=== PATIENT | male | born 1940 | race Caucasian/White ===

== ENCOUNTER → 2017-03-20 | Outpatient (CLI) | payer MEDICARE ==
--- NOTE | 2017-03-21 07:28 | XR ---
EXAMINATION TYPE: XR chest 2V DATE OF EXAM: 03/20/2017 COMPARISON: 08/28/2015 INDICATION: Cough TECHNIQUE: Frontal and lateral views of the chest are obtained. FINDINGS: The heart size is normal. The pulmonary vasculature is normal. The lungs are clear. Spondylosis within the scoliotic thoracic spine. IMPRESSION: 1. No acute pulmonary process.
== END | disposition home or self-care (01) ==
LOC: RADXRYALE 11:20
PROVIDERS: ATTEND Physician Assistant Medical
DX: R05 Cough (principal)
CPT/HCPCS: 71020

== ENCOUNTER → 2019-08-11 | Outpatient (CLI) | payer MEDICARE ==
--- NOTE | 2019-08-11 09:35 | CT ---
EXAMINATION TYPE: CT abdomen pelvis w con DATE OF EXAM: 08/11/2019 COMPARISON: None HISTORY: prostate CA CT DLP: 1099.5 mGycm CONTRAST: CT scan of the abdomen and pelvis is performed with Oral Contrast and with IV Contrast, patient injec raffy with 100 mL of Isovue 300. FINDINGS: LUNG BASES-: No visible nodule. No infiltrate. LIVER/GB: No calcified gallstones. Nodular hepatic contour may reflect underlying cirrhotic liver d isease. Correlate with hepatic function testing. No space occupying hepatic lesion. Biliary tree is o f normal caliber. PANCREAS: No inflammation. No distinct mass. SPLEEN: No splenic enlargement. No lesion seen. ADRENALS: No nodule. No thickening. KIDNEYS/BLADDER: No hydronephrosis. Small simple cyst lower pole right kidney. No nephrolithiasis. No distinct renal mass. Urinary bladder grossly unremarkable. BOWEL: Normal appendix. Normal bowel caliber. No inflammation. GENITAL ORGANS: Periprosthetic fat planes are well preserved. Seminal vesicles appear unremarkable. Central glandular calcification noted. LYMPH NODES: No greater than 1cm abdominal or pelvic lymph nodes are appreciated. AORTA: No significant abnormality. OSSEOUS STRUCTURES: Degenerative changes lumbar spine. No evidence for osseous lesion. OTHER: No significant additional abnormality is seen. IMPRESSION: 1. No evidence for metastatic disease. 2. Correlate for cirrhotic liver disease.
--- NOTE | 2019-08-11 12:17 | NM ---
EXAMINATION TYPE: NM bone scan whole body DATE OF EXAM: 08/11/2019 COMPARISON: CT abdomen pelvis of the same date HISTORY: Prostate cancer Delayed whole-body scanning was performed following the injection of 20.7 mCi Tc 99m MDP. Images acq uired 3 hours post injection. FINDINGS: Uptake in the right antecubital fossa is from injection. Uptake of the right wrist and left acromiocl avicular joint are typically degenerative. There is a mild scoliosis of the thoracolumbar spine givin g the appearance of asymmetric uptake of the thoracic left hemivertebrae and lumbar right hemivertebr ae. No suspicious uptake is seen. Symmetric sacroiliac and glenohumeral uptake is likely on a degener ative basis. Similar degenerative uptake of the knees and ankles. IMPRESSION: No findings to suspect osseous metastasis. Degenerative changes of the appendicular and a xial skeleton.
== END | disposition home or self-care (01) ==
LOC: RADCTMAIN 07:23
PROVIDERS: ATTEND Urology
DX: C61 Malignant neoplasm of prostate (principal); R93.7 Abnormal findings on diagnostic imaging of other parts of musculoskeletal system
CPT/HCPCS: 82565; 84520; 74177; 36415; 78306; A9503; Q9967 ×2

== ENCOUNTER → 2019-10-13 | Outpatient (CLI) | payer MEDICARE ==
[2019-10-13 11:25] LABS: Basophils # (A) 0.1 k/uL (0-0.2); Basophils % (A) 1 %; Eosinophils # (A) 0.1 k/uL (0-0.7); Eosinophils % (A) 1 %; HGB 15.2 gm/dL (13.0-17.5); Lymphocytes # (A) 1.6 k/uL (1.0-4.8); Lymphocytes % (A) 20 %; MCH 29.6 pg (25.0-35.0); MCHC 31.8 g/dL (31.0-37.0); MCV 93.2 fL (80.0-100.0); Mean Platelet Volume 7.5; Monocytes # (A) 0.5 k/uL (0-1.0); Monocytes % (A) 6 %; Neutrophils # (A) 5.5 k/uL (1.3-7.7); Neutrophils % (A) 70 %; Platelet Count 219 k/uL (150-450); RBC 5.15 m/uL (4.30-5.90); RDW 15.1 % (11.5-15.5); WBC 7.9 k/uL (3.8-10.6)
[2019-10-13 11:29] LABS: Albumin 4.3 g/dL (3.5-5.0); Calcium 9.9 mg/dL (8.4-10.2); Potassium 4.4 mmol/L (3.5-5.1); Total Bilirubin 0.9 mg/dL (0.2-1.3)
[2019-10-13 11:35] LABS: INR 1.3 (<1.2); Prothrombin Time 12.6 sec (9.0-12.0)
== END ==
LOC: LABPAT 10:37
PROVIDERS: ATTEND Urology
DX: Z01.812 Encounter for preprocedural laboratory examination (principal); C61 Malignant neoplasm of prostate
CPT/HCPCS: 36415; 80053; 85025; 85610

== ENCOUNTER → 2020-05-10 | Outpatient (CLI) | payer MEDICARE ==
[2020-05-10 11:04] LABS: Basophils # (A) 0.1 k/uL (0-0.2); Basophils % (A) 1 %; Eosinophils # (A) 0.1 k/uL (0-0.7); Eosinophils % (A) 2 %; HCT 44.2 % (39.0-53.0); HGB 14.1 gm/dL (13.0-17.5); Lymphocytes # (A) 2.7 k/uL (1.0-4.8); Lymphocytes % (A) 33 %; MCH 29.5 pg (25.0-35.0); MCHC 31.8 g/dL (31.0-37.0); MCV 92.7 fL (80.0-100.0); Mean Platelet Volume 7.4; Monocytes # (A) 0.5 k/uL (0-1.0); Monocytes % (A) 6 %; Neutrophils # (A) 4.4 k/uL (1.3-7.7); Neutrophils % (A) 55 %; Platelet Count 250 k/uL (150-450); RBC 4.77 m/uL (4.30-5.90); RDW 15.2 % (11.5-15.5)
[2020-05-10 11:25] LABS: Calcium 9.5 mg/dL (8.4-10.2); Potassium 4.3 mmol/L (3.5-5.1)
== END | disposition home or self-care (01) ==
LOC: LABPAT 09:51
PROVIDERS: ATTEND Urology
DX: Z01.818 Encounter for other preprocedural examination (principal); C61 Malignant neoplasm of prostate; N39.3 Stress incontinence (female) (male)
CPT/HCPCS: 36415; 80048; 85025

== ENCOUNTER 2020-05-17 07:04 | Day surgery (SDC) | payer MEDICARE ==
[2020-05-12 09:19] VITALS: BMI 32.9
--- NOTE | 2020-05-16 12:48 | P.GSHP ---
History of Present Illness H&P Date: 05/16/20 80 yo male with type 3 martha. Originally had a turp elsewhere and became incontinent I eventually saw the patient. He failed medication He had a gu sling that only partially worked He subsequently developed prostate cancer and underwent a ralp by Dr Gomez. His incontinence persists He now comes for a tandem gu sphincter The risks complications including infection, erosion failure pain among have been explained understood and accepted - Constitutional Constitutional: Denies chills, Denies fever - EENT Eyes: denies blurred vision, denies pain Ears, nose, mouth and throat: Denies headache, Denies sore throat - Cardiovascular Cardiovascular: Denies chest pain, Denies shortness of breath - Respiratory Respiratory: Denies cough, Denies 7 - Gastrointestinal Gastrointestinal: Denies abdominal pain, Denies diarrhea, Denies nausea, Denies vomiting - Genitourinary (Female) Genitourinary: Denies dysuria, Denies hematuria - Genitourinary (Male) Genitourinary: Denies dysuria, Denies hematuria - Musculoskeletal Musculoskeletal: Denies myalgias - Integumentary Integumentary: Denies pruritus, Denies rash - Neurological Neurological: Denies numbness, Denies weakness - Psychiatric Psychiatric: Denies anxiety, Denies depression - Endocrine Endocrine: Denies fatigue, Denies weight change Past Medical History Past Medical History: Atrial Fibrillation, Cancer, Heart Failure, COPD, Diabetes Mellitus, Hyperlipidemia, Prostate Disorder Additional Past Medical History / Comment(s): prostate cancer. UPPER [place] History of Any Multi-Drug Resistant Organisms: None Reported Past Surgical History: Bladder Surgery, Prostate Surgery Additional Past Surgical History / Comment(s): prostatectomy, bladder suspension, surgery for benign prostate, lt ear surgery Past Anesthesia/Blood Transfusion Reactions: No Reported Reaction Smoking Status: Never smoker - Past Family History Mother Family Medical History: Cancer Additional Family Medical History / Comment(s): ovarian cancer Sister(s) Family Medical History: Deep Vein Thrombosis (DVT) Medications and Allergies Home Medications Medication Instructions Recorded Confirmed Type Albuterol Nebulized [Ventolin 2.5 mg INHALATION TID 10/15/19 05/12/20 History Nebulized] Aspirin [Adult Low Dose Aspirin EC] 81 mg PO DAILY 10/15/19 05/12/20 History Cetirizine HCl [Zyrtec] 10 mg PO DAILY 10/15/19 05/12/20 History Citalopram Hydrobromide [CeleXA] 20 mg PO DAILY 10/15/19 05/12/20 History Losartan [Cozaar] 25 mg PO DAILY 10/15/19 05/12/20 History Montelukast Sodium [Singulair] 10 mg PO HS 10/15/19 05/12/20 History Pravastatin Sodium [Pravachol] 40 mg PO DAILY 10/15/19 05/12/20 History Rivaroxaban [Xarelto] 20 mg PO DAILY 10/15/19 05/12/20 History Triamterene-Hctz 37.5-25Mg 1 tab PO DAILY 10/15/19 05/12/20 History [Maxzide 37.5-25] glipiZIDE [Glucotrol] 10 mg PO AC-BRKFST 10/15/19 05/12/20 History Fluticasone/Umeclidin/Vilanter 1 inhalation INHALATION BID 05/12/20 05/12/20 History [Trelegy Ellipta 100-62.5-25] Allergies Allergy/AdvReac Type Severity Reaction Status Date / Time No Known Allergies Allergy Verified 05/12/20 09:05 Surgical - Exam - General well developed, well nourished, no distress - Eyes PERRL - ENT decreased hearing - Neck no masses, no bruits - Respiratory normal expansion, normal respiratory effort - Cardiovascular Rhythm: regular - Abdomen Abdomen: soft, non tender - Genitourinary normal penis with no external lesions, testicles present - Integumentary no rash, no growths - Neurologic normal coordination, normal sensation - Musculoskeletal normal gait, normal posture - Psychiatric oriented to time, oriented to person, oriented to place, speech is normal, memory intact Assessment and Plan Assessment: Impression: Type 3 matrha, prostate cancer medical comorbidities Plan: Tandem AMS gu sphincter.
[~2020-05-17 07:04] MED LIST: AMPICILLIN 1,000 MG in SODIUM CHLORIDE 0.9% 50 ML IVPB ONE; FAMOTIDINE 20 MG/2 ML VIAL IV PRN; GENTAMICIN 100 MG in SODIUM CHLORIDE 0.9% 100 ML IVPB ONE; HYDROmorphone 0.5 MG/0.5 ML SYRINGE IVP PRN; ONDANSETRON 4 MG/2 ML VIAL IVP PRN
[2020-05-17] MEDS: LACTATED RINGERS 1,000 ML IV SCH ×2 (08:00→16:07)
[2020-05-17 08:11] LABS: Glucose,Whole Blood 116 mg/dL (75-99)
[2020-05-17] MEDS ORDERED: ONDANSETRON 4 MG/2 ML VIAL ONE (08:11)
[2020-05-17] MEDS ORDERED: GLYCOPYRROLATE 0.2 MG/ML 2 ML VIAL ONE (08:30)
[2020-05-17] MEDS ORDERED: ePHEDrine SULFATE/0.9% NACL/PF 50 MG/5 ML SYRINGE IV ONE (08:30)
[2020-05-17] MEDS ORDERED: PROPOFOL 10 MG/ML 20 ML VIAL IV ONE (08:30)
[2020-05-17] MEDS ORDERED: LIDOCAINE 1% INJ 10MG/ML (20 ML MDV) ONE (08:30)
[2020-05-17] MEDS ORDERED: fentaNYL (PF) 50 MCG/ML 2 ML AMP ONE (08:30)
[2020-05-17] MEDS ORDERED: WATER FOR INJECTION, STERILE 10 ML VIAL IV ONE (08:30)
[2020-05-17] MEDS ORDERED: SUCCINYLCHOLINE CHLORIDE 100 MG/5 ML SYR IV ONE (08:30)
[2020-05-17] MEDS ORDERED: GENTAMICIN 80 MG in SODIUM CHLORIDE 0.9% 200 ML IRRIGATION ONE (09:00)
[2020-05-17] MEDS ORDERED: LACTATED RINGERS 1,000 ML IV ONE (10:05)
[2020-05-17] MEDS ORDERED: MORPHINE SULFATE 2 MG/ML SYRINGE IV PRN (10:17)
[2020-05-17] MEDS ORDERED: ONDANSETRON 4 MG/2 ML VIAL IVP PRN (10:19)
--- NOTE | 2020-05-17 10:30 | P.OP ---
Date of Procedure: 05/17/20 Preoperative Diagnosis: Type III stress urinary incontinence post radical prostatectomy and previous TURP, failed male sling Postoperative Diagnosis: Same Procedure(s) Performed: Insertion of [employer], AMS GI use sphincter series 700, tandem cuffs 4 cm Anesthesia: PRISCILLA Surgeon: Ramsey Gonzáles Estimated Blood Loss (ml): 25 Pathology: none sent Condition: stable Disposition: PACU Indications for Procedure: The patient is 80. Several years ago he had a TURP by another urologist. He unfortunately was incontinent postoperatively. He failed all conservative measures. I eventually saw the patient and placed a male sling. It control his leakage to a degree. This past year he was identified with prostate cancer. did a robotic-assisted prostatectomy. His incontinence did not improve. He comes for a tandem sphincter. His leakage is about 6 pads per day. This complications alternatives including infection bleeding pain erosion and failure have been outlined understood and accepted by the patient and his family. Description of Procedure: The patient is brought to the operating suite. He is given a successful general endotracheal anesthesia. He is prepped and draped sterilely. A 12-Kyr[place] coud-tip catheter is introduced in the bladder with clear urine return. A midline scrotal incision is made. Retraction secured with the ring retractor. The urethra is felt. I dissect down to the urethra. I tediously dissect around the urethra making sure not to injure the urethra. I do this as far proximal as possible. Once I'm completely around the urethra I created a space large enough to place a sphincter. I then introduced the sizer around the urethra. Tightly it measures 3.5 cm therefore I'll use a 4 cm sphincter cuff. I then moved distally leaving a small space so that there is no visible communication between the cuffs. I again dissect completely around the urethra. Once I created a space large enough to pass a second cuff I passed a sizer and again measured 3.5 cm tightly using therefore a 4 cm cuff. I then make a small suprapubic incision. I dissect down to the rectus fascia. It is open. Created and reservoir. I then tunnel a space into the right groin through the external ring. Pass this down into the scrotum. I then placed the balloon reservoir end of the prevesical space and fill a 26 mL of saline. I closed the rectus fascia over with 0 PDS. I then placed the pump in a separate compartment in the scrotum superficial and anterior to the right testicle. I then placed the cuffs which had been prepared around the urethra. I then connected the reservoir to the pump using a straight connect. I then connected the cuffs to the pump using a Y connector. I then cystoscoped the urethra with a flexible cystoscope and I can see the indentation of the sphincters and there is no evidence of injury to the urethra. I then depressed the pump twice out to refill. I then deactivate the sphincters and reactivated to make sure it works does. I then deactivate the sphincter using the button on the pump. The suprapubic incision was closed with 3-0 chromic and a 4-0 Monocryl. The scrotal incisions are closed with 3-0 chromic deep and superficially. I then closed the skin with 3-0 chromic. He Irrigation was antibiotic irrigation throughout the procedure. The blood loss is minimal. The patient is awakened and returned recovery room good condition. He will be observed in the hospital overnight. The sphincter remained is activated for 6 weeks.
[2020-05-17 11:12] LABS: Glucose,Whole Blood 152 mg/dL (75-99)
[2020-05-17] MEDS: SODIUM CHLORIDE 0.45% 1,000 ML IV SCH (14:44)
[2020-05-17] MEDS: ALBUTEROL NEBULIZED 2.5 MG/3 ML INHALATION SCH ×2 (15:26→19:43)
[2020-05-17] MEDS ORDERED: IPRATROPIUM-ALBUTEROL 3 ML NEB INHALATION SCH (16:00)
[2020-05-17] MEDS: CEPHALEXIN 500 MG CAP PO SCH ×2 (16:19→23:10)
[2020-05-17 17:00] LABS: Glucose,Whole Blood 242 mg/dL (75-99)
[2020-05-17] MEDS: IPRATROPIUM 0.5 MG/2.5 ML NEBU INHALATION SCH (19:43)
[2020-05-17] MEDS: SYMBICORT 80-4.5 MCG INHALER INHALATION SCH (19:43)
[2020-05-17] MEDS ORDERED: MONTELUKAST 10 MG TAB PO SCH (21:00)
[2020-05-17 21:34] LABS: Glucose,Whole Blood 297 mg/dL (75-99)
[2020-05-18] MEDS: SODIUM CHLORIDE 0.45% 1,000 ML IV SCH (05:36)
[2020-05-18 07:11] VITALS: RESP 16
[2020-05-18 07:12] LABS: Glucose,Whole Blood 174 mg/dL (75-99)
[2020-05-18] MEDS ORDERED: glipiZIDE 10 MG TAB PO SCH (07:30)
[2020-05-18] MEDS: ALBUTEROL NEBULIZED 2.5 MG/3 ML INHALATION SCH ×2 (08:25→08:43)
[2020-05-18] MEDS: IPRATROPIUM 0.5 MG/2.5 ML NEBU INHALATION SCH ×3 (08:25→11:17)
[2020-05-18] MEDS: SYMBICORT 80-4.5 MCG INHALER INHALATION SCH (08:25)
[2020-05-18] MEDS ORDERED: LORATADINE 10 MG TAB PO SCH (09:00)
[2020-05-18] MEDS ORDERED: LOSARTAN 25 MG TAB PO SCH (09:00)
[2020-05-18] MEDS ORDERED: PRAVASTATIN SODIUM 40 MG TAB PO SCH (09:00)
[2020-05-18] MEDS ORDERED: TRIAMTERENE-HCTZ 37.5-25MG 1 EACH TAB PO SCH (09:00)
[2020-05-18] MEDS ORDERED: CITALOPRAM HYDROBROMIDE 20 MG TAB PO SCH (09:00)
[2020-05-18] MEDS: CEPHALEXIN 500 MG CAP PO SCH (09:20)
[2020-05-18] MEDS: LACTATED RINGERS 1,000 ML IV SCH (11:01)
[2020-05-18 11:40] LABS: Glucose,Whole Blood 136 mg/dL (75-99)
--- NOTE | 2020-05-18 13:18 | P.DS ---
Providers Attending physician: Ramsey Gonzáles Primary care physician: [facility] Course: Mr Nathan is an 80 yo male that underwent AUS placement by Dr Gonzáles, no complication during the case. See op note dated 05/17 for surgery details. He had an uneventful post operative course. Catheter was removed on POD #1. He was discharged home on POD #1. at time of discharge he was tolerating a diet, ambulating and pain is controlled. He was discharged home with abx, he will f/u for post operative check with Dr Gonzáles in 1-2 weeks Plan - Discharge Summary Discharge Rx Participant: No New Discharge Prescriptions: New Tamsulosin [Flomax] 0.4 mg PO DAILY #90 cap HYDROcodone/APAP 5-325MG [Cyclone 5-325] 1 tab PO Q4HR PRN #10 tab PRN Reason: Pain Ibuprofen 600 mg PO Q8H PRN #30 tab PRN Reason: Pain Cephalexin [Keflex] 500 mg PO Q8HR #21 cap No Action Albuterol Nebulized [Ventolin Nebulized] 2.5 mg INHALATION TID glipiZIDE [Glucotrol] 10 mg PO AC-BRKFST Rivaroxaban [Xarelto] 20 mg PO DAILY Pravastatin Sodium [Pravachol] 40 mg PO DAILY Cetirizine HCl [Zyrtec] 10 mg PO DAILY Triamterene-Hctz 37.5-25Mg [Maxzide 37.5-25] 1 tab PO DAILY Montelukast Sodium [Singulair] 10 mg PO HS Losartan [Cozaar] 25 mg PO DAILY Citalopram Hydrobromide [CeleXA] 20 mg PO DAILY Aspirin [Adult Low Dose Aspirin EC] 81 mg PO DAILY Fluticasone/Umeclidin/Vilanter [Trelegy Ellipta 100-62.5-25] 1 inhalation INHALATION BID Discharge Medication List Albuterol Nebulized [Ventolin Nebulized] 2.5 mg INHALATION TID 10/15/19 [History] Aspirin [Adult Low Dose Aspirin EC] 81 mg PO DAILY 10/15/19 [History] Cetirizine HCl [Zyrtec] 10 mg PO DAILY 10/15/19 [History] Citalopram Hydrobromide [CeleXA] 20 mg PO DAILY 10/15/19 [History] Losartan [Cozaar] 25 mg PO DAILY 10/15/19 [History] Montelukast Sodium [Singulair] 10 mg PO HS 10/15/19 [History] Pravastatin Sodium [Pravachol] 40 mg PO DAILY 10/15/19 [History] Rivaroxaban [Xarelto] 20 mg PO DAILY 10/15/19 [History] Triamterene-Hctz 37.5-25Mg [Maxzide 37.5-25] 1 tab PO DAILY 10/15/19 [History] glipiZIDE [Glucotrol] 10 mg PO AC-BRKFST 10/15/19 [History] Fluticasone/Umeclidin/Vilanter [Trelegy Ellipta 100-62.5-25] 1 inhalation INHALATION BID 05/12/20 [History] HYDROcodone/APAP 5-325MG [Cyclone 5-325] 1 tab PO Q4HR PRN #10 tab 05/17/20 [Rx] Tamsulosin [Flomax] 0.4 mg PO DAILY #90 cap 05/17/20 [Rx] Cephalexin [Keflex] 500 mg PO Q8HR #21 cap 05/18/20 [Rx] Ibuprofen 600 mg PO Q8H PRN #30 tab 05/18/20 [Rx] Follow up Appointment(s)/Referral(s): Ramsey Gonzáles MD [STAFF PHYSICIAN] - 05/25/20 8:20 am
[2020-05-18 15:08] VITALS: BP 104/70; PULSE 56; TEMP 97.5
== END 2020-05-18 16:04 | disposition home or self-care (01) ==
LOC: OR 07:04 → 4SSUR 11:44 → OR 05-18 16:04
PROVIDERS: ATTEND Urology
DX: N39.3 Stress incontinence (female) (male) (principal); I11.0 Hypertensive heart disease with heart failure; I50.42 Chronic combined systolic (congestive) and diastolic (congestive) heart failure; I48.0 Paroxysmal atrial fibrillation; I25.5 Ischemic cardiomyopathy; E11.9 Type 2 diabetes mellitus without complications; E78.2 Mixed hyperlipidemia; J44.9 Chronic obstructive pulmonary disease, unspecified; M19.90 Unspecified osteoarthritis, unspecified site; Z85.46 Personal history of malignant neoplasm of prostate; Z79.51 Long term (current) use of inhaled steroids; Z79.84 Long term (current) use of oral hypoglycemic drugs; Z79.899 Other long term (current) drug therapy; Z79.82 Long term (current) use of aspirin; Z90.79 Acquired absence of other genital organ(s); Z79.01 Long term (current) use of anticoagulants
CPT/HCPCS: 94640 ×4; 53444; C1813; J1580 ×2; J2001; J3010; J0290; J0330; J2704

== ENCOUNTER 2020-07-15 11:16 | Inpatient (IN) | payer MEDICARE ==
[2020-07-15] MEDS ORDERED: SODIUM CHLORIDE 0.9% 500 ML 500 ML IV ONE (11:34)
--- NOTE | 2020-07-15 11:37 | ED ---
General Adult HPI - General Stated complaint: AMS Time Seen by Provider: 07/15/20 11:20 Source: patient, RN notes reviewed, old records reviewed - History of Present Illness Initial comments: This is a 80-year-old male who presents emergency Department with a past medical history significant for a artificial urethral sphincter 2 months ago. Patient just started using it last night and this morning he woke up he was alert and oriented 4 family states he all of a sudden became a little confusing is alert and oriented 2 only. Patient currently has no complaints but again he is only alert and oriented 2. Patient according to EMS did have a temperature in the ambulance. Patient denies any abdominal pain patient denies any nausea vomiting. Patient denies any diarrhea. Family is not yet here so I'm not able to get any further history. - Related Data Home Medications Medication Instructions Recorded Confirmed Albuterol Nebulized [Ventolin 2.5 mg INHALATION TID 10/15/19 05/12/20 Nebulized] Aspirin [Adult Low Dose Aspirin EC] 81 mg PO DAILY 10/15/19 05/12/20 Cetirizine HCl [Zyrtec] 10 mg PO DAILY 10/15/19 05/12/20 Citalopram Hydrobromide [CeleXA] 20 mg PO DAILY 10/15/19 05/12/20 Losartan [Cozaar] 25 mg PO DAILY 10/15/19 05/12/20 Montelukast Sodium [Singulair] 10 mg PO HS 10/15/19 05/12/20 Pravastatin Sodium [Pravachol] 40 mg PO DAILY 10/15/19 05/12/20 Rivaroxaban [Xarelto] 20 mg PO DAILY 10/15/19 05/12/20 Triamterene-Hctz 37.5-25Mg 1 tab PO DAILY 10/15/19 05/12/20 [Maxzide 37.5-25] glipiZIDE [Glucotrol] 10 mg PO AC-BRKFST 10/15/19 05/12/20 Fluticasone/Umeclidin/Vilanter 1 inhalation INHALATION BID 05/12/20 05/12/20 [Trelegy Ellipta 100-62.5-25] Previous Rx's Medication Instructions Recorded HYDROcodone/APAP 5-325MG [[place] 1 tab PO Q4HR PRN #10 tab 05/17/20 5-325] Tamsulosin [Flomax] 0.4 mg PO DAILY #90 cap 05/17/20 Cephalexin [Keflex] 500 mg PO Q8HR #21 cap 05/18/20 Ibuprofen 600 mg PO Q8H PRN #30 tab 05/18/20 Allergies Allergy/AdvReac Type Severity Reaction Status Date / Time No Known Allergies Allergy Verified 07/15/20 11:36 Review of Systems ROS Statement: Those systems with pertinent positive or pertinent negative responses have been documented in the HPI. ROS Other: All systems not noted in ROS Statement are negative. Past Medical History Additional Past Medical History / Comment(s): PROSTATE CANCER - ( NO CHEMO OR RADIATION), HARD OF HEARING Additional Past Surgical History / Comment(s): prostatectomy, bladder suspension, surgery for benign prostate, LEFT ear surgery Additional Past Alcohol Use History / Comment(s): CHEW TOBACCO General Exam - General Exam Comments Initial Comments: GENERAL: Patient is well-developed and well-nourished. Patient is nontoxic and well- hydrated and is in no acute distress. ENT: Neck is soft and supple. No significant lymphadenopathy is noted. Oropharynx is clear. Moist mucous membranes. Neck has full range of motion without eliciting any pain. EYES: The sclera were anicteric and conjunctiva were pink and moist. Extraocular movements were intact and pupils were equal round and reactive to light. Eyelids were unremarkable. PULMONARY: Unlabored respirations. Good breath sounds bilaterally. No audible rales rhonchi or wheezing was noted. CARDIOVASCULAR: Patient has no irregular heartbeat ABDOMEN: Soft and nontender with normal bowel sounds. SKIN: Skin is clear with no lesions or rashes and otherwise unremarkable. NEUROLOGIC: Patient is alert and oriented x3. Cranial nerves II through XII are grossly intact. Motor and sensory are also intact. Normal speech, volume and content. Symmetrical smile. MUSCULOSKELETAL: Normal extremities with adequate strength and full range of motion. LYMPHATICS: No significant lymphadenopathy is noted PSYCHIATRIC: Normal psychiatric evaluation. Course Vital Signs 07/15/20 07/15/20 11:34 13:32 Temperature 100.9 F H Pulse Rate 94 91 Respiratory 24 18 Rate Blood Pressure 99/73 103/66 O2 Sat by Pulse 93 L 98 Oximetry Medical Decision Making - Medical Decision Making EKG shows atrial fibrillation at 85 bpm QRS is 124 QT interval 384 QTC is 456. Patient has no ST segment however there is some T-wave inversions in inferior leads 3 and aVF Chest x-ray shows no acute abnormality. Because the patient's high white count in MENTAL status I started the patient antibiotics. I spoke with Dr. Zuniga will be coming in to place a Castro catheter into the patient. Patient's troponin was elevated so I will consult cardiology however I did not start the patient on heparin because he is already on Xarelto. - Lab Data Result diagrams: 07/15/20 11:39 07/15/20 11:39 Lab Results 07/15/20 07/15/20 07/15/20 Range/Units 11:39 11:39 11:39 WBC 19.4 H (3.8-10.6) k/uL RBC 4.69 (4.30-5.90) m/uL Hgb 14.0 (13.0-17.5) gm/dL Hct 42.3 (39.0-53.0) % MCV 90.1 (80.0-100.0) fL MCH 29.8 (25.0-35.0) pg MCHC 33.0 (31.0-37.0) g/dL RDW 15.6 H (11.5-15.5) % Plt Count 188 (150-450) k/uL MPV 8.0 Neutrophils % 93 % Lymphocytes % 4 % Monocytes % 1 % Eosinophils % 1 % Basophils % 1 % Neutrophils # 18.0 H (1.3-7.7) k/uL Lymphocytes # 0.7 L (1.0-4.8) k/uL Monocytes # 0.3 (0-1.0) k/uL Eosinophils # 0.2 (0-0.7) k/uL Basophils # 0.2 (0-0.2) k/uL Manual Slide Review Performed PT 14.3 H (9.0-12.0) sec INR 1.4 H (<1.2) APTT 27.9 (22.0-30.0) sec Sodium 132 L (137-145) mmol/L Potassium 3.8 (3.5-5.1) mmol/L Chloride 104 (98-107) mmol/L Carbon Dioxide 16 L (22-30) mmol/L Anion Gap 12 mmol/L BUN 38 H (9-20) mg/dL Creatinine 1.78 H (0.66-1.25) mg/dL Est GFR (CKD-EPI)AfAm 42 (>60 ml/min/1.73 sqM) Est GFR (CKD-EPI)NonAf 36 (>60 ml/min/1.73 sqM) Glucose 103 H (74-99) mg/dL Calcium 9.0 (8.4-10.2) mg/dL Total Bilirubin 1.3 (0.2-1.3) mg/dL AST 35 (17-59) U/L ALT 20 (4-49) U/L Alkaline Phosphatase 107 (38-126) U/L Troponin I (0.000-0.034) ng/mL Total Protein 6.2 L (6.3-8.2) g/dL Albumin 3.5 (3.5-5.0) g/dL 07/15/20 Range/Units 11:39 WBC (3.8-10.6) k/uL RBC (4.30-5.90) m/uL Hgb (13.0-17.5) gm/dL Hct (39.0-53.0) % MCV (80.0-100.0) fL MCH (25.0-35.0) pg MCHC (31.0-37.0) g/dL RDW (11.5-15.5) % Plt Count (150-450) k/uL MPV Neutrophils % % Lymphocytes % % Monocytes % % Eosinophils % % Basophils % % Neutrophils # (1.3-7.7) k/uL Lymphocytes # (1.0-4.8) k/uL Monocytes # (0-1.0) k/uL Eosinophils # (0-0.7) k/uL Basophils # (0-0.2) k/uL Manual Slide Review PT (9.0-12.0) sec INR (<1.2) APTT (22.0-30.0) sec Sodium (137-145) mmol/L Potassium (3.5-5.1) mmol/L Chloride (98-107) mmol/L Carbon Dioxide (22-30) mmol/L Anion Gap mmol/L BUN (9-20) mg/dL Creatinine (0.66-1.25) mg/dL Est GFR (CKD-EPI)AfAm (>60 ml/min/1.73 sqM) Est GFR (CKD-EPI)NonAf (>60 ml/min/1.73 sqM) Glucose (74-99) mg/dL Calcium (8.4-10.2) mg/dL Total Bilirubin (0.2-1.3) mg/dL AST (17-59) U/L ALT (4-49) U/L Alkaline Phosphatase (38-126) U/L Troponin I 0.512 H* (0.000-0.034) ng/mL Total Protein (6.3-8.2) g/dL Albumin (3.5-5.0) g/dL Critical Care Time Critical Care Time: Yes Total Critical Care Time: 35 Disposition Clinical Impression: Non-STEMI (non-ST elevated myocardial infarction), Febrile illness, acute, Altered mental status, Renal insufficiency Disposition: ADMITTED IP TO THIS HOSP Referrals: Jaspreet Skaggs MD [Primary Care Provider] - 1-2 days Time of Disposition: 14:22
[2020-07-15 11:59] LABS: Basophils # (A) 0.2 k/uL (0-0.2); Basophils % (A) 1 %; Eosinophils # (A) 0.2 k/uL (0-0.7); Eosinophils % (A) 1 %; HCT 42.3 % (39.0-53.0); Lymphocytes # (A) 0.7 k/uL (1.0-4.8); Lymphocytes % (A) 4 %; MCH 29.8 pg (25.0-35.0); MCV 90.1 fL (80.0-100.0); Monocytes # (A) 0.3 k/uL (0-1.0); Monocytes % (A) 1 %; Neutrophils % (A) 93 %; Platelet Count 188 k/uL (150-450); RBC 4.69 m/uL (4.30-5.90); RDW 15.6 % (11.5-15.5); WBC 19.4 k/uL (3.8-10.6)
[2020-07-15 12:02] LABS: Albumin 3.5 g/dL (3.5-5.0); Total Bilirubin 1.3 mg/dL (0.2-1.3); Total Protein 6.2 g/dL (6.3-8.2)
[2020-07-15 12:05] LABS: INR 1.4 (<1.2); Partial Thromboplastin Time 27.9 sec (22.0-30.0); Prothrombin Time 14.3 sec (9.0-12.0)
[2020-07-15 12:07] LABS: Potassium 3.8 mmol/L (3.5-5.1)
--- NOTE | 2020-07-15 13:30 | XR ---
EXAMINATION TYPE: XR chest 2V DATE OF EXAM: 07/15/2020 COMPARISON: Prior chest x-ray 03/20/2017 HISTORY: Altered mental status TECHNIQUE: Frontal and lateral views of the chest are obtained. FINDINGS: There is no focal air space opacity, pleural effusion, or pneumothorax seen. Central vascu larity is somewhat prominent, patient is rotated in technique is apical lordotic The cardiac silhouet te size is stable and enlarged. Prominent lung volumes may be indicative of underlying COPD. The osse ous structures are intact. IMPRESSION: No acute cardiopulmonary process. Stable cardiomegaly
[2020-07-15] MEDS ORDERED: HEPARIN SODIUM,PORCINE 5,000 UNIT/ML 1 ML VIAL IV ONE (14:08)
[2020-07-15] MEDS ORDERED: HEPARIN SOD,PORK IN 0.45% NACL 25,000 UNIT in 0.45% NACL 1 250ML.BAG IV SCH (14:15)
[2020-07-15] MEDS ORDERED: NITROGLYCERIN SL TABS 0.4 MG TAB SUBLINGUAL PRN (14:24)
[2020-07-15 14:34] LABS: Appearance,Urine Cloudy (Clear); Bacteria,Urine Many /hpf; Bilirubin,Urine Negative (Negative); Blood,Urine Large (Negative); Color,Urine Yellow; Glucose,Urine (UA) Negative (Negative); Ketones,Urine Negative (Negative); Leukocyte Esterase,Urine Large (Negative); Mucus,Urine Few /hpf; Nitrite,Urine Negative (Negative); Protein,Urine 1+ (Negative); RBC,Urine >182 /hpf (0-5); Specific Gravity,Urine 1.014 (1.001-1.035); Squamous Epithelial Cell,Urine <1 /hpf (0-4); Urobilinogen,Urine <2.0 mg/dL (<2.0); WBC,Urine 44 /hpf (0-5)
[2020-07-15 14:37] LABS: Amphetamine Screen,Urine Not Detected (NotDetected); Barbiturate Screen,Urine Not Detected (NotDetected); Benzodiazepines Screen,Urine Not Detected (NotDetected); Cocaine Screen,Urine Not Detected (NotDetected); Methadone Screen, Urine Not Detected (NotDetected); Opiate Screen,Urine Not Detected (NotDetected); Oxycodone Screen, Urine Not Detected (NotDetected); Phencyclidine Screen,Urine Not Detected (NotDetected); Tricyclic Antidepressant,Urine Not Detected (NotDetected); Urn Cannabinoid Scrn Not Detected (NotDetected)
--- NOTE | 2020-07-15 17:04 | P.HPIM ---
History of Present Illness H&P Date: 07/15/20 Patient is awake and oriented to himself only. He was unable to provide any medical history. He appeared very confused. Most of the history was obtained by chart review and nursing staff report. This is a 80-year-old male with past medical history noted below significant for recent artificial urethral sphincter who presented to the hospital with worsening confusion and altered mental status. Patient was evaluated in the ER and appeared to have evidence of sepsis secondary to underlying UTI. He saw him in the emergency room. He was awake and alert but appears confused and did not answer any of my questions appropriately. He was only oriented to himself. He denies any fevers or chills at this time. He'll be admitted to the hospital awaiting urology evaluation for Castro catheter insertion. Review of Systems Review of system: 14 points review of systems were obtained and were negative except to what were mentioned in the HPI. Past Medical History Additional Past Medical History / Comment(s): PROSTATE CANCER - ( NO CHEMO OR RADIATION), HARD OF HEARING Additional Past Surgical History / Comment(s): prostatectomy, bladder suspension, surgery for benign prostate, LEFT ear surgery Additional Past Alcohol Use History / Comment(s): CHEW TOBACCO Medications and Allergies Home Medications Medication Instructions Recorded Confirmed Type Citalopram Hydrobromide [CeleXA] 20 mg PO DAILY 10/15/19 07/15/20 History Losartan [Cozaar] 25 mg PO DAILY 10/15/19 07/15/20 History Montelukast Sodium [Singulair] 10 mg PO HS 10/15/19 07/15/20 History Pravastatin Sodium [Pravachol] 40 mg PO DAILY 10/15/19 07/15/20 History Rivaroxaban [Xarelto] 20 mg PO DAILY 10/15/19 07/15/20 History Triamterene-Hctz 37.5-25Mg 1 tab PO DAILY 10/15/19 07/15/20 History [Maxzide 37.5-25] glipiZIDE [Glucotrol] 10 mg PO AC-BRKFST 10/15/19 07/15/20 History Fluticasone/Umeclidin/Vilanter 1 puff INHALATION RT-BID 05/12/20 07/15/20 History [Trelegy Ellipta 100-62.5-25] Allergies Allergy/AdvReac Type Severity Reaction Status Date / Time No Known Allergies Allergy Verified 07/15/20 15:02 Physical Exam Vitals: Vital Signs Temp Pulse Resp BP Pulse Ox 07/15/20 16:48 98.1 F 80 24 103/51 97 07/15/20 15:46 87 22 126/66 97 07/15/20 13:32 91 18 103/66 98 07/15/20 11:34 100.9 F H 94 24 99/73 93 L Intake and Output 07/15/20 07/15/20 07/15/20 06:59 14:59 22:59 Output Total 342 Balance -342 Output: Post Void Residual 342 Other: Weight 90.718 kg General: The patient is awake and alert, in no distress Eye: there is normal conjunctiva bilaterally. Neck: The neck is supple, there is no JVD. Cardiovascular: Normal S1-S2, no S3-S4, no murmurs. Respiratory: Lungs clear to auscultation bilaterally Gastrointestinal: Abdomen is soft, nontender Musculoskeletal: There is no pedal edema. Neurological:. Speech is normal. Skin: Skin is warm and dry Results CBC & Chem 7: 07/15/20 11:39 07/15/20 11:39 Labs: Abnormal Lab Results - Last 24 Hours (Table) 07/15/20 07/15/20 07/15/20 Range/Units 11:39 11:39 11:39 WBC 19.4 H (3.8-10.6) k/uL RDW 15.6 H (11.5-15.5) % Neutrophils # 18.0 H (1.3-7.7) k/uL Lymphocytes # 0.7 L (1.0-4.8) k/uL PT 14.3 H (9.0-12.0) sec INR 1.4 H (<1.2) Sodium 132 L (137-145) mmol/L Carbon Dioxide 16 L (22-30) mmol/L BUN 38 H (9-20) mg/dL Creatinine 1.78 H (0.66-1.25) mg/dL Glucose 103 H (74-99) mg/dL Troponin I (0.000-0.034) ng/mL Total Protein 6.2 L (6.3-8.2) g/dL Urine Protein (Negative) Urine Blood (Negative) Ur Leukocyte Esterase (Negative) Urine RBC (0-5) /hpf Urine WBC (0-5) /hpf Urine WBC Clumps (None) /hpf Urine Bacteria (None) /hpf Urine Mucus (None) /hpf 07/15/20 07/15/20 07/15/20 Range/Units 11:39 14:21 14:49 WBC (3.8-10.6) k/uL RDW (11.5-15.5) % Neutrophils # (1.3-7.7) k/uL Lymphocytes # (1.0-4.8) k/uL PT (9.0-12.0) sec INR (<1.2) Sodium (137-145) mmol/L Carbon Dioxide (22-30) mmol/L BUN (9-20) mg/dL Creatinine (0.66-1.25) mg/dL Glucose (74-99) mg/dL Troponin I 0.512 H* 0.616 H* (0.000-0.034) ng/mL Total Protein (6.3-8.2) g/dL Urine Protein 1+ H (Negative) Urine Blood Large H (Negative) Ur Leukocyte Esterase Large H (Negative) Urine RBC >182 H (0-5) /hpf Urine WBC 44 H (0-5) /hpf Urine WBC Clumps Few H (None) /hpf Urine Bacteria Many H (None) /hpf Urine Mucus Few H (None) /hpf Assessment and Plan Assessment: 1. Complicated urinary tract infection with possible urinary retention secondary to nonfunctional artificial urethral sphincter, continue aggressive IV fluid hydration. Antibiotic with IV ceftriaxone awaiting urine culture. Awaiting urology evaluation for possible Castro catheter insertion. 2. Sepsis without septic shock 3. Non-ST elevation GA. Patient denies any chest pain. Twelve-lead EKG in the ER with no acute ischemic changes. Probably type II secondary to sepsis. Patient is on anticoagulation with Rivaroxaban. Continue full dose aspirin daily, Lipitor 80 mg at bedtime, and metoprolol 25 mg twice daily. Continue engine monitor. Cardiology consulted for further evaluation. Patient is chest pain-free. Would obtain echocardiogram. 4. Acute kidney injury, probably secondary to obstructive uropathy. Awaiting urology to insert Castro catheter. Continue IV fluid hydration with normal saline at 75 mL per hour. Repeat lab work in the morning. 5. History of prostate cancer status post prostatectomy with subsequent chronic urine incontinence status post artificial urethral sphincter? 6. Chronic atrial fibrillation on anticoagulation with Rivaroxaban. 7. Underlying cognitive impairment
[2020-07-15] MEDS: INSULIN ASPART (NovoLOG) 100 UNIT/ML VIAL SQ SCH ×2 (18:37→22:21)
[2020-07-15] MEDS ORDERED: RIVAROXABAN 20 MG TAB PO SCH (18:45)
[2020-07-15] MEDS: SODIUM CHLORIDE 0.9% 1,000 ML IV SCH (18:58)
--- NOTE | 2020-07-15 19:00 | P.GSCN ---
History of Present Illness Consult date: 07/15/20 Reason for Consult: UTI Requesting physician: Linda Daniels History of present illness: The patient is a 80-year-old white male who underwent a robotic-assisted laparoscopic prostatectomy in October 2019. He had previously undergone a TURP. On 05/17/2020 he underwent placement of an artificial urinary sphincter for incontinence. The sphincter was activated by Dr. Gonzáles this past week. He was admitted today with confusion. He was initially unable to void to provide a urine specimen. Bladder scan showed a bladder volume of just over 300 mL. He was subsequently able to void, and urinalysis was suggestive of infection. I am consulted to place a Castro catheter. Review of Systems ROS unobtainable: due to mental status Past Medical History Additional Past Medical History / Comment(s): PROSTATE CANCER - ( NO CHEMO OR RADIATION), HARD OF HEARING Additional Past Surgical History / Comment(s): prostatectomy, bladder suspension, surgery for benign prostate, LEFT ear surgery Additional Past Alcohol Use History / Comment(s): CHEW TOBACCO Medications and Allergies Home Medications Medication Instructions Recorded Confirmed Type Citalopram Hydrobromide [CeleXA] 20 mg PO DAILY 10/15/19 07/15/20 History Losartan [Cozaar] 25 mg PO DAILY 10/15/19 07/15/20 History Montelukast Sodium [Singulair] 10 mg PO HS 10/15/19 07/15/20 History Pravastatin Sodium [Pravachol] 40 mg PO DAILY 10/15/19 07/15/20 History Rivaroxaban [Xarelto] 20 mg PO DAILY 10/15/19 07/15/20 History Triamterene-Hctz 37.5-25Mg 1 tab PO DAILY 10/15/19 07/15/20 History [Maxzide 37.5-25] glipiZIDE [Glucotrol] 10 mg PO AC-BRKFST 10/15/19 07/15/20 History Fluticasone/Umeclidin/Vilanter 1 puff INHALATION RT-BID 05/12/20 07/15/20 Histo ry [Trelegy Ellipta 100-62.5-25] Allergies Allergy/AdvReac Type Severity Reaction Status Date / Time No Known Allergies Allergy Verified 07/15/20 15:02 Surgical - Exam Vital Signs Temp Pulse Resp BP Pulse Ox 100.9 F H 94 24 99/73 93 L 07/15/20 11:34 07/15/20 11:34 07/15/20 11:34 07/15/20 11:34 07/15/20 11:34 - General well developed, well nourished, no distress - Respiratory normal respiratory effort - Abdomen Abdomen: soft, non tender, no guarding, no rigid, no rebound - Genitourinary other (The penis is normal. The urethral meatus is normal. The scrotum and testes are normal. The artificial urinary sphincter is intact. There is no evidence of infection.) - Psychiatric oriented to time, oriented to person, oriented to place, speech is normal, memory intact Results - Labs 07/15/20 11:39 07/15/20 11:39 Abnormal Lab Results - Last 24 Hours (Table) 07/15/20 07/15/20 07/15/20 Range/Units 11:39 11:39 11:39 WBC 19.4 H (3.8-10.6) k/uL RDW 15.6 H (11.5-15.5) % Neutrophils # 18.0 H (1.3-7.7) k/uL Lymphocytes # 0.7 L (1.0-4.8) k/uL PT 14.3 H (9.0-12.0) sec INR 1.4 H (<1.2) Sodium 132 L (137-145) mmol/L Carbon Dioxide 16 L (22-30) mmol/L BUN 38 H (9-20) mg/dL Creatinine 1.78 H (0.66-1.25) mg/dL Glucose 103 H (74-99) mg/dL Troponin I (0.000-0.034) ng/mL Total Protein 6.2 L (6.3-8.2) g/dL Urine Protein (Negative) Urine Blood (Negative) Ur Leukocyte Esterase (Negative) Urine RBC (0-5) /hpf Urine WBC (0-5) /hpf Urine WBC Clumps (None) /hpf Urine Bacteria (None) /hpf Urine Mucus (None) /hpf 07/15/20 07/15/20 07/15/20 Range/Units 11:39 14:21 14:49 WBC (3.8-10.6) k/uL RDW (11.5-15.5) % Neutrophils # (1.3-7.7) k/uL Lymphocytes # (1.0-4.8) k/uL PT (9.0-12.0) sec INR (<1.2) Sodium (137-145) mmol/L Carbon Dioxide (22-30) mmol/L BUN (9-20) mg/dL Creatinine (0.66-1.25) mg/dL Glucose (74-99) mg/dL Troponin I 0.512 H* 0.616 H* (0.000-0.034) ng/mL Total Protein (6.3-8.2) g/dL Urine Protein 1+ H (Negative) Urine Blood Large H (Negative) Ur Leukocyte Esterase Large H (Negative) Urine RBC >182 H (0-5) /hpf Urine WBC 44 H (0-5) /hpf Urine WBC Clumps Few H (None) /hpf Urine Bacteria Many H (None) /hpf Urine Mucus Few H (None) /hpf Diabetes panel 07/15/20 Range/Units 11:39 Sodium 132 L (137-145) mmol/L Potassium 3.8 (3.5-5.1) mmol/L Chloride 104 (98-107) mmol/L Carbon Dioxide 16 L (22-30) mmol/L BUN 38 H (9-20) mg/dL Creatinine 1.78 H (0.66-1.25) mg/dL Glucose 103 H (74-99) mg/dL Calcium 9.0 (8.4-10.2) mg/dL AST 35 (17-59) U/L ALT 20 (4-49) U/L Alkaline Phosphatase 107 (38-126) U/L Total Protein 6.2 L (6.3-8.2) g/dL Albumin 3.5 (3.5-5.0) g/dL Calcium panel 07/15/20 Range/Units 11:39 Calcium 9.0 (8.4-10.2) mg/dL Albumin 3.5 (3.5-5.0) g/dL Pituitary panel 07/15/20 Range/Units 11:39 Sodium 132 L (137-145) mmol/L Potassium 3.8 (3.5-5.1) mmol/L Chloride 104 (98-107) mmol/L Carbon Dioxide 16 L (22-30) mmol/L BUN 38 H (9-20) mg/dL Creatinine 1.78 H (0.66-1.25) mg/dL Glucose 103 H (74-99) mg/dL Calcium 9.0 (8.4-10.2) mg/dL Adrenal panel 07/15/20 Range/Units 11:39 Sodium 132 L (137-145) mmol/L Potassium 3.8 (3.5-5.1) mmol/L Chloride 104 (98-107) mmol/L Carbon Dioxide 16 L (22-30) mmol/L BUN 38 H (9-20) mg/dL Creatinine 1.78 H (0.66-1.25) mg/dL Glucose 103 H (74-99) mg/dL Calcium 9.0 (8.4-10.2) mg/dL Total Bilirubin 1.3 (0.2-1.3) mg/dL AST 35 (17-59) U/L ALT 20 (4-49) U/L Alkaline Phosphatase 107 (38-126) U/L Total Protein 6.2 L (6.3-8.2) g/dL Albumin 3.5 (3.5-5.0) g/dL Assessment and Plan (1) Male stress incontinence Current Visit: No Status: Acute Code(s): N39.3 - STRESS INCONTINENCE (FEMALE) (MALE) SNOMED Code(s): 793489959 Plan: I deactivated the artificial urinary sphincter. Some incontinence was noted. Under sterile conditions, I then placed a 12-[place] Castro catheter. The return of urine was grossly clear. The catheter may be removed when no longer medically needed. We will subsequently reactivate the sphincter.
[2020-07-15] MEDS: NITROGLYCERIN OINT 1 INCH/GM PACKET TOPICAL SCH (19:02)
[2020-07-15] MEDS ORDERED: IPRATROPIUM 0.5 MG/2.5 ML NEBU INHALATION SCH (20:00)
[2020-07-15] MEDS ORDERED: MONTELUKAST 10 MG TAB PO SCH (21:00)
[2020-07-15] MEDS: SYMBICORT 80-4.5 MCG INHALER INHALATION SCH (22:11)
[2020-07-15] MEDS: ATORVASTATIN 80 MG TAB PO SCH (22:13)
[2020-07-15] MEDS: METOPROLOL TARTRATE 25 MG TAB PO SCH (22:13)
[2020-07-15 22:17] LABS: Glucose,Whole Blood 93 mg/dL (75-99)
[2020-07-16] MEDS: SYMBICORT 80-4.5 MCG INHALER INHALATION SCH ×2 (00:44→08:56)
[2020-07-16] MEDS: TIOTROPIUM 18 MCG/PUFF INHALER INHALATION SCH ×2 (00:44→08:56)
--- NOTE | 2020-07-16 01:25 | XR ---
EXAM: XR Chest, 1 View CLINICAL HISTORY: ITS.REASON XR Reason: increase oxygen requirement ? fluid overload TECHNIQUE: Frontal view of the chest. COMPARISON: CXR 07/15/20 FINDINGS: Lungs: No airspace consolidation. Pleural space: No pleural effusion or pneumothorax. Heart: Stable cardiomegaly. No significant pulmonary vascular congestion. Mediastinum: Unremarkable. Bones/joints: Unremarkable. IMPRESSION: Stable cardiomegaly. No radiographic evidence of fluid overload.
[2020-07-16] MEDS: NITROGLYCERIN OINT 1 INCH/GM PACKET TOPICAL SCH ×2 (01:28→08:23)
[2020-07-16 03:35] LABS: Glucose,Whole Blood 66 mg/dL (75-99)
[2020-07-16] MEDS ORDERED: HEPARIN SODIUM,PORCINE 5,000 UNIT/ML 1 ML VIAL IV PRN (03:46)
[2020-07-16] MEDS ORDERED: HEPARIN SODIUM,PORCINE 10,000 UNIT/ML 1 ML VIAL IV ONE (03:46)
--- NOTE | 2020-07-16 03:52 | P.EN ---
patient had a cardiopulmonary arrest. PEA , CPR done following ACLS protocol by the ER team. ROSC achieved. patient intubated. patient went into [facility] , received 100j shock successfully per RN , patient was becoming hypoxic and getting confused prior to the event CXR , showed no pulmonary edema , no pleural effusion , no infilterates, positive for cardiomegally plan check Mg, BMP check ABG start bicarb drip check CXR post intubation patient has NSTEMI, will discontinue xarelto and start heparin gtt, another possiblity is acute PE given the clear CXR with hypoxemia . can not do CTA due to obstructive uropathy earlier with DARCY to avoid worsening renal function check EKG post resuscitation ICU admission consult ICU follow up cardiology recommendation
[2020-07-16] MEDS ORDERED: MIDAZOLAM 1 MG/ML 5 ML VIAL IV STA ×3 (03:57→06:23)
[2020-07-16] MEDS ORDERED: HEPARIN SOD,PORK IN 0.45% NACL 25,000 UNIT in 0.45% NACL 1 250ML.BAG IV SCH (04:00)
[2020-07-16 05:14] LABS: Prothrombin Time 19.6 sec (9.0-12.0)
--- NOTE | 2020-07-16 05:14 | XR ---
EXAM: XR Chest, 1 View CLINICAL HISTORY: ITS.REASON XR Reason: ET tube position TECHNIQUE: Frontal view of the chest. COMPARISON: 07/16/2020 Impression: ET tube terminates 3.3 cm from the mariann. NG tube terminates at the GE junction. Advance 10 cm. Right central line terminates in the cavoatrial junction.
[2020-07-16 05:23] LABS: HCT 39.3 % (39.0-53.0); HGB 12.6 gm/dL (13.0-17.5); Hypochromasia Slight; MCH 30.6 pg (25.0-35.0); MCHC 32.1 g/dL (31.0-37.0); Mean Platelet Volume 8.9; Platelet Count 149 k/uL (150-450); RBC 4.13 m/uL (4.30-5.90); RDW 15.7 % (11.5-15.5)
[2020-07-16 05:34] LABS: MCV 95.1 fL (80.0-100.0)
[2020-07-16] MEDS: NOREPINEPHRINE 4 MG in SODIUM CHLORIDE 0.9% 250 ML IV SCH ×5 (05:40→20:00)
[2020-07-16 05:48] LABS: Calcium 7.7 mg/dL (8.4-10.2); Magnesium 1.9 mg/dL (1.6-2.3); Potassium 4.9 mmol/L (3.5-5.1)
[2020-07-16] MEDS: DEXTROSE 5% IN WATER 1,000 ML with SODIUM BICARB (1 MEQ/ML) 150 ML IV SCH ×2 (05:48→23:01)
[2020-07-16 06:51] LABS: Anisocytosis (M) Present; Band Neutrophils % 29 %; Lymphocytes # (M) 5.72 k/uL (1.0-4.8); Metamyelocytes # (M) 2.08 k/uL (0); Metamyelocytes % 4 %; Monocytes # (M) 1.56 k/uL (0-1.0); Myelocytes # (M) 0.52 k/uL (0); Myelocytes % 1 %; Neutrophils % (M) 54 %; Nucleated Red Blood Cells 0 /100 WBC (0-0); Polychromasia Present; Total Cells Counted 200
[2020-07-16 06:52] LABS: Toxic Vacuolation Present
[2020-07-16 06:55] LABS: Poikilocytosis (M) Present
[2020-07-16 07:30] LABS: Glucose,Whole Blood 103 mg/dL (75-99)
[2020-07-16 07:38] LABS: ABG Base Excess -15.1 mmol/L; ABG HCO3 11 mmol/L (21-25); ABG PCO2 24 mmHg (35-45); ABG PO2 304 mmHg (83-108); ABG TCO2 12 mmol/L (19-24); Allen Test Performed? Yes
[2020-07-16] MEDS ORDERED: MIDAZOLAM HCL 50 MG in SODIUM CHLORIDE 0.9% 40 ML IV SCH (08:15)
[2020-07-16 08:16] LABS: HCT 40.8 % (39.0-53.0); HGB 12.9 gm/dL (13.0-17.5); Hypochromasia Slight; MCH 30.1 pg (25.0-35.0); MCHC 31.7 g/dL (31.0-37.0); MCV 94.9 fL (80.0-100.0); Mean Platelet Volume 10.1; Platelet Count 138 k/uL (150-450); RDW 15.6 % (11.5-15.5)
[2020-07-16 08:22] LABS: WBC 53.8 k/uL (3.8-10.6)
[2020-07-16] MEDS: INSULIN ASPART (NovoLOG) 100 UNIT/ML VIAL SQ SCH ×4 (08:22→23:00)
[2020-07-16] MEDS: SODIUM CHLORIDE 0.9% 1,000 ML IV SCH ×2 (08:22→23:02)
[2020-07-16] MEDS ORDERED: fentaNYL (PF) 1,000 MCG in SODIUM CHLORIDE 0.9% 80 ML IV SCH (08:30)
[2020-07-16] MEDS ORDERED: PRAVASTATIN SODIUM 40 MG TAB PO SCH (09:00)
[2020-07-16] MEDS ORDERED: LOSARTAN 25 MG TAB PO SCH (09:00)
[2020-07-16] MEDS ORDERED: ASPIRIN 325 MG TAB PO SCH (09:00)
[2020-07-16] MEDS ORDERED: SODIUM CHLORIDE 0.9% 1,000 ML IV ONE (09:00)
[2020-07-16] MEDS ORDERED: SODIUM CHLORIDE 0.9% 500 ML 500 ML IV ONE (09:00)
[2020-07-16] MEDS: METOPROLOL TARTRATE 25 MG TAB PO SCH (09:18)
[2020-07-16 09:41] LABS: Band Neutrophils % 20 %; Lymphocytes # (M) 2.15 k/uL (1.0-4.8); Metamyelocytes # (M) 2.69 k/uL (0); Metamyelocytes % 5 %; Monocytes # (M) 0.54 k/uL (0-1.0); Myelocytes # (M) 0.54 k/uL (0); Myelocytes % 1 %; Neutrophils % (M) 71 %; Nucleated Red Blood Cells 0 /100 WBC (0-0); Total Cells Counted 200; Toxic Granulation Present; Toxic Vacuolation Present
[2020-07-16 09:42] LABS: Anisocytosis (M) Present; Poikilocytosis (M) Present
[2020-07-16] MEDS: CITALOPRAM HYDROBROMIDE 20 MG TAB PO SCH (10:23)
[2020-07-16] MEDS: PANTOPRAZOLE 40 MG/10 ML VIAL IVP SCH (10:24)
--- NOTE | 2020-07-16 11:41 | CONS ---
CONSULTATION PULMONARY/CRITICAL CARE CONSULTATION: DATE OF SERVICE: July 16, 2020. REASON FOR CONSULTATION: ICU management, respiratory failure. HISTORY OF PRESENT ILLNESS: This is a 80-year-old gentleman who apparently presented to the emergency department on July 15 at 11:16 am, initially with mental status changes. The patient apparently has an artificial urethral sphincter and apparently started using at night before admission. He apparently became very confused and disoriented. They are concerned about the possibility of a urinary tract infection/urosepsis. He was admitted to the hospital. He was brought in by EMS. He did have a temperature in the ambulance. He apparently denied any abdominal pain, nausea, vomiting or diarrhea. He also denied any respiratory issues apparently. He was found subsequent to that in the emergency room unresponsive. CPR was started. He developed ventricular tachycardia, and he was either defibrillated or cardioverted. The patient was then transferred over to the trauma 1 room. He was intubated about 330 in the morning according to the nurse. Currently, he is on the ventilator. Volume assist-control mode rate of 18, tidal volume 500, FiO2 100%, PEEP of 5. Gases that we note are 304 for PO2, 24 for pH, pCO2, and a pH 7.30. These gases are consistent with a metabolic acidosis. Currently, he is on Levophed at 18 mcg/minute, heparin drip, which we are going to discontinue because of coffee-ground coming from his NG tube, 3 amps of sodium bicarb and D5W at 75 mL an hour and saline at 75 mL an hour. The patient did get about a 500 mL fluid bolus in the emergency department. We are going to have the nurse stop the Versed pushes and the Versed drip as well as the fentanyl, start the patient on propofol, give him 1-1/2 L of saline, and hopefully get him transferred up to the ICU. He will need an art line and a central line. CURRENT HOME MEDICATIONS: Include albuterol and updrafts, aspirin, Zyrtec, Celexa, Cozaar, Singulair, Pravachol, Xarelto, Maxzide, Glycoside, Trelegy, [place] Flomax, Keflex, and Ibuprofen. ALLERGIES: Denied. MEDICAL HISTORY: Prostate cancer with previous prostatectomy, bladder suspension surgery, and left ear surgery. Other medical issues include hypertension, hyperlipidemia, atrial fibrillation, and COPD. SOCIAL HISTORY: Apparently positive for previous tobacco use. He does chew tobacco. Not much else is known about the social history and/or family history and/or occupational history. REVIEW OF SYSTEMS: Cannot be obtained. He initially came in for mental status changes. PHYSICAL EXAMINATION: VITAL SIGNS: Current vital signs are reviewed. Temperature 97.6, heart rate 60, respiratory rate 20, blood pressure is only 79/32 with a mean of 47 on 18 mics of Levophed. Saturations are 100%. GENERAL: Appears quite agitated and restless. We are going to start him on propofol for sedation. HEENT: Examination is grossly unremarkable. There is an orally placed endotracheal tube and NG tube. NECK: Supple. Full range of motion. CARDIOVASCULAR: Examination reveals regular rhythm and rate. The patient is in atrial fibrillation. S1, S2 normal. LUNGS: Reveal diffuse coarse rhonchi. ABDOMEN: Soft. No bowel sounds. EXTREMITIES are intact. No edema. SKIN: Without rash. NEUROLOGIC: Examination cannot be adequately assessed at this time. LABORATORY DATA: Reviewed. White count 53.8, hemoglobin 12.9, hematocrit 40.8, platelet count 138,000. PT 19.6, INR 2, PTT 38. Gases show pO2 of 304, pCO2 of 24, and pH is 7.3. Again, this is consistent with hyperoxia and metabolic acidosis. The acidosis is an anion gap acidosis. Sodium is 130, potassium 4.9, chloride 101, CO2 of 13. Anion gap is 16. BUN and creatinine were 53 and 2.94 compared to 38 and 1.78 yesterday. Troponin 0.741. Urine is showing 1+ protein, large amount of blood, leukocyte esterase is large positive, RBCs greater than 182. WBCs, 44. WBC clumps few, and many bacteria. Drug screen was all negative. Hu virus testing was negative. Current microbiology is pending. Chest x-ray shows endotracheal tube 3.3 cm above the mariann. No obvious infiltrates are noted. Current medications are reviewed. He is currently on aspirin, Lipitor, Symbicort, which will be discontinued, ceftriaxone, Celexa, IV heparin, which was discontinued, insulin, Levophed, Protonix, propofol, bicarbonate drip, and saline IV. ASSESSMENT: 1. Cardiopulmonary arrest, requiring intubation and mechanical ventilation, with ventricular tachycardia requiring cardioversion/defibrillation. 2. Profound hypotension, likely secondary to sepsis, likely from a urinary source. 3. History of chronic atrial fibrillation. 4. Rule out non ST-segment elevation myocardial infarction. 5. History of hypertension. 6. History of hyperlipidemia. 7. History of chronic obstructive pulmonary disease. 8. Diabetes mellitus. 9. Acute kidney injury. 10.Anion gap metabolic acidosis. 11.Probable upper gastrointestinal bleed. 12.History of prostate cancer, status post prostatectomy. 13.History of artificial urethral sphincter, with possible malfunction. PLAN: The patient will be transferred up to the ICU. He will need an art line. The patient will need a central line. We put him on propofol for sedation. We will repeat arterial blood gases. We will make sure that he is on updrafts with DuoNeb q.4 around the clock. Additional recommendations and suggestions are forthcoming. Prognosis is guarded. He is currently on Rocephin as an antibiotic. We will continue to follow. Covid testing was negative. MMODL / IJN: [id number] /
[2020-07-16] MEDS: IPRATROPIUM-ALBUTEROL 3 ML NEB INHALATION SCH ×3 (11:45→20:46)
--- NOTE | 2020-07-16 11:58 | P.CRDCN ---
History of Present Illness Consult date: 07/16/20 History of present illness: This is a very pleasant 80-year-old gentleman with permanent atrial fibrillation on oral anticoagulation with Xarelto as well as multiple comorbid conditions was brought by ambulance to the emergency department with a change in mental status as well as elevated temperature. Few days ago the patient underwent an artificial urethral sphincter procedure. He was in his usual state of health until yesterday when he woke up with a change in mental status and confusion. Also the family noticed that his temperature was elevated. Subsequently the patient was brought to the emergency department. In the ER and during his hospital stay in the emergency department he developed an episode of cardiopulmonary arrest was V. fib required CPR and shock. Subsequently the patient was brought back after he was intubated. He was hypotensive requiring norepinephrine. A Castro catheter was placed and revealed evidence of what it seems to be cloudy urine with possible blood in it. We consulted to see the patient because her troponin was checked and came in to be slightly abnormal. The EKG showed atrial fibrillation with diffuse nonspecific ST and T wave abnormalities but no clear-cut evidence of ischemia noted. Currently the patient is intubated and he is on mechanical ventilation. He is hemodynamically unstable and requiring norepinephrine. No indication that he is at home had any chest pain or chest discomfort. WBC is 15,000. The patient likely does have sepsis/septic shock. Pulmonary and critical care team is on the case at this point. He initially was started on heparin but subsequently the heparin was stopped because of bleeding from the NG tube. Past Medical History Additional Past Medical History / Comment(s): PROSTATE CANCER - ( NO CHEMO OR RADIATION), HARD OF HEARING Additional Past Surgical History / Comment(s): prostatectomy, bladder suspension, surgery for benign prostate, LEFT ear surgery Additional Past Alcohol Use History / Comment(s): CHEW TOBACCO Medications and Allergies Home Medications Medication Instructions Recorded Confirmed Type Citalopram Hydrobromide [CeleXA] 20 mg PO DAILY 10/15/19 07/15/20 History Losartan [Cozaar] 25 mg PO DAILY 10/15/19 07/15/20 History Montelukast Sodium [Singulair] 10 mg PO HS 10/15/19 07/15/20 History Pravastatin Sodium [Pravachol] 40 mg PO DAILY 10/15/19 07/15/20 History Rivaroxaban [Xarelto] 20 mg PO DAILY 10/15/19 07/15/20 History Triamterene-Hctz 37.5-25Mg 1 tab PO DAILY 10/15/19 07/15/20 History [Maxzide 37.5-25] glipiZIDE [Glucotrol] 10 mg PO AC-BRKFST 10/15/19 07/15/20 History Fluticasone/Umeclidin/Vilanter 1 puff INHALATION RT-BID 05/12/20 07/15/20 History [Trelegy Ellipta 100-62.5-25] Allergies Allergy/AdvReac Type Severity Reaction Status Date / Time No Known Allergies Allergy Verified 07/15/20 15:02 Physical Exam Vitals: Vital Signs Temp Pulse Resp BP Pulse Ox 07/16/20 11:46 73 18 136/64 98 07/16/20 11:37 73 18 112/66 98 07/16/20 11:20 73 18 132/37 98 07/16/20 11:10 73 18 119/46 98 07/16/20 11:00 73 18 111/56 97 07/16/20 10:50 73 18 105/52 98 07/16/20 10:40 73 18 104/57 98 07/16/20 10:30 71 18 123/57 98 07/16/20 10:20 68 18 114/42 97 07/16/20 10:18 73 18 99/57 98 07/16/20 10:00 71 19 91/27 98 07/16/20 09:40 68 19 92/21 98 07/16/20 09:30 68 19 90/56 98 07/16/20 09:26 71 20 83/63 97 07/16/20 09:19 65 20 92/60 07/16/20 09:10 62 19 83/57 98 07/16/20 09:00 67 21 90/69 98 07/16/20 08:55 65 19 90/69 98 07/16/20 08:45 68 19 94/59 98 07/16/20 08:30 64 19 81/59 97 07/16/20 08:15 70 19 96/58 100 07/16/20 08:00 64 21 95/67 98 07/16/20 07:50 68 20 90/66 98 07/16/20 07:40 62 20 87/58 98 07/16/20 07:30 60 20 79/32 100 07/16/20 07:10 60 18 82/41 98 07/16/20 07:00 59 L 18 76/56 99 07/16/20 06:50 58 L 18 88/51 98 07/16/20 06:35 97.6 F 56 L 18 83/58 60 L 07/16/20 06:20 59 L 18 85/54 98 07/16/20 06:10 58 L 18 71/50 98 07/16/20 06:02 59 L 18 78/57 97 07/16/20 05:50 58 L 18 76/58 99 07/16/20 05:30 58 L 18 67/48 98 07/16/20 05:15 62 18 67/42 98 07/16/20 05:00 60 18 69/43 98 07/16/20 04:45 64 18 72/41 99 07/16/20 04:34 59 L 18 70/40 97 07/16/20 04:27 68 18 70/38 97 07/16/20 04:20 61 18 70/42 97 07/16/20 03:55 67 18 78/45 97 07/16/20 03:45 77 18 102/63 97 07/16/20 03:00 62 20 07/16/20 02:00 64 20 07/16/20 01:40 60 20 97 07/16/20 01:09 61 20 105/54 99 07/15/20 22:21 70 18 93/51 99 07/15/20 19:02 79 18 108/81 96 07/15/20 16:48 98.1 F 80 24 103/51 97 07/15/20 15:46 87 22 126/66 97 07/15/20 13:32 91 18 103/66 98 Intake and Output 07/15/20 07/16/20 07/16/20 22:59 06:59 14:59 Intake Total 29.433 478.554 Balance 29.433 478.554 Intake: Intake, IV Titration 29.433 478.554 Amount Heparin Sod,Pork in 0.45% 21.772 NaCl 25,000 unit In 0.45 % NaCl 1 250ml.bag @ 18 UNITS/KG/HR 16.329 mls/hr IV .[id number] MYLES Rx#: [id number] Norepinephrine 4 mg In 7.661 445.080 Sodium Chloride 0.9% 250 ml @ 0.05 MCG/KG/MIN 17. 282 mls/hr IV .[id number] MYLES Rx#:[id number] propofoL 1,000 mg In 33.474 Empty Bag 1 bag @ 30 MCG/ KG/MIN 16.329 mls/hr IV . Q6H8M MYLES Rx#:[id number] - Constitutional General appearance: no acute distress - Respiratory Respiratory: bilateral: CTA - Cardiovascular Rhythm: irregularly irregular Heart sounds: normal: S1, S2 Results 07/16/20 06:55 07/16/20 04:30 Cardiac Enzymes 07/15/20 07/15/20 07/15/20 Range/Units 11:39 11:39 14:49 AST 35 (17-59) U/L Troponin I 0.512 H* 0.616 H* (0.000-0.034) ng/mL 07/15/20 Range/Units 17:45 AST (17-59) U/L Troponin I 0.741 H* (0.000-0.034) ng/mL Coagulation 07/15/20 07/16/20 Range/Units 11:39 04:30 PT 14.3 H 19.6 H (9.0-12.0) sec APTT 27.9 38.0 H (22.0-30.0) sec Lipids 07/16/20 Range/Units 04:30 Triglycerides 123 (<150) mg/dL Cholesterol 81 (<200) mg/dL HDL Cholesterol 45 (40-60) mg/dL CBC 07/15/20 07/16/20 07/16/20 Range/Units 11:39 04:30 06:55 WBC 19.4 H 52.0 H* 53.8 H* (3.8-10.6) k/uL RBC 4.69 4.13 L 4.30 (4.30-5.90) m/uL Hgb 14.0 12.6 L 12.9 L (13.0-17.5) gm/dL Hct 42.3 39.3 40.8 (39.0-53.0) % Plt Count 188 149 L 138 L (150-450) k/uL Comprehensive Metabolic Panel 07/15/20 07/16/20 Range/Units 11:39 04:30 Sodium 132 L 130 L (137-145) mmol/L Potassium 3.8 4.9 (3.5-5.1) mmol/L Chloride 104 101 (98-107) mmol/L Carbon Dioxide 16 L 13 L (22-30) mmol/L BUN 38 H 53 H (9-20) mg/dL Creatinine 1.78 H 2.94 H (0.66-1.25) mg/dL Glucose 103 H 63 L (74-99) mg/dL Calcium 9.0 7.7 L (8.4-10.2) mg/dL AST 35 (17-59) U/L ALT 20 (4-49) U/L Alkaline Phosphatase 107 (38-126) U/L Total Protein 6.2 L (6.3-8.2) g/dL Albumin 3.5 (3.5-5.0) g/dL Current Medications Generic Name Dose Route Start Last Admin Trade Name Freq PRN Reason Stop Dose Admin Albuterol/Ipratropium 3 ml 07/16/20 12:00 07/16/20 11:45 Ipratropium-Albuterol 3 Ml Neb INHALATION 3 ml RT-Q4H MYLES Administration Aspirin 325 mg 07/16/20 09:00 07/16/20 10:22 Aspirin 325 Mg Tab PO Not Given DAILY MYLES Atorvastatin Calcium 80 mg 07/15/20 21:00 07/15/20 22:13 Atorvastatin 80 Mg Tab PO 80 mg HS MYLES Administration Citalopram Hydrobromide 20 mg 07/16/20 09:00 07/16/20 10:23 Citalopram Hydrobromide 20 Mg Tab PO Not Given DAILY MYLES Ceftriaxone Sodium 2 gm/ 50 mls @ 100 mls/hr 07/16/20 09:00 07/16/20 10:31 Sodium Chloride IVPB 100 mls/hr Q24HR MYLES Administration Sodium Chloride 1,000 mls @ 75 mls/hr 07/15/20 17:00 07/16/20 08:22 Saline 0.9% IV Not Given .[id number] MYLES Sodium Bicarbonate 150 ml/ 1,150 mls @ 75 mls/hr 07/16/20 04:00 07/16/20 05:48 Dextrose/Water IV 75 mls/hr .[id number] MYLES Administration Norepinephrine Bitartrate 4 mg 254 mls @ 17.282 mls/hr 07/16/20 05:30 07/16/20 11:30 / Sodium Chloride IV 0.6 mcg/kg/min .[id number] MYLES 207.381 mls/hr Titration Protocol 0.05 MCG/KG/MIN Propofol 1,000 mg/ IV Solution 100 mls @ 16.329 mls/hr 07/16/20 09:00 07/16/20 11:30 IV 25 mcg/kg/min .Q6H8M MYLES 13.608 mls/hr Titration Protocol 30 MCG/KG/MIN Insulin Aspart 0 unit 07/15/20 17:30 07/16/20 08:22 Insulin Aspart (Novolog) 100 Unit/Ml Vial SQ Not Given ACHS MYLES Protocol Pantoprazole Sodium 40 mg 07/16/20 09:00 07/16/20 10:24 Pantoprazole 40 Mg/10 Ml Vial IVP 40 mg DAILY MYLES Administration Intake and Output 07/15/20 07/16/20 07/16/20 22:59 06:59 14:59 Intake Total 29.433 478.554 Balance 29.433 478.554 Intake: Intake, IV Titration 29.433 478.554 Amount Heparin Sod,Pork in 0.45% 21.772 NaCl 25,000 unit In 0.45 % NaCl 1 250ml.bag @ 18 UNITS/KG/HR 16.329 mls/hr IV .[id number] MYLES Rx#: [id number] Norepinephrine 4 mg In 7.661 445.080 Sodium Chloride 0.9% 250 ml @ 0.05 MCG/KG/MIN 17. 282 mls/hr IV .[id number] MYLES Rx#:[id number] propofoL 1,000 mg In 33.474 Empty Bag 1 bag @ 30 MCG/ KG/MIN 16.329 mls/hr IV . Q6H8M MYLES Rx#:[id number] 07/16/20 06:55 07/16/20 04:30 Assessment and Plan Assessment: Assessment #1 acute respiratory failure #2 cardiopulmonary arrest #3 septic shock #4 acute renal failure #5 mildly abnormal troponin #6 Paul elevation Plan #1 continue blood pressure support using norepinephrine #2 consider medical treatment for the abnormal troponin #3 hold any antiplatelet or anticoagulation at this point to rule out any intracranial bleeding #4 obtain an echocardiogram was Doppler #5 hold any beta sulaiman in view of the low blood pressure #6 follow up with the patient
--- NOTE | 2020-07-16 12:20 | P.PN ---
Subjective Progress Note Date: 07/16/20 Patient is sedated and intubated this morning. He had a cardiac arrest last night requiring CPR with successful return of spontaneous circulation. He is still hypotensive requiring vasopressors. Objective - Vital Signs Vital signs: Vital Signs Temp 97.6 F 07/16/20 06:35 Pulse 74 07/16/20 12:08 Resp 18 07/16/20 11:46 BP 136/64 07/16/20 11:46 Pulse Ox 98 07/16/20 11:46 Intake & Output 07/15/20 07/16/20 07/16/20 18:59 06:59 18:59 Intake Total 29.433 478.554 Output Total 342 Balance -342 29.433 478.554 Weight 90.718 kg Intake: Intake, IV Titration 29.433 478.554 Amount Heparin Sod,Pork in 0.45% 21.772 NaCl 25,000 unit In 0.45 % NaCl 1 250ml.bag @ 18 UNITS/KG/HR 16.329 mls/hr IV .[id number] MYLES Rx#: [id number] Norepinephrine 4 mg In 7.661 445.080 Sodium Chloride 0.9% 250 ml @ 0.05 MCG/KG/MIN 17. 282 mls/hr IV .[id number] MYLES Rx#:[id number] propofoL 1,000 mg In 33.474 Empty Bag 1 bag @ 30 MCG/ KG/MIN 16.329 mls/hr IV . Q6H8M MYLES Rx#:[id number] Output: Post Void Residual 342 - Exam General: The patient is sedated and intubated Eye: there is normal conjunctiva bilaterally. Neck: The neck is supple, there is no JVD. Cardiovascular: Normal S1-S2, no S3-S4, no murmurs. Respiratory: Lungs mechanical ventilator sounds Gastrointestinal: Abdomen is soft, nontender Musculoskeletal: There is no pedal edema. Skin: Skin is warm and dry - Labs CBC & Chem 7: 07/16/20 06:55 07/16/20 04:30 Labs: Abnormal Lab Results - Last 24 Hours (Table) 07/15/20 07/15/20 07/15/20 Range/Units 11:39 11:39 14:21 WBC (3.8-10.6) k/uL RBC (4.30-5.90) m/uL Hgb (13.0-17.5) gm/dL RDW (11.5-15.5) % Plt Count (150-450) k/uL Neutrophils # 18.0 H (1.3-7.7) k/uL Neutrophils # (Manual) (1.3-7.7) k/uL Lymphocytes # 0.7 L (1.0-4.8) k/uL Lymphocytes # (Manual) (1.0-4.8) k/uL Monocytes # (Manual) (0-1.0) k/uL Metamyelocytes # (Man) (0) k/uL Myelocytes # (Manual) (0) k/uL PT (9.0-12.0) sec INR (<1.2) APTT (22.0-30.0) sec ABG pH (7.35-7.45) ABG pCO2 (35-45) mmHg ABG pO2 (83-108) mmHg ABG HCO3 (21-25) mmol/L ABG Total CO2 (19-24) mmol/L ABG O2 Saturation (94-97) % Sodium (137-145) mmol/L Carbon Dioxide (22-30) mmol/L BUN (9-20) mg/dL Creatinine (0.66-1.25) mg/dL Glucose (74-99) mg/dL POC Glucose (mg/dL) (75-99) mg/dL Calcium (8.4-10.2) mg/dL Troponin I 0.512 H* (0.000-0.034) ng/mL Urine Protein 1+ H (Negative) Urine Blood Large H (Negative) Ur Leukocyte Esterase Large H (Negative) Urine RBC >182 H (0-5) /hpf Urine WBC 44 H (0-5) /hpf Urine WBC Clumps Few H (None) /hpf Urine Bacteria Many H (None) /hpf Urine Mucus Few H (None) /hpf 07/15/20 07/15/20 07/16/20 Range/Units 14:49 17:45 03:33 WBC (3.8-10.6) k/uL RBC (4.30-5.90) m/uL Hgb (13.0-17.5) gm/dL RDW (11.5-15.5) % Plt Count (150-450) k/uL Neutrophils # (1.3-7.7) k/uL Neutrophils # (Manual) (1.3-7.7) k/uL Lymphocytes # (1.0-4.8) k/uL Lymphocytes # (Manual) (1.0-4.8) k/uL Monocytes # (Manual) (0-1.0) k/uL Metamyelocytes # (Man) (0) k/uL Myelocytes # (Manual) (0) k/uL PT (9.0-12.0) sec INR (<1.2) APTT (22.0-30.0) sec ABG pH (7.35-7.45) ABG pCO2 (35-45) mmHg ABG pO2 (83-108) mmHg ABG HCO3 (21-25) mmol/L ABG Total CO2 (19-24) mmol/L ABG O2 Saturation (94-97) % Sodium (137-145) mmol/L Carbon Dioxide (22-30) mmol/L BUN (9-20) mg/dL Creatinine (0.66-1.25) mg/dL Glucose (74-99) mg/dL POC Glucose (mg/dL) 66 L (75-99) mg/dL Calcium (8.4-10.2) mg/dL Troponin I 0.616 H* 0.741 H* (0.000-0.034) ng/mL Urine Protein (Negative) Urine Blood (Negative) Ur Leukocyte Esterase (Negative) Urine RBC (0-5) /hpf Urine WBC (0-5) /hpf Urine WBC Clumps (None) /hpf Urine Bacteria (None) /hpf Urine Mucus (None) /hpf 07/16/20 07/16/20 07/16/20 Range/Units 04:30 04:30 04:30 WBC 52.0 H* (3.8-10.6) k/uL RBC 4.13 L (4.30-5.90) m/uL Hgb 12.6 L (13.0-17.5) gm/dL RDW 15.7 H (11.5-15.5) % Plt Count 149 L (150-450) k/uL Neutrophils # (1.3-7.7) k/uL Neutrophils # (Manual) 43.10 H (1.3-7.7) k/uL Lymphocytes # (1.0-4.8) k/uL Lymphocytes # (Manual) 5.72 H (1.0-4.8) k/uL Monocytes # (Manual) 1.56 H (0-1.0) k/uL Metamyelocytes # (Man) 2.08 H (0) k/uL Myelocytes # (Manual) 0.52 H (0) k/uL PT 19.6 H (9.0-12.0) sec INR 2.0 H (<1.2) APTT 38.0 H (22.0-30.0) sec ABG pH (7.35-7.45) ABG pCO2 (35-45) mmHg ABG pO2 (83-108) mmHg ABG HCO3 (21-25) mmol/L ABG Total CO2 (19-24) mmol/L ABG O2 Saturation (94-97) % Sodium 130 L (137-145) mmol/L Carbon Dioxide 13 L (22-30) mmol/L BUN 53 H (9-20) mg/dL Creatinine 2.94 H (0.66-1.25) mg/dL Glucose 63 L (74-99) mg/dL POC Glucose (mg/dL) (75-99) mg/dL Calcium 7.7 L (8.4-10.2) mg/dL Troponin I (0.000-0.034) ng/mL Urine Protein (Negative) Urine Blood (Negative) Ur Leukocyte Esterase (Negative) Urine RBC (0-5) /hpf Urine WBC (0-5) /hpf Urine WBC Clumps (None) /hpf Urine Bacteria (None) /hpf Urine Mucus (None) /hpf 07/16/20 07/16/20 07/16/20 Range/Units 06:55 07:29 07:33 WBC 53.8 H* (3.8-10.6) k/uL RBC (4.30-5.90) m/uL Hgb 12.9 L (13.0-17.5) gm/dL RDW 15.6 H (11.5-15.5) % Plt Count 138 L (150-450) k/uL Neutrophils # (1.3-7.7) k/uL Neutrophils # (Manual) 48.90 H (1.3-7.7) k/uL Lymphocytes # (1.0-4.8) k/uL Lymphocytes # (Manual) (1.0-4.8) k/uL Monocytes # (Manual) (0-1.0) k/uL Metamyelocytes # (Man) 2.69 H (0) k/uL Myelocytes # (Manual) 0.54 H (0) k/uL PT (9.0-12.0) sec INR (<1.2) APTT (22.0-30.0) sec ABG pH 7.30 L (7.35-7.45) ABG pCO2 24 L (35-45) mmHg ABG pO2 304 H (83-108) mmHg ABG HCO3 11 L (21-25) mmol/L ABG Total CO2 12 L (19-24) mmol/L ABG O2 Saturation 100.0 H (94-97) % Sodium (137-145) mmol/L Carbon Dioxide (22-30) mmol/L BUN (9-20) mg/dL Creatinine (0.66-1.25) mg/dL Glucose (74-99) mg/dL POC Glucose (mg/dL) 103 H (75-99) mg/dL Calcium (8.4-10.2) mg/dL Troponin I (0.000-0.034) ng/mL Urine Protein (Negative) Urine Blood (Negative) Ur Leukocyte Esterase (Negative) Urine RBC (0-5) /hpf Urine WBC (0-5) /hpf Urine WBC Clumps (None) /hpf Urine Bacteria (None) /hpf Urine Mucus (None) /hpf Microbiology - Last 24 Hours (Table) 07/15/20 13:32 Blood Culture Gram Stain - Preliminary Blood 07/15/20 13:32 Blood Culture - Final Blood 07/15/20 14:21 Urine Culture - Preliminary Urine,Voided Assessment and Plan Assessment: This is a 80-year-old male with complex past medical history noted below who presented to the emergency room with worsening confusion brought in by EMS. Patient was evaluated in the ER and was found to have evidence of sepsis secondary to underlying UTI with obstructive uropathy secondary to malfunctioning artificial urethral sphincter. Patient was started on IV fluids and antibiotic. On the first night of his admission patient went into PEA cardiac arrest requiring CPR with successful return of spontaneous rhythm but subsequently patient went into V. tach requiring shock. Patient was intubated and currently admitted to the hospital for further management of his medical problems noted below. 1. PEA arrest requiring CPR with successful return of spontaneous circulation. 2. Acute hypoxic respiratory failure secondary to cardiac arrest. Currently sedated and intubated. Sent management per ICU. 3. Severe sepsis with septic shock, versus aggressive IV fluid hydration. Requiring vasopressors. Managed by ICU team 4. Complicated urinary tract infection with possible urinary retention secondary to nonfunctional artificial urethral sphincter. Antibiotic with IV ceftriaxone awaiting urine culture. 5. Non-ST elevation ME. Patient denied any chest pain on presentation. Twelve-lead EKG in the ER with no acute ischemic changes. Probably type II secondary to sepsis. He was seen and evaluated by cardiology. Patient was started on IV heparin drip and aspirin that was subsequently discontinued secondary to possible upper GI bleed. Awaiting echocardiogram. 6. Acute kidney injury, probably secondary to obstructive uropathy. Continue IV fluid hydration with normal saline at 75 mL per hour. Repeat lab work in the morning. 6. History of prostate cancer status post prostatectomy with subsequent chronic urine incontinence status post artificial urethral sphincter. This was deactivated on presentation by urology. Castro catheter in place. May discontinue Castro catheter when medically appropriate. 7. Chronic atrial fibrillation on anticoagulation with Rivaroxaban. 8. Underlying cognitive impairment 9. GI prophylaxis with IV Protonix Today, I reviewed his medication list and lab work results. Bloody emesis return in MG suction is probably secondary to traumatic NG tube insertion. We will continue to monitor closely. IV heparin and aspirin discontinued at this time. Repeat CBC in the morning. I started the patient on sedation with IV Versed and IV fentanyl drip but his sedation was transitioned to IV propofol by ICU team. Consider avoiding IV propofol given hypotension. Awaiting ICU bed availability. Prognosis is guarded. Repeat lab work in the morning. No family members at bedside to be updated about his condition.
[2020-07-16 12:45] LABS: Glucose,Whole Blood 134 mg/dL (75-99)
[2020-07-16 16:54] LABS: HCT 39.7 % (39.0-53.0); HGB 13.2 gm/dL (13.0-17.5); MCH 30.7 pg (25.0-35.0); MCHC 33.2 g/dL (31.0-37.0); MCV 92.6 fL (80.0-100.0); Mean Platelet Volume 9.3; Platelet Count 113 k/uL (150-450); RBC 4.29 m/uL (4.30-5.90); RDW 15.8 % (11.5-15.5); WBC 46.2 k/uL (3.8-10.6)
[2020-07-16 18:29] LABS: Glucose,Whole Blood 182 mg/dL (75-99)
[2020-07-16] MEDS: CISATRACURIUM 2 MG/ML 5 ML VIAL IV ONE ×2 (18:38→18:40)
[2020-07-16] MEDS ORDERED: CISATRACURIUM 2 MG/ML 5 ML VIAL IV ONE (18:39)
[2020-07-16 19:15] LABS: ABG Base Excess -13.7 mmol/L; ABG HCO3 13 mmol/L (21-25); ABG Oxygen Saturation 98.3 % (94-97); ABG PCO2 30 mmHg (35-45); ABG PH 7.26 (7.35-7.45); ABG PO2 115 mmHg (83-108); ABG TCO2 14 mmol/L (19-24); Allen Test Performed? Yes
[2020-07-16] MEDS ORDERED: NOREPINEPHRIN 4 MG-0.9% NS PMX 4 MG/250 ML ML IV ONE (19:53)
[2020-07-16 20:06] LABS: Glucose,Whole Blood 155 mg/dL (75-99)
[2020-07-16 21:01] LABS: Glucose,Whole Blood 182 mg/dL (75-99)
[2020-07-16] MEDS: ATORVASTATIN 80 MG TAB PO SCH (21:02)
[2020-07-16 22:58] LABS: Glucose,Whole Blood 165 mg/dL (75-99)
[2020-07-16] MEDS: CHLORHEXIDINE GLUCONATE 15 ML CUP MUCOUS MEM SCH (23:00)
[2020-07-17 01:45] LABS: Glucose,Whole Blood 190 mg/dL (75-99)
[2020-07-17] MEDS: NOREPINEPHRINE 32 MG in SODIUM CHLORIDE 0.9% 218 ML IV SCH ×2 (01:56→16:39)
[2020-07-17] MEDS: INSULIN ASPART (NovoLOG) 100 UNIT/ML VIAL SQ SCH ×6 (01:57→20:58)
[2020-07-17] MEDS: IPRATROPIUM-ALBUTEROL 3 ML NEB INHALATION SCH ×6 (02:09→21:05)
[2020-07-17 04:39] LABS: Glucose,Whole Blood 236 mg/dL (75-99)
[2020-07-17 05:05] LABS: HCT 39.3 % (39.0-53.0); HGB 12.9 gm/dL (13.0-17.5); MCHC 32.7 g/dL (31.0-37.0); MCV 91.6 fL (80.0-100.0); Mean Platelet Volume 9.2; Platelet Count 111 k/uL (150-450); RBC 4.29 m/uL (4.30-5.90); RDW 15.7 % (11.5-15.5); WBC 35.7 k/uL (3.8-10.6)
--- NOTE | 2020-07-17 05:08 | XR ---
EXAM: XR Chest, 1 View CLINICAL HISTORY: ITS.REASON XR Reason: Re-intubation TECHNIQUE: Frontal view of the chest. COMPARISON: 07/16/2020 FINDINGS: Lungs: Subsegmental left basilar opacities and questionable subtle opacities in the right mid to lower lung zone appear more prominent from the previous exam. Pulmonary vasculature prominence remains. Pleural space: Unremarkable. No pneumothorax. No large pleural effusion. Heart: Stable cardiomegaly. Mediastinum: Stable. No tracheal deviation. Bones/joints: Unremarkable. Tubes, lines and devices: The endotracheal tube is identified with the tip approximately 3.7 cm from the mariann. A nasogastric tube has been advanced with the tip now located in the proximal body the stomach. A right internal jugular approach central venous catheter is stable in appearance with the tip in the superior vena cava near the cavoatrial junction. IMPRESSION: 1. The endotracheal tube is identified with the tip approximately 3.7 cm from the mariann. 2. Subsegmental left basilar opacities and questionable subtle opacities in the right mid to lower lung zone appear more prominent from the previous exam. Differential consideration includes subsegmental atelectasis or advancing pneumonia. Pulmonary vasculature prominence remains
[2020-07-17 05:32] LABS: Potassium 3.8 mmol/L (3.5-5.1)
[2020-07-17 05:47] LABS: Band Neutrophils % 27 %; Lymphocytes # (M) 2.14 k/uL (1.0-4.8); Metamyelocytes # (M) 1.43 k/uL (0); Metamyelocytes % 4 %; Monocytes # (M) 1.79 k/uL (0-1.0); Neutrophils % (M) 58 %; Nucleated Red Blood Cells 0 /100 WBC (0-0); Total Cells Counted 200
[2020-07-17 05:48] LABS: Anisocytosis (M) Present; Poikilocytosis (M) Present
[2020-07-17 05:49] LABS: Crenated RBC Present
[2020-07-17 05:52] LABS: ABG Base Excess -8.1 mmol/L; ABG HCO3 17 mmol/L (21-25); ABG PCO2 30 mmHg (35-45); ABG PH 7.37 (7.35-7.45); ABG PO2 286 mmHg (83-108); ABG TCO2 18 mmol/L (19-24); Allen Test Performed? Yes
[2020-07-17 06:02] LABS: Calcium 6.3 mg/dL (8.4-10.2)
[2020-07-17 06:21] LABS: Glucose,Whole Blood 110 mg/dL (75-99)
[2020-07-17 06:21] LABS: Glucose,Whole Blood 76 mg/dL (75-99)
--- NOTE | 2020-07-17 07:02 | PCN ---
PROCEDURE NOTE PULMONARY/CRITICAL CARE PROCEDURE NOTE: Right radial art line. PREOP DIAGNOSIS: Frequent blood draws. POSTOP DIAGNOSIS: Frequent blood draws. OPERATORS: Dr. Reyes and Dr. Pollock. There was informed consent and universal timeout. ARTERIAL LINE PLACEMENT: Indications: Hemodynamic monitoring. A time-out was completed verifying correct patient, procedure, site, positioning, and implant(s) or special equipment if applicable. Lee's test was performed to ensure adequate perfusion. The patient's right wrist was prepped and draped in sterile fashion. 1% Lidocaine was used to anesthetize the area. An 18G Arrow arterial line was introduced into the right radial artery. The catheter was threaded over the guide wire and the needle was removed with appropriate pulsatile blood return. Blood loss was minimal. The catheter was then sutured in place to the skin and a sterile dressing applied. Perfusion to the extremity distal to the point of catheter insertion was checked and found to be adequate. The patient tolerated the procedure well and there were no immediate complications. There was good blood return and waveform. The catheter was sutured in place. A sterile dressing was applied by the nurse. There was no immediate complication. MMODL / IJN: [id number] /
--- NOTE | 2020-07-17 09:32 | PN ---
PROGRESS NOTE Mr. Escobar is a 80-year-old male who presented with change in mental status. He has a history according to the record of paroxysmal atrial fibrillation, history of recent placement of fistula urethral sphincter who presented with febrile episode, change in mental status. In the emergency room, he had an episode of ventricular fibrillation, requiring CPR and cardioversion. He is intubated, sedated. He had a Castro catheter placed. He has been on norepinephrine and continues to be. There is no evidence of recurrent ventricular ectopic activity. He has a prior history of hypertension, hyperlipidemia, diabetes, and the atrial fibrillation. His medications at this time are Lipitor 80 mg daily, , norepinephrine. PHYSICAL EXAMINATION: Blood pressure running in the 100 to 140s with a heart rate in the 80s, intubated and sedated. LUNGS: Clear anteriorly. HEART: S1-S2 with systolic murmur at the base. No diastolic murmur, no rub. ABDOMEN: Soft, positive bowel sounds, no organomegaly. EXTREMITIES: No significant edema. LAB DATA: Revealed BUN and creatinine of 61 and 2.14, which is in the 80s. Creatinine is improved compared to yesterday. His urine output is good. His pH 7.37 with pCO2 of 86. His hemoglobin 12.9, white blood cell of 35.7. His chest x-ray shows left basilar opacity questioning atelectasis or pneumonia. IMPRESSION: 1. Cardiopulmonary arrest requiring ventilation. 2. Hypertension, probably urosepsis. 3. History of atrial fibrillation. 4. Elevation of troponin related to myocardial injury, not related to any ischemic event related to the sepsis. 5. History of hypertension. 6. Hyperlipidemia. 7. Diabetes mellitus. 8. Acute kidney injury. RECOMMENDATION: From the cardiac standpoint, will continue supportive care. The patient will undergo an echocardiogram with Doppler. Will review the results. His respiratory situation will be managed by the Pulmonary Service and depending on his progress, further recommendation will be made. Thank you for this consult. Will follow with you. MMODL / IJN: [id number] / MTDD
[2020-07-17] MEDS: PANTOPRAZOLE 40 MG/10 ML VIAL IVP SCH ×2 (10:20→10:30)
[2020-07-17] MEDS: CITALOPRAM HYDROBROMIDE 20 MG TAB PO SCH (10:30)
[2020-07-17] MEDS: DEXTROSE 5% IN WATER 1,000 ML with SODIUM BICARB (1 MEQ/ML) 150 ML IV SCH ×2 (10:31→23:00)
[2020-07-17 10:38] LABS: Glucose,Whole Blood 239 mg/dL (75-99)
--- NOTE | 2020-07-17 10:45 | ECHOF ---
Referral Reason:CArdiac arrest MEASUREMENTS -------- HEIGHT: 165.1 cm WEIGHT: 90.7 kg BP: 121/56 RVIDd: 3.8 cm (< 3.3) IVSd: 1.3 cm (0.6 - 1.1) LVIDd: 4.4 cm (3.9 - 5.3) LVPWd: 1.1 cm (0.6 - 1.1) IVSs: 1.6 cm LVIDs: 3.2 cm LVPWs: 1.6 cm Ao Diam: 3.0 cm (2.0 - 3.7) AV Cusp: 2.0 cm (1.5 - 2.6) LA Diam: 3.8 cm (2.7 - 3.8) MV EXCURSION: 25.683 mm (> 18.000) MV EF SLOPE: 156 mm/s (70 - 150) EPSS: 0.5 cm MV E Jamar: 1.07 m/s MV DecT: 168 ms MV A Jamar: 0.39 m/s MV E/A Ratio: 2.73 AV maxP.77 mmHg AV meanP.63 mmHg AR PHT: 314 ms RAP: 20.00 mmHg RVSP: 76.15 mmHg FINDINGS -------- This was a technically difficult study with suboptimal views. The left ventricular size is normal. There is mild concentric left ventricular hypertrophy. Overa ll left ventricular systolic function is mildly impaired with, an EF between 45 - 50 %. Basal infer oseptal LV wall motion is hypokinetic. Basal anteroseptal LV wall motion is hypokinetic. Mid an teroseptal LV wall motion is hypokinetic. Septal Hypokinesis The right ventricle is mild to moderately enlarged. The left atrial size is normal. RA appears enlarged. Lumason used Aortic valve is trileaflet and is mildly thickened. There is mild aortic regurgitation. The mitral valve leaflets are mildly thickened. Mild mitral regurgitation is present. There is mi ld mitral valve prolapse. The tricuspid valve appears structurally normal. Severe tricuspid regurgitation present. There is severe pulmonary hypertension. The right ventricular systolic pressure, as measured by Doppler, is 76.15mmHg. There is no pulmonic regurgitation present. The aortic root size is normal. The inferior vena cava is dilated with no significant inspiratory collapse which is consistent estima raffy right atrial pressure of >20 mmHg. There is a trivial pericardial effusion present. CONCLUSIONS -------- 1. The left ventricular size is normal. 2. There is mild concentric left ventricular hypertrophy. 3. Overall left ventricular systolic function is mildly impaired with, an EF between 45 - 50 %. 4. Basal inferoseptal LV wall motion is hypokinetic. 5. Basal anteroseptal LV wall motion is hypokinetic. 6. Mid anteroseptal LV wall motion is hypokinetic. 7. Septal Hypokinesis 8. The right ventricle is mild to moderately enlarged. 9. Aortic valve is trileaflet and is mildly thickened. 10. There is mild aortic regurgitation. 11. Mild mitral regurgitation is present. 12. There is mild mitral valve prolapse. 13. Severe tricuspid regurgitation present. 14. There is severe pulmonary hypertension. 15. The right ventricular systolic pressure, as measured by Doppler, is 76.15mmHg. 16. The inferior vena cava is dilated with no significant inspiratory collapse which is consistent es timated right atrial pressure of >20 mmHg. 17. There is a trivial pericardial effusion present. PEDIATRIC SPEECH LANGUAGE PATHOLOGIST: Ling Slaughter RDCS
[2020-07-17] MEDS: CHLORHEXIDINE GLUCONATE 15 ML CUP MUCOUS MEM SCH ×2 (10:51→20:58)
[2020-07-17] MEDS ORDERED: SODIUM CHLORIDE 0.9% 500 ML 500 ML IV ONE (11:36)
[2020-07-17 12:09] LABS: Glucose,Whole Blood 235 mg/dL (75-99)
--- NOTE | 2020-07-17 12:38 | P.PN ---
Subjective Progress Note Date: 07/17/20 Patient is sedated and intubated. He remained hypotensive requiring vasopressors with norepinephrine at 0.3 mcg/h. Minimal bloody output through the OG tube less than 50 mL. Currently on minimal vent settings. Making good urine output. Objective - Vital Signs Vital signs: Vital Signs Temp 99.5 F 07/17/20 00:00 Pulse 66 07/17/20 11:34 Resp 18 07/17/20 07:00 BP 118/43 07/16/20 19:00 Pulse Ox 94 L 07/17/20 07:00 Intake & Output 07/16/20 07/17/20 07/17/20 18:59 06:59 18:59 Intake Total 2602.369 9461.317 2169.049 Output Total 900 828 830 Balance 0927.337 7936.114 497.049 Weight 90.718 kg Intake: IV 1800 1250 Dextrose 5% in Water 1, 900 575 000 ml @ 125 mls/hr IV . Q9H12M MYLES with Sodium Bicarb (1 Meq/ml) 150 ml Rx#:[id number] Sodium Chloride 0.9% 1, 900 75 000 ml @ 75 mls/hr IV . [id number] [facility] Rx#:[id number] Sodium Chloride 0.9% 500 500 ml 500 ml @ 999 mls/hr IV .Q31M ONE Rx#:[id number] cefTRIAXone 2 gm In 100 Sodium Chloride 0.9% 50 ml @ 100 mls/hr IVPB Q24HR [facility] Rx#:[id number] Intake, IV Titration 2602.369 140.114 77.049 Amount Norepinephrine 4 mg In 1008.339 Sodium Chloride 0.9% 250 ml @ 0.05 MCG/KG/MIN 17. 282 mls/hr IV .[id number] [facility] Rx#:[id number] Sodium Chloride 0.9% 1, 1000 000 ml @ 999 mls/hr IV . Q1H1M ONE Rx#:[id number] Sodium Chloride 0.9% 500 500 ml 500 ml @ 999 mls/hr IV .Q31M ONE Rx#:[id number] propofoL 1,000 mg In 94.030 140.114 77.049 Empty Bag 1 bag @ 30 MCG/ KG/MIN 16.329 mls/hr IV . Q6H8M [facility] Rx#:[id number] Output: Gastric Drainage 500 100 Urine 400 728 830 Stool 0 Other: Voiding Method Indwelling Catheter Indwelling Catheter ABP, PAP, CO, CI - Last Documented Arterial Blood Pressure 121/56 - Exam General: The patient is sedated and intubated Eye: there is normal conjunctiva bilaterally. Neck: The neck is supple, there is no JVD. Cardiovascular: Normal S1-S2, no S3-S4, no murmurs. Respiratory: Lungs mechanical ventilator sounds Gastrointestinal: Abdomen is soft, nontender Musculoskeletal: There is no pedal edema. Skin: Skin is warm and dry - Labs CBC & Chem 7: 07/17/20 04:20 07/17/20 04:20 Labs: Abnormal Lab Results - Last 24 Hours (Table) 07/15/20 07/16/20 07/16/20 Range/Units 11:43 12:25 12:44 WBC (3.8-10.6) k/uL RBC (4.30-5.90) m/uL Hgb (13.0-17.5) gm/dL RDW (11.5-15.5) % Plt Count (150-450) k/uL Neutrophils # (Manual) (1.3-7.7) k/uL Monocytes # (Manual) (0-1.0) k/uL Metamyelocytes # (Man) (0) k/uL ABG pH (7.35-7.45) ABG pCO2 (35-45) mmHg ABG pO2 (83-108) mmHg ABG HCO3 (21-25) mmol/L ABG Total CO2 (19-24) mmol/L ABG O2 Saturation (94-97) % Sodium (137-145) mmol/L Carbon Dioxide (22-30) mmol/L BUN (9-20) mg/dL Creatinine (0.66-1.25) mg/dL Glucose (74-99) mg/dL POC Glucose (mg/dL) 110 H 134 H (75-99) mg/dL Plasma Lactic Acid Indra 3.4 H* (0.7-2.0) mmol/L Calcium (8.4-10.2) mg/dL Ionized Calcium Kaylee (4.5-5.3) mg/dL 07/16/20 07/16/20 07/16/20 Range/Units 15:00 18:06 18:27 WBC (3.8-10.6) k/uL RBC (4.30-5.90) m/uL Hgb (13.0-17.5) gm/dL RDW (11.5-15.5) % Plt Count (150-450) k/uL Neutrophils # (Manual) (1.3-7.7) k/uL Monocytes # (Manual) (0-1.0) k/uL Metamyelocytes # (Man) (0) k/uL ABG pH (7.35-7.45) ABG pCO2 (35-45) mmHg ABG pO2 (83-108) mmHg ABG HCO3 (21-25) mmol/L ABG Total CO2 (19-24) mmol/L ABG O2 Saturation (94-97) % Sodium (137-145) mmol/L Carbon Dioxide (22-30) mmol/L BUN (9-20) mg/dL Creatinine (0.66-1.25) mg/dL Glucose (74-99) mg/dL POC Glucose (mg/dL) 182 H (75-99) mg/dL Plasma Lactic Acid Indra 3.5 H* 3.4 H* (0.7-2.0) mmol/L Calcium (8.4-10.2) mg/dL Ionized Calcium Kaylee (4.5-5.3) mg/dL 07/16/20 07/16/20 07/16/20 Range/Units 19:10 20:05 20:59 WBC (3.8-10.6) k/uL RBC (4.30-5.90) m/uL Hgb (13.0-17.5) gm/dL RDW (11.5-15.5) % Plt Count (150-450) k/uL Neutrophils # (Manual) (1.3-7.7) k/uL Monocytes # (Manual) (0-1.0) k/uL Metamyelocytes # (Man) (0) k/uL ABG pH 7.26 L (7.35-7.45) ABG pCO2 30 L (35-45) mmHg ABG pO2 115 H (83-108) mmHg ABG HCO3 13 L (21-25) mmol/L ABG Total CO2 14 L (19-24) mmol/L ABG O2 Saturation 98.3 H (94-97) % Sodium (137-145) mmol/L Carbon Dioxide (22-30) mmol/L BUN (9-20) mg/dL Creatinine (0.66-1.25) mg/dL Glucose (74-99) mg/dL POC Glucose (mg/dL) 155 H 182 H (75-99) mg/dL Plasma Lactic Acid Indra (0.7-2.0) mmol/L Calcium (8.4-10.2) mg/dL Ionized Calcium Kaylee (4.5-5.3) mg/dL 07/16/20 07/16/20 07/16/20 Range/Units 21:13 22:57 Unknown WBC 46.2 H (3.8-10.6) k/uL RBC 4.29 L (4.30-5.90) m/uL Hgb (13.0-17.5) gm/dL RDW 15.8 H (11.5-15.5) % Plt Count 113 L (150-450) k/uL Neutrophils # (Manual) (1.3-7.7) k/uL Monocytes # (Manual) (0-1.0) k/uL Metamyelocytes # (Man) (0) k/uL ABG pH (7.35-7.45) ABG pCO2 (35-45) mmHg ABG pO2 (83-108) mmHg ABG HCO3 (21-25) mmol/L ABG Total CO2 (19-24) mmol/L ABG O2 Saturation (94-97) % Sodium (137-145) mmol/L Carbon Dioxide (22-30) mmol/L BUN (9-20) mg/dL Creatinine (0.66-1.25) mg/dL Glucose (74-99) mg/dL POC Glucose (mg/dL) 165 H (75-99) mg/dL Plasma Lactic Acid Indra 3.0 H* (0.7-2.0) mmol/L Calcium (8.4-10.2) mg/dL Ionized Calcium Kaylee (4.5-5.3) mg/dL 07/17/20 07/17/20 07/17/20 Range/Units 01:40 01:42 04:20 WBC 35.7 H (3.8-10.6) k/uL RBC 4.29 L (4.30-5.90) m/uL Hgb 12.9 L (13.0-17.5) gm/dL RDW 15.7 H (11.5-15.5) % Plt Count 111 L (150-450) k/uL Neutrophils # (Manual) 30.30 H (1.3-7.7) k/uL Monocytes # (Manual) 1.79 H (0-1.0) k/uL Metamyelocytes # (Man) 1.43 H (0) k/uL ABG pH (7.35-7.45) ABG pCO2 (35-45) mmHg ABG pO2 (83-108) mmHg ABG HCO3 (21-25) mmol/L ABG Total CO2 (19-24) mmol/L ABG O2 Saturation (94-97) % Sodium (137-145) mmol/L Carbon Dioxide (22-30) mmol/L BUN (9-20) mg/dL Creatinine (0.66-1.25) mg/dL Glucose (74-99) mg/dL POC Glucose (mg/dL) 190 H (75-99) mg/dL Plasma Lactic Acid Indra 3.0 H* (0.7-2.0) mmol/L Calcium (8.4-10.2) mg/dL Ionized Calcium Kaylee (4.5-5.3) mg/dL 07/17/20 07/17/20 07/17/20 Range/Units 04:20 04:37 05:47 WBC (3.8-10.6) k/uL RBC (4.30-5.90) m/uL Hgb (13.0-17.5) gm/dL RDW (11.5-15.5) % Plt Count (150-450) k/uL Neutrophils # (Manual) (1.3-7.7) k/uL Monocytes # (Manual) (0-1.0) k/uL Metamyelocytes # (Man) (0) k/uL ABG pH (7.35-7.45) ABG pCO2 30 L (35-45) mmHg ABG pO2 286 H (83-108) mmHg ABG HCO3 17 L (21-25) mmol/L ABG Total CO2 18 L (19-24) mmol/L ABG O2 Saturation 100.0 H (94-97) % Sodium 130 L (137-145) mmol/L Carbon Dioxide 16 L (22-30) mmol/L BUN 61 H (9-20) mg/dL Creatinine 2.14 H (0.66-1.25) mg/dL Glucose 212 H (74-99) mg/dL POC Glucose (mg/dL) 236 H (75-99) mg/dL Plasma Lactic Acid Indra (0.7-2.0) mmol/L Calcium 6.3 L* (8.4-10.2) mg/dL Ionized Calcium Kaylee (4.5-5.3) mg/dL 07/17/20 07/17/20 07/17/20 Range/Units 06:25 10:37 12:08 WBC (3.8-10.6) k/uL RBC (4.30-5.90) m/uL Hgb (13.0-17.5) gm/dL RDW (11.5-15.5) % Plt Count (150-450) k/uL Neutrophils # (Manual) (1.3-7.7) k/uL Monocytes # (Manual) (0-1.0) k/uL Metamyelocytes # (Man) (0) k/uL ABG pH (7.35-7.45) ABG pCO2 (35-45) mmHg ABG pO2 (83-108) mmHg ABG HCO3 (21-25) mmol/L ABG Total CO2 (19-24) mmol/L ABG O2 Saturation (94-97) % Sodium (137-145) mmol/L Carbon Dioxide (22-30) mmol/L BUN (9-20) mg/dL Creatinine (0.66-1.25) mg/dL Glucose (74-99) mg/dL POC Glucose (mg/dL) 239 H 235 H (75-99) mg/dL Plasma Lactic Acid Indra (0.7-2.0) mmol/L Calcium (8.4-10.2) mg/dL Ionized Calcium Kaylee 3.6 L (4.5-5.3) mg/dL Microbiology - Last 24 Hours (Table) 07/15/20 13:32 Blood Culture Gram Stain - Final Blood Blood Culture - Final Escherichia coli 07/16/20 09:44 Gram Stain - Preliminary Sputum Sputum Culture - Preliminary 07/15/20 14:21 Urine Culture - Preliminary Urine,Voided Gram Neg Bacilli Assessment and Plan Assessment: This is a 80-year-old male with complex past medical history noted below who presented to the emergency room with worsening confusion brought in by EMS. Patient was evaluated in the ER and was found to have evidence of sepsis secondary to underlying UTI with obstructive uropathy secondary to malfunctioning artificial urethral sphincter. Patient was started on IV fluids and antibiotic. On the first night of his admission patient went into PEA cardiac arrest requiring CPR with successful return of spontaneous rhythm but subsequently patient went into V. tach requiring shock. Patient was intubated and currently admitted to the hospital for further management of his medical problems noted below. 1. PEA arrest requiring CPR with successful return of spontaneous circulation. 2. Acute hypoxic respiratory failure secondary to cardiac arrest. Currently sedated and intubated. Sent management per ICU. 3. Severe sepsis with septic shock, status post aggressive IV fluid hydration. Requiring vasopressors. Managed by ICU team 4. Complicated urinary tract infection with possible urinary retention sec ondary to nonfunctional artificial urethral sphincter. Antibiotic with IV ceftriaxone 2 g daily awaiting urine culture. 5. Non-ST elevation ND. Patient denied any chest pain on presentation. Tw elve-lead EKG in the ER with no acute ischemic changes. Probably type II secondary to sepsis. He was seen and evaluated by cardiology. Patient was started on IV heparin drip and aspirin that was subsequently discontinued secondary to possible upper GI bleed. echocardiogram showed EF of 45-50%. There is left ventricular wall motion hypokinesia noted. Cardiology following closely. 6. Acute kidney injury, probably secondary to obstructive uropathy. Continue IV fluid hydration with normal saline at 75 mL per hour. Repeat lab work in the morning. 7. Gram-negative bacteremia secondary to urosepsis. Repeat blood culture pending 8. History of prostate cancer status post prostatectomy with subsequent chronic urine incontinence status post artificial urethral sphincter. This was deact ivated on presentation by urology. Castro catheter in place. May discontinue Castro catheter when medically appropriate. 9. Chronic atrial fibrillation on anticoagulation with Rivaroxaban. 10. Underlying cognitive impairment 11. GI prophylaxis with IV Protonix Today, I reviewed his medication list and lab work results. Wean off vasopressors as tolerated for mean arterial pressure around 65. No evidence of upper GI bleed any further. Start aspirin 81 mg daily. May consider resuming Rivaroxaban tomorrow if no evidence of GI bleed and hemoglobin is stable. Prognosis is guarded.
[2020-07-17] MEDS: ASPIRIN 81 MG PO SCH (14:24)
--- NOTE | 2020-07-17 15:41 | P.PN ---
Subjective Progress Note Date: 07/17/20 80-year-old gentleman admitted for altered mentation. The patient became confused and disoriented and he was diagnosed having a complicated UTI/urine checked infection with sepsis. The patient has had a previous artificial urethral sphincter insertion for incontinence. EMS brought the patient to the [facility]ital the patient was febrile. In the ED, the patient became more unresponsive and he went into cardiopulmonary arrest. The patient was found to be in ventricular fibrillation CPR was initiated and he was also defibrillated. He was brought back in terms of his hemodynamics and following that the patient was started on norepinephrine for blood pressure control and support. The patient during the process was intubated and placed on a mechanical ventilator. The patient got transferred to the ICU. EKG showed atrial fibrillation with diffuse nonspecific ST segment changes and T-wave abnormalities without clear- cut evidence of ischemia. The patient was given a Castro catheter. White cell count was 15. He was considered to be septic. He was started on broad-spectrum antibiotics. He was also started on IV heparin which was ultimately discontinued as the patient developed some bleeding from the NG tube. Noted the patient has history of prostate cancer and had undergone previous prostatectomy. Subsequent white cell count At 46 secondary underlying sepsis and the patient developed some thrombocytopenia. The patient also developed an acute kidney injury in the creatinine is up to 2.9 from a baseline of 1.78. Lactic acid peaked at 3.5 and dropped down to 3.4. The troponin peaked at 0.741. The urine analysis was abnormal consistent with underlying infection. Coronavirus testing was negative. At this point in time, the patient intubated on a mechanical ventilator. The p melania is currently on propofol running at 35 g per KG pigmented. The patient is on assist control mode of ventilation at the rate of 18 with a tidal volume of 500 and FiO2 of 40% with a PEEP of 5. Norepinephrine infusion is running at 0.35 mg per KG per minute. Currently the patient is off IV heparin because of GI bleed. The patient has a bicarb infusion running at 75 mL an hour of 150 meq of sodium bicarb and he has a NSS @75cc/hour. The urine cultures positive for gram-negative bacillus. The blood cultures positive for E. coli. The patient remains on IV Rocephin for now 1 g every 24 hours. Based on morning labs, the patient did drop in the white second down to 35.7 from yesterday. The platelet count is down to 111. The blood gases from this morning showed a pH of 7.37 with a pCO2 of 30 and pO2 of 286 and this was on FiO2 of 100% and FiO2 has been weaned down to 40% to maintain a saturation above 90%. The patient also showed some improvement in the renal function. Creatinine is down to 2.1 from yesterday and the patient also had a serum bicarb of 16 with an anion gap of 11. Sodium level is at 1:30. He is still on pressors. Objective - Vital Signs Vital signs: Vital Signs Temp 98.2 F 07/17/20 12:00 Pulse 65 07/17/20 15:26 Resp 19 07/17/20 13:00 BP 118/43 07/16/20 19:00 Pulse Ox 94 L 07/17/20 13:00 Intake & Output 07/16/20 07/17/20 07/17/20 18:59 06:59 18:59 Intake Total 2602.369 9614.288 7649.049 Output Total 900 828 960 Balance 5750.521 4036.114 617.049 Weight 90.718 kg Intake: IV 1800 1500 Dextrose 5% in Water 1, 900 825 000 ml @ 125 mls/hr IV . Q9H12M [facility] with Sodium Bicarb (1 Meq/ml) 150 ml Rx#:[id number] Sodium Chloride 0.9% 1, 900 75 000 ml @ 75 mls/hr IV . [id number] [facility] Rx#:[id number] Sodium Chloride 0.9% 500 500 ml 500 ml @ 999 mls/hr IV .Q31M ONE Rx#:[id number] cefTRIAXone 2 gm In 100 Sodium Chloride 0.9% 50 ml @ 100 mls/hr IVPB Q24HR [facility] Rx#:[id number] Intake, IV Titration 2602.369 140.114 77.049 Amount Norepinephrine 4 mg In 1008.339 Sodium Chloride 0.9% 250 ml @ 0.05 MCG/KG/MIN 17. 282 mls/hr IV .[id number] [facility] Rx#:[id number] Sodium Chloride 0.9% 1, 1000 000 ml @ 999 mls/hr IV . Q1H1M ONE Rx#:[id number] Sodium Chloride 0.9% 500 500 ml 500 ml @ 999 mls/hr IV .Q31M ONE Rx#:[id number] propofoL 1,000 mg In 94.030 140.114 77.049 Empty Bag 1 bag @ 30 MCG/ KG/MIN 16.329 mls/hr IV . Q6H8M [facility] Rx#:[id number] Output: Gastric Drainage 500 100 Urine 400 728 960 Stool 0 Other: Voiding Method Indwelling Catheter Indwelling Catheter ABP, PAP, CO, CI - Last Documented Arterial Blood Pressure 134/53 - Exam Gen. appearance the patient is currently intubated, comfortable likely distress. Orogastric and orotracheal tube are both in place. Head exam was generally normal. There was no scleral icterus or corneal arcus. Mucous membranes were moist. Neck was supple and without jugular venous distension, thyromegaly, or carotid bruits. Carotids were easily palpable bilaterally. There was no adenopathy. Lungs are diminished and the patient scattered rhonchi heard throughout the lung his bilaterally. Heart sounds are irregular consistent with atrial fibrillation. There is positive S1-S2. No significant murmurs appreciated. Abdominal exam revealed normal bowel sounds. The abdomen was soft, non-tender, and without masses, organomegaly, or appreciable enlargement of the abdominal aorta. Examination of the extremities revealed easily palpable radial, femoral and pedal pulses. There was no cyanosis, clubbing or edema. Examination of the skin revealed no evidence of significant rashes, suspicious appearing nevi or other concerning lesions. Neurologically the patient is sedated, comfortable and the patient is well sedated for now. - Labs CBC & Chem 7: 07/17/20 04:20 07/17/20 04:20 Labs: Abnormal Lab Results - Last 24 Hours (Table) 07/15/20 07/16/20 07/16/20 Range/Units 11:43 15:00 18:06 WBC (3.8-10.6) k/uL RBC (4.30-5.90) m/uL Hgb (13.0-17.5) gm/dL RDW (11.5-15.5) % Plt Count (150-450) k/uL Neutrophils # (Manual) (1.3-7.7) k/uL Monocytes # (Manual) (0-1.0) k/uL Metamyelocytes # (Man) (0) k/uL ABG pH (7.35-7.45) ABG pCO2 (35-45) mmHg ABG pO2 (83-108) mmHg ABG HCO3 (21-25) mmol/L ABG Total CO2 (19-24) mmol/L ABG O2 Saturation (94-97) % Sodium (137-145) mmol/L Carbon Dioxide (22-30) mmol/L BUN (9-20) mg/dL Creatinine (0.66-1.25) mg/dL Glucose (74-99) mg/dL POC Glucose (mg/dL) 110 H (75-99) mg/dL Plasma Lactic Acid Indra 3.5 H* 3.4 H* (0.7-2.0) mmol/L Calcium (8.4-10.2) mg/dL Ionized Calcium Kaylee (4.5-5.3) mg/dL 07/16/20 07/16/20 07/16/20 Range/Units 18:27 19:10 20:05 WBC (3.8-10.6) k/uL RBC (4.30-5.90) m/uL Hgb (13.0-17.5) gm/dL RDW (11.5-15.5) % Plt Count (150-450) k/uL Neutrophils # (Manual) (1.3-7.7) k/uL Monocytes # (Manual) (0-1.0) k/uL Metamyelocytes # (Man) (0) k/uL ABG pH 7.26 L (7.35-7.45) ABG pCO2 30 L (35-45) mmHg ABG pO2 115 H (83-108) mmHg ABG HCO3 13 L (21-25) mmol/L ABG Total CO2 14 L (19-24) mmol/L ABG O2 Saturation 98.3 H (94-97) % Sodium (137-145) mmol/L Carbon Dioxide (22-30) mmol/L BUN (9-20) mg/dL Creatinine (0.66-1.25) mg/dL Glucose (74-99) mg/dL POC Glucose (mg/dL) 182 H 155 H (75-99) mg/dL Plasma Lactic Acid Indra (0.7-2.0) mmol/L Calcium (8.4-10.2) mg/dL Ionized Calcium Kaylee (4.5-5.3) mg/dL 07/16/20 07/16/20 07/16/20 Range/Units 20:59 21:13 22:57 WBC (3.8-10.6) k/uL RBC (4.30-5.90) m/uL Hgb (13.0-17.5) gm/dL RDW (11.5-15.5) % Plt Count (150-450) k/uL Neutrophils # (Manual) (1.3-7.7) k/uL Monocytes # (Manual) (0-1.0) k/uL Metamyelocytes # (Man) (0) k/uL ABG pH (7.35-7.45) ABG pCO2 (35-45) mmHg ABG pO2 (83-108) mmHg ABG HCO3 (21-25) mmol/L ABG Total CO2 (19-24) mmol/L ABG O2 Saturation (94-97) % Sodium (137-145) mmol/L Carbon Dioxide (22-30) mmol/L BUN (9-20) mg/dL Creatinine (0.66-1.25) mg/dL Glucose (74-99) mg/dL POC Glucose (mg/dL) 182 H 165 H (75-99) mg/dL Plasma Lactic Acid Indra 3.0 H* (0.7-2.0) mmol/L Calcium (8.4-10.2) mg/dL Ionized Calcium Kaylee (4.5-5.3) mg/dL 07/16/20 07/17/20 07/17/20 Range/Units Unknown 01:40 01:42 WBC 46.2 H (3.8-10.6) k/uL RBC 4.29 L (4.30-5.90) m/uL Hgb (13.0-17.5) gm/dL RDW 15.8 H (11.5-15.5) % Plt Count 113 L (150-450) k/uL Neutrophils # (Manual) (1.3-7.7) k/uL Monocytes # (Manual) (0-1.0) k/uL Metamyelocytes # (Man) (0) k/uL ABG pH (7.35-7.45) ABG pCO2 (35-45) mmHg ABG pO2 (83-108) mmHg ABG HCO3 (21-25) mmol/L ABG Total CO2 (19-24) mmol/L ABG O2 Saturation (94-97) % Sodium (137-145) mmol/L Carbon Dioxide (22-30) mmol/L BUN (9-20) mg/dL Creatinine (0.66-1.25) mg/dL Glucose (74-99) mg/dL POC Glucose (mg/dL) 190 H (75-99) mg/dL Plasma Lactic Acid Indra 3.0 H* (0.7-2.0) mmol/L Calcium (8.4-10.2) mg/dL Ionized Calcium Kaylee (4.5-5.3) mg/dL 07/17/20 07/17/20 07/17/20 Range/Units 04:20 04:20 04:37 WBC 35.7 H (3.8-10.6) k/uL RBC 4.29 L (4.30-5.90) m/uL Hgb 12.9 L (13.0-17.5) gm/dL RDW 15.7 H (11.5-15.5) % Plt Count 111 L (150-450) k/uL Neutrophils # (Manual) 30.30 H (1.3-7.7) k/uL Monocytes # (Manual) 1.79 H (0-1.0) k/uL Metamyelocytes # (Man) 1.43 H (0) k/uL ABG pH (7.35-7.45) ABG pCO2 (35-45) mmHg ABG pO2 (83-108) mmHg ABG HCO3 (21-25) mmol/L ABG Total CO2 (19-24) mmol/L ABG O2 Saturation (94-97) % Sodium 130 L (137-145) mmol/L Carbon Dioxide 16 L (22-30) mmol/L BUN 61 H (9-20) mg/dL Creatinine 2.14 H (0.66-1.25) mg/dL Glucose 212 H (74-99) mg/dL POC Glucose (mg/dL) 236 H (75-99) mg/dL Plasma Lactic Acid Indra (0.7-2.0) mmol/L Calcium 6.3 L* (8.4-10.2) mg/dL Ionized Calcium Kaylee (4.5-5.3) mg/dL 07/17/20 07/17/20 07/17/20 Range/Units 05:47 06:25 10:37 WBC (3.8-10.6) k/uL RBC (4.30-5.90) m/uL Hgb (13.0-17.5) gm/dL RDW (11.5-15.5) % Plt Count (150-450) k/uL Neutrophils # (Manual) (1.3-7.7) k/uL Monocytes # (Manual) (0-1.0) k/uL Metamyelocytes # (Man) (0) k/uL ABG pH (7.35-7.45) ABG pCO2 30 L (35-45) mmHg ABG pO2 286 H (83-108) mmHg ABG HCO3 17 L (21-25) mmol/L ABG Total CO2 18 L (19-24) mmol/L ABG O2 Saturation 100.0 H (94-97) % Sodium (137-145) mmol/L Carbon Dioxide (22-30) mmol/L BUN (9-20) mg/dL Creatinine (0.66-1.25) mg/dL Glucose (74-99) mg/dL POC Glucose (mg/dL) 239 H (75-99) mg/dL Plasma Lactic Acid Indra (0.7-2.0) mmol/L Calcium (8.4-10.2) mg/dL Ionized Calcium Kaylee 3.6 L (4.5-5.3) mg/dL 07/17/20 07/17/20 Range/Units 12:08 12:08 WBC (3.8-10.6) k/uL RBC (4.30-5.90) m/uL Hgb (13.0-17.5) gm/dL RDW (11.5-15.5) % Plt Count (150-450) k/uL Neutrophils # (Manual) (1.3-7.7) k/uL Monocytes # (Manual) (0-1.0) k/uL Metamyelocytes # (Man) (0) k/uL ABG pH (7.35-7.45) ABG pCO2 (35-45) mmHg ABG pO2 (83-108) mmHg ABG HCO3 (21-25) mmol/L ABG Total CO2 (19-24) mmol/L ABG O2 Saturation (94-97) % Sodium (137-145) mmol/L Carbon Dioxide (22-30) mmol/L BUN (9-20) mg/dL Creatinine (0.66-1.25) mg/dL Glucose (74-99) mg/dL POC Glucose (mg/dL) 235 H (75-99) mg/dL Plasma Lactic Acid Indra 2.9 H* (0.7-2.0) mmol/L Calcium (8.4-10.2) mg/dL Ionized Calcium Kaylee (4.5-5.3) mg/dL Microbiology - Last 24 Hours (Table) 07/15/20 13:32 Blood Culture Gram Stain - Final Blood Blood Culture - Final Escherichia coli 07/16/20 09:44 Gram Stain - Preliminary Sputum Sputum Culture - Preliminary 07/15/20 14:21 Urine Culture - Preliminary Urine,Voided Gram Neg Bacilli Assessment and Plan Plan: 1 acute cardiac arrest/V. fib arrest requiring defibrillation/CPR and patient subsequently regained spontaneous circulation. During the process, the patient was intubated and placed on mechanical ventilator, the patient had a downtime of 4 minutes. 2 septic shock secondary to underlying UTI, and the patient has E. coli in the blood and gram-negative bacillus and this seems to be a gram-negative or E. coli septicemia. 3 hypotensive secondary to above. This is probably related to a combination of septic shock and cardiogenic shock, and the patient is still on IV fluids and the patient is still requiring pressors for hemodynamic support. 4 acute non-STEMI 5 chronic atrial fibrillation, currently in a sinus rhythm, no anticoagulants for now 6 acute leukocytosis secondary to sepsis, improving 7 lactic acidosis, down to 3.0 8 thrombocytopenia, consumptive, and the platelet counts are still low 9 non-anion gap metabolic acidosis, on bicarb infusion 10 acute kidney injury secondary to above, improving and the creatinine is down to 2.14 11 history of hypertension 12 history of hyperlipidemia 15 history of COPD 14 diabetes mellitus type 2 15 upper GI bleed induced by stress and IV heparin and currently the patient is off anticoagulants 16 prostate cancer with a previous prostatectomy 17 history of urethral sphincter insertion. Plan Continue ventilator support for today. The FiO2 has been weaned down to 40%. The rest of the ventilator setting will be kept unchanged. Discontinue the normal saline and put the patient on bicarb infusion today to 125 mL an hour Obtain echocardiogram Continued IV Rocephin Wean off pressors to maintain a blood pressure above 65 Keep the patient sedated with propofol Follow make further evaluation and based on his progress. This is a critically care evaluation that was done and more than 30 minutes. Time with Patient: Greater than 30
[2020-07-17 16:34] LABS: Glucose,Whole Blood 229 mg/dL (75-99)
[2020-07-17 20:35] LABS: Glucose,Whole Blood 216 mg/dL (75-99)
[2020-07-17] MEDS: ATORVASTATIN 80 MG TAB PO SCH (20:58)
[2020-07-18 00:07] LABS: Glucose,Whole Blood 180 mg/dL (75-99)
[2020-07-18] MEDS: INSULIN ASPART (NovoLOG) 100 UNIT/ML VIAL SQ SCH ×6 (00:28→20:23)
[2020-07-18] MEDS: IPRATROPIUM-ALBUTEROL 3 ML NEB INHALATION SCH ×6 (00:34→20:56)
[2020-07-18 05:01] LABS: Glucose,Whole Blood 160 mg/dL (75-99)
[2020-07-18 05:10] LABS: ABG Base Excess 2.4 mmol/L; ABG HCO3 26 mmol/L (21-25); ABG Oxygen Saturation 94.6 % (94-97); ABG PCO2 33 mmHg (35-45); ABG PO2 71 mmHg (83-108); ABG TCO2 27 mmol/L (19-24)
[2020-07-18 05:48] LABS: Basophils # (A) 0.1 k/uL (0-0.2); Basophils % (A) 0 %; Calcium 6.7 mg/dL (8.4-10.2); Eosinophils % (A) 0 %; HGB 12.7 gm/dL (13.0-17.5); Lymphocytes # (A) 4.2 k/uL (1.0-4.8); Lymphocytes % (A) 17 %; MCH 29.7 pg (25.0-35.0); MCHC 33.4 g/dL (31.0-37.0); MCV 88.9 fL (80.0-100.0); Mean Platelet Volume 9.2; Monocytes % (A) 4 %; Neutrophils # (A) 18.5 k/uL (1.3-7.7); Neutrophils % (A) 76 %; Potassium 2.9 mmol/L (3.5-5.1); RBC 4.27 m/uL (4.30-5.90); RDW 15.7 % (11.5-15.5); WBC 24.4 k/uL (3.8-10.6)
[2020-07-18 07:12] LABS: Anisocytosis (M) Present; Platelet Count 92 k/uL (150-450); Polychromasia Present
[2020-07-18] MEDS: ASPIRIN 81 MG PO SCH (08:27)
[2020-07-18] MEDS: PANTOPRAZOLE 40 MG/10 ML VIAL IVP SCH (08:27)
[2020-07-18] MEDS: CITALOPRAM HYDROBROMIDE 20 MG TAB PO SCH (08:27)
[2020-07-18] MEDS: POTASSIUM CHLORIDE 20 MEQ in WATER FOR INJECTION 1 100ML.BAG IVPB SCH ×4 (08:27→18:02)
[2020-07-18] MEDS ORDERED: FUROSEMIDE 10 MG/ML 4 ML VIAL IV STA (08:32)
[2020-07-18 08:44] LABS: Glucose,Whole Blood 166 mg/dL (75-99)
[2020-07-18] MEDS: CHLORHEXIDINE GLUCONATE 15 ML CUP MUCOUS MEM SCH ×2 (08:45→20:24)
[2020-07-18] MEDS: SODIUM CHLORIDE 0.9% 1,000 ML IV SCH (08:47)
--- NOTE | 2020-07-18 09:28 | PN ---
PROGRESS NOTE Mr. Escobar is a 80-year-old male who presented with change in mental status. He has a history of paroxysmal atrial fibrillation. He had evidence of urosepsis with UTI. He had recent artificial urethral sphincter inserted. He has been on pressors. He remains intubated and sedated. He continues to be at this time on atorvastatin, aspirin, ceftriaxone, norepinephrine. PHYSICAL EXAMINATION: Blood pressure 114/50 with a heart rate in the 60s. LUNGS: Clear. HEART S1, S2. No S3 with systolic murmur, no diastolic murmur, no rub. ABDOMEN: Soft, obese, nontender. EXTREMITIES: No significant edema. LAB DATA: Revealed BUN creatinine 48 and 1.33, which is improved compared to yesterday. His pH 7.5, PO2 of 71, hemoglobin of 12.7, white blood cell 24.4. IMPRESSION: 1. Mal-ewhn-ldk sepsis with recent artificial urethral sphincter insertion. 2. Episode of cardiac arrest. 3. Respiratory failure. 4. Atrial fibrillation. 5. Acute renal injury, improving. 6. Hypertension. 7. Hyperlipidemia. RECOMMENDATION: Anticoagulation is on hold because of his anemia that he is stabilizing and if he is stable, then I will recommend to re-initiate that. Otherwise, continuous his medical regimen, follow his blood pressure and depending on his progress, further recommendation will be made. MMODL / IJN: [id number] /
--- NOTE | 2020-07-18 10:35 | XR ---
EXAMINATION TYPE: XR chest 1V portable DATE OF EXAM: 07/18/2020 COMPARISON: 07/17/2020 INDICATION: Tube placement TECHNIQUE: Single frontal view of the chest is obtained. FINDINGS: The heart size is prominent. The pulmonary vasculature is normal. There is an infiltrate at the right base. Small bilateral pleural effusions are present. Mild left lo wer lobe infiltrate has developed. Right central venous catheter is present with the tip in the distal superior vena cava region. The en dotracheal tube tip is above the mariann. Nasogastric tube tip is in the left upper quadrant of the ab domen. IMPRESSION: 1. Developing bibasilar infiltrates and small pleural effusions. 2. Lines and catheters discussed above.
[2020-07-18 11:54] LABS: Glucose,Whole Blood 115 mg/dL (75-99)
--- NOTE | 2020-07-18 12:23 | P.PN ---
Subjective Progress Note Date: 07/18/20 Patient is sedated and intubated. Currently on minimal vent settings. Making good urine output. Sedation was turned off approximately an hour ago but patient is minimally responsive Currently on low dose vasopressors. He was off of pressors overnight for few hours. Objective - Vital Signs Vital signs: Vital Signs Temp 97.8 F 07/18/20 12:00 Pulse 85 07/18/20 12:00 Resp 20 07/18/20 12:00 BP 118/43 07/18/20 01:00 Pulse Ox 96 07/18/20 12:00 Intake & Output 07/17/20 07/18/20 07/18/20 18:59 06:59 18:59 Intake Total 2500.916 1475.318 856.020 Output Total 1550 810 925 Balance 950.916 665.318 -68.980 Weight 92.9 kg Intake: IV 2125 1375 125 Dextrose 5% in Water 1, 1450 1375 125 000 ml @ 125 mls/hr IV . Q9H12M [facility] with Sodium Bicarb (1 Meq/ml) 150 ml Rx#:[id number] Sodium Chloride 0.9% 1, 75 000 ml @ 75 mls/hr IV . [id number] [facility] Rx#:[id number] Sodium Chloride 0.9% 500 500 ml 500 ml @ 999 mls/hr IV .Q31M ONE Rx#:[id number] cefTRIAXone 2 gm In 100 Sodium Chloride 0.9% 50 ml @ 100 mls/hr IVPB Q24HR [facility] Rx#:[id number] Intake, IV Titration 375.916 100.318 731.020 Amount Norepinephrine 32 mg In 198.867 167.549 Sodium Chloride 0.9% 218 ml @ 0.05 MCG/KG/MIN 2. 126 mls/hr IV .Q24H [facility] Rx#:[id number] Potassium Chloride 20 meq 200 In Water For Injection 1 100ml.bag @ 50 mls/hr IVPB Q2H [facility] Rx#: [id number] Sodium Chloride 0.9% 1, 250 000 ml @ 50 mls/hr IV . Q20H [facility] Rx#:[id number] propofoL 1,000 mg In 177.049 100.318 113.471 Empty Bag 1 bag @ 30 MCG/ KG/MIN 16.329 mls/hr IV . Q6H8M [facility] Rx#:[id number] Output: Urine 1550 810 925 Other: Voiding Method Indwelling Catheter Indwelling Catheter Indwelling Catheter ABP, PAP, CO, CI - Last Documented Arterial Blood Pressure 145/59 - Exam General: The patient is sedated and intubated Eye: there is normal conjunctiva bilaterally. Neck: The neck is supple, there is no JVD. Cardiovascular: Normal S1-S2, no S3-S4, no murmurs. Respiratory: Lungs mechanical ventilator sounds Gastrointestinal: Abdomen is soft, nontender Musculoskeletal: There is no pedal edema. Skin: Skin is warm and dry - Labs CBC & Chem 7: 07/18/20 05:00 07/18/20 05:00 Labs: Abnormal Lab Results - Last 24 Hours (Table) 07/17/20 07/17/20 07/17/20 Range/Units 12:08 15:40 16:33 WBC (3.8-10.6) k/uL RBC (4.30-5.90) m/uL Hgb (13.0-17.5) gm/dL Hct (39.0-53.0) % RDW (11.5-15.5) % Plt Count (150-450) k/uL Neutrophils # (1.3-7.7) k/uL ABG pH (7.35-7.45) ABG pCO2 (35-45) mmHg ABG pO2 (83-108) mmHg ABG HCO3 (21-25) mmol/L ABG Total CO2 (19-24) mmol/L Sodium (137-145) mmol/L Potassium (3.5-5.1) mmol/L BUN (9-20) mg/dL Creatinine (0.66-1.25) mg/dL Glucose (74-99) mg/dL POC Glucose (mg/dL) 229 H (75-99) mg/dL Plasma Lactic Acid Indra 2.9 H* 3.0 H* (0.7-2.0) mmol/L Calcium (8.4-10.2) mg/dL 07/17/20 07/17/20 07/18/20 Range/Units 19:50 20:33 00:06 WBC (3.8-10.6) k/uL RBC (4.30-5.90) m/uL Hgb (13.0-17.5) gm/dL Hct (39.0-53.0) % RDW (11.5-15.5) % Plt Count (150-450) k/uL Neutrophils # (1.3-7.7) k/uL ABG pH (7.35-7.45) ABG pCO2 (35-45) mmHg ABG pO2 (83-108) mmHg ABG HCO3 (21-25) mmol/L ABG Total CO2 (19-24) mmol/L Sodium (137-145) mmol/L Potassium (3.5-5.1) mmol/L BUN (9-20) mg/dL Creatinine (0.66-1.25) mg/dL Glucose (74-99) mg/dL POC Glucose (mg/dL) 216 H 180 H (75-99) mg/dL Plasma Lactic Acid Indra 3.4 H* (0.7-2.0) mmol/L Calcium (8.4-10.2) mg/dL 07/18/20 07/18/20 07/18/20 Range/Units 04:59 05:00 05:00 WBC 24.4 H (3.8-10.6) k/uL RBC 4.27 L (4.30-5.90) m/uL Hgb 12.7 L (13.0-17.5) gm/dL Hct 38.0 L (39.0-53.0) % RDW 15.7 H (11.5-15.5) % Plt Count 92 L (150-450) k/uL Neutrophils # 18.5 H (1.3-7.7) k/uL ABG pH (7.35-7.45) ABG pCO2 (35-45) mmHg ABG pO2 (83-108) mmHg ABG HCO3 (21-25) mmol/L ABG Total CO2 (19-24) mmol/L Sodium 133 L (137-145) mmol/L Potassium 2.9 L (3.5-5.1) mmol/L BUN 48 H (9-20) mg/dL Creatinine 1.33 H (0.66-1.25) mg/dL Glucose 165 H (74-99) mg/dL POC Glucose (mg/dL) 160 H (75-99) mg/dL Plasma Lactic Acid Indra (0.7-2.0) mmol/L Calcium 6.7 L (8.4-10.2) mg/dL 07/18/20 07/18/20 07/18/20 Range/Units 05:00 05:03 08:42 WBC (3.8-10.6) k/uL RBC (4.30-5.90) m/uL Hgb (13.0-17.5) gm/dL Hct (39.0-53.0) % RDW (11.5-15.5) % Plt Count (150-450) k/uL Neutrophils # (1.3-7.7) k/uL ABG pH 7.50 H (7.35-7.45) ABG pCO2 33 L (35-45) mmHg ABG pO2 71 L (83-108) mmHg ABG HCO3 26 H (21-25) mmol/L ABG Total CO2 27 H (19-24) mmol/L Sodium (137-145) mmol/L Potassium (3.5-5.1) mmol/L BUN (9-20) mg/dL Creatinine (0.66-1.25) mg/dL Glucose (74-99) mg/dL POC Glucose (mg/dL) 166 H (75-99) mg/dL Plasma Lactic Acid Indra 3.0 H* (0.7-2.0) mmol/L Calcium (8.4-10.2) mg/dL 07/18/20 07/18/20 Range/Units 09:47 11:54 WBC (3.8-10.6) k/uL RBC (4.30-5.90) m/uL Hgb (13.0-17.5) gm/dL Hct (39.0-53.0) % RDW (11.5-15.5) % Plt Count (150-450) k/uL Neutrophils # (1.3-7.7) k/uL ABG pH (7.35-7.45) ABG pCO2 (35-45) mmHg ABG pO2 (83-108) mmHg ABG HCO3 (21-25) mmol/L ABG Total CO2 (19-24) mmol/L Sodium (137-145) mmol/L Potassium (3.5-5.1) mmol/L BUN (9-20) mg/dL Creatinine (0.66-1.25) mg/dL Glucose (74-99) mg/dL POC Glucose (mg/dL) 115 H (75-99) mg/dL Plasma Lactic Acid Indra 3.0 H* (0.7-2.0) mmol/L Calcium (8.4-10.2) mg/dL Microbiology - Last 24 Hours (Table) 07/16/20 09:44 Gram Stain - Final Sputum Sputum Culture - Final 07/15/20 14:21 Urine Culture - Final Urine,Voided Escherichia coli 07/15/20 13:32 Blood Culture Gram Stain - Final Blood Blood Culture - Final Escherichia coli Assessment and Plan Assessment: This is a 80-year-old male with complex past medical history noted below who presented to the emergency room with worsening confusion brought in by EMS. Patient was evaluated in the ER and was found to have evidence of sepsis seconda ry to underlying UTI with obstructive uropathy secondary to malfunctioning artificial urethral sphincter. Patient was started on IV fluids and antibiotic. On the first night of his admission patient went into PEA cardiac arrest requiring CPR with successful return of spontaneous rhythm but subsequently patient went into V. tach requiring shock. Patient was intubated and currently admitted to the hospital for further management of his medical problems noted below. 1. PEA arrest requiring CPR with successful return of spontaneous circulation. 2. Acute hypoxic respiratory failure secondary to cardiac arrest. Currently sedated and intubated. Sent management per ICU. 3. Severe sepsis with septic shock, status post aggressive IV fluid hydration. Requiring vasopressors. Managed by ICU team 4. Complicated urinary tract infection with possible urinary retention secondary to nonfunctional artificial urethral sphincter. Antibiotic with IV ceftriaxone 2 g daily awaiting urine culture. 5. Non-ST elevation CT. Patient denied any chest pain on presentation. Twelve-lead EKG in the ER with no acute ischemic changes. Probably type II secondary to sepsis. He was seen and evaluated by cardiology. Patient was started on IV heparin drip and aspirin that was subsequently discontinued secondary upper GI bleed. echocardiogram showed EF of 45-50%. There is left ventricular wall motion hypokinesia noted. Cardiology following closely. 6. Acute kidney injury, kidney function improved significantly. probably secondary to obstructive uropathy. Continue IV fluid hydration with normal saline at 75 mL per hour. Repeat lab work in the morning. 7. Gram-negative bacteremia secondary to urosepsis. Repeat blood culture pending 8. History of prostate cancer status post prostatectomy with subsequent chronic urine incontinence status post artificial urethral sphincter. This was deactivated on presentation by urology. Castro catheter in place. May discontinue Castro catheter when medically appropriate. 9. Chronic atrial fibrillation on anticoagulation with Rivaroxaban. 10. Underlying cognitive impairment 11. GI prophylaxis with IV Protonix Today, I reviewed his medication list and lab work results. Wean off vasopressors as tolerated for mean arterial pressure around 65. No evidence of upper GI bleed any further. May consider resuming Rivaroxaban tomorrow if no evidence of GI bleed and hemoglobin is stable. I did artificial tears 4 times a day. Tobramycin ointment to both eyes 2 times a day. Prognosis is guarded.
[2020-07-18 13:21] LABS: ABG Base Excess 5.3 mmol/L; ABG HCO3 29 mmol/L (21-25); ABG Oxygen Saturation 96.2 % (94-97); ABG PCO2 36 mmHg (35-45); ABG PO2 82 mmHg (83-108); ABG TCO2 30 mmol/L (19-24); Allen Test Performed? Yes
--- NOTE | 2020-07-18 15:07 | P.PN ---
Subjective Progress Note Date: 07/18/20 80-year-old gentleman admitted for altered mentation. The patient became confused and disoriented and he was diagnosed having a complicated UTI/urine checked infection with sepsis. The patient has had a previous artificial urethral sphincter insertion for incontinence. EMS brought the patient to the [facility]ital the patient was febrile. In the ED, the patient became more unresponsive and he went into cardiopulmonary arrest. The patient was found to be in ventricular fibrillation CPR was initiated and he was also defibrillated. He was brought back in terms of his hemodynamics and following that the patient was started on norepinephrine for blood pressure control and support. The patient during the process was intubated and placed on a mechanical ventilator. The patient got transferred to the ICU. EKG showed atrial fibrillation with diffuse nonspecific ST segment changes and T-wave abnormalities without clear- cut evidence of ischemia. The patient was given a Castro catheter. White cell count was 15. He was considered to be septic. He was started on broad-spectrum antibiotics. He was also started on IV heparin which was ultimately discontinued as the patient developed some bleeding from the NG tube. Noted the patient has history of prostate cancer and had undergone previous prostatectomy. Subsequent white cell count At 46 secondary underlying sepsis and the patient developed some thrombocytopenia. The patient also developed an acute kidney injury in the creatinine is up to 2.9 from a baseline of 1.78. Lactic acid peaked at 3.5 and dropped down to 3.4. The troponin peaked at 0.741. The urine analysis was abnormal consistent with underlying infection. Coronavirus testing was negative. At this point in time, the patient intubated on a mechanical ventilator. The p melania is currently on propofol running at 35 g per KG pigmented. The patient is on assist control mode of ventilation at the rate of 18 with a tidal volume of 500 and FiO2 of 40% with a PEEP of 5. Norepinephrine infusion is running at 0.35 mg per KG per minute. Currently the patient is off IV heparin because of GI bleed. The patient has a bicarb infusion running at 75 mL an hour of 150 meq of sodium bicarb and he has a NSS @75cc/hour. The urine cultures positive for gram-negative bacillus. The blood cultures positive for E. coli. The patient remains on IV Rocephin for now 1 g every 24 hours. Based on morning labs, the patient did drop in the white second down to 35.7 from yesterday. The platelet count is down to 111. The blood gases from this morning showed a pH of 7.37 with a pCO2 of 30 and pO2 of 286 and this was on FiO2 of 100% and FiO2 has been weaned down to 40% to maintain a saturation above 90%. The patient also showed some improvement in the renal function. Creatinine is down to 2.1 from yesterday and the patient also had a serum bicarb of 16 with an anion gap of 11. Sodium level is at 1:30. He is still on pressors. \ On 07/18/2020, the patient is being seen for a follow-up. The patient remains intubated on a mechanical ventilator as the patient is being treated for septic shock secondary to E. coli UTI. E. coli was cultured in the blood and in the ur ine. The patient is currently on IV Rocephin. For now, the patient is sedated with propofol and the patient will be given a sedation holiday. Propofol is running at 40 mg per KG per minute. The patient is an assist-control mode of ventilation at the rate of 12 with a tidal volume of 500 and FiO2 of 40% with a PEEP of 5.. Blood gases from today showed a pH of 7.5 with a pCO2 of 33 and pO2 of 71. The patient had a follow-up chest x-ray that showed bibasilar infiltrates and small effusions which was not present on yesterday's evaluation. ET tube is in a good location for now. Meanwhile, the patient is still on pressors. Note that the norepinephrine is gradually being weaned off and the patient is currently on 0.15 mg/kg per minute. The patient atrial fibrillation with a controlled rate. The patient is a positive fluid balance of 1.6 L over the past 24 hours. The patient remains on IV heparin. Echocardiogram showed an ejection fraction of 45-50%. The patient is also on bicarb infusion and the serum bicarb level is normalized. Objective - Vital Signs Vital signs: Vital Signs Temp 97.9 F 07/17/20 16:00 Pulse 64 07/18/20 08:18 Resp 16 07/18/20 07:00 BP 118/43 07/18/20 01:00 Pulse Ox 93 L 07/18/20 07:00 Intake & Output 11/16/20 11/17/20 11/17/20 18:59 06:59 18:59 Intake Total 2500.916 1475.318 224.682 Output Total 1550 810 75 Balance 950.916 665.318 149.682 Weight 92.9 kg Intake: IV 2125 1375 125 Dextrose 5% in Water 1, 1450 1375 125 000 ml @ 125 mls/hr IV . Q9H12M MYLES with Sodium Bicarb (1 Meq/ml) 150 ml Rx#:[id number] Sodium Chloride 0.9% 1, 75 000 ml @ 75 mls/hr IV . Q39Q34A MYLES Rx#:[id number] Sodium Chloride 0.9% 500 500 ml 500 ml @ 999 mls/hr IV .Q31M ONE Rx#:[id number] cefTRIAXone 2 gm In 100 Sodium Chloride 0.9% 50 ml @ 100 mls/hr IVPB Q24HR MYLES Rx#:[id number] Intake, IV Titration 375.916 100.318 99.682 Amount Norepinephrine 32 mg In 198.867 Sodium Chloride 0.9% 218 ml @ 0.05 MCG/KG/MIN 2. 126 mls/hr IV .Q24H MYLES Rx#:[id number] propofoL 1,000 mg In 177.049 100.318 99.682 Empty Bag 1 bag @ 30 MCG/ KG/MIN 16.329 mls/hr IV . Q6H8M MYLES Rx#:[id number] Output: Urine 1550 810 75 Other: Voiding Method Indwelling Catheter Indwelling Catheter ABP, PAP, CO, CI - Last Documented Arterial Blood Pressure 114/49 - Exam Gen. appearance the patient is currently intubated, comfortable likely distress. Orogastric and orotracheal tube are both in place. Head exam was generally normal. There was no scleral icterus or corneal arcus. Mucous membranes were moist. Neck was supple and without jugular venous distension, thyromegaly, or carotid bruits. Carotids were easily palpable bilaterally. There was no adenopathy. Lungs are diminished and the patient scattered rhonchi heard throughout the lung his bilaterally. Heart sounds are irregular consistent with atrial fibrillation. There is positive S1-S2. No significant murmurs appreciated. Abdominal exam revealed normal bowel sounds. The abdomen was soft, non-tender, and without masses, organomegaly, or appreciable enlargement of the abdominal aorta. Examination of the extremities revealed easily palpable radial, femoral and pedal pulses. There was no cyanosis, clubbing or edema. Examination of the skin revealed no evidence of significant rashes, suspicious appearing nevi or other concerning lesions. Neurologically the patient is sedated, comfortable and the patient is well sedated for now. - Labs CBC & Chem 7: 07/18/20 05:00 07/18/20 14:36 Labs: Abnormal Lab Results - Last 24 Hours (Table) 07/17/20 07/17/20 07/17/20 Range/Units 10:37 12:08 12:08 WBC (3.8-10.6) k/uL RBC (4.30-5.90) m/uL Hgb (13.0-17.5) gm/dL Hct (39.0-53.0) % RDW (11.5-15.5) % Plt Count (150-450) k/uL Neutrophils # (1.3-7.7) k/uL ABG pH (7.35-7.45) ABG pCO2 (35-45) mmHg ABG pO2 (83-108) mmHg ABG HCO3 (21-25) mmol/L ABG Total CO2 (19-24) mmol/L Sodium (137-145) mmol/L Potassium (3.5-5.1) mmol/L BUN (9-20) mg/dL Creatinine (0.66-1.25) mg/dL Glucose (74-99) mg/dL POC Glucose (mg/dL) 239 H 235 H (75-99) mg/dL Plasma Lactic Acid Indra 2.9 H* (0.7-2.0) mmol/L Calcium (8.4-10.2) mg/dL 07/17/20 07/17/20 07/17/20 Range/Units 15:40 16:33 19:50 WBC (3.8-10.6) k/uL RBC (4.30-5.90) m/uL Hgb (13.0-17.5) gm/dL Hct (39.0-53.0) % RDW (11.5-15.5) % Plt Count (150-450) k/uL Neutrophils # (1.3-7.7) k/uL ABG pH (7.35-7.45) ABG pCO2 (35-45) mmHg ABG pO2 (83-108) mmHg ABG HCO3 (21-25) mmol/L ABG Total CO2 (19-24) mmol/L Sodium (137-145) mmol/L Potassium (3.5-5.1) mmol/L BUN (9-20) mg/dL Creatinine (0.66-1.25) mg/dL Glucose (74-99) mg/dL POC Glucose (mg/dL) 229 H (75-99) mg/dL Plasma Lactic Acid Indra 3.0 H* 3.4 H* (0.7-2.0) mmol/L Calcium (8.4-10.2) mg/dL 07/17/20 07/18/20 07/18/20 Range/Units 20:33 00:06 04:59 WBC (3.8-10.6) k/uL RBC (4.30-5.90) m/uL Hgb (13.0-17.5) gm/dL Hct (39.0-53.0) % RDW (11.5-15.5) % Plt Count (150-450) k/uL Neutrophils # (1.3-7.7) k/uL ABG pH (7.35-7.45) ABG pCO2 (35-45) mmHg ABG pO2 (83-108) mmHg ABG HCO3 (21-25) mmol/L ABG Total CO2 (19-24) mmol/L Sodium (137-145) mmol/L Potassium (3.5-5.1) mmol/L BUN (9-20) mg/dL Creatinine (0.66-1.25) mg/dL Glucose (74-99) mg/dL POC Glucose (mg/dL) 216 H 180 H 160 H (75-99) mg/dL Plasma Lactic Acid Indra (0.7-2.0) mmol/L Calcium (8.4-10.2) mg/dL 07/18/20 07/18/20 07/18/20 Range/Units 05:00 05:00 05:00 WBC 24.4 H (3.8-10.6) k/uL RBC 4.27 L (4.30-5.90) m/uL Hgb 12.7 L (13.0-17.5) gm/dL Hct 38.0 L (39.0-53.0) % RDW 15.7 H (11.5-15.5) % Plt Count 92 L (150-450) k/uL Neutrophils # 18.5 H (1.3-7.7) k/uL ABG pH (7.35-7.45) ABG pCO2 (35-45) mmHg ABG pO2 (83-108) mmHg ABG HCO3 (21-25) mmol/L ABG Total CO2 (19-24) mmol/L Sodium 133 L (137-145) mmol/L Potassium 2.9 L (3.5-5.1) mmol/L BUN 48 H (9-20) mg/dL Creatinine 1.33 H (0.66-1.25) mg/dL Glucose 165 H (74-99) mg/dL POC Glucose (mg/dL) (75-99) mg/dL Plasma Lactic Acid Indra 3.0 H* (0.7-2.0) mmol/L Calcium 6.7 L (8.4-10.2) mg/dL 07/18/20 Range/Units 05:03 WBC (3.8-10.6) k/uL RBC (4.30-5.90) m/uL Hgb (13.0-17.5) gm/dL Hct (39.0-53.0) % RDW (11.5-15.5) % Plt Count (150-450) k/uL Neutrophils # (1.3-7.7) k/uL ABG pH 7.50 H (7.35-7.45) ABG pCO2 33 L (35-45) mmHg ABG pO2 71 L (83-108) mmHg ABG HCO3 26 H (21-25) mmol/L ABG Total CO2 27 H (19-24) mmol/L Sodium (137-145) mmol/L Potassium (3.5-5.1) mmol/L BUN (9-20) mg/dL Creatinine (0.66-1.25) mg/dL Glucose (74-99) mg/dL POC Glucose (mg/dL) (75-99) mg/dL Plasma Lactic Acid Indra (0.7-2.0) mmol/L Calcium (8.4-10.2) mg/dL Microbiology - Last 24 Hours (Table) 07/15/20 14:21 Urine Culture - Final Urine,Voided Escherichia coli 07/15/20 13:32 Blood Culture Gram Stain - Final Blood Blood Culture - Final Escherichia coli Assessment and Plan Plan: 1 acute cardiac arrest/V. fib arrest requiring defibrillation/CPR and patient subsequently regained spontaneous circulation. During the process, the patient was intubated and placed on mechanical ventilator, the patient had a downtime of 4 minutes. The patient remains sedated as the patient is being treated for septic shock and acute respiratory failure. 2 septic shock secondary to underlying UTI, and the patient has E. coli in the blood and gram-negative bacillus and this seems to be a gram-negative or E. coli septicemia. The patient remains on IV Rocephin 3 hypotensive secondary to above. This is probably related to a combination of septic shock and cardiogenic shock, and the patient is still on IV fluids and the patient is still requiring pressors for hemodynamic support. Overall hemodynamics is improving and the patient is a positive fluid balance. The patient is also on a lower dose of norepinephrine infusion which is being gradually weaned off. 4 acute non-STEMI 5 chronic atrial fibrillation, currently in a sinus rhythm, no anticoagulants for now, and this was taken off because of GI bleed 6 acute leukocytosis secondary to sepsis, improving, and the white cell count is down to 24 7 lactic acidosis, down to 3.0 8 thrombocytopenia, consumptive, and the platelet counts are still low 9 non-anion gap metabolic acidosis, on bicarb infusion, recovered 10 acute kidney injury secondary to above, improving and the creatinine is down to 1.33 11 history of hypertension 12 history of hyperlipidemia 15 history of COPD 14 diabetes mellitus type 2 15 upper GI bleed induced by stress and IV heparin and currently the patient is off anticoagulants 16 prostate cancer with a previous prostatectomy 17 history of urethral sphincter insertion. 18 CHF with an ejection fraction of 45% Plan Continue ventilator support for today. Sedation holiday Check weaning parameters Discontinue the bicarb drip and put the patient on normal state rate of 20 mL an hour Give dose of Lasix 40 mg IV push Echocardiogram was noted and the patient is an ejection fraction of 45% Continue IV Rocephin Wean off norepinephrine We'll consider a spelled his breathing trial this patient demonstrates adequate mentation adequate weaning parameters. Follow make further evaluation and based on his progress. This is a critically care evaluation that was done and more than 30 minutes. Time with Patient: Greater than 30
--- NOTE | 2020-07-18 15:19 | CDI ---
Documentation Clarification Form Date: 07/18/2020 03:06:17 PM From: Frannie Mcintyre RN, CCDS Admit Date: 07/15/2020 02:30:00 PM Patient Name: Dami Escobar Visit Number: [id number] ATTENTION: The Clinical Documentation Specialists (CDI) and [facility] Coding Staff appreciate your assistance in clarifying documentation. Please respond to the clarification below the line at the bottom and electronically sign. The CDI & [facility] Coding staff will review the response and follow-up if needed. Please note: Queries are made part of the Legal Health Record. If you have any questions, please contact the author of this message via ITS. Dr. Linda Daniels Altered Mental Status was documented in the ED note and H&P and requires further specificity. History/Risk Factors: chronic atrial fib, cognitive impairment, DARCY, NSTEMI, artificial urethral sphincter implant recently Clinical Indicators: 07/15 ED Note: "Non-STEMI (non-ST elevated myocardial infarction), Febrile illness, acute, Altered mental status, Renal insufficiency ." 07/15 H&P: "This is a 80-year-old male with past medical history noted below significant for recent artificial urethral sphincter who presented to the hospital with worsening confusion and altered mental status." 07/16 Cardiology Consult: "He was in his usual state of health until yesterday when he woke up with a change in mental status and confusion" Infectious Process: UTI with E.coli, Sepsis w septic shock 07/15-07/18 Labs: WBC 19.4/46.2/35.7/24.4, Neutrophils 18/48.9/30.3/15.5, BUN 38/53/61/48, Creatinine 1.78/2.94/2.14/1.33, Lactic Acid 3/3.4/2.2, Troponin .512/.616/.741, U/A+ with Cx + for E. coli, Blood Cx + E. coli CXR:"Developing bibasilar infiltrates and small pleural effusions." Treatment: Ceftriaxone 2 gm IVPB Q 24 hrs 07/16-07/17 D5W/3 amps HCO3 gtt @ 125 cc/hr 07/15 0.9% NS 1 L IVF bolus 11/15 0.9% NS 1.5 L IVF bolus 07/17 0.9% NS 500cc IVF bolus In your professional opinion, please clarify the etiology of the Altered Mental Status, if known. Metabolic Encephalopathy (specify Underlying Medical Illness) Septic Encephalopathy (specify Underlying Medical Illness) Other condition (please specify) Unable to determine (Last Revision: November 2017) Metabolic encephalopathy secondary to underlying UTI MTDD
[2020-07-18] MEDS: ARTIFICIAL TEARS-HYPROMELLOSE DROPS 15 ML BTL BOTH EYES SCH ×3 (15:53→21:58)
[2020-07-18 15:57] LABS: Glucose,Whole Blood 122 mg/dL (75-99)
[2020-07-18] MEDS: TOBRAMYCIN 0.3% OPHTH OINT 3.5 GM TUBE BOTH EYES SCH ×2 (15:58→21:58)
[2020-07-18 20:08] LABS: Glucose,Whole Blood 141 mg/dL (75-99)
[2020-07-18] MEDS: ATORVASTATIN 80 MG TAB PO SCH (20:24)
[2020-07-18] MEDS ORDERED: Potassium Replacement Protocol 1 EACH MISC MISCELLANE PRN (22:32)
[2020-07-18] MEDS ORDERED: POTASSIUM BICARBONATE/CIT AC 20 MEQ TABLET.EFF NG-TUBE SCH (23:00)
[2020-07-19 00:07] LABS: Glucose,Whole Blood 124 mg/dL (75-99)
[2020-07-19] MEDS: IPRATROPIUM-ALBUTEROL 3 ML NEB INHALATION SCH ×7 (00:43→23:41)
[2020-07-19] MEDS: NOREPINEPHRINE 32 MG in SODIUM CHLORIDE 0.9% 218 ML IV SCH (01:01)
[2020-07-19] MEDS: INSULIN ASPART (NovoLOG) 100 UNIT/ML VIAL SQ SCH ×6 (01:01→20:31)
[2020-07-19 03:53] LABS: Glucose,Whole Blood 139 mg/dL (75-99)
[2020-07-19 04:39] LABS: Basophils % (A) 0 %; Eosinophils # (A) 0.1 k/uL (0-0.7); Eosinophils % (A) 1 %; HGB 12.2 gm/dL (13.0-17.5); Lymphocytes # (A) 3.6 k/uL (1.0-4.8); Lymphocytes % (A) 22 %; MCH 29.3 pg (25.0-35.0); MCHC 32.8 g/dL (31.0-37.0); MCV 89.2 fL (80.0-100.0); Mean Platelet Volume 9.6; Monocytes # (A) 1.1 k/uL (0-1.0); Monocytes % (A) 7 %; Neutrophils # (A) 10.8 k/uL (1.3-7.7); Neutrophils % (A) 67 %; RBC 4.15 m/uL (4.30-5.90); RDW 15.7 % (11.5-15.5); WBC 16.1 k/uL (3.8-10.6)
[2020-07-19 04:42] LABS: Albumin 2.1 g/dL (3.5-5.0); Magnesium 1.9 mg/dL (1.6-2.3); Potassium 3.7 mmol/L (3.5-5.1); Total Protein 4.3 g/dL (6.3-8.2)
[2020-07-19 04:45] LABS: Platelet Count 84 k/uL (150-450)
[2020-07-19] MEDS ORDERED: Magnesium Replacement Protocol 1 EACH MISC MISCELLANE PRN (04:54)
[2020-07-19] MEDS ORDERED: POTASSIUM BICARBONATE/CIT AC 20 MEQ TABLET.EFF NG-TUBE SCH (05:00)
[2020-07-19 05:15] LABS: ABG PCO2 34 mmHg (35-45); ABG PH 7.52 (7.35-7.45); ABG PO2 101 mmHg (83-108)
[2020-07-19 05:16] LABS: ABG Base Excess 4.9 mmol/L; ABG HCO3 28 mmol/L (21-25); ABG TCO2 29 mmol/L (19-24)
[2020-07-19] MEDS: MAGNESIUM SULFATE-D5W PMX 1 GM in DEXTROSE/WATER 1 100ML.BAG IVPB SCH ×2 (05:45→07:26)
[2020-07-19] MEDS: SODIUM CHLORIDE 0.9% 1,000 ML IV SCH ×2 (05:46→09:35)
--- NOTE | 2020-07-19 07:13 | XR ---
EXAMINATION TYPE: XR chest 1V portable DATE OF EXAM: 07/19/2020 COMPARISON: 07/18/2020 HISTORY: SOB, Follow Up FINDINGS: Indwelling tubes and catheters are unchanged. No change in perihilar and basilar infiltrates. Stable appearance of the cardio-mediastinal structures at this time. Pleural effusion unchanged. IMPRESSION: 1. Stable portable chest. Clinical correlation and follow up until resolution is recommended.
[2020-07-19 08:51] LABS: Glucose,Whole Blood 170 mg/dL (75-99)
[2020-07-19] MEDS ORDERED: APIXABAN 5 MG TAB PO SCH (09:00)
[2020-07-19] MEDS: CITALOPRAM HYDROBROMIDE 20 MG TAB PO SCH (09:02)
[2020-07-19] MEDS: ARTIFICIAL TEARS-HYPROMELLOSE DROPS 15 ML BTL BOTH EYES SCH ×2 (09:02→12:59)
[2020-07-19] MEDS: TOBRAMYCIN 0.3% OPHTH OINT 3.5 GM TUBE BOTH EYES SCH (09:02)
[2020-07-19] MEDS: CHLORHEXIDINE GLUCONATE 15 ML CUP MUCOUS MEM SCH (09:02)
[2020-07-19] MEDS: ASPIRIN 81 MG PO SCH (09:02)
[2020-07-19] MEDS: PANTOPRAZOLE 40 MG/10 ML VIAL IVP SCH (09:10)
--- NOTE | 2020-07-19 09:28 | PN ---
PROGRESS NOTE Mr. Escobar is a 80-year-old male who presented with change in mental status. He has paroxysmal atrial fibrillation, had urosepsis, UTI. He recently underwent officially rectal sphincter insertion. He remains intubated but off sedation. He is following commands. He is on the low dose of norepinephrine. He had no episode of ventricular fibrillation. He continues to be in atrial fibrillation. He continues to be at this time on aspirin once a day, Lipitor 80 mg daily. PHYSICAL EXAMINATION: Blood pressure 110/50 with a heart rate in the 70s. LUNGS: Clear, anteriorly. HEART: Irregular, regular, S1, S2. No S3 with a systolic murmur heard at the base, no diastolic murmur, no rub. ABDOMEN: Soft, nontender, positive bowel sounds, no organomegaly. EXTREMITIES: No edema. LAB DATA: His chest x-ray shows no acute changes. His pH 7.52, PO2 of 101, hemoglobin is 12.2, BUN and creatinine 49 and 1.25, hemoglobin of 12.2. IMPRESSION: 1. Urinary tract infection with sepsis, improving. 2. Cardiac arrest with no further ventricular arrhythmia. 3. Chronic persistent atrial fibrillation. 4. Acute renal injury, resolved. 5. Hypertension. 6. History of hyperlipidemia. RECOMMENDATION: I will expect the patient to be able wean and extubated today. His hemoglobin has been stable without any further episode of bleeding. I would recommend to initiate anticoagulation. Will continue on the rest of his medical regimen and depending on his progress, further recommendation will be made. MMODL / IJN: [id number] / MTDD
[2020-07-19] MEDS ORDERED: FUROSEMIDE 10 MG/ML 4 ML VIAL IV STA ×2 (09:29→19:02)
--- NOTE | 2020-07-19 10:21 | P.PN ---
Subjective Progress Note Date: 07/19/20 The patient is in the hospital with urinary tract infection with sepsis and a cardiac arrest respiratory failure. He is responding appropriately. He was extubated just this morning. He is growing E. coli both in urine and blood. He is on culture specific antibiotics. His urinary sphincter was deactivated by and he has an indwelling catheter. There is some scrotal swelling as expected. I recommend leaving the catheter and deactivation of the sphincter for now. The patient has been instructed several times in use of his sphincter for his incontinence but I question whether he has been doing it adequately. The fact that he came in in urine retention supports this. We will continue to follow the patient. Objective - Vital Signs Vital signs: Vital Signs Temp 98.8 F 07/19/20 04:00 Pulse 75 07/19/20 07:00 Resp 13 07/19/20 07:00 BP 108/55 07/18/20 21:15 Pulse Ox 96 07/19/20 07:00 Intake & Output 07/18/20 07/19/20 07/19/20 18:59 06:59 18:59 Intake Total 1356.020 811.079 50 Output Total 1475 790 50 Balance -118.980 21.079 0 Weight 92 kg Intake: IV 125 550 50 Dextrose 5% in Water 1, 125 000 ml @ 125 mls/hr IV . Q9H12M MYLES with Sodium Bicarb (1 Meq/ml) 150 ml Rx#:[id number] Sodium Chloride 0.9% 1, 550 50 000 ml @ 50 mls/hr IV . Q20H MYLES Rx#:[id number] Intake, IV Titration 1231.020 96.079 Amount Norepinephrine 32 mg In 167.549 46.079 Sodium Chloride 0.9% 218 ml @ 0.05 MCG/KG/MIN 2. 126 mls/hr IV .Q24H MYLES Rx#:[id number] Potassium Chloride 20 meq 300 In Water For Injection 1 100ml.bag @ 50 mls/hr IVPB Q2H MYLES Rx#: [id number] Potassium Chloride 20 meq 100 In Water For Injection 1 100ml.bag @ 50 mls/hr IVPB Q2H MYLES Rx#: [id number] Sodium Chloride 0.9% 1, 550 50 000 ml @ 50 mls/hr IV . Q20H MYLES Rx#:[id number] propofoL 1,000 mg In 113.471 Empty Bag 1 bag @ 30 MCG/ KG/MIN 16.329 mls/hr IV . Q6H8M MYLES Rx#:[id number] Other 165 Output: Urine 1475 790 50 Other: Voiding Method Indwelling Catheter Indwelling Catheter # Bowel Movements 0 ABP, PAP, CO, CI - Last Documented Arterial Blood Pressure 110/47 - Labs CBC & Chem 7: 07/19/20 04:19 07/19/20 08:50 Labs: Abnormal Lab Results - Last 24 Hours (Table) 07/18/20 07/18/20 07/18/20 Range/Units 09:47 11:54 13:08 WBC (3.8-10.6) k/uL RBC (4.30-5.90) m/uL Hgb (13.0-17.5) gm/dL Hct (39.0-53.0) % RDW (11.5-15.5) % Plt Count (150-450) k/uL Neutrophils # (1.3-7.7) k/uL Monocytes # (0-1.0) k/uL ABG pH (7.35-7.45) ABG pCO2 (35-45) mmHg ABG pO2 (83-108) mmHg ABG HCO3 (21-25) mmol/L ABG Total CO2 (19-24) mmol/L ABG O2 Saturation (94-97) % Sodium (137-145) mmol/L Potassium (3.5-5.1) mmol/L BUN (9-20) mg/dL Glucose (74-99) mg/dL POC Glucose (mg/dL) 115 H (75-99) mg/dL Plasma Lactic Acid Indra 3.0 H* 2.2 H* (0.7-2.0) mmol/L Calcium (8.4-10.2) mg/dL Total Bilirubin (0.2-1.3) mg/dL AST (17-59) U/L ALT (4-49) U/L Alkaline Phosphatase (38-126) U/L Total Protein (6.3-8.2) g/dL Albumin (3.5-5.0) g/dL 07/18/20 07/18/20 07/18/20 Range/Units 13:20 14:36 15:55 WBC (3.8-10.6) k/uL RBC (4.30-5.90) m/uL Hgb (13.0-17.5) gm/dL Hct (39.0-53.0) % RDW (11.5-15.5) % Plt Count (150-450) k/uL Neutrophils # (1.3-7.7) k/uL Monocytes # (0-1.0) k/uL ABG pH 7.50 H (7.35-7.45) ABG pCO2 (35-45) mmHg ABG pO2 82 L (83-108) mmHg ABG HCO3 29 H (21-25) mmol/L ABG Total CO2 30 H (19-24) mmol/L ABG O2 Saturation (94-97) % Sodium (137-145) mmol/L Potassium 3.2 L (3.5-5.1) mmol/L BUN (9-20) mg/dL Glucose (74-99) mg/dL POC Glucose (mg/dL) 122 H (75-99) mg/dL Plasma Lactic Acid Indra (0.7-2.0) mmol/L Calcium (8.4-10.2) mg/dL Total Bilirubin (0.2-1.3) mg/dL AST (17-59) U/L ALT (4-49) U/L Alkaline Phosphatase (38-126) U/L Total Protein (6.3-8.2) g/dL Albumin (3.5-5.0) g/dL 07/18/20 07/19/20 07/19/20 Range/Units 20:07 00:05 03:51 WBC (3.8-10.6) k/uL RBC (4.30-5.90) m/uL Hgb (13.0-17.5) gm/dL Hct (39.0-53.0) % RDW (11.5-15.5) % Plt Count (150-450) k/uL Neutrophils # (1.3-7.7) k/uL Monocytes # (0-1.0) k/uL ABG pH (7.35-7.45) ABG pCO2 (35-45) mmHg ABG pO2 (83-108) mmHg ABG HCO3 (21-25) mmol/L ABG Total CO2 (19-24) mmol/L ABG O2 Saturation (94-97) % Sodium (137-145) mmol/L Potassium (3.5-5.1) mmol/L BUN (9-20) mg/dL Glucose (74-99) mg/dL POC Glucose (mg/dL) 141 H 124 H 139 H (75-99) mg/dL Plasma Lactic Acid Indra (0.7-2.0) mmol/L Calcium (8.4-10.2) mg/dL Total Bilirubin (0.2-1.3) mg/dL AST (17-59) U/L ALT (4-49) U/L Alkaline Phosphatase (38-126) U/L Total Protein (6.3-8.2) g/dL Albumin (3.5-5.0) g/dL 07/19/20 07/19/20 07/19/20 Range/Units 04:19 04:19 05:09 WBC 16.1 H (3.8-10.6) k/uL RBC 4.15 L (4.30-5.90) m/uL Hgb 12.2 L (13.0-17.5) gm/dL Hct 37.0 L (39.0-53.0) % RDW 15.7 H (11.5-15.5) % Plt Count 84 L (150-450) k/uL Neutrophils # 10.8 H (1.3-7.7) k/uL Monocytes # 1.1 H (0-1.0) k/uL ABG pH 7.52 H (7.35-7.45) ABG pCO2 34 L (35-45) mmHg ABG pO2 (83-108) mmHg ABG HCO3 28 H (21-25) mmol/L ABG Total CO2 29 H (19-24) mmol/L ABG O2 Saturation 98.0 H (94-97) % Sodium 135 L (137-145) mmol/L Potassium (3.5-5.1) mmol/L BUN 49 H (9-20) mg/dL Glucose 154 H (74-99) mg/dL POC Glucose (mg/dL) (75-99) mg/dL Plasma Lactic Acid Indra (0.7-2.0) mmol/L Calcium 7.0 L (8.4-10.2) mg/dL Total Bilirubin 2.0 H (0.2-1.3) mg/dL AST 98 H (17-59) U/L ALT 93 H (4-49) U/L Alkaline Phosphatase 358 H (38-126) U/L Total Protein 4.3 L (6.3-8.2) g/dL Albumin 2.1 L (3.5-5.0) g/dL 07/19/20 Range/Units 08:48 WBC (3.8-10.6) k/uL RBC (4.30-5.90) m/uL Hgb (13.0-17.5) gm/dL Hct (39.0-53.0) % RDW (11.5-15.5) % Plt Count (150-450) k/uL Neutrophils # (1.3-7.7) k/uL Monocytes # (0-1.0) k/uL ABG pH (7.35-7.45) ABG pCO2 (35-45) mmHg ABG pO2 (83-108) mmHg ABG HCO3 (21-25) mmol/L ABG Total CO2 (19-24) mmol/L ABG O2 Saturation (94-97) % Sodium (137-145) mmol/L Potassium (3.5-5.1) mmol/L BUN (9-20) mg/dL Glucose (74-99) mg/dL POC Glucose (mg/dL) 170 H (75-99) mg/dL Plasma Lactic Acid Indra (0.7-2.0) mmol/L Calcium (8.4-10.2) mg/dL Total Bilirubin (0.2-1.3) mg/dL AST (17-59) U/L ALT (4-49) U/L Alkaline Phosphatase (38-126) U/L Total Protein (6.3-8.2) g/dL Albumin (3.5-5.0) g/dL Microbiology - Last 24 Hours (Table) 07/17/20 12:45 Blood Culture - Preliminary Blood No Growth after 24 hours 07/16/20 09:44 Gram Stain - Final Sputum Sputum Culture - Final
[2020-07-19] MEDS ORDERED: Potassium Replacement Protocol 1 EACH MISC MISCELLANE PRN ×2 (13:03→18:32)
[2020-07-19 13:10] LABS: Glucose,Whole Blood 130 mg/dL (75-99)
[2020-07-19] MEDS: POTASSIUM CHLORIDE 10 MEQ in WATER FOR INJECTION 1 100ML.BAG IVPB SCH ×4 (13:30→20:32)
--- NOTE | 2020-07-19 15:05 | P.PN ---
Subjective Progress Note Date: 07/19/20 Patient was still intubated when I saw her. Sedation was off. He was awake and following commands. No acute events reported to me by nursing staff overnight. Objective - Vital Signs Vital signs: Vital Signs Temp 98.8 F 07/19/20 08:00 Pulse 78 07/19/20 12:02 Resp 25 H 07/19/20 11:00 BP 108/55 07/18/20 21:15 Pulse Ox 94 L 07/19/20 11:00 Intake & Output 07/18/20 07/19/20 07/19/20 18:59 06:59 18:59 Intake Total 1356.020 811.079 292.916 Output Total 1475 790 540 Balance -118.980 21.079 -247.084 Weight 92 kg Intake: IV 125 550 180 Dextrose 5% in Water 1, 125 000 ml @ 125 mls/hr IV . Q9H12M [facility] with Sodium Bicarb (1 Meq/ml) 150 ml Rx#:[id number] Sodium Chloride 0.9% 1, 30 000 ml @ 10 mls/hr IV . Q24H [facility] Rx#:[id number] Sodium Chloride 0.9% 1, 550 100 000 ml @ 50 mls/hr IV . Q20H [facility] Rx#:[id number] cefTRIAXone 2 gm In 50 Sodium Chloride 0.9% 50 ml @ 100 mls/hr IVPB Q24HR [facility] Rx#:[id number] Intake, IV Titration 1231.020 96.079 22.916 Amount Norepinephrine 32 mg In 167.549 46.079 22.916 Sodium Chloride 0.9% 218 ml @ 0.05 MCG/KG/MIN 2. 126 mls/hr IV .Q24H [facility] Rx#:[id number] Potassium Chloride 20 meq 300 In Water For Injection 1 100ml.bag @ 50 mls/hr IVPB Q2H [facility] Rx#: [id number] Potassium Chloride 20 meq 100 In Water For Injection 1 100ml.bag @ 50 mls/hr IVPB Q2H [facility] Rx#: [id number] Sodium Chloride 0.9% 1, 550 50 000 ml @ 50 mls/hr IV . Q20H [facility] Rx#:[id number] propofoL 1,000 mg In 113.471 Empty Bag 1 bag @ 30 MCG/ KG/MIN 16.329 mls/hr IV . Q6H8M [facility] Rx#:[id number] Oral 90 Other 165 Output: Urine 1475 790 540 Other: Voiding Method Indwelling Catheter Indwelling Catheter Indwelling Catheter # Bowel Movements 0 ABP, PAP, CO, CI - Last Documented Arterial Blood Pressure 125/57 - Exam General: The patient is intubated Eye: there is normal conjunctiva bilaterally. Neck: The neck is supple, there is no JVD. Cardiovascular: Normal S1-S2, no S3-S4, no murmurs. Respiratory: Lungs mechanical ventilator sounds Gastrointestinal: Abdomen is soft, nontender Musculoskeletal: There is no pedal edema. Skin: Skin is warm and dry - Labs CBC & Chem 7: 07/19/20 04:19 07/19/20 08:50 Labs: Abnormal Lab Results - Last 24 Hours (Table) 07/18/20 07/18/20 07/19/20 Range/Units 15:55 20:07 00:05 WBC (3.8-10.6) k/uL RBC (4.30-5.90) m/uL Hgb (13.0-17.5) gm/dL Hct (39.0-53.0) % RDW (11.5-15.5) % Plt Count (150-450) k/uL Neutrophils # (1.3-7.7) k/uL Monocytes # (0-1.0) k/uL ABG pH (7.35-7.45) ABG pCO2 (35-45) mmHg ABG HCO3 (21-25) mmol/L ABG Total CO2 (19-24) mmol/L ABG O2 Saturation (94-97) % Sodium (137-145) mmol/L BUN (9-20) mg/dL Glucose (74-99) mg/dL POC Glucose (mg/dL) 122 H 141 H 124 H (75-99) mg/dL Calcium (8.4-10.2) mg/dL Total Bilirubin (0.2-1.3) mg/dL AST (17-59) U/L ALT (4-49) U/L Alkaline Phosphatase (38-126) U/L Total Protein (6.3-8.2) g/dL Albumin (3.5-5.0) g/dL 07/19/20 07/19/20 07/19/20 Range/Units 03:51 04:19 04:19 WBC 16.1 H (3.8-10.6) k/uL RBC 4.15 L (4.30-5.90) m/uL Hgb 12.2 L (13.0-17.5) gm/dL Hct 37.0 L (39.0-53.0) % RDW 15.7 H (11.5-15.5) % Plt Count 84 L (150-450) k/uL Neutrophils # 10.8 H (1.3-7.7) k/uL Monocytes # 1.1 H (0-1.0) k/uL ABG pH (7.35-7.45) ABG pCO2 (35-45) mmHg ABG HCO3 (21-25) mmol/L ABG Total CO2 (19-24) mmol/L ABG O2 Saturation (94-97) % Sodium 135 L (137-145) mmol/L BUN 49 H (9-20) mg/dL Glucose 154 H (74-99) mg/dL POC Glucose (mg/dL) 139 H (75-99) mg/dL Calcium 7.0 L (8.4-10.2) mg/dL Total Bilirubin 2.0 H (0.2-1.3) mg/dL AST 98 H (17-59) U/L ALT 93 H (4-49) U/L Alkaline Phosphatase 358 H (38-126) U/L Total Protein 4.3 L (6.3-8.2) g/dL Albumin 2.1 L (3.5-5.0) g/dL 07/19/20 07/19/20 07/19/20 Range/Units 05:09 08:48 13:09 WBC (3.8-10.6) k/uL RBC (4.30-5.90) m/uL Hgb (13.0-17.5) gm/dL Hct (39.0-53.0) % RDW (11.5-15.5) % Plt Count (150-450) k/uL Neutrophils # (1.3-7.7) k/uL Monocytes # (0-1.0) k/uL ABG pH 7.52 H (7.35-7.45) ABG pCO2 34 L (35-45) mmHg ABG HCO3 28 H (21-25) mmol/L ABG Total CO2 29 H (19-24) mmol/L ABG O2 Saturation 98.0 H (94-97) % Sodium (137-145) mmol/L BUN (9-20) mg/dL Glucose (74-99) mg/dL POC Glucose (mg/dL) 170 H 130 H (75-99) mg/dL Calcium (8.4-10.2) mg/dL Total Bilirubin (0.2-1.3) mg/dL AST (17-59) U/L ALT (4-49) U/L Alkaline Phosphatase (38-126) U/L Total Protein (6.3-8.2) g/dL Albumin (3.5-5.0) g/dL Microbiology - Last 24 Hours (Table) 07/17/20 12:45 Blood Culture - Preliminary Blood No Growth after 48 hours Assessment and Plan Assessment: This is a 80-year-old male with complex past medical history noted below who presented to the emergency room with worsening confusion brought in by EMS. Patient was evaluated in the ER and was found to have evidence of sepsis secondary to underlying UTI with obstructive uropathy secondary to malfunctioning artificial urethral sphincter. Patient was started on IV fluids and antibiotic. On the first night of his admission patient went into PEA cardiac arrest requiring CPR with successful return of spontaneous rhythm but subsequently patient went into V. tach requiring shock. Patient was intubated and currently admitted to the hospital for further management of his medical problems noted below. 1. PEA arrest requiring CPR with successful return of spontaneous circulation. 2. Acute hypoxic respiratory failure secondary to cardiac arrest. Requiring sedation and intubation. Successfully extubated on 07/19. 3. Severe sepsis with septic shock, status post aggressive IV fluid hydration. Vasopressors discontinued 07/19 4. Complicated urinary tract infection with possible urinary retention secondary to nonfunctional artificial urethral sphincter. Antibiotic with IV ceftriaxone 2 g daily. Urine culture grew E. coli 5. Non-ST elevation NH. Patient denied any chest pain on presentation. Twelve-lead EKG in the ER with no acute ischemic changes. Probably type II secondary to sepsis. He was seen and evaluated by cardiology. Echocardiogram showed EF of 45-50%. There is left ventricular wall motion hypokinesia noted. Cardiology following closely. 6. Acute kidney injury, kidney function improved significantly. probably secondary to obstructive uropathy. 7. Gram-negative bacteremia secondary to urosepsis. Repeat blood culture pending 8. History of prostate cancer status post prostatectomy with subsequent chronic urine incontinence status post artificial urethral sphincter. This was deactivated on presentation by urology. Castro catheter in place. May discontinue Castro catheter when medically appropriate. 9. Chronic atrial fibrillation on anticoagulation with Rivaroxaban. 10. Underlying cognitive impairment 11. GI prophylaxis with IV Protonix Today, I reviewed his medication list and lab work results. Wean off vasopressors as tolerated for mean arterial pressure around 65. No evidence of upper GI bleed any further. May consider resuming Rivaroxaban tomorrow if no evidence of GI bleed and hemoglobin is stable. Resume home dose of Rivaroxaban as hemoglobin is stable and no evidence of GI bleed Discontinue IV fluid Bedside swallow study
--- NOTE | 2020-07-19 15:27 | P.PN ---
Subjective Progress Note Date: 07/19/20 80-year-old gentleman admitted for altered mentation. The patient became confused and disoriented and he was diagnosed having a complicated UTI/urine checked infection with sepsis. The patient has had a previous artificial urethral sphincter insertion for incontinence. EMS brought the patient to the [facility]spital the patient was febrile. In the ED, the patient became more unresponsive and he went into cardiopulmonary arrest. The patient was found to be in ventricular fibrillation CPR was initiated and he was also defibrillated. He was brought back in terms of his hemodynamics and following that the patient was started on norepinephrine for blood pressure control and support. The patient during the process was intubated and placed on a mechanical ventilator. The patient got transferred to the ICU. EKG showed atrial fibrillation with diffuse nonspecific ST segment changes and T-wave abnormalities without clear- cut evidence of ischemia. The patient was given a Castro catheter. White cell count was 15. He was considered to be septic. He was started on broad-spectrum antibiotics. He was also started on IV heparin which was ultimately discontinued as the patient developed some bleeding from the NG tube. Noted the patient has history of prostate cancer and had undergone previous prostatectomy. Subsequent white cell count At 46 secondary underlying sepsis and the patient developed some thrombocytopenia. The patient also developed an acute kidney injury in the creatinine is up to 2.9 from a baseline of 1.78. Lactic acid peaked at 3.5 and dropped down to 3.4. The troponin peaked at 0.741. The urine analysis was abnormal consistent with underlying infection. Coronavirus testing was negative. At this point in time, the patient intubated on a mechanical ventilator. The p melania is currently on propofol running at 35 g per KG pigmented. The patient is on assist control mode of ventilation at the rate of 18 with a tidal volume of 500 and FiO2 of 40% with a PEEP of 5. Norepinephrine infusion is running at 0.35 mg per KG per minute. Currently the patient is off IV heparin because of GI bleed. The patient has a bicarb infusion running at 75 mL an hour of 150 meq of sodium bicarb and he has a NSS @75cc/hour. The urine cultures positive for gram-negative bacillus. The blood cultures positive for E. coli. The patient remains on IV Rocephin for now 1 g every 24 hours. Based on morning labs, the patient did drop in the white second down to 35.7 from yesterday. The platelet count is down to 111. The blood gases from this morning showed a pH of 7.37 with a pCO2 of 30 and pO2 of 286 and this was on FiO2 of 100% and FiO2 has been weaned down to 40% to maintain a saturation above 90%. The patient also showed some improvement in the renal function. Creatinine is down to 2.1 from yesterday and the patient also had a serum bicarb of 16 with an anion gap of 11. Sodium level is at 1:30. He is still on pressors. \ On 07/18/2020, the patient is being seen for a follow-up. The patient remains intubated on a mechanical ventilator as the patient is being treated for septic shock secondary to E. coli UTI. E. coli was cultured in the blood and in the ur ine. The patient is currently on IV Rocephin. For now, the patient is sedated with propofol and the patient will be given a sedation holiday. Propofol is running at 40 mg per KG per minute. The patient is an assist-control mode of ventilation at the rate of 12 with a tidal volume of 500 and FiO2 of 40% with a PEEP of 5.. Blood gases from today showed a pH of 7.5 with a pCO2 of 33 and pO2 of 71. The patient had a follow-up chest x-ray that showed bibasilar infiltrates and small effusions which was not present on yesterday's evaluation. ET tube is in a good location for now. Meanwhile, the patient is still on pressors. Note that the norepinephrine is gradually being weaned off and the patient is currently on 0.15 mg/kg per minute. The patient atrial fibrillation with a controlled rate. The patient is a positive fluid balance of 1.6 L over the past 24 hours. The patient remains on IV heparin. Echocardiogram showed an ejection fraction of 45-50%. The patient is also on bicarb infusion and the serum bicarb level is normalized. On 07/19/2020, the patient remains intubated on a mechanical ventilator. On today's evaluation, the patient was taken off the sedation and he was arousable. The patient remains on a mechanical ventilator on assist control mode at the rate of 12 and a tidal volume of 500 and FiO2 of 40% with a PEEP of 5. The patient's blood gas showed a pH of 7.52 with a pCO2 of 34 and pO2 11. Chest x- ray still showing some mild pulmonary vascular congestion and small bilateral pleural effusions. IV fluids has been cut down to 30 mL an hour and the patient is on a low-dose norepinephrine infusion at 0.05 mcg/kg per minute. The patient's cardiac rhythm is atrial fibrillation with a controlled rate. The patient is on IV Rocephin regarding E. coli septicemia. The plan for now is to check weaning parameters and give the patient is point is breathing trial. I anticipate extubated this patient today. The patient is a negative fluid balance. The patient was given additional dose of Lasix today. The white cell count is down to 16 and the patient's creatinine is also improving is down to 1.25. Objective - Vital Signs Vital signs: Vital Signs Temp 98.8 F 07/19/20 04:00 Pulse 75 07/19/20 07:00 Resp 13 07/19/20 07:00 BP 108/55 07/18/20 21:15 Pulse Ox 96 07/19/20 07:00 Intake & Output 07/18/20 07/19/20 07/19/20 18:59 06:59 18:59 Intake Total 1356.020 811.079 50 Output Total 1475 790 50 Balance -118.980 21.079 0 Weight 92 kg Intake: IV 125 550 50 Dextrose 5% in Water 1, 125 000 ml @ 125 mls/hr IV . Q9H12M [facility] with Sodium Bicarb (1 Meq/ml) 150 ml Rx#:[id number] Sodium Chloride 0.9% 1, 550 50 000 ml @ 50 mls/hr IV . Q20H [facility] Rx#:[id number] Intake, IV Titration 1231.020 96.079 Amount Norepinephrine 32 mg In 167.549 46.079 Sodium Chloride 0.9% 218 ml @ 0.05 MCG/KG/MIN 2. 126 mls/hr IV .Q24H [facility] Rx#:[id number] Potassium Chloride 20 meq 300 In Water For Injection 1 100ml.bag @ 50 mls/hr IVPB Q2H [facility] Rx#: [id number] Potassium Chloride 20 meq 100 In Water For Injection 1 100ml.bag @ 50 mls/hr IVPB Q2H [facility] Rx#: [id number] Sodium Chloride 0.9% 1, 550 50 000 ml @ 50 mls/hr IV . Q20H [facility] Rx#:[id number] propofoL 1,000 mg In 113.471 Empty Bag 1 bag @ 30 MCG/ KG/MIN 16.329 mls/hr IV . Q6H8M [facility] Rx#:[id number] Other 165 Output: Urine 1475 790 50 Other: Voiding Method Indwelling Catheter Indwelling Catheter # Bowel Movements 0 ABP, PAP, CO, CI - Last Documented Arterial Blood Pressure 110/47 - Exam Gen. appearance the patient is currently intubated, comfortable likely distress. Orogastric and orotracheal tube are both in place. Head exam was generally normal. There was no scleral icterus or corneal arcus. Mucous membranes were moist. Neck was supple and without jugular venous distension, thyromegaly, or carotid bruits. Carotids were easily palpable bilaterally. There was no adenopathy. Lungs are diminished and the patient scattered rhonchi heard throughout the lung his bilaterally. Heart sounds are irregular consistent with atrial fibrillation. There is positive S1-S2. No significant murmurs appreciated. Abdominal exam revealed normal bowel sounds. The abdomen was soft, non-tender, and without masses, organomegaly, or appreciable enlargement of the abdominal aorta. Examination of the extremities revealed easily palpable radial, femoral and pedal pulses. There was no cyanosis, clubbing or edema. Examination of the skin revealed no evidence of significant rashes, suspicious appearing nevi or other concerning lesions. Neurologically the patient is sedated, comfortable and the patient is well sedated for now. - Labs CBC & Chem 7: 07/19/20 04:19 07/19/20 08:50 Labs: Abnormal Lab Results - Last 24 Hours (Table) 07/18/20 07/18/20 07/18/20 Range/Units 09:47 11:54 13:08 WBC (3.8-10.6) k/uL RBC (4.30-5.90) m/uL Hgb (13.0-17.5) gm/dL Hct (39.0-53.0) % RDW (11.5-15.5) % Plt Count (150-450) k/uL Neutrophils # (1.3-7.7) k/uL Monocytes # (0-1.0) k/uL ABG pH (7.35-7.45) ABG pCO2 (35-45) mmHg ABG pO2 (83-108) mmHg ABG HCO3 (21-25) mmol/L ABG Total CO2 (19-24) mmol/L ABG O2 Saturation (94-97) % Sodium (137-145) mmol/L Potassium (3.5-5.1) mmol/L BUN (9-20) mg/dL Glucose (74-99) mg/dL POC Glucose (mg/dL) 115 H (75-99) mg/dL Plasma Lactic Acid Indra 3.0 H* 2.2 H* (0.7-2.0) mmol/L Calcium (8.4-10.2) mg/dL Total Bilirubin (0.2-1.3) mg/dL AST (17-59) U/L ALT (4-49) U/L Alkaline Phosphatase (38-126) U/L Total Protein (6.3-8.2) g/dL Albumin (3.5-5.0) g/dL 07/18/20 07/18/20 07/18/20 Range/Units 13:20 14:36 15:55 WBC (3.8-10.6) k/uL RBC (4.30-5.90) m/uL Hgb (13.0-17.5) gm/dL Hct (39.0-53.0) % RDW (11.5-15.5) % Plt Count (150-450) k/uL Neutrophils # (1.3-7.7) k/uL Monocytes # (0-1.0) k/uL ABG pH 7.50 H (7.35-7.45) ABG pCO2 (35-45) mmHg ABG pO2 82 L (83-108) mmHg ABG HCO3 29 H (21-25) mmol/L ABG Total CO2 30 H (19-24) mmol/L ABG O2 Saturation (94-97) % Sodium (137-145) mmol/L Potassium 3.2 L (3.5-5.1) mmol/L BUN (9-20) mg/dL Glucose (74-99) mg/dL POC Glucose (mg/dL) 122 H (75-99) mg/dL Plasma Lactic Acid Indra (0.7-2.0) mmol/L Calcium (8.4-10.2) mg/dL Total Bilirubin (0.2-1.3) mg/dL AST (17-59) U/L ALT (4-49) U/L Alkaline Phosphatase (38-126) U/L Total Protein (6.3-8.2) g/dL Albumin (3.5-5.0) g/dL 07/18/20 07/19/20 07/19/20 Range/Units 20:07 00:05 03:51 WBC (3.8-10.6) k/uL RBC (4.30-5.90) m/uL Hgb (13.0-17.5) gm/dL Hct (39.0-53.0) % RDW (11.5-15.5) % Plt Count (150-450) k/uL Neutrophils # (1.3-7.7) k/uL Monocytes # (0-1.0) k/uL ABG pH (7.35-7.45) ABG pCO2 (35-45) mmHg ABG pO2 (83-108) mmHg ABG HCO3 (21-25) mmol/L ABG Total CO2 (19-24) mmol/L ABG O2 Saturation (94-97) % Sodium (137-145) mmol/L Potassium (3.5-5.1) mmol/L BUN (9-20) mg/dL Glucose (74-99) mg/dL POC Glucose (mg/dL) 141 H 124 H 139 H (75-99) mg/dL Plasma Lactic Acid Indra (0.7-2.0) mmol/L Calcium (8.4-10.2) mg/dL Total Bilirubin (0.2-1.3) mg/dL AST (17-59) U/L ALT (4-49) U/L Alkaline Phosphatase (38-126) U/L Total Protein (6.3-8.2) g/dL Albumin (3.5-5.0) g/dL 07/19/20 07/19/20 07/19/20 Range/Units 04:19 04:19 05:09 WBC 16.1 H (3.8-10.6) k/uL RBC 4.15 L (4.30-5.90) m/uL Hgb 12.2 L (13.0-17.5) gm/dL Hct 37.0 L (39.0-53.0) % RDW 15.7 H (11.5-15.5) % Plt Count 84 L (150-450) k/uL Neutrophils # 10.8 H (1.3-7.7) k/uL Monocytes # 1.1 H (0-1.0) k/uL ABG pH 7.52 H (7.35-7.45) ABG pCO2 34 L (35-45) mmHg ABG pO2 (83-108) mmHg ABG HCO3 28 H (21-25) mmol/L ABG Total CO2 29 H (19-24) mmol/L ABG O2 Saturation 98.0 H (94-97) % Sodium 135 L (137-145) mmol/L Potassium (3.5-5.1) mmol/L BUN 49 H (9-20) mg/dL Glucose 154 H (74-99) mg/dL POC Glucose (mg/dL) (75-99) mg/dL Plasma Lactic Acid Indra (0.7-2.0) mmol/L Calcium 7.0 L (8.4-10.2) mg/dL Total Bilirubin 2.0 H (0.2-1.3) mg/dL AST 98 H (17-59) U/L ALT 93 H (4-49) U/L Alkaline Phosphatase 358 H (38-126) U/L Total Protein 4.3 L (6.3-8.2) g/dL Albumin 2.1 L (3.5-5.0) g/dL 07/19/20 Range/Units 08:48 WBC (3.8-10.6) k/uL RBC (4.30-5.90) m/uL Hgb (13.0-17.5) gm/dL Hct (39.0-53.0) % RDW (11.5-15.5) % Plt Count (150-450) k/uL Neutrophils # (1.3-7.7) k/uL Monocytes # (0-1.0) k/uL ABG pH (7.35-7.45) ABG pCO2 (35-45) mmHg ABG pO2 (83-108) mmHg ABG HCO3 (21-25) mmol/L ABG Total CO2 (19-24) mmol/L ABG O2 Saturation (94-97) % Sodium (137-145) mmol/L Potassium (3.5-5.1) mmol/L BUN (9-20) mg/dL Glucose (74-99) mg/dL POC Glucose (mg/dL) 170 H (75-99) mg/dL Plasma Lactic Acid Indra (0.7-2.0) mmol/L Calcium (8.4-10.2) mg/dL Total Bilirubin (0.2-1.3) mg/dL AST (17-59) U/L ALT (4-49) U/L Alkaline Phosphatase (38-126) U/L Total Protein (6.3-8.2) g/dL Albumin (3.5-5.0) g/dL Microbiology - Last 24 Hours (Table) 07/17/20 12:45 Blood Culture - Preliminary Blood No Growth after 24 hours 07/16/20 09:44 Gram Stain - Final Sputum Sputum Culture - Final Assessment and Plan Plan: 1 acute cardiac arrest/V. fib arrest requiring defibrillation/CPR and patient subsequently regained spontaneous circulation. During the process, the patient was intubated and placed on mechanical ventilator, the patient had a downtime of 4 minutes. The patient remains sedated and the patient will be given a sedation holiday.. No signs of any anoxic encephalopathy at this point in time. 2 septic shock secondary to underlying UTI, and the patient has E. coli in the blood and gram-negative bacillus and this seems to be a gram-negative or E. coli septicemia. The patient remains on IV Rocephin 3 hypotensive secondary to above. The hypotension is recovered and the patient remains on a low dose of norepinephrine infusion for blood pressure control. 4 acute non-STEMI 5 chronic atrial fibrillation, currently in a sinus rhythm, no anticoagulants for now, and this was taken off because of GI bleed, and cardiology is contemplated to start the patient back on Xarelto 6 acute leukocytosis secondary to sepsis, improving 7 lactic acidosis, down to 3.0 8 thrombocytopenia, consumptive, and the platelet counts are still low 9 non-anion gap metabolic acidosis, on bicarb infusion, recovered 10 acute kidney injury secondary to above, improving and the creatinine is down to 1.25 11 history of hypertension 12 history of hyperlipidemia 15 history of COPD 14 diabetes mellitus type 2 15 upper GI bleed induced by stress and IV heparin and currently the patient is off anticoagulants 16 prostate cancer with a previous prostatectomy 17 history of urethral sphincter insertion. 18 CHF with an ejection fraction of 45% Plan Continue ventilator support for today. Sedation holiday / Check weaning parameters and put the patient is on today's breathing trial with a pressure support of 5 and a PEEP of 5 with possible exhibition today. Give dose of Lasix 40 mg IV push Echocardiogram was noted and the patient is an ejection fraction of 45% Continue IV Rocephin Wean off norepinephrine Monitor the platelet count Follow make further evaluation and based on his progress. This is a critically care evaluation that was done and more than 30 minutes. Time with Patient: Greater than 30
[2020-07-19 16:58] LABS: Glucose,Whole Blood 125 mg/dL (75-99)
[2020-07-19] MEDS: ATORVASTATIN 80 MG TAB PO SCH (20:07)
[2020-07-19 20:18] LABS: Glucose,Whole Blood 135 mg/dL (75-99)
[2020-07-19] MEDS ORDERED: RIVAROXABAN 20 MG TAB PO SCH (21:00)
[2020-07-19 23:57] LABS: Glucose,Whole Blood 117 mg/dL (75-99)
[2020-07-20] MEDS: INSULIN ASPART (NovoLOG) 100 UNIT/ML VIAL SQ SCH ×5 (01:22→21:24)
[2020-07-20] MEDS: NOREPINEPHRINE 32 MG in SODIUM CHLORIDE 0.9% 218 ML IV SCH (01:22)
[2020-07-20 03:56] LABS: Glucose,Whole Blood 149 mg/dL (75-99)
[2020-07-20] MEDS: IPRATROPIUM-ALBUTEROL 3 ML NEB INHALATION SCH ×5 (05:00→21:19)
[2020-07-20 05:15] LABS: HCT 35.6 % (39.0-53.0); HGB 11.9 gm/dL (13.0-17.5); MCH 30.3 pg (25.0-35.0); MCHC 33.3 g/dL (31.0-37.0); MCV 91.2 fL (80.0-100.0); Mean Platelet Volume 8.7; RBC 3.91 m/uL (4.30-5.90); RDW 15.4 % (11.5-15.5)
[2020-07-20 05:18] LABS: Platelet Count 87 k/uL (150-450)
[2020-07-20 05:24] LABS: Albumin 2.2 g/dL (3.5-5.0); Calcium 7.4 mg/dL (8.4-10.2); Magnesium 2.2 mg/dL (1.6-2.3); Potassium 3.4 mmol/L (3.5-5.1); Total Bilirubin 1.6 mg/dL (0.2-1.3); Total Protein 4.5 g/dL (6.3-8.2)
[2020-07-20] MEDS: POTASSIUM CHLORIDE 20 MEQ in WATER FOR INJECTION 1 100ML.BAG IVPB SCH ×3 (05:54→08:57)
--- NOTE | 2020-07-20 07:22 | XR ---
EXAMINATION TYPE: XR chest 1V portable DATE OF EXAM: 07/20/2020 COMPARISON: Prior chest x-ray 07/19/2020 HISTORY: Extubated, abnormal chest x-ray TECHNIQUE: Single frontal view of the chest is obtained. FINDINGS: Endotracheal tube and NG tube have been removed, right jugular central venous catheter rem ains in place. No evident pneumothorax. Patchy bilateral increased density again seen within the lung s. Heart is likely stable, patient is rotated. IMPRESSION: Interval extubation. Improving aeration within the lungs.
[2020-07-20] MEDS: SODIUM CHLORIDE 0.9% 1,000 ML IV SCH (08:56)
[2020-07-20] MEDS: PANTOPRAZOLE 40 MG/10 ML VIAL IVP SCH (08:56)
--- NOTE | 2020-07-20 09:29 | PN ---
PROGRESS NOTE Mr. Escobar is a 80-year-old male who presented with sepsis. He had the respiratory failure requiring mechanical ventilation. He has atrial fibrillation. He has an artificial urethral sphincter placed. He was extubated yesterday. He continues to be in atrial fibrillation. He is awake, alert. Hemodynamically, he is stable. He continues to be at this time on Xarelto 20 mg daily, aspirin 81 mg daily, Lipitor 80 mg daily. PHYSICAL EXAMINATION: Blood pressure 120/50 with a heart rate in the 50s to 70s. LUNGS: No wheezes. HEART: Irregular, regular, S1, S2. No S3 with a systolic murmur, no diastolic murmur. ABDOMEN: Soft, nontender. EXTREMITIES: No edema. IMPRESSION: 1. Cardiopulmonary arrest with an episode of ventricular tachycardia initially. 2. Septic shock with E coli gram-negative bacilli in the blood. 3. Atrial fibrillation. 4. Elevation of troponin, most likely representing a type 2 event related to his sepsis. RECOMMENDATION: From the cardiac standpoint, I will continue anticoagulation. Heart rate is controlled. We will hold on beta sulaiman at this time. His echocardiogram revealed ejection fraction 45% to 50%. He has severe pulmonary hypertension of unknown duration. Will continue to increase his level of activity gradually and depending on his progress, further recommendation will be made. MMODL / IJN: [id number] /
[2020-07-20] MEDS ORDERED: HEPARIN SODIUM,PORCINE 5,000 UNIT/ML 1 ML VIAL IV PRN ×2 (09:39→09:53)
--- NOTE | 2020-07-20 09:43 | P.PN ---
Subjective Progress Note Date: 07/20/20 Patient is awake and alert. His having a weak cough and unable to say any words. He appears to have a lot of vocal cord edema secondary to ET tube Objective - Vital Signs Vital signs: Vital Signs Temp 98.7 F 07/20/20 04:00 Pulse 71 07/20/20 07:22 Resp 18 07/20/20 07:00 BP 108/55 07/18/20 21:15 Pulse Ox 96 07/20/20 07:00 Intake & Output 07/19/20 07/20/20 07/20/20 18:59 06:59 18:59 Intake Total 582.916 420 10 Output Total 1090 1755 60 Balance -507.084 -1335 -50 Weight 89.2 kg Intake: IV 440 420 10 Potassium Chloride 10 meq 200 200 In Water For Injection 1 100ml.bag @ 100 mls/hr IVPB Q1H [facility] Rx#: [id number] Potassium Chloride 20 meq 100 In Water For Injection 1 100ml.bag @ 50 mls/hr IVPB Q2H [facility] Rx#: [id number] Sodium Chloride 0.9% 1, 90 120 10 000 ml @ 10 mls/hr IV . Q24H [facility] Rx#:[id number] Sodium Chloride 0.9% 1, 100 000 ml @ 50 mls/hr IV . Q20H [facility] Rx#:[id number] cefTRIAXone 2 gm In 50 Sodium Chloride 0.9% 50 ml @ 100 mls/hr IVPB Q24HR [facility] Rx#:[id number] Intake, IV Titration 22.916 Amount Norepinephrine 32 mg In 22.916 Sodium Chloride 0.9% 218 ml @ 0.05 MCG/KG/MIN 2. 126 mls/hr IV .Q24H [facility] Rx#:[id number] Oral 120 Output: Urine 1090 1755 60 Other: Voiding Method Indwelling Catheter Indwelling Catheter # Bowel Movements 0 ABP, PAP, CO, CI - Last Documented Arterial Blood Pressure 120/50 - Exam General: The patient is awake and alert, in no distress Eye: there is normal conjunctiva bilaterally. Neck: The neck is supple, there is no JVD. Cardiovascular: Normal S1-S2, no S3-S4, no murmurs. Respiratory: Lungs with diffuse rhonchi to anterior chest auscultation Gastrointestinal: Abdomen is soft, nontender Musculoskeletal: There is no pedal edema. Skin: Skin is warm and dry - Labs CBC & Chem 7: 07/20/20 04:53 07/20/20 04:53 Labs: Abnormal Lab Results - Last 24 Hours (Table) 07/19/20 07/19/20 07/19/20 Range/Units 13:09 16:55 20:17 WBC (3.8-10.6) k/uL RBC (4.30-5.90) m/uL Hgb (13.0-17.5) gm/dL Hct (39.0-53.0) % Plt Count (150-450) k/uL Potassium (3.5-5.1) mmol/L Carbon Dioxide (22-30) mmol/L BUN (9-20) mg/dL Creatinine (0.66-1.25) mg/dL Glucose (74-99) mg/dL POC Glucose (mg/dL) 130 H 125 H 135 H (75-99) mg/dL Calcium (8.4-10.2) mg/dL Total Bilirubin (0.2-1.3) mg/dL AST (17-59) U/L ALT (4-49) U/L Alkaline Phosphatase (38-126) U/L Total Protein (6.3-8.2) g/dL Albumin (3.5-5.0) g/dL 07/19/20 07/20/20 07/20/20 Range/Units 23:56 03:54 04:53 WBC (3.8-10.6) k/uL RBC (4.30-5.90) m/uL Hgb (13.0-17.5) gm/dL Hct (39.0-53.0) % Plt Count (150-450) k/uL Potassium 3.4 L (3.5-5.1) mmol/L Carbon Dioxide 31 H (22-30) mmol/L BUN 51 H (9-20) mg/dL Creatinine 1.29 H (0.66-1.25) mg/dL Glucose 132 H (74-99) mg/dL POC Glucose (mg/dL) 117 H 149 H (75-99) mg/dL Calcium 7.4 L (8.4-10.2) mg/dL Total Bilirubin 1.6 H (0.2-1.3) mg/dL AST 100 H (17-59) U/L ALT 86 H (4-49) U/L Alkaline Phosphatase 496 H (38-126) U/L Total Protein 4.5 L (6.3-8.2) g/dL Albumin 2.2 L (3.5-5.0) g/dL 07/20/20 Range/Units 04:53 WBC 11.0 H (3.8-10.6) k/uL RBC 3.91 L (4.30-5.90) m/uL Hgb 11.9 L (13.0-17.5) gm/dL Hct 35.6 L (39.0-53.0) % Plt Count 87 L (150-450) k/uL Potassium (3.5-5.1) mmol/L Carbon Dioxide (22-30) mmol/L BUN (9-20) mg/dL Creatinine (0.66-1.25) mg/dL Glucose (74-99) mg/dL POC Glucose (mg/dL) (75-99) mg/dL Calcium (8.4-10.2) mg/dL Total Bilirubin (0.2-1.3) mg/dL AST (17-59) U/L ALT (4-49) U/L Alkaline Phosphatase (38-126) U/L Total Protein (6.3-8.2) g/dL Albumin (3.5-5.0) g/dL Microbiology - Last 24 Hours (Table) 07/17/20 12:45 Blood Culture - Preliminary Blood No Growth after 48 hours Assessment and Plan Assessment: This is a 80-year-old male with complex past medical history noted below who presented to the emergency room with worsening confusion brought in by EMS. Patient was evaluated in the ER and was found to have evidence of sepsis secondary to underlying UTI with obstructive uropathy secondary to malfunctioning artificial urethral sphincter. Patient was started on IV fluids and antibiotic. On the first night of his admission patient went into PEA cardiac arrest requiring CPR with successful return of spontaneous rhythm but subsequently patient went into V. tach requiring shock. Patient was intubated and currently admitted to the hospital for further management of his medical problems noted below. 1. PEA arrest requiring CPR with successful return of spontaneous circulation. 2. Acute hypoxic respiratory failure secondary to cardiac arrest. Requiring sedation and intubation. Successfully extubated on 07/19. 3. Severe sepsis with septic shock, status post aggressive IV fluid hydration. Vasopressors discontinued 07/19 4. Complicated urinary tract infection with possible urinary retention secondary to nonfunctional artificial urethral sphincter. Castro catheter placed by urology. Antibiotic with IV ceftriaxone 2 g day #6. Urine culture grew E. coli 5. Non-ST elevation MN. Patient denied any chest pain on presentation. Twelve-lead EKG in the ER with no acute ischemic changes. Probably type II secondary to sepsis. He was seen and evaluated by cardiology. Echocardiogram showed EF of 45-50%. There is left ventricular wall motion hypokinesia noted. Cardiology following closely. 6. Acute kidney injury, kidney function improved significantly. probably secondary to obstructive uropathy. 7. Gram-negative bacteremia secondary to urosepsis. Repeat blood culture negative to date 8. History of prostate cancer status post prostatectomy with subsequent chronic urine incontinence status post artificial urethral sphincter. This was deactivated on presentation by urology. Castro catheter in place. May discontinue Castro catheter when medically appropriate. 9. Chronic atrial fibrillation on anticoagulation with Rivaroxaban. 10. Underlying cognitive impairment 11. GI prophylaxis with IV Protonix Today, I reviewed his medication list and lab work results. Switch anticoagulation back to IV heparin secondary to patient being unable to swallow at this time. Continue to monitor clinical status. Gentle IV fluid hydration. Speech pathology consult.
[2020-07-20] MEDS ORDERED: HEPARIN SOD,PORK IN 0.45% NACL 25,000 UNIT in 0.45% NACL 1 250ML.BAG IV SCH (09:45)
[2020-07-20] MEDS: HEPARIN SOD,PORK IN 0.45% NACL 25,000 UNIT in 0.45% NACL 1 250ML.BAG IV SCH (11:17)
[2020-07-20 11:55] LABS: Glucose,Whole Blood 126 mg/dL (75-99)
--- NOTE | 2020-07-20 14:56 | P.PN ---
Subjective Progress Note Date: 07/20/20 80-year-old gentleman admitted for altered mentation. The patient became confused and disoriented and he was diagnosed having a complicated UTI/urine checked infection with sepsis. The patient has had a previous artificial urethral sphincter insertion for incontinence. EMS brought the patient to the [facility] the patient was febrile. In the ED, the patient became more unresponsive and he went into cardiopulmonary arrest. The patient was found to be in ventricular fibrillation CPR was initiated and he was also defibrillated. He was brought back in terms of his hemodynamics and following that the patient was started on norepinephrine for blood pressure control and support. The patient during the process was intubated and placed on a mechanical ventilator. The patient got transferred to the ICU. EKG showed atrial fibrillation with diffuse nonspecific ST segment changes and T-wave abnormalities without clear- cut evidence of ischemia. The patient was given a Castro catheter. White cell count was 15. He was considered to be septic. He was started on broad-spectrum antibiotics. He was also started on IV heparin which was ultimately discontinued as the patient developed some bleeding from the NG tube. Noted the patient has history of prostate cancer and had undergone previous prostatectomy. Subsequent white cell count At 46 secondary underlying sepsis and the patient developed some thrombocytopenia. The patient also developed an acute kidney injury in the creatinine is up to 2.9 from a baseline of 1.78. Lactic acid peaked at 3.5 and dropped down to 3.4. The troponin peaked at 0.741. The urine analysis was abnormal consistent with underlying infection. Coronavirus testing was negative. At this point in time, the patient intubated on a mechanical ventilator. The p melania is currently on propofol running at 35 g per KG pigmented. The patient is on assist control mode of ventilation at the rate of 18 with a tidal volume of 500 and FiO2 of 40% with a PEEP of 5. Norepinephrine infusion is running at 0.35 mg per KG per minute. Currently the patient is off IV heparin because of GI bleed. The patient has a bicarb infusion running at 75 mL an hour of 150 meq of sodium bicarb and he has a NSS @75cc/hour. The urine cultures positive for gram-negative bacillus. The blood cultures positive for E. coli. The patient remains on IV Rocephin for now 1 g every 24 hours. Based on morning labs, the patient did drop in the white second down to 35.7 from yesterday. The platelet count is down to 111. The blood gases from this morning showed a pH of 7.37 with a pCO2 of 30 and pO2 of 286 and this was on FiO2 of 100% and FiO2 has been weaned down to 40% to maintain a saturation above 90%. The patient also showed some improvement in the renal function. Creatinine is down to 2.1 from yesterday and the patient also had a serum bicarb of 16 with an anion gap of 11. Sodium level is at 1:30. He is still on pressors. \ On 07/18/2020, the patient is being seen for a follow-up. The patient remains intubated on a mechanical ventilator as the patient is being treated for septic shock secondary to E. coli UTI. E. coli was cultured in the blood and in the ur ine. The patient is currently on IV Rocephin. For now, the patient is sedated with propofol and the patient will be given a sedation holiday. Propofol is running at 40 mg per KG per minute. The patient is an assist-control mode of ventilation at the rate of 12 with a tidal volume of 500 and FiO2 of 40% with a PEEP of 5.. Blood gases from today showed a pH of 7.5 with a pCO2 of 33 and pO2 of 71. The patient had a follow-up chest x-ray that showed bibasilar infiltrates and small effusions which was not present on yesterday's evaluation. ET tube is in a good location for now. Meanwhile, the patient is still on pressors. Note that the norepinephrine is gradually being weaned off and the patient is currently on 0.15 mg/kg per minute. The patient atrial fibrillation with a controlled rate. The patient is a positive fluid balance of 1.6 L over the past 24 hours. The patient remains on IV heparin. Echocardiogram showed an ejection fraction of 45-50%. The patient is also on bicarb infusion and the serum bicarb level is normalized. On 07/19/2020, the patient remains intubated on a mechanical ventilator. On today's evaluation, the patient was taken off the sedation and he was arousable. The patient remains on a mechanical ventilator on assist control mode at the rate of 12 and a tidal volume of 500 and FiO2 of 40% with a PEEP of 5. The patient's blood gas showed a pH of 7.52 with a pCO2 of 34 and pO2 11. Chest x- ray still showing some mild pulmonary vascular congestion and small bilateral pleural effusions. IV fluids has been cut down to 30 mL an hour and the patient is on a low-dose norepinephrine infusion at 0.05 mcg/kg per minute. The patient's cardiac rhythm is atrial fibrillation with a controlled rate. The patient is on IV Rocephin regarding E. coli septicemia. The plan for now is to check weaning parameters and give the patient is point is breathing trial. I anticipate extubated this patient today. The patient is a negative fluid balance. The patient was given additional dose of Lasix today. The white cell count is down to 16 and the patient's creatinine is also improving is down to 1.25. On 07/20/2020, the patient is still extubated. The patient was extubated yesterday and the patient is currently on 2 L of oxygen by nasal cannula. He is profoundly weak. His ability to cough and speak is quite limited and the patient has been having difficulties with swallowing. I think this is related to overall and generalized weakness secondary to sepsis. The patient has failed swallow evaluation. He remains nothing by mouth. I'm considering a Dobbhoff catheter for enteral feeding and nutritional support. Meanwhile, the patient remains in atrial fibrillation. Heart rate is controlled in the mid 70s. His cough is weak. His voice is muffled. He cannot swallow. Based on that, increase his IV fluids again to 75 mL an hour. He remains on IV Rocephin. He is still being treated for E. coli septicemia. The renal function is stable. The patient is currently on no pressors. No fever. No chills. He is awake and is able to follow commands. Objective - Vital Signs Vital signs: Vital Signs Temp 98.7 F 07/20/20 04:00 Pulse 75 07/20/20 12:00 Resp 14 07/20/20 12:00 BP 108/55 07/18/20 21:15 Pulse Ox 97 07/20/20 12:00 Intake & Output 07/19/20 07/20/20 07/20/20 18:59 06:59 18:59 Intake Total 582.916 420 10 Output Total 1090 1755 320 Balance -507.084 -1335 -310 Weight 89.2 kg 89.2 kg Intake: IV 440 420 10 Potassium Chloride 10 meq 200 200 In Water For Injection 1 100ml.bag @ 100 mls/hr IVPB Q1H [facility] Rx#: [id number] Potassium Chloride 20 meq 100 In Water For Injection 1 100ml.bag @ 50 mls/hr IVPB Q2H [facility] Rx#: [id number] Sodium Chloride 0.9% 1, 100 000 ml @ 50 mls/hr IV . Q20H [facility] Rx#:[id number] Sodium Chloride 0.9% 1, 90 120 10 000 ml @ 75 mls/hr IV . [id number] [facility] Rx#:[id number] cefTRIAXone 2 gm In 50 Sodium Chloride 0.9% 50 ml @ 100 mls/hr IVPB Q24HR [facility] Rx#:[id number] Intake, IV Titration 22.916 Amount Norepinephrine 32 mg In 22.916 Sodium Chloride 0.9% 218 ml @ 0.05 MCG/KG/MIN 2. 126 mls/hr IV .Q24H [facility] Rx#:[id number] Oral 120 Output: Urine 1090 1755 320 Other: Voiding Method Indwelling Catheter Indwelling Catheter Indwelling Catheter # Bowel Movements 0 ABP, PAP, CO, CI - Last Documented Arterial Blood Pressure 150/60 - Exam Gen. appearance the patient is extubated to 2 L of oxygen by nasal cannula Head exam was generally normal. There was no scleral icterus or corneal arcus. Mucous membranes were moist. Neck was supple and without jugular venous distension, thyromegaly, or carotid bruits. Carotids were easily palpable bilaterally. There was no adenopathy. Lungs are diminished and the patient scattered rhonchi heard throughout the lung his bilaterally. Heart sounds are irregular consistent with atrial fibrillation. There is pos itive S1-S2. No significant murmurs appreciated. Abdominal exam revealed normal bowel sounds. The abdomen was soft, non-tender, and without masses, organomegaly, or appreciable enlargement of the abdominal aorta. Examination of the extremities revealed easily palpable radial, femoral and pedal pulses. There was no cyanosis, clubbing or edema. Examination of the skin revealed no evidence of significant rashes, suspicious appearing nevi or other concerning lesions. Neurologically the patient is awake yet profoundly weak and somewhat lethargic on today's evaluation. There is global weakness in all 4 extremities. He has a weak cough. He has a weak voice and difficulties in swallowing - Labs CBC & Chem 7: 07/20/20 04:53 07/20/20 04:53 Labs: Abnormal Lab Results - Last 24 Hours (Table) 07/19/20 07/19/20 07/19/20 Range/Units 16:55 20:17 23:56 WBC (3.8-10.6) k/uL RBC (4.30-5.90) m/uL Hgb (13.0-17.5) gm/dL Hct (39.0-53.0) % Plt Count (150-450) k/uL Potassium (3.5-5.1) mmol/L Carbon Dioxide (22-30) mmol/L BUN (9-20) mg/dL Creatinine (0.66-1.25) mg/dL Glucose (74-99) mg/dL POC Glucose (mg/dL) 125 H 135 H 117 H (75-99) mg/dL Calcium (8.4-10.2) mg/dL Total Bilirubin (0.2-1.3) mg/dL AST (17-59) U/L ALT (4-49) U/L Alkaline Phosphatase (38-126) U/L Total Protein (6.3-8.2) g/dL Albumin (3.5-5.0) g/dL 07/20/20 07/20/20 07/20/20 Range/Units 03:54 04:53 04:53 WBC 11.0 H (3.8-10.6) k/uL RBC 3.91 L (4.30-5.90) m/uL Hgb 11.9 L (13.0-17.5) gm/dL Hct 35.6 L (39.0-53.0) % Plt Count 87 L (150-450) k/uL Potassium 3.4 L (3.5-5.1) mmol/L Carbon Dioxide 31 H (22-30) mmol/L BUN 51 H (9-20) mg/dL Creatinine 1.29 H (0.66-1.25) mg/dL Glucose 132 H (74-99) mg/dL POC Glucose (mg/dL) 149 H (75-99) mg/dL Calcium 7.4 L (8.4-10.2) mg/dL Total Bilirubin 1.6 H (0.2-1.3) mg/dL AST 100 H (17-59) U/L ALT 86 H (4-49) U/L Alkaline Phosphatase 496 H (38-126) U/L Total Protein 4.5 L (6.3-8.2) g/dL Albumin 2.2 L (3.5-5.0) g/dL 07/20/20 Range/Units 11:54 WBC (3.8-10.6) k/uL RBC (4.30-5.90) m/uL Hgb (13.0-17.5) gm/dL Hct (39.0-53.0) % Plt Count (150-450) k/uL Potassium (3.5-5.1) mmol/L Carbon Dioxide (22-30) mmol/L BUN (9-20) mg/dL Creatinine (0.66-1.25) mg/dL Glucose (74-99) mg/dL POC Glucose (mg/dL) 126 H (75-99) mg/dL Calcium (8.4-10.2) mg/dL Total Bilirubin (0.2-1.3) mg/dL AST (17-59) U/L ALT (4-49) U/L Alkaline Phosphatase (38-126) U/L Total Protein (6.3-8.2) g/dL Albumin (3.5-5.0) g/dL Microbiology - Last 24 Hours (Table) 07/17/20 12:45 Blood Culture - Preliminary Blood No Growth after 48 hours Assessment and Plan Plan: 1 acute cardiac arrest/V. fib arrest requiring defibrillation/CPR and patient subsequently regained spontaneous circulation. During the process, the patient was intubated and placed on mechanical ventilator, the patient had a downtime of 4 minutes. The patient remains sedated and the patient will be given a sedation holiday.. No signs of any anoxic encephalopathy at this point in time. Nevertheless, the patient is extubated and the patient is profoundly weak and has global weakness in all 4 extremities along with a weak voice, cough and poor swallow. 2 septic shock secondary to underlying UTI, and the patient has E. coli in the blood and gram-negative bacillus and this seems to be a gram-negative or E. coli septicemia. The patient remains on IV Rocephin 3 hypotensive secondary to above, recovered currently off pressors 4 acute non-STEMI 5 chronic atrial fibrillation, currently in a sinus rhythm, no anticoagulants for now, and this was taken off because of GI bleed, and cardiology is contemplated to start the patient back on Xarelto 6 acute leukocytosis secondary to sepsis, improving, and the white cell count is down to 11 7 lactic acidosis, down to 3.0 8 thrombocytopenia, consumptive, and the platelet counts are still low 9 non-anion gap metabolic acidosis, on bicarb infusion, recovered 10 acute kidney injury secondary to above, improving and the creatinine is down to 1.29 11 history of hypertension 12 history of hyperlipidemia 15 history of COPD 14 diabetes mellitus type 2 15 upper GI bleed induced by stress and IV heparin and currently the patient is off anticoagulants 16 prostate cancer with a previous prostatectomy 17 history of urethral sphincter insertion. 18 CHF with an ejection fraction of 45% Plan Keep the patient oxygen at 2 L per minute nasal cannula No need for further diuretics and the patient will be given IV fluids at 75 mL an hour as the patient is currently nothing by mouth due to poor swallow Echocardiogram was noted and the patient is an ejection fraction of 45% Continue IV Rocephin White cell count is improved Monitor the platelet count Keep nothing by mouth and consider the possibility of a Dobbhoff catheter insertion for enteral feeding and nutritional support Follow make further evaluation and based on his progress. This is a critically care evaluation that was done and more than 30 minutes. Time with Patient: Greater than 30
[2020-07-20] MEDS: ASPIRIN 81 MG PO SCH (17:52)
[2020-07-20] MEDS: CITALOPRAM HYDROBROMIDE 20 MG TAB PO SCH (17:53)
[2020-07-20 17:58] LABS: Glucose,Whole Blood 121 mg/dL (75-99)
--- NOTE | 2020-07-20 18:19 | XR ---
EXAMINATION TYPE: XR chest 1V portable DATE OF EXAM: 07/20/2020 COMPARISON: 07/20/2020 HISTORY: Check tube placement TECHNIQUE: FINDINGS: Heart is enlarged. There is mild pulmonary congestion. There is slight blunting left costop hrenic angle. There is minimal interstitial infiltrates at the lung bases. There is nasogastric tube with the tip probably in the distal stomach. There is right jugular cathete r with tip in the superior vena cava. There are chest leads. IMPRESSION: There is evidence for some mild heart failure improved compared to exam this morning. Mil d basilar pulmonary infiltrates at the same or slightly improved. NG tube is in the stomach.
[2020-07-20] MEDS: ATORVASTATIN 80 MG TAB PO SCH (20:51)
[2020-07-20 21:01] LABS: Glucose,Whole Blood 130 mg/dL (75-99)
[2020-07-21] MEDS: IPRATROPIUM-ALBUTEROL 3 ML NEB INHALATION SCH ×6 (00:22→20:02)
[2020-07-21 01:05] LABS: Glucose,Whole Blood 148 mg/dL (75-99)
[2020-07-21] MEDS: NOREPINEPHRINE 32 MG in SODIUM CHLORIDE 0.9% 218 ML IV SCH (02:10)
[2020-07-21 04:43] LABS: Basophils # (A) 0.1 k/uL (0-0.2); Basophils % (A) 1 %; Eosinophils # (A) 0.2 k/uL (0-0.7); Eosinophils % (A) 2 %; Lymphocytes # (A) 2.3 k/uL (1.0-4.8); Lymphocytes % (A) 19 %; MCH 30.6 pg (25.0-35.0); MCHC 33.3 g/dL (31.0-37.0); MCV 91.8 fL (80.0-100.0); Mean Platelet Volume 9.1; Monocytes % (A) 8 %; Neutrophils # (A) 8.1 k/uL (1.3-7.7); Neutrophils % (A) 67 %; Platelet Count 116 k/uL (150-450); RBC 3.92 m/uL (4.30-5.90); RDW 15.4 % (11.5-15.5); WBC 12.1 k/uL (3.8-10.6)
[2020-07-21 06:06] LABS: Albumin 2.2 g/dL (3.5-5.0); Calcium 8.2 mg/dL (8.4-10.2); Magnesium 2.2 mg/dL (1.6-2.3); Total Bilirubin 1.5 mg/dL (0.2-1.3); Total Protein 4.6 g/dL (6.3-8.2)
[2020-07-21 06:12] LABS: Potassium 4.2 mmol/L (3.5-5.1)
[2020-07-21 07:15] LABS: Glucose,Whole Blood 142 mg/dL (75-99)
[2020-07-21] MEDS: INSULIN ASPART (NovoLOG) 100 UNIT/ML VIAL SQ SCH ×3 (07:19→18:27)
--- NOTE | 2020-07-21 07:44 | XR ---
EXAMINATION TYPE: XR chest 1V portable DATE OF EXAM: 07/21/2020 COMPARISON: 07/20/2020 INDICATION: Tube placement TECHNIQUE: Single frontal view of the chest is obtained. FINDINGS: The heart size is mildly prominent. The pulmonary vasculature is normal. Mild infiltrates at the right lung base. There is a left lower lobe infiltrate. This is stable. Right central venous catheter is present. Appears to be a nasogastric tube present IMPRESSION: 1. Bibasilar infiltrates, stable. 2. Lines and catheters discussed above.
[2020-07-21] MEDS ORDERED: RX INFO: IV CONTRAST WAS GIVEN 1 EACH MISC MISCELLANE PRN (09:14)
--- NOTE | 2020-07-21 09:25 | PN ---
PROGRESS NOTE Mr. Escobar is a 80-year-old male who presented with sepsis. He had respiratory failure requiring mechanical ventilation as well as atrial fibrillation. He had an artificial sphincter placed prior to admission with infection. He is extubated, continues to be in atrial fibrillation, rate is controlled, but he is able to swallow and that is why he was switched to intravenous heparin instead of the oral anticoagulation. He has a feeding tube. Hemodynamically, he is stable otherwise. He is weak. He is having difficulty swallowing. He is answering questions yet his voice is quite weak. He continues to be at this time on the IV heparin, aspirin, Lipitor 80 mg daily. PHYSICAL EXAMINATION: Blood pressure running in the 140s with a heart rate in the 70s. LUNGS: With decreased air exchange but no wheezes or rales. HEART: Irregular, regular, S1, S2. No S3. No rub appreciated. ABDOMEN: Soft, nontender, positive bowel sounds. EXTREMITIES: No edema. Chest x-ray, no infiltrate with mild signs of failure. LAB DATA: Revealed BUN and creatinine 51 and 1.08, potassium 4.2, hemoglobin of 12. IMPRESSION: 1. Respiratory failure, improved. Patient is extubated. 2. Septic shock related to UTI. 3. Atrial fibrillation, patient is on IV heparin. His oral anticoagulation is on hold because of the inability to swallow. 4. Acute renal injury, improved. 5. Prior history of hypertension. 6. History of hyperlipidemia. 7. Troponin elevation representing a type 2 event secondary to the sepsis. No evidence of acute ischemic syndrome. RECOMMENDATION: From the cardiac standpoint, will continue present therapy. Will await the further evaluation of his following to be able to reinitiate treatment with oral anticoagulation. MMODL / IJN: [id number] /
[2020-07-21 09:54] LABS: Glucose,Whole Blood 179 mg/dL (75-99)
[2020-07-21] MEDS ORDERED: DEXAMETHASONE SOD PHOSPHATE 10 MG/ML 1 ML VIAL IV STA (10:20)
[2020-07-21] MEDS: PANTOPRAZOLE 40 MG/10 ML VIAL IVP SCH (10:50)
[2020-07-21] MEDS: HEPARIN SOD,PORK IN 0.45% NACL 25,000 UNIT in 0.45% NACL 1 250ML.BAG IV SCH (10:50)
[2020-07-21] MEDS: ASPIRIN 81 MG PO SCH (10:50)
[2020-07-21] MEDS: CITALOPRAM HYDROBROMIDE 20 MG TAB PO SCH (10:56)
[2020-07-21] MEDS: SODIUM CHLORIDE 0.9% 1,000 ML IV SCH (10:57)
--- NOTE | 2020-07-21 10:57 | P.PN ---
Subjective Progress Note Date: 07/21/20 Patient is awake and alert today. He is still having significant vocal cord swelling and is unable to speak or swallow. He was started on tube feeding yesterday. He is answering yes when I asked him if he is feeling well. He denies any shortness of breath. He is having significant discharge from his right eye and appears to have photophobia when I turned the light on. Bilateral conjunctivae injection worse on the right. Objective - Vital Signs Vital signs: Vital Signs Temp 98.7 F 07/21/20 04:00 Pulse 76 07/21/20 08:14 Resp 16 07/21/20 07:00 BP 108/55 07/20/20 18:00 Pulse Ox 96 07/21/20 07:00 Intake & Output 07/20/20 07/21/20 07/21/20 18:59 06:59 18:59 Intake Total 410 1019.333 85 Output Total 1120 655 40 Balance -710 364.333 45 Weight 89.2 kg Intake: IV 410 775 75 Sodium Chloride 0.9% 1, 410 775 75 000 ml @ 75 mls/hr IV . [id number] [facility] Rx#:[id number] Intake, IV Titration 84.333 Amount Heparin Sod,Pork in 0.45% 84.333 NaCl 25,000 unit In 0.45 % NaCl 1 250ml.bag @ 11. 211 UNITS/KG/HR 10 mls/hr IV .Q24H [facility]LES Rx#: [id number] Tube Feeding 100 10 Other 60 Output: Urine 1120 655 40 Stool 0 Other: Voiding Method Indwelling Catheter Indwelling Catheter ABP, PAP, CO, CI - Last Documented Arterial Blood Pressure 150/53 - Exam General: The patient is awake and alert, in no distress Eye: As noted above Neck: The neck is supple, there is no JVD. Cardiovascular: Normal S1-S2, no S3-S4, no murmurs. Respiratory: Lungs with scattered rhonchi to anterior chest auscultation Gastrointestinal: Abdomen is soft, nontender Musculoskeletal: There is no pedal edema. Skin: Skin is warm and dry - Labs CBC & Chem 7: 07/21/20 04:27 07/21/20 04:27 Labs: Abnormal Lab Results - Last 24 Hours (Table) 07/20/20 07/20/20 07/20/20 Range/Units 11:54 17:57 18:00 WBC (3.8-10.6) k/uL RBC (4.30-5.90) m/uL Hgb (13.0-17.5) gm/dL Hct (39.0-53.0) % Plt Count (150-450) k/uL Neutrophils # (1.3-7.7) k/uL APTT 50.9 H (22.0-30.0) sec Chloride (98-107) mmol/L BUN (9-20) mg/dL Glucose (74-99) mg/dL POC Glucose (mg/dL) 126 H 121 H (75-99) mg/dL Calcium (8.4-10.2) mg/dL Total Bilirubin (0.2-1.3) mg/dL AST (17-59) U/L ALT (4-49) U/L Alkaline Phosphatase (38-126) U/L Total Protein (6.3-8.2) g/dL Albumin (3.5-5.0) g/dL 07/20/20 07/21/20 07/21/20 Range/Units 20:59 01:03 04:27 WBC (3.8-10.6) k/uL RBC (4.30-5.90) m/uL Hgb (13.0-17.5) gm/dL Hct (39.0-53.0) % Plt Count (150-450) k/uL Neutrophils # (1.3-7.7) k/uL APTT (22.0-30.0) sec Chloride 110 H (98-107) mmol/L BUN 51 H (9-20) mg/dL Glucose 165 H (74-99) mg/dL POC Glucose (mg/dL) 130 H 148 H (75-99) mg/dL Calcium 8.2 L (8.4-10.2) mg/dL Total Bilirubin 1.5 H (0.2-1.3) mg/dL AST 102 H (17-59) U/L ALT 74 H (4-49) U/L Alkaline Phosphatase 619 H (38-126) U/L Total Protein 4.6 L (6.3-8.2) g/dL Albumin 2.2 L (3.5-5.0) g/dL 07/21/20 07/21/20 07/21/20 Range/Units 04:27 07:14 09:53 WBC 12.1 H (3.8-10.6) k/uL RBC 3.92 L (4.30-5.90) m/uL Hgb 12.0 L (13.0-17.5) gm/dL Hct 36.0 L (39.0-53.0) % Plt Count 116 L (150-450) k/uL Neutrophils # 8.1 H (1.3-7.7) k/uL APTT (22.0-30.0) sec Chloride (98-107) mmol/L BUN (9-20) mg/dL Glucose (74-99) mg/dL POC Glucose (mg/dL) 142 H 179 H (75-99) mg/dL Calcium (8.4-10.2) mg/dL Total Bilirubin (0.2-1.3) mg/dL AST (17-59) U/L ALT (4-49) U/L Alkaline Phosphatase (38-126) U/L Total Protein (6.3-8.2) g/dL Albumin (3.5-5.0) g/dL 07/21/20 Range/Units 09:58 WBC (3.8-10.6) k/uL RBC (4.30-5.90) m/uL Hgb (13.0-17.5) gm/dL Hct (39.0-53.0) % Plt Count (150-450) k/uL Neutrophils # (1.3-7.7) k/uL APTT 57.6 H (22.0-30.0) sec Chloride (98-107) mmol/L BUN (9-20) mg/dL Glucose (74-99) mg/dL POC Glucose (mg/dL) (75-99) mg/dL Calcium (8.4-10.2) mg/dL Total Bilirubin (0.2-1.3) mg/dL AST (17-59) U/L ALT (4-49) U/L Alkaline Phosphatase (38-126) U/L Total Protein (6.3-8.2) g/dL Albumin (3.5-5.0) g/dL Microbiology - Last 24 Hours (Table) 07/17/20 12:45 Blood Culture - Preliminary Blood No Growth after 72 hours Assessment and Plan Assessment: This is a 80-year-old male with complex past medical history noted below who presented to the emergency room with worsening confusion brought in by EMS. Patient was evaluated in the ER and was found to have evidence of sepsis secondary to underlying UTI with obstructive uropathy secondary to malfunctioning artificial urethral sphincter. Patient was started on IV fluids and antibiotic. On the first night of his admission patient went into PEA ca rdiac arrest requiring CPR with successful return of spontaneous rhythm but subsequently patient went into V. tach requiring shock. Patient was intubated and currently admitted to the hospital for further management of his medical problems noted below. 1. PEA arrest requiring CPR with successful return of spontaneous circulation. 2. Acute hypoxic respiratory failure secondary to cardiac arrest. Requiring sedation and intubation. Successfully extubated on 07/19. 3. Severe sepsis with septic shock, status post aggressive IV fluid hydration. Vasopressors discontinued 07/19 4. Complicated urinary tract infection with possible urinary retention secondary to nonfunctional artificial urethral sphincter. Castro catheter placed by urology. Antibiotic with IV ceftriaxone 2 g day #7. Urine culture grew E. coli 5. E. coli bacteremia secondary to urosepsis. Repeat blood culture negative to date. We will finish 10 days of IV antibiotic 6. Acute kidney injury, kidney function improved significantly. probably secondary to obstructive uropathy. 7. Non-ST elevation [place]. Patient denied any chest pain on presentation. Twelve-lead EKG in the ER with no acute ischemic changes. Probably type II secondary to sepsis. He was seen and evaluated by cardiology. Echocardiogram showed EF of 45-50%. There is left ventricular wall motion hypokinesia noted. Cardiology following closely. 8. History of prostate cancer status post prostatectomy with subsequent chronic urine incontinence status post artificial urethral sphincter. This was deactivated on presentation by urology. Castro catheter in place. May discontinue Castro catheter when medically appropriate. 9. Chronic atrial fibrillation on anticoagulation with Rivaroxaban. 10. Underlying cognitive impairment 11. GI prophylaxis with IV Protonix Today, I reviewed his medication list and lab work results. Continue to monitor clinical status. Gentle IV fluid hydration. Speech pathology consult. Continue tube feeding as recommended by clinical dietitian Artificial tears 4 times a day and tobramycin ointment 3 times a day One-time dose IV Decadron 10 mg to improve upper airway/vocal cord swelling secondary to ET tube placement
--- NOTE | 2020-07-21 12:18 | CT ---
EXAMINATION TYPE: CT brain wo con DATE OF EXAM: 07/21/2020 COMPARISON: None HISTORY: Garbled speech. CT DLP: 1129.[address] of the brain was performed. The ventricles, basal cisterns and sulci overlying the cerebral convexities demonstrate mild enlargem ent. There is no evidence for intracranial hemorrhage or sulcal effacement. There is decreased attenuation about the periventricular white matter and deep white matter of both c erebral hemispheres, compatible with chronic small vessel ischemia. Differential diagnosis does inclu de demyelination. No mass effects are seen.No midline shift. Osseous calvarium is intact. Moderate maxillary sinus If symptoms persist consider MRI. IMPRESSION: 1. Age related atrophic and chronic small vessel ischemic change without acute intracranial process s een at this time.
[2020-07-21] MEDS: TOBRAMYCIN 0.3% OPHTH OINT 3.5 GM TUBE BOTH EYES SCH ×3 (13:18→21:52)
[2020-07-21] MEDS: ARTIFICIAL TEARS-HYPROMELLOSE DROPS 15 ML BTL BOTH EYES SCH ×3 (13:18→21:51)
[2020-07-21 13:21] LABS: Glucose,Whole Blood 164 mg/dL (75-99)
--- NOTE | 2020-07-21 14:40 | P.PN ---
Subjective Progress Note Date: 07/21/20 80-year-old gentleman admitted for altered mentation. The patient became confused and disoriented and he was diagnosed having a complicated UTI/urine checked infection with sepsis. The patient has had a previous artificial urethral sphincter insertion for incontinence. EMS brought the patient to the ospital the patient was febrile. In the ED, the patient became more unresponsive and he went into cardiopulmonary arrest. The patient was found to be in ventricular fibrillation CPR was initiated and he was also defibrillated. He was brought back in terms of his hemodynamics and following that the patient was started on norepinephrine for blood pressure control and support. The patient during the process was intubated and placed on a mechanical ventilator. The patient got transferred to the ICU. EKG showed atrial fibrillation with diffuse nonspecific ST segment changes and T-wave abnormalities without clear- cut evidence of ischemia. The patient was given a Castro catheter. White cell count was 15. He was considered to be septic. He was started on broad-spectrum antibiotics. He was also started on IV heparin which was ultimately discontinued as the patient developed some bleeding from the NG tube. Noted the patient has history of prostate cancer and had undergone previous prostatectomy. Subsequent white cell count At 46 secondary underlying sepsis and the patient developed some thrombocytopenia. The patient also developed an acute kidney injury in the creatinine is up to 2.9 from a baseline of 1.78. Lactic acid peaked at 3.5 and dropped down to 3.4. The troponin peaked at 0.741. The urine analysis was abnormal consistent with underlying infection. Coronavirus testing was negative. At this point in time, the patient intubated on a mechanical ventilator. The p melania is currently on propofol running at 35 g per KG pigmented. The patient is on assist control mode of ventilation at the rate of 18 with a tidal volume of 500 and FiO2 of 40% with a PEEP of 5. Norepinephrine infusion is running at 0.35 mg per KG per minute. Currently the patient is off IV heparin because of GI bleed. The patient has a bicarb infusion running at 75 mL an hour of 150 meq of sodium bicarb and he has a NSS @75cc/hour. The urine cultures positive for gram-negative bacillus. The blood cultures positive for E. coli. The patient remains on IV Rocephin for now 1 g every 24 hours. Based on morning labs, the patient did drop in the white second down to 35.7 from yesterday. The platelet count is down to 111. The blood gases from this morning showed a pH of 7.37 with a pCO2 of 30 and pO2 of 286 and this was on FiO2 of 100% and FiO2 has been weaned down to 40% to maintain a saturation above 90%. The patient also showed some improvement in the renal function. Creatinine is down to 2.1 from yesterday and the patient also had a serum bicarb of 16 with an anion gap of 11. Sodium level is at 1:30. He is still on pressors. \ On 07/18/2020, the patient is being seen for a follow-up. The patient remains intubated on a mechanical ventilator as the patient is being treated for septic shock secondary to E. coli UTI. E. coli was cultured in the blood and in the ur ine. The patient is currently on IV Rocephin. For now, the patient is sedated with propofol and the patient will be given a sedation holiday. Propofol is running at 40 mg per KG per minute. The patient is an assist-control mode of ventilation at the rate of 12 with a tidal volume of 500 and FiO2 of 40% with a PEEP of 5.. Blood gases from today showed a pH of 7.5 with a pCO2 of 33 and pO2 of 71. The patient had a follow-up chest x-ray that showed bibasilar infiltrates and small effusions which was not present on yesterday's evaluation. ET tube is in a good location for now. Meanwhile, the patient is still on pressors. Note that the norepinephrine is gradually being weaned off and the patient is currently on 0.15 mg/kg per minute. The patient atrial fibrillation with a controlled rate. The patient is a positive fluid balance of 1.6 L over the past 24 hours. The patient remains on IV heparin. Echocardiogram showed an ejection fraction of 45-50%. The patient is also on bicarb infusion and the serum bicarb level is normalized. On 07/19/2020, the patient remains intubated on a mechanical ventilator. On today's evaluation, the patient was taken off the sedation and he was arousable. The patient remains on a mechanical ventilator on assist control mode at the rate of 12 and a tidal volume of 500 and FiO2 of 40% with a PEEP of 5. The patient's blood gas showed a pH of 7.52 with a pCO2 of 34 and pO2 11. Chest x- ray still showing some mild pulmonary vascular congestion and small bilateral pleural effusions. IV fluids has been cut down to 30 mL an hour and the patient is on a low-dose norepinephrine infusion at 0.05 mcg/kg per minute. The patient's cardiac rhythm is atrial fibrillation with a controlled rate. The patient is on IV Rocephin regarding E. coli septicemia. The plan for now is to check weaning parameters and give the patient is point is breathing trial. I anticipate extubated this patient today. The patient is a negative fluid balance. The patient was given additional dose of Lasix today. The white cell count is down to 16 and the patient's creatinine is also improving is down to 1.25. On 07/20/2020, the patient is still extubated. The patient was extubated yesterday and the patient is currently on 2 L of oxygen by nasal cannula. He is profoundly weak. His ability to cough and speak is quite limited and the patient has been having difficulties with swallowing. I think this is related to overall and generalized weakness secondary to sepsis. The patient has failed swallow evaluation. He remains nothing by mouth. I'm considering a Dobbhoff catheter for enteral feeding and nutritional support. Meanwhile, the patient remains in atrial fibrillation. Heart rate is controlled in the mid 70s. His cough is weak. His voice is muffled. He cannot swallow. Based on that, increase his IV fluids again to 75 mL an hour. He remains on IV Rocephin. He is still being treated for E. coli septicemia. The renal function is stable. The patient is currently on no pressors. No fever. No chills. He is awake and is able to follow commands. On 07/21/2020, the patient is being seen for a follow-up. As mentioned earlier, the patient was extubated and this is second day post extubation. Clinically remains quite weak and debilitated. He is laying most of the time in bed and he is now doing all of efforts. He is communicating and is following simple commands and answering questions. He seems to be appropriate. Nevertheless, he is quite debilitated and weak and not ready for any oral intake. Based on that, Dobbhoff catheter was inserted yesterday for enteral feeding instructions support and the patient was started on tube feeds with TwoCal at the rate of 20 mL an hour. On today's evaluation, the patient continues to profoundly weak and she will not be able to swallow and for that reason a swallow evaluation was not done. Physical therapy was consulted. He remains on maintenance fluids IV at [facility]. He is making good urine output. He is a negative fluid balance. He remains on IV heparin. He is on 2 L of oxygen by nasal cannula with pulse is 96%. White cell count continues to improve. The platelet counts is also improving. The platelet count is on the rise. The creatinine is at 1.08 which is improved compared to yesterday. In terms of liver function tests, there is still elevated and abnormal with an AST of 102, ALT of 74, alkaline phosphatase of 6.9. The bilirubin is at 1.5. Objective - Vital Signs Vital signs: Vital Signs Temp 98.0 F 07/21/20 12:00 Pulse 66 07/21/20 13:00 Resp 31 H 07/21/20 13:00 BP 129/75 07/21/20 12:00 Pulse Ox 96 07/21/20 13:00 Intake & Output 07/20/20 07/21/20 07/21/20 18:59 06:59 18:59 Intake Total 410 1019.333 700.167 Output Total 1120 655 75 Balance -710 364.333 625.167 Weight 89.2 kg 89.4 kg Intake: IV 410 775 115 Sodium Chloride 0.9% 1, 410 775 115 000 ml @ 75 mls/hr IV . [id number] [facility] Rx#:[id number] Intake, IV Titration 84.333 251.167 Amount Heparin Sod,Pork in 0.45% 84.333 151.167 NaCl 25,000 unit In 0.45 % NaCl 1 250ml.bag @ 11. 211 UNITS/KG/HR 10 mls/hr IV .Q24H [facility] Rx#: [id number] 2 gm In 100 Sodium Chloride 0.9% 50 ml @ 100 mls/hr IVPB Q24HR [facility] Rx#:[id number] Tube Feeding 100 334 Other 60 Output: Urine 1120 655 75 Stool 0 Other: Voiding Method Indwelling Catheter Indwelling Catheter # Bowel Movements 1 ABP, PAP, CO, CI - Last Documented Arterial Blood Pressure 155/57 - Exam Gen. appearance the patient is extubated to 2 L of oxygen by nasal cannula. The patient is still extubated at 2 L per minute nasal cannula. Mucous membranes are dry. Some dry ulceration of the lower lip. Head exam was generally normal. There was no scleral icterus or corneal arcus. Mucous membranes were moist. Neck was supple and without jugular venous distension, thyromegaly, or carotid bruits. Carotids were easily palpable bilaterally. There was no adenopathy. Lungs are diminished and the patient scattered rhonchi heard throughout the lung his bilaterally. Heart sounds are irregular consistent with atrial fibrillation. There is positive S1-S2. No significant murmurs appreciated. Abdominal exam revealed normal bowel sounds. The abdomen was soft, non-tender, and without masses, organomegaly, or appreciable enlargement of the abdominal aorta. Examination of the extremities revealed easily palpable radial, femoral and pedal pulses. There was no cyanosis, clubbing or edema. Examination of the skin revealed no evidence of significant rashes, suspicious appearing nevi or other concerning lesions. Neurologically the patient is awake yet profoundly weak and somewhat lethargic on today's evaluation. There is global weakness in all 4 extremities. He has a weak cough. He has a weak voice and difficulties in swallowing - Labs CBC & Chem 7: 07/21/20 04:27 07/21/20 04:27 Labs: Abnormal Lab Results - Last 24 Hours (Table) 07/20/20 07/20/20 07/20/20 Range/Units 17:57 18:00 20:59 WBC (3.8-10.6) k/uL RBC (4.30-5.90) m/uL Hgb (13.0-17.5) gm/dL Hct (39.0-53.0) % Plt Count (150-450) k/uL Neutrophils # (1.3-7.7) k/uL APTT 50.9 H (22.0-30.0) sec Chloride (98-107) mmol/L BUN (9-20) mg/dL Glucose (74-99) mg/dL POC Glucose (mg/dL) 121 H 130 H (75-99) mg/dL Calcium (8.4-10.2) mg/dL Total Bilirubin (0.2-1.3) mg/dL AST (17-59) U/L ALT (4-49) U/L Alkaline Phosphatase (38-126) U/L Total Protein (6.3-8.2) g/dL Albumin (3.5-5.0) g/dL 07/21/20 07/21/20 07/21/20 Range/Units 01:03 04:27 04:27 WBC 12.1 H (3.8-10.6) k/uL RBC 3.92 L (4.30-5.90) m/uL Hgb 12.0 L (13.0-17.5) gm/dL Hct 36.0 L (39.0-53.0) % Plt Count 116 L (150-450) k/uL Neutrophils # 8.1 H (1.3-7.7) k/uL APTT (22.0-30.0) sec Chloride 110 H (98-107) mmol/L BUN 51 H (9-20) mg/dL Glucose 165 H (74-99) mg/dL POC Glucose (mg/dL) 148 H (75-99) mg/dL Calcium 8.2 L (8.4-10.2) mg/dL Total Bilirubin 1.5 H (0.2-1.3) mg/dL AST 102 H (17-59) U/L ALT 74 H (4-49) U/L Alkaline Phosphatase 619 H (38-126) U/L Total Protein 4.6 L (6.3-8.2) g/dL Albumin 2.2 L (3.5-5.0) g/dL 07/21/20 07/21/20 07/21/20 Range/Units 07:14 09:53 09:58 WBC (3.8-10.6) k/uL RBC (4.30-5.90) m/uL Hgb (13.0-17.5) gm/dL Hct (39.0-53.0) % Plt Count (150-450) k/uL Neutrophils # (1.3-7.7) k/uL APTT 57.6 H (22.0-30.0) sec Chloride (98-107) mmol/L BUN (9-20) mg/dL Glucose (74-99) mg/dL POC Glucose (mg/dL) 142 H 179 H (75-99) mg/dL Calcium (8.4-10.2) mg/dL Total Bilirubin (0.2-1.3) mg/dL AST (17-59) U/L ALT (4-49) U/L Alkaline Phosphatase (38-126) U/L Total Protein (6.3-8.2) g/dL Albumin (3.5-5.0) g/dL 07/21/20 Range/Units 13:19 WBC (3.8-10.6) k/uL RBC (4.30-5.90) m/uL Hgb (13.0-17.5) gm/dL Hct (39.0-53.0) % Plt Count (150-450) k/uL Neutrophils # (1.3-7.7) k/uL APTT (22.0-30.0) sec Chloride (98-107) mmol/L BUN (9-20) mg/dL Glucose (74-99) mg/dL POC Glucose (mg/dL) 164 H (75-99) mg/dL Calcium (8.4-10.2) mg/dL Total Bilirubin (0.2-1.3) mg/dL AST (17-59) U/L ALT (4-49) U/L Alkaline Phosphatase (38-126) U/L Total Protein (6.3-8.2) g/dL Albumin (3.5-5.0) g/dL Microbiology - Last 24 Hours (Table) 07/17/20 12:45 Blood Culture - Preliminary Blood No Growth after 72 hours Assessment and Plan Plan: 1 acute cardiac arrest/V. fib arrest requiring defibrillation/CPR and patient subsequently regained spontaneous circulation. During the process, the patient was intubated and placed on mechanical ventilator, the patient had a downtime of 4 minutes. The patient remains sedated and the patient will be given a sedation holiday.. No signs of any anoxic encephalopathy at this point in time. Nevertheless, the patient is extubated and the patient is profoundly weak and has global weakness in all 4 extremities along with a weak voice, cough and poor swallow. This may be a manifestation of either sepsis or post cardiac arrest and the patient continues to have global weakness without any much improvement over the past 24 hours. 2 septic shock secondary to underlying UTI, and the patient has E. coli in the blood and gram-negative bacillus and this seems to be a gram-negative or E. coli septicemia. The patient remains on IV Rocephin 2 g every 24 hours 3 hypotensive secondary sepsis, recovered 4 acute non-STEMI 5 chronic atrial fibrillation, currently in a sinus rhythm, the patient is currently on IV heparin 6 acute leukocytosis secondary to sepsis, improving, 7 lactic acidosis, down to 3.0 8 thrombocytopenia, consumptive, and the platelet counts are still low, but improving 9 non-anion gap metabolic acidosis, on bicarb infusion, recovered 10 acute kidney injury secondary to above, improving and the creatinine is down to 1.08 11 history of hypertension 12 history of hyperlipidemia 15 history of COPD 14 diabetes mellitus type 2 15 upper GI bleed induced by stress and IV heparin and currently the patient is off anticoagulants 16 prostate cancer with a previous prostatectomy 17 history of urethral sphincter insertion. 18 CHF with an ejection fraction of 45% 19 profound weakness with difficulty in swallowing and the patient has a Dobbhoff catheter with enteral feeding for nutritional support. Plan Keep the patient oxygen at 2 L per minute nasal cannula Aggressive physical therapy Initiate an advanced tube feeds Continue IV Rocephin, 2 g every 24 hours White cell count is improved Monitor the platelet count, improving Keep nothing by mouth and consider the possibility of a Dobbhoff catheter insertion for enteral feeding and nutritional support Consider another swallow evaluation tomorrow Follow make further evaluation and based on his progress.
[2020-07-21 18:10] LABS: Glucose,Whole Blood 184 mg/dL (75-99)
[2020-07-21] MEDS: ATORVASTATIN 80 MG TAB PO SCH ×2 (21:51→23:08)
[2020-07-21 23:18] LABS: Glucose,Whole Blood 210 mg/dL (75-99)
[2020-07-22] MEDS: INSULIN ASPART (NovoLOG) 100 UNIT/ML VIAL SQ SCH ×5 (00:14→23:59)
[2020-07-22] MEDS: IPRATROPIUM-ALBUTEROL 3 ML NEB INHALATION SCH ×5 (01:40→19:32)
[2020-07-22] MEDS ORDERED: IPRATROPIUM-ALBUTEROL 3 ML NEB INHALATION PRN (01:49)
[2020-07-22 04:13] LABS: Basophils # (A) 0.2 k/uL (0-0.2); Basophils % (A) 1 %; Eosinophils % (A) 0 %; HCT 37.7 % (39.0-53.0); HGB 12.3 gm/dL (13.0-17.5); Lymphocytes # (A) 1.3 k/uL (1.0-4.8); Lymphocytes % (A) 12 %; MCH 29.9 pg (25.0-35.0); MCHC 32.7 g/dL (31.0-37.0); MCV 91.5 fL (80.0-100.0); Mean Platelet Volume 8.8; Monocytes # (A) 0.5 k/uL (0-1.0); Monocytes % (A) 4 %; Neutrophils # (A) 9.1 k/uL (1.3-7.7); Neutrophils % (A) 80 %; Platelet Count 169 k/uL (150-450); RBC 4.12 m/uL (4.30-5.90); RDW 15.4 % (11.5-15.5); WBC 11.3 k/uL (3.8-10.6)
[2020-07-22 05:24] LABS: Glucose,Whole Blood 172 mg/dL (75-99)
[2020-07-22 05:35] LABS: Calcium 9.1 mg/dL (8.4-10.2); Potassium 4.2 mmol/L (3.5-5.1)
--- NOTE | 2020-07-22 07:40 | XR ---
EXAMINATION TYPE: XR chest 1V portable DATE OF EXAM: 07/22/2020 HISTORY: Shortness of breath. COMPARISON: None. TECHNIQUE: Single view of the chest is submitted. FINDINGS: Demonstrated are scattered senescent parenchymal change. Right IJ central venous line remains in place. NG tube has been removed. Persistent basilar infiltrat es with slight improvement suggested. The heart is stable. Hilar and mediastinal structures are within normal limits. Degenerative changes are seen of the dorsal spine. IMPRESSION: 1. Right IJ central venous line remains in place. NG tube has been removed. Persistent basilar infil trates with slight improvement suggested.
[2020-07-22] MEDS: ASPIRIN 81 MG PO SCH (08:07)
[2020-07-22] MEDS: CITALOPRAM HYDROBROMIDE 20 MG TAB PO SCH (08:07)
[2020-07-22] MEDS: PANTOPRAZOLE 40 MG/10 ML VIAL IVP SCH (08:08)
[2020-07-22] MEDS: TOBRAMYCIN 0.3% OPHTH OINT 3.5 GM TUBE BOTH EYES SCH ×2 (08:10→21:23)
[2020-07-22] MEDS: ARTIFICIAL TEARS-HYPROMELLOSE DROPS 15 ML BTL BOTH EYES SCH (08:10)
[2020-07-22] MEDS: SODIUM CHLORIDE 0.9% 1,000 ML IV SCH (08:12)
--- NOTE | 2020-07-22 09:58 | CDI ---
Documentation Clarification Form Date: 07/22/2020 09:41:38 AM From: Frannie Mcintyre RN, CCDS Admit Date: 07/15/2020 02:30:00 PM Patient Name: Dami Escobar Visit Number: [id number] ATTENTION: The Clinical Documentation Specialists (CDI) and [facility] Coding Staff appreciate your assistance in clarifying documentation. Please respond to the clarification below the line at the bottom and electronically sign. The CDI & [facility] Coding staff will review the response and follow-up if needed. Please note: Queries are made part of the Legal Health Record. If you have any questions, please contact the author of this message via ITS. 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 History/Risk Factors: HTN, HLD, Atrial Fib, COPD, DM, DARCY, GIB, Cardiopulmonary Arrest, Sepsis with septic shock Clinical Indicators: 07/22 0800 VS/Pulse OX: Temp 97.7, HR 79, RR 24, B/P 150/81, Spo2 97% 2L NC BNP: not done 07/17 Echocardiogram Results: EF 45-50%, Basal inferoseptal LV wall motion is hypokinetic. Basal anteroseptal LV wall motion is hypokinetic. Mid anteroseptal LV wall motion is hypokinetic. Septal Hypokinesis The right ventricle is mild to moderately enlarged. severe pulmonary hypertension 07/22 Chest X Ray:"Right IJ central venous line remains in place. NG tube has been removed. Persistent basilar infiltrates with slight improvement suggested." Treatment: 07/18 Lasix 40 mg IVP OT 07/19 :Lasix 40 mg IVP OT x 2 doses 12 hrs apart Cozaar and Lopressor Held since admission In your professional opinion, can you please clarify the acuity and type of CHF if known? Systolic Heart Failure: Acute Chronic Acute on Chronic Diastolic Heart Failure: Acute Chronic Acute on Chronic Systolic & Diastolic Heart Failure: Acute Chronic Acute on Chronic Heart Failure Unable to Determine Other, please specify (Last Revision: November 2017) Systolic & Diastolic Heart Failure: Acute Chronic Acute on Chronic Heart Failure MTDD
[2020-07-22] MEDS: HEPARIN SOD,PORK IN 0.45% NACL 25,000 UNIT in 0.45% NACL 1 250ML.BAG IV SCH (10:11)
[2020-07-22] MEDS: DEXTROSE 5%-0.45% NACL 1,000 ML IV SCH (10:12)
[2020-07-22] MEDS ORDERED: ARTIFICIAL TEARS-HYPROMELLOSE DROPS 15 ML BTL BOTH EYES PRN (11:37)
--- NOTE | 2020-07-22 11:37 | P.PN ---
Subjective Progress Note Date: 07/22/20 Patient is awake and alert. He pulled his Dobbhoff tube last night. He is getting a little bit stronger today compared to yesterday. Objective - Vital Signs Vital signs: Vital Signs Temp 97.7 F 07/22/20 08:00 Pulse 70 07/22/20 11:00 Resp 20 07/22/20 11:00 BP 162/103 07/22/20 11:00 Pulse Ox 96 07/22/20 11:00 Intake & Output 07/21/20 07/22/20 07/22/20 18:59 06:59 18:59 Intake Total 902.167 327 275.5 Output Total 324 840 115 Balance 578.167 -513 160.5 Weight 89.4 kg 86.6 kg Intake: IV 257 192 42 Sodium Chloride 0.9% 1, 185 120 30 000 ml @ 75 mls/hr IV . [id number] MYLES Rx#:[id number] pressure bags 72 72 12 Intake, IV Titration 251.167 233.5 Amount Heparin Sod,Pork in 0.45% 151.167 233.5 NaCl 25,000 unit In 0.45 % NaCl 1 250ml.bag @ 11. 211 UNITS/KG/HR 10 mls/hr IV .Q24H MYLES Rx#: [id number] cefTRIAXone 2 gm In 100 Sodium Chloride 0.9% 50 ml @ 100 mls/hr IVPB Q24HR MYLES Rx#:[id number] Tube Feeding 394 105 Other 30 Output: Urine 324 840 115 Other: Voiding Method Indwelling Catheter Indwelling Catheter Indwelling Catheter # Bowel Movements 1 ABP, PAP, CO, CI - Last Documented Arterial Blood Pressure 169/65 - Exam General: The patient is awake and alert, in no distress Eye: As noted above Neck: The neck is supple, there is no JVD. Cardiovascular: Normal S1-S2, no S3-S4, no murmurs. Respiratory: Lungs with scattered rhonchi to anterior chest auscultation Gastrointestinal: Abdomen is soft, nontender Musculoskeletal: There is no pedal edema. Skin: Skin is warm and dry - Labs CBC & Chem 7: 07/22/20 04:00 07/22/20 04:00 Labs: Abnormal Lab Results - Last 24 Hours (Table) 11/20/20 11/20/20 11/20/20 Range/Units 13:19 18:08 23:17 WBC (3.8-10.6) k/uL RBC (4.30-5.90) m/uL Hgb (13.0-17.5) gm/dL Hct (39.0-53.0) % Neutrophils # (1.3-7.7) k/uL APTT (22.0-30.0) sec Sodium (137-145) mmol/L Chloride (98-107) mmol/L BUN (9-20) mg/dL Glucose (74-99) mg/dL POC Glucose (mg/dL) 164 H 184 H 210 H (75-99) mg/dL 07/22/20 07/22/20 07/22/20 Range/Units 04:00 04:00 04:00 WBC 11.3 H (3.8-10.6) k/uL RBC 4.12 L (4.30-5.90) m/uL Hgb 12.3 L (13.0-17.5) gm/dL Hct 37.7 L (39.0-53.0) % Neutrophils # 9.1 H (1.3-7.7) k/uL APTT 53.3 H (22.0-30.0) sec Sodium 146 H (137-145) mmol/L Chloride 112 H (98-107) mmol/L BUN 49 H (9-20) mg/dL Glucose 203 H (74-99) mg/dL POC Glucose (mg/dL) (75-99) mg/dL 07/22/20 Range/Units 05:22 WBC (3.8-10.6) k/uL RBC (4.30-5.90) m/uL Hgb (13.0-17.5) gm/dL Hct (39.0-53.0) % Neutrophils # (1.3-7.7) k/uL APTT (22.0-30.0) sec Sodium (137-145) mmol/L Chloride (98-107) mmol/L BUN (9-20) mg/dL Glucose (74-99) mg/dL POC Glucose (mg/dL) 172 H (75-99) mg/dL Microbiology - Last 24 Hours (Table) 07/17/20 12:45 Blood Culture - Preliminary Blood No Growth after 96 hours Assessment and Plan Assessment: This is a 80-year-old male with complex past medical history noted below who presented to the emergency room with worsening confusion brought in by EMS. Patient was evaluated in the ER and was found to have evidence of sepsis secondary to underlying UTI with obstructive uropathy secondary to malfunctioning artificial urethral sphincter. Patient was started on IV fluids and antibiotic. On the first night of his admission patient went into PEA cardiac arrest requiring CPR with successful return of spontaneous rhythm but subsequently patient went into V. tach requiring shock. Patient was intubated and currently admitted to the hospital for further management of his medical problems noted below. 1. PEA arrest requiring CPR with successful return of spontaneous circulation. 2. Acute hypoxic respiratory failure secondary to cardiac arrest. Requiring sedation and intubation. Successfully extubated on 07/19. 3. Severe sepsis with septic shock, status post aggressive IV fluid hydration. Vasopressors discontinued 07/19 4. Complicated urinary tract infection with possible urinary retention secondary to nonfunctional artificial urethral sphincter. Castro catheter placed by urology. Antibiotic with IV ceftriaxone 2 g day #8. Urine culture grew E. coli 5. E. coli bacteremia secondary to urosepsis. Repeat blood culture negative to date. We will finish 10 days of IV antibiotic 6. Acute kidney injury, kidney function improved significantly. probably secondary to obstructive uropathy. 7. Non-ST elevation DE. Patient denied any chest pain on presentation. Twelve-lead EKG in the ER with no acute ischemic changes. Probably type II seco ndary to sepsis. He was seen and evaluated by cardiology. Echocardiogram showed EF of 45-50%. There is left ventricular wall motion hypokinesia noted. Cardiology following closely. 8. History of prostate cancer status post prostatectomy with subsequent chronic urine incontinence status post artificial urethral sphincter. This was deactivated on presentation by urology. Castro catheter in place. May discontinue Castro catheter when medically appropriate. 9. Chronic atrial fibrillation on anticoagulation with Rivaroxaban. 10. Underlying cognitive impairment 11. GI prophylaxis with IV Protonix Today, I reviewed his medication list and lab work results. Continue to monitor clinical status. Gentle IV fluid hydration. Speech pathology consult. Patient pulled out his Dobbhoff to Artificial tears 4 times a day as needed and tobramycin ointment 3 times a day #2
[2020-07-22 12:05] LABS: Glucose,Whole Blood 187 mg/dL (75-99)
[2020-07-22] MEDS: DEXTROSE 5% IN WATER 1,000 ML with SODIUM BICARB (1 MEQ/ML) 150 ML IV SCH (13:31)
--- NOTE | 2020-07-22 13:34 | PN ---
PROGRESS NOTE This is a 80-year-old gentleman admitted to the hospital with urinary tract infection and sepsis related to it. While he was here on a mechanical ventilator. He went into atrial fibrillation. He has since then been extubated. He still remains in atrial fib. Rate is controlled. He is resting comfortably at the time of my evaluation, has no chest pain or shortness of breath. He is hemodynamically stable. He is still on intravenous heparin which I believe can be switched to an oral anticoagulant. He also has a borderline troponin elevation which I do not believe represents any primary myocardial injury. His vital signs are stable. There is no JVD. S1-S2 heard normally. Lungs reveal bilateral improved air entry. Abdomen is soft, nontender. Lower extremities reveal diminished pulses. Heart exam reveals an irregularity of rhythm and there is a short systolic murmur audible. Echo revealed ejection fraction in the 45% to 50% range with some wall motion abnormalities. However, there is no evidence to suggest any acute myocardial injury. I would continue current medications and avoid any rate-lowering agents. We can switch him to oral anticoagulation. He was on Xarelto before. MMODL / IJN: [id number] /
--- NOTE | 2020-07-22 15:45 | P.PN ---
Subjective Progress Note Date: 07/22/20 80-year-old gentleman admitted for altered mentation. The patient became confused and disoriented and he was diagnosed having a complicated UTI/urine checked infection with sepsis. The patient has had a previous artificial urethral sphincter insertion for incontinence. EMS brought the patient to the [facility] the patient was febrile. In the ED, the patient became more unresponsive and he went into cardiopulmonary arrest. The patient was found to be in ventricular fibrillation CPR was initiated and he was also defibrillated. He was brought back in terms of his hemodynamics and following that the patient was started on norepinephrine for blood pressure control and support. The patient during the process was intubated and placed on a mechanical ventilator. The patient got transferred to the ICU. EKG showed atrial fibrillation with diffuse nonspecific ST segment changes and T-wave abnormalities without clear- cut evidence of ischemia. The patient was given a Castro catheter. White cell count was 15. He was considered to be septic. He was started on broad-spectrum antibiotics. He was also started on IV heparin which was ultimately discontinued as the patient developed some bleeding from the NG tube. Noted the patient has history of prostate cancer and had undergone previous prostatectomy. Subsequent white cell count At 46 secondary underlying sepsis and the patient developed some thrombocytopenia. The patient also developed an acute kidney injury in the creatinine is up to 2.9 from a baseline of 1.78. Lactic acid peaked at 3.5 and dropped down to 3.4. The troponin peaked at 0.741. The urine analysis was abnormal consistent with underlying infection. Coronavirus testing was negative. At this point in time, the patient intubated on a mechanical ventilator. The p melania is currently on propofol running at 35 g per KG pigmented. The patient is on assist control mode of ventilation at the rate of 18 with a tidal volume of 500 and FiO2 of 40% with a PEEP of 5. Norepinephrine infusion is running at 0.35 mg per KG per minute. Currently the patient is off IV heparin because of GI bleed. The patient has a bicarb infusion running at 75 mL an hour of 150 meq of sodium bicarb and he has a NSS @75cc/hour. The urine cultures positive for gram-negative bacillus. The blood cultures positive for E. coli. The patient remains on IV Rocephin for now 1 g every 24 hours. Based on morning labs, the patient did drop in the white second down to 35.7 from yesterday. The platelet count is down to 111. The blood gases from this morning showed a pH of 7.37 with a pCO2 of 30 and pO2 of 286 and this was on FiO2 of 100% and FiO2 has been weaned down to 40% to maintain a saturation above 90%. The patient also showed some improvement in the renal function. Creatinine is down to 2.1 from yesterday and the patient also had a serum bicarb of 16 with an anion gap of 11. Sodium level is at 1:30. He is still on pressors. \ On 07/18/2020, the patient is being seen for a follow-up. The patient remains intubated on a mechanical ventilator as the patient is being treated for septic shock secondary to E. coli UTI. E. coli was cultured in the blood and in the ur ine. The patient is currently on IV Rocephin. For now, the patient is sedated with propofol and the patient will be given a sedation holiday. Propofol is running at 40 mg per KG per minute. The patient is an assist-control mode of ventilation at the rate of 12 with a tidal volume of 500 and FiO2 of 40% with a PEEP of 5.. Blood gases from today showed a pH of 7.5 with a pCO2 of 33 and pO2 of 71. The patient had a follow-up chest x-ray that showed bibasilar infiltrates and small effusions which was not present on yesterday's evaluation. ET tube is in a good location for now. Meanwhile, the patient is still on pressors. Note that the norepinephrine is gradually being weaned off and the patient is currently on 0.15 mg/kg per minute. The patient atrial fibrillation with a controlled rate. The patient is a positive fluid balance of 1.6 L over the past 24 hours. The patient remains on IV heparin. Echocardiogram showed an ejection fraction of 45-50%. The patient is also on bicarb infusion and the serum bicarb level is normalized. On 07/19/2020, the patient remains intubated on a mechanical ventilator. On today's evaluation, the patient was taken off the sedation and he was arousable. The patient remains on a mechanical ventilator on assist control mode at the rate of 12 and a tidal volume of 500 and FiO2 of 40% with a PEEP of 5. The patient's blood gas showed a pH of 7.52 with a pCO2 of 34 and pO2 11. Chest x- ray still showing some mild pulmonary vascular congestion and small bilateral pleural effusions. IV fluids has been cut down to 30 mL an hour and the patient is on a low-dose norepinephrine infusion at 0.05 mcg/kg per minute. The patient's cardiac rhythm is atrial fibrillation with a controlled rate. The patient is on IV Rocephin regarding E. coli septicemia. The plan for now is to check weaning parameters and give the patient is point is breathing trial. I anticipate extubated this patient today. The patient is a negative fluid balance. The patient was given additional dose of Lasix today. The white cell count is down to 16 and the patient's creatinine is also improving is down to 1.25. On 07/20/2020, the patient is still extubated. The patient was extubated yesterday and the patient is currently on 2 L of oxygen by nasal cannula. He is profoundly weak. His ability to cough and speak is quite limited and the patient has been having difficulties with swallowing. I think this is related to overall and generalized weakness secondary to sepsis. The patient has failed swallow evaluation. He remains nothing by mouth. I'm considering a Dobbhoff catheter for enteral feeding and nutritional support. Meanwhile, the patient remains in atrial fibrillation. Heart rate is controlled in the mid 70s. His cough is weak. His voice is muffled. He cannot swallow. Based on that, increase his IV fluids again to 75 mL an hour. He remains on IV Rocephin. He is still being treated for E. coli septicemia. The renal function is stable. The patient is currently on no pressors. No fever. No chills. He is awake and is able to follow commands. On 07/21/2020, the patient is being seen for a follow-up. As mentioned earlier, the patient was extubated and this is second day post extubation. Clinically remains quite weak and debilitated. He is laying most of the time in bed and he is now doing all of efforts. He is communicating and is following simple commands and answering questions. He seems to be appropriate. Nevertheless, he is quite debilitated and weak and not ready for any oral intake. Based on that, Dobbhoff catheter was inserted yesterday for enteral feeding instructions support and the patient was started on tube feeds with TwoCal at the rate of 20 mL an hour. On today's evaluation, the patient continues to profoundly weak and she will not be able to swallow and for that reason a swallow evaluation was not done. Physical therapy was consulted. He remains on maintenance fluids IV at [facility]. He is making good urine output. He is a negative fluid balance. He remains on IV heparin. He is on 2 L of oxygen by nasal cannula with pulse is 96%. White cell count continues to improve. The platelet counts is also improving. The platelet count is on the rise. The creatinine is at 1.08 which is improved compared to yesterday. In terms of liver function tests, there is still elevated and abnormal with an AST of 102, ALT of 74, alkaline phosphatase of 6.9. The bilirubin is at 1.5. 07/21/2020, the patient remains extubated. he is awake and following commands and answer questions appropriately. He remains weak. he will have another swallow evaluation. There was a Dobbhoff catheter was inserted for enteral feeding and nutritional support and the patient ended up pulling out the tube h imself. The patient is currently afebrile. He is on 2 L of oxygen by nasal cannula. He remains on IV Rocephin. He is producing good amount of urine output. His white cell count is 11.3 with hemoglobin of 12.3. The sodium level is at 146 and the patient has a BUN of 49 with a creatinine of 1.06 and his renal function is improved and normalized. His sodium level is higher than the patient may benefit from some IV fluid maintenance. He does have some increased edema in the upper and lower extremities bilaterally. He is on IV Rocephin 2 g every 24 hours. He remains on IV heparin. Later on during the day patient developed some bloody mucoid stool and for that reason IV heparin was disc ontinued. His cardiac rhythm is atrial fibrillation with a controlled rate. He'll be moved up to a recliner on today's evaluation possibly moved up to a medical surgical floor with telemetry if his condition remains stable. Objective - Vital Signs Vital signs: Vital Signs Temp 98.0 F 07/22/20 12:00 Pulse 64 07/22/20 15:00 Resp 20 07/22/20 15:00 BP 137/60 07/22/20 15:00 Pulse Ox 94 L 07/22/20 14:00 Intake & Output 07/21/20 07/22/20 07/22/20 18:59 06:59 18:59 Intake Total 902.167 327 551.833 Output Total 324 840 345 Balance 578.167 -513 206.833 Weight 89.4 kg 86.6 kg Intake: IV 257 192 304 Dextrose 5%-0.45% NaCl 1, 250 000 ml @ 50 mls/hr IV . Q20H [facility] Rx#:[id number] Sodium Chloride 0.9% 1, 185 120 30 000 ml @ 75 mls/hr IV . [id number] [facility] Rx#:[id number] pressure bags 72 72 24 Intake, IV Titration 251.167 247.833 Amount Heparin Sod,Pork in 0.45% 151.167 247.833 NaCl 25,000 unit In 0.45 % NaCl 1 250ml.bag @ 11. 211 UNITS/KG/HR 10 mls/hr IV .Q24H [facility] Rx#: [id number] cefTRIAXone 2 gm In 100 Sodium Chloride 0.9% 50 ml @ 100 mls/hr IVPB Q24HR [facility] Rx#:[id number] Tube Feeding 394 105 Other 30 Output: Urine 324 840 345 Other: Voiding Method Indwelling Catheter Indwelling Catheter Indwelling Catheter # Bowel Movements 1 ABP, PAP, CO, CI - Last Documented Arterial Blood Pressure 169/65 - Exam Gen. appearance the patient is extubated to 2 L of oxygen by nasal cannula. The patient is still extubated at 2 L per minute nasal cannula. He does have some ulceration of his lower lip. No oropharyngeal candidiasis. Some dry ulceration of the lower lip. Head exam was generally normal. There was no scleral icterus or corneal arcus. Mucous membranes were moist. Neck was supple and without jugular venous distension, thyromegaly, or carotid bruits. Carotids were easily palpable bilaterally. There was no adenopathy. Lungs are diminished and the patient scattered rhonchi heard throughout the lung his bilaterally. He continues to have a congested cough unable to become much of sputum Heart sounds are irregular consistent with atrial fibrillation. There is positive S1-S2. No significant murmurs appreciated. Abdominal exam revealed normal bowel sounds. The abdomen was soft, non-tender, and without masses, organomegaly, or appreciable enlargement of the abdominal aorta. Examination of the extremities revealed easily palpable radial, femoral and pedal pulses. There was no cyanosis, clubbing or edema. Examination of the skin revealed no evidence of significant rashes, suspicious appearing nevi or other concerning lesions. Neurologically the patient is awake yet profoundly weak and somewhat lethargic on today's evaluation. There is global weakness in all 4 extremities. He has a weak cough. He has a weak voice and difficulties in swallowing - Labs CBC & Chem 7: 07/22/20 04:00 07/22/20 04:00 Labs: Abnormal Lab Results - Last 24 Hours (Table) 07/21/20 07/21/20 07/22/20 Range/Units 18:08 23:17 04:00 WBC 11.3 H (3.8-10.6) k/uL RBC 4.12 L (4.30-5.90) m/uL Hgb 12.3 L (13.0-17.5) gm/dL Hct 37.7 L (39.0-53.0) % Neutrophils # 9.1 H (1.3-7.7) k/uL APTT (22.0-30.0) sec Sodium (137-145) mmol/L Chloride (98-107) mmol/L BUN (9-20) mg/dL Glucose (74-99) mg/dL POC Glucose (mg/dL) 184 H 210 H (75-99) mg/dL 07/22/20 07/22/20 07/22/20 Range/Units 04:00 04:00 05:22 WBC (3.8-10.6) k/uL RBC (4.30-5.90) m/uL Hgb (13.0-17.5) gm/dL Hct (39.0-53.0) % Neutrophils # (1.3-7.7) k/uL APTT 53.3 H (22.0-30.0) sec Sodium 146 H (137-145) mmol/L Chloride 112 H (98-107) mmol/L BUN 49 H (9-20) mg/dL Glucose 203 H (74-99) mg/dL POC Glucose (mg/dL) 172 H (75-99) mg/dL 07/22/20 Range/Units 12:04 WBC (3.8-10.6) k/uL RBC (4.30-5.90) m/uL Hgb (13.0-17.5) gm/dL Hct (39.0-53.0) % Neutrophils # (1.3-7.7) k/uL APTT (22.0-30.0) sec Sodium (137-145) mmol/L Chloride (98-107) mmol/L BUN (9-20) mg/dL Glucose (74-99) mg/dL POC Glucose (mg/dL) 187 H (75-99) mg/dL Microbiology - Last 24 Hours (Table) 07/17/20 12:45 Blood Culture - Preliminary Blood No Growth after 120 hours Assessment and Plan Plan: 1 acute cardiac arrest/V. fib arrest requiring defibrillation/CPR and patient subsequently regained spontaneous circulation. During the process, the patient was intubated and placed on mechanical ventilator, the patient had a downtime of 4 minutes. The patient remains sedated and the patient will be given a sedation holiday.. No signs of any anoxic encephalopathy at this point in time. Nevertheless, the patient is extubated and the patient is profoundly weak and has global weakness in all 4 extremities along with a weak voice, cough and poor swallow. This may be a manifestation of either sepsis or post cardiac arrest and the patient continues to have global weakness and on today's evaluation he seems to be a bit more interactive and stronger compared to yesterday. He pulled up his Doppler of catheter and a repeat swallow evaluation is worthwhile to consider in this patient. 2 septic shock secondary to underlying UTI, and the patient has E. coli in the blood and gram-negative bacillus and this seems to be a gram-negative or E. coli septicemia. The patient remains on IV Rocephin 2 g every 24 hours 3 hypotensive secondary sepsis, recovered, hemodynamically stable 4 acute non-STEMI 5 chronic atrial fibrillation, currently in a sinus rhythm, the patient is currently on IV heparin and IV heparin will be discontinued as the patient developed some mucoid bloody stool. 6 acute leukocytosis secondary to sepsis, improving, 7 lactic acidosis, down to 3.0 8 thrombocytopenia, consumptive, and the platelet counts are still low, but improving 9 non-anion gap metabolic acidosis, on bicarb infusion, recovered 10 acute kidney injury secondary to above, improving and the creatinine is down and normalized 11 history of hypertension 12 history of hyperlipidemia 15 history of COPD 14 diabetes mellitus type 2 15 upper GI bleed induced by stress and IV heparin and currently the patient is off anticoagulants 16 prostate cancer with a previous prostatectomy 17 history of urethral sphincter insertion. 18 CHF with an ejection fraction of 45% 19 profound weakness with difficulty in swallowing and the patient has a Dobbhoff catheter with enteral feeding for nutritional support. Plan Keep the patient oxygen at 2 L per minute nasal cannula Aggressive physical therapy Do another swallow evaluation Continue IV Rocephin, 2 g every 24 hours White cell count is improved Monitor the platelet count, improving I'm going to ask the patient to sit up on a chair or recliner on today's evaluation. The patient will have IV heparin discontinue the monitored early signs of GI bleeding Follow make further evaluation and based on his progress. It is possible the patient may leave the ICU today to a medical floor.
[2020-07-22 17:04] LABS: Glucose,Whole Blood 206 mg/dL (75-99)
[2020-07-22] MEDS: ATORVASTATIN 80 MG TAB PO SCH (19:12)
[2020-07-22 23:54] LABS: Glucose,Whole Blood 197 mg/dL (75-99)
[2020-07-23 06:20] LABS: Glucose,Whole Blood 157 mg/dL (75-99)
[2020-07-23] MEDS: DEXTROSE 5%-0.45% NACL 1,000 ML IV SCH ×2 (06:24→17:32)
[2020-07-23] MEDS: INSULIN ASPART (NovoLOG) 100 UNIT/ML VIAL SQ SCH ×3 (06:25→17:32)
[2020-07-23 06:37] LABS: Basophils # (A) 0.1 k/uL (0-0.2); Basophils % (A) 0 %; Eosinophils % (A) 0 %; HCT 37.3 % (39.0-53.0); HGB 11.9 gm/dL (13.0-17.5); Hypochromasia Slight; Lymphocytes # (A) 2.1 k/uL (1.0-4.8); Lymphocytes % (A) 16 %; MCH 29.7 pg (25.0-35.0); MCHC 31.8 g/dL (31.0-37.0); MCV 93.5 fL (80.0-100.0); Mean Platelet Volume 8.1; Monocytes # (A) 0.8 k/uL (0-1.0); Monocytes % (A) 6 %; Neutrophils % (A) 76 %; Platelet Count 270 k/uL (150-450); RBC 3.99 m/uL (4.30-5.90); RDW 15.5 % (11.5-15.5); WBC 13.2 k/uL (3.8-10.6)
[2020-07-23 07:41] LABS: Glucose,Whole Blood 170 mg/dL (75-99)
[2020-07-23] MEDS: ASPIRIN 81 MG PO SCH (09:03)
[2020-07-23] MEDS: CITALOPRAM HYDROBROMIDE 20 MG TAB PO SCH (09:03)
[2020-07-23] MEDS: PANTOPRAZOLE 40 MG/10 ML VIAL IVP SCH (09:08)
[2020-07-23] MEDS: TOBRAMYCIN 0.3% OPHTH OINT 3.5 GM TUBE BOTH EYES SCH (09:08)
[2020-07-23] MEDS: HEPARIN SOD,PORK IN 0.45% NACL 25,000 UNIT in 0.45% NACL 1 250ML.BAG IV SCH (09:09)
[2020-07-23] MEDS: IPRATROPIUM-ALBUTEROL 3 ML NEB INHALATION SCH ×4 (09:22→20:04)
[2020-07-23 10:00] LABS: African American GFR (CKD) 74.1 (60.0-200.0); Anion Gap 6.8 mmol/L (4.00-12.00); BUN/Creat Ratio 43.64 Ratio (12.00-20.00); Calcium 9.4 mg/dL (8.7-10.3); Carbon Dioxide 28.2 mmol/L (21.6-31.8); Potassium 4.2 mmol/L (3.5-5.5)
--- NOTE | 2020-07-23 11:13 | CONS ---
CONSULTATION DATE OF SERVICE: 07/23/2020 REASON FOR CONSULTATION: Rectal bleeding. HISTORY OF PRESENT ILLNESS: The patient is a 80-year-old pleasant white male who was admitted to the hospital 6 days ago with altered mental status and apparently while in the emergency room he had cardiac arrest and VFib. Subsequently was resuscitated and defibrillated and intubated, transferred to the intensive care unit. He was extubated 2 days ago and was transferred to the floor yesterday. As soon as he arrived to the floor yesterday afternoon, he had one episode of maroon-colored stools. The patient has been on heparin on and off since admission to the hospital and heparin has been on hold. Since then there are no further episodes of bleeding. The patient is an extremely poor historian. As per the nursing staff, through the night, there were no bowel movements noted and no bleeding identified. The patient however denies any abdominal pain. He reports no nausea, vomiting. He apparently had a Dobbhoff tube in place for feeding which he accidently pulled out yesterday and currently is awaiting swallow evaluation by Speech, which is scheduled for tomorrow. The patient denies any prior history of peptic ulcer disease or recent NSAID use. The IV heparin currently is on hold. PAST MEDICAL HISTORY: Significant for prostate cancer, for which he underwent surgery, left ear surgery, hypertension, hyperlipidemia, atrial fibrillation, coronary artery disease with recent acute NE. MEDICATIONS: Medications at home aspirin, albuterol, Zyrtec, Celexa, Cozaar, Singulair, Pravachol, Xarelto, Glucotrol, Maxzide, Trileptal, fluticasone. ALLERGIES: None. PAST SURGICAL HISTORY: Prostatectomy, bladder suspension, left ear surgery. SOCIAL HISTORY: Unremarkable. FAMILY HISTORY: Could not be obtained. REVIEW OF SYSTEMS: CARDIOPULMONARY: Denies any chest pain or shortness of breath. : Denies any symptoms. NEUROLOGY: Slightly sluggish ENT: Vision unremarkable. CONSTITUTIONAL: No recent weight loss. No fever, chills, night sweats. HEMATOLOGY: Unremarkable. PSYCHIATRIC: Unremarkable CONSTITUTIONAL: Extremely weak, unable to walk since being hospitalized. PHYSICAL EXAMINATION: VITAL SIGNS: Blood pressure is 167/92, pulse is 70, temperature 97.5. HEENT: Examination unremarkable. Conjunctivae are pink. Sclerae anicteric. Oral cavity no lesions. NECK: No JVD or lymph node enlargement. CHEST: Clear to auscultation. HEART: Regular rate and rhythm. ABDOMEN: Soft, bowel sounds are positive. It was nontender, nondistended. EXTREMITIES: No pedal edema. NEURO: He is alert. Had a small bruise on the lip noted. Generalized weakness. LABS: Labs from yesterday showed hemoglobin 12.3 and today it is 11.9, WBC 13.2, platelets normal. Two days ago, T-bilirubin 1.5, AST 102, ALT 74, and alkaline phosphatase 619. IMPRESSION: 1. Acute lower gastrointestinal bleed. The patient had one episode of maroon-colored stool yesterday of moderate amount, but there was no significant drop in hemoglobin. IV heparin was on hold since yesterday afternoon and there are no further episodes of bleeding. The patient cannot recall if he had any endoscopies done in the past. 2. History of atrial fibrillation on IV heparin, currently on hold. 3. Acute respiratory failure following a cardiac arrest, status post intubation. He was in ICU for 5 days and was extubated 2 days ago, currently doing well. 4. Acute kidney injury. 5. Recent acute myocardial infarction. Cardiology following the patient closely. 6. Sepsis secondary to urinary tract infection. On broad-spectrum antibiotics. RECOMMENDATIONS: 1. Continue to hold IV heparin. 2. Diet as tolerated. 3. Monitor CBC on a daily basis. 4. No plans for any endoscopy intervention at the present time, given the overall medical condition. 5. Continue broad-spectrum antibiotics. 6. Will follow with you closely. Thank you for this consultation. MMODL / IJN: [id number] /
[2020-07-23 11:40] LABS: Glucose,Whole Blood 176 mg/dL (75-99)
[2020-07-23] MEDS: carvediloL 6.25 MG TAB PO SCH ×2 (12:04→12:17)
[2020-07-23] MEDS ORDERED: FUROSEMIDE 10 MG/ML 4 ML VIAL IV STA (12:08)
[2020-07-23] MEDS: carvediloL 3.125 MG TAB PO SCH ×2 (12:35→17:31)
[2020-07-23] MEDS: LOSARTAN 50 MG TAB PO SCH (12:35)
--- NOTE | 2020-07-23 13:54 | P.PN ---
Subjective Progress Note Date: 07/23/20 Principal diagnosis: UTI/Sepsis/Respiratory Failure/Chronic Atrial fibrillation. PROGRESS NOTE 07/23/2020 80-year-old gentleman with a long complicated course originally admitted to hospital with artificial urethral insertion procedure/sepsis/UTI and respiratory failure. Patient also has history of prostate cancer diagnosed October 2019. Patient has been transferred from ICU to general medical floor the continues with telemetry. Patient has been extubated. Patient seen lying in bed this a.m. in no acute distress but remains very confused. Patient has generalized edema. Pt continues chronic, controlled atrial fibrillation, heart rate 70. Patient is hypertensive, most recent blood pressure 167/92. Heart rate 70. Patient 97% on 2 L of O2. Patient currently getting breathing treatment and bilateral lung amor have coarse rhonchi. Pt has productive cough. No current anticoagulation due to bleeding. Most recent EF shows mildly decreased ejection fraction at 45- 50%, with global hypokinesia and severe pulmonary hypertension. Home medications have not been restarted. PHYSICAL EXAMINATION: HEENT: Head is atraumatic, normocephalic. Pupils are equal, round. Sclerae anicteric. Conjunctivae are clear. Mucous membranes of the mouth are moist. Neck is supple. There is no jugular venous distention. No carotid bruit is heard. No thyromegaly. LUNGS: Bilateral corse rhonchi. No chest wall tenderness is noted on palpation or with deep breathing. HEART: Controlled rate and irregular rhythm. II/ systolic murmurs. No rubs or gallops. S1 and S2 heard. ABDOMEN: Abdominal exam revealed normal bowel sounds. The abdomen was soft, non- tender, and without masses, organomegaly, or appreciable enlargement of the abdominal aorta. Generalized edema. EXTREMITIES: Examination of the extremities revealed easily palpable radial, femoral and pedal pulses. There was no cyanosis, clubbing. Generalized edema. No calf tenderness noted. VASCULAR: Radial and dorsalis pedis pulses palpated, no evidence of clubbing. NEUROLOGIC: Patient is awake, confused and oriented x1. There were no obvious focal neurologic abnormalities. FINAL IMPRESSION: 1. UTI/sepsis. 2. acute on chronic systolic heart failurem, generalized edema. 3. severe pulmonary hypertension 4. respiratory failure 5. chronic atrial fibrillation, controlled rate 6. Malnourished, generalized edema PLAN: No aticoagulation due to bleeding. Start IV Lasix 40 mg once. PRN KCL replacement already ordered. Start oral Lasix 40 mg daily tomorrow. Restart home hypertension medications and Singulair. Decrease Coreg 3.125 twice daily. Monitor intake, output and Daily weights. Advise high-protein and low sodium diet. Objective - Vital Signs Vital signs: Vital Signs Temp 97.5 F L 07/23/20 07:00 Pulse 72 07/23/20 12:50 Resp 18 07/23/20 07:00 BP 167/92 07/23/20 07:00 Pulse Ox 97 07/23/20 07:00 Intake & Output 07/22/20 07/23/20 07/23/20 18:59 06:59 18:59 Intake Total 551.833 Output Total 345 700 33 Balance 206.833 -700 -33 Weight 93 kg Intake: IV 304 Dextrose 5%-0.45% NaCl 1, 250 000 ml @ 50 mls/hr IV . Q20H [facility] Rx#:[id number] Sodium Chloride 0.9% 1, 30 000 ml @ 75 mls/hr IV . [id number] [facility] Rx#:[id number] pressure bags 24 Intake, IV Titration 247.833 Amount Heparin Sod,Pork in 0.45% 247.833 NaCl 25,000 unit In 0.45 % NaCl 1 250ml.bag @ 11. 211 UNITS/KG/HR 10 mls/hr IV .Q24H MYLES Rx#: [id number] Output: Urine 345 700 Post Void Residual 33 Other: Voiding Method Indwelling Catheter Indwelling Catheter Indwelling Catheter ABP, PAP, CO, CI - Last Documented Arterial Blood Pressure 169/65 - Labs CBC & Chem 7: 07/23/20 06:08 07/23/20 06:08 Labs: Abnormal Lab Results - Last 24 Hours (Table) 07/22/20 07/22/20 07/23/20 Range/Units 17:02 23:53 06:08 WBC 13.2 H (3.8-10.6) k/uL RBC 3.99 L (4.30-5.90) m/uL Hgb 11.9 L (13.0-17.5) gm/dL Hct 37.3 L (39.0-53.0) % Neutrophils # 10.0 H (1.3-7.7) k/uL Sodium (135-145) mmol/L Chloride (96-109) mmol/L BUN (9.0-27.0) mg/dL BUN/Creatinine Ratio (12.00-20.00) Ratio Glucose (70-110) mg/dL POC Glucose (mg/dL) 206 H 197 H (75-99) mg/dL 07/23/20 07/23/20 07/23/20 Range/Units 06:08 06:18 07:39 WBC (3.8-10.6) k/uL RBC (4.30-5.90) m/uL Hgb (13.0-17.5) gm/dL Hct (39.0-53.0) % Neutrophils # (1.3-7.7) k/uL Sodium 150 H (135-145) mmol/L Chloride 115 H (96-109) mmol/L BUN 48.0 H (9.0-27.0) mg/dL BUN/Creatinine Ratio 43.64 H (12.00-20.00) Ratio Glucose 191 H (70-110) mg/dL POC Glucose (mg/dL) 157 H 170 H (75-99) mg/dL 07/23/20 Range/Units 11:38 WBC (3.8-10.6) k/uL RBC (4.30-5.90) m/uL Hgb (13.0-17.5) gm/dL Hct (39.0-53.0) % Neutrophils # (1.3-7.7) k/uL Sodium (135-145) mmol/L Chloride (96-109) mmol/L BUN (9.0-27.0) mg/dL BUN/Creatinine Ratio (12.00-20.00) Ratio Glucose (70-110) mg/dL POC Glucose (mg/dL) 176 H (75-99) mg/dL Microbiology - Last 24 Hours (Table) 07/17/20 12:45 Blood Culture - Preliminary Blood No Growth after 120 hours
--- NOTE | 2020-07-23 16:00 | P.PN ---
Subjective Progress Note Date: 07/23/20 Patient is awake and alert. He is still having difficulty communicating and speaking that is improved daily Objective - Vital Signs Vital signs: Vital Signs Temp 97.9 F 07/23/20 15:00 Pulse 68 07/23/20 15:56 Resp 19 07/23/20 15:00 BP 170/89 07/23/20 15:00 Pulse Ox 97 07/23/20 15:44 Intake & Output 07/22/20 07/23/20 07/23/20 18:59 06:59 18:59 Intake Total 551.833 500 Output Total 345 700 33 Balance 206.833 -700 467 Weight 93 kg Intake: IV 304 Dextrose 5%-0.45% NaCl 1, 250 000 ml @ 50 mls/hr IV . Q20H [facility]LES Rx#:[id number] Sodium Chloride 0.9% 1, 30 000 ml @ 75 mls/hr IV . [id number] [facility] Rx#:[id number] pressure bags 24 Intake, IV Titration 247.833 Amount Heparin Sod,Pork in 0.45% 247.833 NaCl 25,000 unit In 0.45 % NaCl 1 250ml.bag @ 11. 211 UNITS/KG/HR 10 mls/hr IV .Q24H MYLES Rx#: [id number] Oral 500 Output: Urine 345 700 Post Void Residual 33 Other: Voiding Method Indwelling Catheter Indwelling Catheter Indwelling Catheter # Voids 2 ABP, PAP, CO, CI - Last Documented Arterial Blood Pressure 169/65 - Exam General: The patient is awake and alert, in no distress Eye: As noted above Neck: The neck is supple, there is no JVD. Cardiovascular: Normal S1-S2, no S3-S4, no murmurs. Respiratory: Lungs with scattered rhonchi to anterior chest auscultation Gastrointestinal: Abdomen is soft, nontender Musculoskeletal: There is no pedal edema. Skin: Skin is warm and dry - Labs CBC & Chem 7: 07/23/20 06:08 07/23/20 06:08 Labs: Abnormal Lab Results - Last 24 Hours (Table) 07/22/20 07/22/20 07/23/20 Range/Units 17:02 23:53 06:08 WBC 13.2 H (3.8-10.6) k/uL RBC 3.99 L (4.30-5.90) m/uL Hgb 11.9 L (13.0-17.5) gm/dL Hct 37.3 L (39.0-53.0) % Neutrophils # 10.0 H (1.3-7.7) k/uL Sodium (135-145) mmol/L Chloride (96-109) mmol/L BUN (9.0-27.0) mg/dL BUN/Creatinine Ratio (12.00-20.00) Ratio Glucose (70-110) mg/dL POC Glucose (mg/dL) 206 H 197 H (75-99) mg/dL 07/23/20 07/23/20 07/23/20 Range/Units 06:08 06:18 07:39 WBC (3.8-10.6) k/uL RBC (4.30-5.90) m/uL Hgb (13.0-17.5) gm/dL Hct (39.0-53.0) % Neutrophils # (1.3-7.7) k/uL Sodium 150 H (135-145) mmol/L Chloride 115 H (96-109) mmol/L BUN 48.0 H (9.0-27.0) mg/dL BUN/Creatinine Ratio 43.64 H (12.00-20.00) Ratio Glucose 191 H (70-110) mg/dL POC Glucose (mg/dL) 157 H 170 H (75-99) mg/dL 07/23/20 Range/Units 11:38 WBC (3.8-10.6) k/uL RBC (4.30-5.90) m/uL Hgb (13.0-17.5) gm/dL Hct (39.0-53.0) % Neutrophils # (1.3-7.7) k/uL Sodium (135-145) mmol/L Chloride (96-109) mmol/L BUN (9.0-27.0) mg/dL BUN/Creatinine Ratio (12.00-20.00) Ratio Glucose (70-110) mg/dL POC Glucose (mg/dL) 176 H (75-99) mg/dL Microbiology - Last 24 Hours (Table) 07/17/20 12:45 Blood Culture - Final Blood No Growth after 144 hours Assessment and Plan Assessment: This is a 80-year-old male with complex past medical history noted below who presented to the emergency room with worsening confusion brought in by EMS. Patient was evaluated in the ER and was found to have evidence of sepsis secondary to underlying UTI with obstructive uropathy secondary to malf unctioning artificial urethral sphincter. Patient was started on IV fluids and antibiotic. On the first night of his admission patient went into PEA cardiac arrest requiring CPR with successful return of spontaneous rhythm but subsequently patient went into V. tach requiring shock. Patient was intubated and currently admitted to the hospital for further management of his medical problems noted below. 1. PEA arrest requiring CPR with successful return of spontaneous circulation. 2. Acute hypoxic respiratory failure secondary to cardiac arrest. Requiring sedation and intubation. Successfully extubated on 07/19. 3. Severe sepsis with septic shock, status post aggressive IV fluid hydration. Vasopressors discontinued 07/19 4. Complicated urinary tract infection with possible urinary retention secondary to nonfunctional artificial urethral sphincter. Castro catheter placed by urology. Antibiotic with IV ceftriaxone 2 g day #9. Urine culture grew E. coli 5. E. coli bacteremia secondary to urosepsis. Repeat blood culture negative to date. We will finish 10 days of IV antibiotic 6. Acute kidney injury, kidney function improved significantly. probably secondary to obstructive uropathy. 7. Non-ST elevation AR. Patient denied any chest pain on presentation. Twel ve-lead EKG in the ER with no acute ischemic changes. Probably type II secondary to sepsis. He was seen and evaluated by cardiology. Echocardiogram showed EF of 45-50%. There is left ventricular wall motion hypokinesia noted. Cardiology following closely. 8. History of prostate cancer status post prostatectomy with subsequent chronic urine incontinence status post artificial urethral sphincter. This was deactivated on presentation by urology. Castro catheter in place. May discontinue Castro catheter when medically appropriate. 9. Chronic atrial fibrillation on anticoagulation with Rivaroxaban. 10. Underlying cognitive impairment 11. GI prophylaxis with IV Protonix Today, I reviewed his medication list and lab work results. Continue to monitor clinical status. Gentle IV fluid hydration. Speech pathology consult.
--- NOTE | 2020-07-23 16:29 | P.PN ---
Subjective Progress Note Date: 07/23/20 Principal diagnosis: Acute sepsis and respiratory failure 80-year-old gentleman admitted for altered mentation. The patient became confused and disoriented and he was diagnosed having a complicated UTI/urine checked infection with sepsis. The patient has had a previous artificial urethral sphincter insertion for incontinence. EMS brought the patient to the hospital the patient was febrile. In the ED, the patient became more unresponsive and he went into cardiopulmonary arrest. The patient was found to be in ventricular fibrillation CPR was initiated and he was also defibrillated. He was brought back in terms of his hemodynamics and following that the patient was started on norepinephrine for blood pressure control and support. The patient during the process was intubated and placed on a mechanical ventilator. The patient got transferred to the ICU. EKG showed atrial fibrillation with diffuse nonspecific ST segment changes and T-wave abnormalities without clear- cut evidence of ischemia. The patient was given a Castro catheter. White cell count was 15. He was considered to be septic. He was started on broad-spectrum antibiotics. He was also started on IV heparin which was ultimately discontinued as the patient developed some bleeding from the NG tube. Noted the patient has history of prostate cancer and had undergone previous prostatectomy. Subsequent white cell count At 46 secondary underlying sepsis and the patient developed some thrombocytopenia. The patient also developed an acute kidney injury in the creatinine is up to 2.9 from a baseline of 1.78. Lactic acid peaked at 3.5 and dropped down to 3.4. The troponin peaked at 0.741. The urine analysis was abnormal consistent with underlying infection. Coronavirus testing was negative. At this point in time, the patient intubated on a mechanical ventilator. The patient is currently on propofol running at 35 g per KG pigmented. The patient is on assist control mode of ventilation at the rate of 18 with a tidal volume of 500 and FiO2 of 40% with a PEEP of 5. Norepinephrine infusion is running at 0.35 mg per KG per minute. Currently the patient is off IV heparin because of GI bleed. The patient has a bicarb infusion running at 75 mL an hour of 150 meq of sodium bicarb and he has a NSS @75cc/hour. The urine cultures positive for gram-negative bacillus. The blood cultures positive for E. coli. The patient remains on IV Rocephin for now 1 g every 24 hours. Based on morning labs, the patient did drop in the white second down to 35.7 from yesterday. The platelet count is down to 111. The blood gases from this morning showed a pH of 7.37 with a pCO2 of 30 and pO2 of 286 and this was on FiO2 of 100% and FiO2 has been weaned down to 40% to maintain a saturation above 90%. The patient also showed some improvement in the renal function. Creatinine is down to 2.1 from yesterday and the patient also had a serum bicarb of 16 with an anion gap of 11. Sodium level is at 1:30. He is still on pressors. \ On 07/18/2020, the patient is being seen for a follow-up. The patient remains intubated on a mechanical ventilator as the patient is being treated for septic shock secondary to E. coli UTI. E. coli was cultured in the blood and in the urine. The patient is currently on IV Rocephin. For now, the patient is sedated with propofol and the patient will be given a sedation holiday. Propofol is running at 40 mg per KG per minute. The patient is an assist- control mode of ventilation at the rate of 12 with a tidal volume of 500 and FiO2 of 40% with a PEEP of 5.. Blood gases from today showed a pH of 7.5 with a pCO2 of 33 and pO2 of 71. The patient had a follow-up chest x-ray that showed bibasilar infiltrates and small effusions which was not present on yesterday's evaluation. ET tube is in a good location for now. Meanwhile, the patient is still on pressors. Note that the norepinephrine is gradually being weaned off and the patient is currently on 0.15 mg/kg per minute. The patient atrial fibrillation with a controlled rate. The patient is a positive fluid balance of 1.6 L over the past 24 hours. The patient remains on IV heparin. Echocardiogram showed an ejection fraction of 45-50%. The patient is also on bicarb infusion and the serum bicarb level is normalized. On 07/19/2020, the patient remains intubated on a mechanical ventilator. On today's evaluation, the patient was taken off the sedation and he was arousable. The patient remains on a mechanical ventilator on assist control mode at the rate of 12 and a tidal volume of 500 and FiO2 of 40% with a PEEP of 5. The patient's blood gas showed a pH of 7.52 with a pCO2 of 34 and pO2 11. Chest x- ray still showing some mild pulmonary vascular congestion and small bilateral pleural effusions. IV fluids has been cut down to 30 mL an hour and the patient is on a low-dose norepinephrine infusion at 0.05 mcg/kg per minute. The patient's cardiac rhythm is atrial fibrillation with a controlled rate. The patient is on IV Rocephin regarding E. coli septicemia. The plan for now is to check weaning parameters and give the patient is point is breathing trial. I anticipate extubated this patient today. The patient is a negative fluid balance. The patient was given additional dose of Lasix today. The white cell count is down to 16 and the patient's creatinine is also improving is down to 1.25. On 07/20/2020, the patient is still extubated. The patient was extubated yesterday and the patient is currently on 2 L of oxygen by nasal cannula. He is profoundly weak. His ability to cough and speak is quite limited and the patient has been having difficulties with swallowing. I think this is related to overall and generalized weakness secondary to sepsis. The patient has failed swallow evaluation. He remains nothing by mouth. I'm considering a Dobbhoff catheter for enteral feeding and nutritional support. Meanwhile, the patient remains in atrial fibrillation. Heart rate is controlled in the mid 70s. His cough is weak. His voice is muffled. He cannot swallow. Based on that, increase his IV fluids again to 75 mL an hour. He remains on IV Rocephin. He is still being treated for E. coli septicemia. The renal function is stable. The patient is currently on no pressors. No fever. No chills. He is awake and is able to follow commands. On 07/21/2020, the patient is being seen for a follow-up. As mentioned earlier, the patient was extubated and this is second day post extubation. Clinically remains quite weak and debilitated. He is laying most of the time in bed and he is now doing all of efforts. He is communicating and is following simple commands and answering questions. He seems to be appropriate. Nevertheless, he is quite debilitated and weak and not ready for any oral intake. Based on that, Dobbhoff catheter was inserted yesterday for enteral feeding instructions support and the patient was started on tube feeds with TwoCal at the rate of 20 mL an hour. On today's evaluation, the patient continues to profoundly weak and she will not be able to swallow and for that reason a swallow evaluation was not done. Physical therapy was consulted. He remains on maintenance fluids IV at [facility]. He is making good urine output. He is a negative fluid balance. He remains on IV heparin. He is on 2 L of oxygen by nasal cannula with pulse is 96%. White cell count continues to improve. The platelet counts is also improving. The platelet count is on the rise. The creatinine is at 1.08 which is improved compared to yesterday. In terms of liver function tests, there is still elevated and abnormal with an AST of 102, ALT of 74, alkaline phosphatase of 6.9. The bilirubin is at 1.5. 07/21/2020, the patient remains extubated. he is awake and following commands and answer questions appropriately. He remains weak. he will have another swallow evaluation. There was a Dobbhoff catheter was inserted for enteral feeding and nutritional support and the patient ended up pulling out the tube himself. The patient is currently afebrile. He is on 2 L of oxygen by nasal cannula. He remains on IV Rocephin. He is producing good amount of urine output. His white cell count is 11.3 with hemoglobin of 12.3. The sodium level is at 146 and the patient has a BUN of 49 with a creatinine of 1.06 and his renal function is improved and normalized. His sodium level is higher than the patient may benefit from some IV fluid maintenance. He does have some increased edema in the upper and lower extremities bilaterally. He is on IV Rocephin 2 g every 24 hours. He remains on IV heparin. Later on during the day patient developed some bloody mucoid stool and for that reason IV heparin was discontinued. His cardiac rhythm is atrial fibrillation with a controlled rate. He'll be moved up to a recliner on today's evaluation possibly moved up to a medical surgical floor with telemetry if his condition remains stable. The patient is seen today 07/23/2020 in follow-up on the regular medical floor. He is transferred out of the intensive care unit yesterday. He is currently sitting up in a chair at the bedside. He is working with physical therapy. He appears a bit stronger. Tolerating any thickened liquids. Remains on aspiration precautions. Currently maintaining good O2 saturations in the mid 90 s on 2 L/m per nasal cannula. Afebrile. Follow-up blood cultures reveal no growth. Sputum culture revealed no growth. He was treated for E. coli UTI. White count 13.2. Hemoglobin 11.9. Sodium 150. Potassium 4.2. Creatinine 1.1. He remains on ceftriaxone. Objective - Vital Signs Vital signs: Vital Signs Temp 97.9 F 07/23/20 15:00 Pulse 68 07/23/20 15:56 Resp 19 07/23/20 15:00 BP 170/89 07/23/20 15:00 Pulse Ox 97 07/23/20 15:44 Intake & Output 07/22/20 07/23/20 07/23/20 18:59 06:59 18:59 Intake Total 551.833 500 Output Total 345 700 33 Balance 206.833 -700 467 Weight 93 kg Intake: IV 304 Dextrose 5%-0.45% NaCl 1, 250 000 ml @ 50 mls/hr IV . Q20H [facility] Rx#:[id number] Sodium Chloride 0.9% 1, 30 000 ml @ 75 mls/hr IV . [id number] [facility] Rx#:[id number] pressure bags 24 Intake, IV Titration 247.833 Amount Heparin Sod,Pork in 0.45% 247.833 NaCl 25,000 unit In 0.45 % NaCl 1 250ml.bag @ 11. 211 UNITS/KG/HR 10 mls/hr IV .Q24H MYLES Rx#: [id number] Oral 500 Output: Urine 345 700 Post Void Residual 33 Other: Voiding Method Indwelling Catheter Indwelling Catheter Indwelling Catheter # Voids 2 ABP, PAP, CO, CI - Last Documented Arterial Blood Pressure 169/65 - Exam Gen. appearance the patient is extubated to 2 L of oxygen by nasal cannula. The patient is still extubated at 2 L per minute nasal cannula. He does have some ulceration of his lower lip. No oropharyngeal candidiasis. Head exam was generally normal. There was no scleral icterus or corneal arcus. Mucous membranes were moist. Neck was supple and without jugular venous distension, thyromegaly, or carotid bruits. Carotids were easily palpable bilaterally. There was no adenopathy. Lungs are diminished and the patient scattered rhonchi heard throughout the lung his bilaterally. He continues to have a congested cough unable to become much of sputum Heart sounds are irregular consistent with atrial fibrillation. There is positive S1-S2. No significant murmurs appreciated. Abdominal exam revealed normal bowel sounds. The abdomen was soft, non-tender, and without masses, organomegaly, or appreciable enlargement of the abdominal aorta. Examination of the extremities revealed easily palpable radial, femoral and pedal pulses. There was no cyanosis, clubbing or edema. Examination of the skin revealed no evidence of significant rashes, suspicious appearing nevi or other concerning lesions. Neurologically the patient is awake yet profoundly weak and somewhat lethargic on today's evaluation. There is global weakness in all 4 extremities. He has a weak cough. He has a weak voice and difficulties in swallowing - Labs CBC & Chem 7: 07/23/20 06:08 07/23/20 06:08 Labs: Abnormal Lab Results - Last 24 Hours (Table) 07/22/20 07/22/20 07/23/20 Range/Units 17:02 23:53 06:08 WBC 13.2 H (3.8-10.6) k/uL RBC 3.99 L (4.30-5.90) m/uL Hgb 11.9 L (13.0-17.5) gm/dL Hct 37.3 L (39.0-53.0) % Neutrophils # 10.0 H (1.3-7.7) k/uL Sodium (135-145) mmol/L Chloride (96-109) mmol/L BUN (9.0-27.0) mg/dL BUN/Creatinine Ratio (12.00-20.00) Ratio Glucose (70-110) mg/dL POC Glucose (mg/dL) 206 H 197 H (75-99) mg/dL 07/23/20 07/23/20 07/23/20 Range/Units 06:08 06:18 07:39 WBC (3.8-10.6) k/uL RBC (4.30-5.90) m/uL Hgb (13.0-17.5) gm/dL Hct (39.0-53.0) % Neutrophils # (1.3-7.7) k/uL Sodium 150 H (135-145) mmol/L Chloride 115 H (96-109) mmol/L BUN 48.0 H (9.0-27.0) mg/dL BUN/Creatinine Ratio 43.64 H (12.00-20.00) Ratio Glucose 191 H (70-110) mg/dL POC Glucose (mg/dL) 157 H 170 H (75-99) mg/dL 07/23/20 Range/Units 11:38 WBC (3.8-10.6) k/uL RBC (4.30-5.90) m/uL Hgb (13.0-17.5) gm/dL Hct (39.0-53.0) % Neutrophils # (1.3-7.7) k/uL Sodium (135-145) mmol/L Chloride (96-109) mmol/L BUN (9.0-27.0) mg/dL BUN/Creatinine Ratio (12.00-20.00) Ratio Glucose (70-110) mg/dL POC Glucose (mg/dL) 176 H (75-99) mg/dL Microbiology - Last 24 Hours (Table) 07/17/20 12:45 Blood Culture - Final Blood No Growth after 144 hours Assessment and Plan Assessment: 1 acute cardiac arrest/V. fib arrest requiring defibrillation/CPR and patient subsequently regained spontaneous circulation. During the process, the patient was intubated and placed on mechanical ventilator, the patient had a downtime of 4 minutes. The patient remains sedated and the patient will be given a sedation holiday.. No signs of any anoxic encephalopathy at this point in time. Nevertheless, the patient is extubated and the patient is profoundly weak and has global weakness in all 4 extremities along with a weak voice, cough and poor swallow. This may be a manifestation of either sepsis or post cardiac arrest and the patient continues to have global weakness and on today's evaluation he seems to be a bit more interactive and stronger compared to yesterday. He pulled out his Doppler of catheter and a repeat swallow evaluation is worthwhile to consider in this patient. 2 septic shock secondary to underlying UTI, and the patient has E. coli in the blood and gram-negative bacillus and this seems to be a gram-negative or E. coli septicemia. The patient remains on IV Rocephin 2 g every 24 hours 3 hypotensive secondary sepsis, recovered, hemodynamically stable 4 acute non-STEMI 5 chronic atrial fibrillation, currently in a sinus rhythm, the patient is currently on IV heparin and IV heparin will be discontinued as the patient developed some mucoid bloody stool. 6 acute leukocytosis secondary to sepsis, improving, 7 lactic acidosis, down to 3.0 8 thrombocytopenia, consumptive, and the platelet counts are still low, but improving 9 non-anion gap metabolic acidosis, on bicarb infusion, recovered 10 acute kidney injury secondary to above, improving and the creatinine is down and normalized 11 history of hypertension 12 history of hyperlipidemia 15 history of COPD 14 diabetes mellitus type 2 15 upper GI bleed induced by stress and IV heparin and currently the patient is off anticoagulants 16 prostate cancer with a previous prostatectomy 17 history of urethral sphincter insertion. 18 CHF with an ejection fraction of 45% 19 profound weakness with difficulty in swallowing and the patient had a Dobbhoff catheter with enteral feeding for nutritional support until he pulled out. Plan Patient was seen and evaluated by Dr. Tyler On 2 L nasal cannula Working with physical therapy Aspiration precautions Swallow evaluation in the a.m. Continue bronchodilators Continue ceftriaxone We will continue to follow I, the cosigning physician, performed a history & physical examination of the patient. Lungs sounds with bilateral scattered rhonchi. Maintaining good O2 saturations in the 90s on 2 L/m per nasal cannula. I discussed the assessment and plan of care with my nurse practitioner, Sheyla Pollock. I attest to the above note as dictated by her.
[2020-07-23 16:36] LABS: Glucose,Whole Blood 188 mg/dL (75-99)
[2020-07-23] MEDS: MONTELUKAST 10 MG TAB PO SCH (22:30)
[2020-07-23] MEDS: ATORVASTATIN 80 MG TAB PO SCH (22:30)
[2020-07-24 01:07] LABS: Glucose,Whole Blood 149 mg/dL (75-99)
[2020-07-24] MEDS: INSULIN ASPART (NovoLOG) 100 UNIT/ML VIAL SQ SCH ×5 (01:15→21:23)
--- NOTE | 2020-07-24 03:33 | XR ---
EXAM: XR Chest, 1 View CLINICAL HISTORY: ITS.REASON XR Reason: confirm line placement TECHNIQUE: Frontal view of the chest. COMPARISON: 07/22/20 exam. FINDINGS: Lungs: Redemonstration of vascular congestion at the upper lungs and interstitial pulmonary edema. Pleural space: Redemonstration of subtle ill-defined opacities at the lower lungs and bilateral pleural effusions, left greater than right. No pneumothorax. Heart: Redemonstration of enlarged cardiac silhouette. Mediastinum: Unremarkable. Bones/joints: Bones are unchanged. Tubes, lines and devices: Interval retraction of the right transjugular central venous catheter with tip now projecting over the medial aspect of the right clavicle probably within the high SVC. IMPRESSION: 1. Interval retraction of the right transjugular central venous catheter with tip now projecting over the medial aspect of the right clavicle probably within the high SVC. 2. Findings of congestive heart failure.
[2020-07-24 06:31] LABS: Glucose,Whole Blood 179 mg/dL (75-99)
[2020-07-24] MEDS: IPRATROPIUM-ALBUTEROL 3 ML NEB INHALATION SCH ×4 (07:25→19:26)
[2020-07-24 07:32] LABS: Basophils # (A) 0.1 k/uL (0-0.2); Basophils % (A) 1 %; Eosinophils # (A) 0.1 k/uL (0-0.7); Eosinophils % (A) 1 %; HCT 33.7 % (39.0-53.0); HGB 11.3 gm/dL (13.0-17.5); Hypochromasia Slight; Lymphocytes # (A) 1.6 k/uL (1.0-4.8); Lymphocytes % (A) 13 %; MCH 31.5 pg (25.0-35.0); MCHC 33.5 g/dL (31.0-37.0); MCV 93.9 fL (80.0-100.0); Monocytes # (A) 0.7 k/uL (0-1.0); Monocytes % (A) 6 %; Neutrophils # (A) 9.9 k/uL (1.3-7.7); Neutrophils % (A) 79 %; Platelet Count 256 k/uL (150-450); RBC 3.59 m/uL (4.30-5.90); RDW 15.4 % (11.5-15.5); WBC 12.5 k/uL (3.8-10.6)
--- NOTE | 2020-07-24 08:17 | P.PN ---
Subjective Progress Note Date: 07/24/20 The patient is in the hospital with a urinary tract infection with sepsis, Summer Nancy failure, and a non-STEMI AK. Is now in the regular floor. He has an indwelling catheter. He had a previously placed urinary sphincter for stress urinary incontinence from a TURP years ago and subsequent radical prostatectomy. I question whether the patient was appropriately using the sphincter and probably went into urinary retention leading to the urinary tract infection with sepsis. He had several educational efforts in the office to instructed on how to do this with his daughter present. The family was insisting that he would be able to do this. The sphincter is deactivated at this point in time. When medically able the catheter can be out. He will be incontinent. He once again will have to be instructed on how to use the sphincter appropriately so that we can hopefully avoid the urine retention, urinary tract infection with sepsis. Objective - Vital Signs Vital signs: Vital Signs Temp 97.8 F 07/24/20 07:00 Pulse 60 07/24/20 07:37 Resp 22 07/24/20 07:00 BP 113/58 07/24/20 07:00 Pulse Ox 96 07/24/20 07:00 Intake & Output 07/23/20 07/24/20 07/24/20 18:59 06:59 18:59 Intake Total 500 400 Output Total 433 900 Balance 67 -500 Weight 93 kg 78.5 kg Intake: Oral 500 400 Output: Urine 400 900 Post Void Residual 33 Stool 0 Other: Voiding Method Indwelling Catheter Indwelling Catheter # Voids 2 ABP, PAP, CO, CI - Last Documented Arterial Blood Pressure 169/65 - Labs CBC & Chem 7: 07/24/20 06:53 07/23/20 06:08 Labs: Abnormal Lab Results - Last 24 Hours (Table) 07/23/20 07/23/20 07/23/20 Range/Units 06:08 11:38 16:35 WBC (3.8-10.6) k/uL RBC (4.30-5.90) m/uL Hgb (13.0-17.5) gm/dL Hct (39.0-53.0) % Neutrophils # (1.3-7.7) k/uL Sodium 150 H (135-145) mmol/L Chloride 115 H (96-109) mmol/L BUN 48.0 H (9.0-27.0) mg/dL BUN/Creatinine Ratio 43.64 H (12.00-20.00) Ratio Glucose 191 H (70-110) mg/dL POC Glucose (mg/dL) 176 H 188 H (75-99) mg/dL 07/24/20 07/24/20 07/24/20 Range/Units 01:06 06:30 06:53 WBC 12.5 H (3.8-10.6) k/uL RBC 3.59 L (4.30-5.90) m/uL Hgb 11.3 L (13.0-17.5) gm/dL Hct 33.7 L (39.0-53.0) % Neutrophils # 9.9 H (1.3-7.7) k/uL Sodium (135-145) mmol/L Chloride (96-109) mmol/L BUN (9.0-27.0) mg/dL BUN/Creatinine Ratio (12.00-20.00) Ratio Glucose (70-110) mg/dL POC Glucose (mg/dL) 149 H 179 H (75-99) mg/dL Microbiology - Last 24 Hours (Table) 07/17/20 12:45 Blood Culture - Final Blood No Growth after 144 hours
[2020-07-24] MEDS: PANTOPRAZOLE 40 MG/10 ML VIAL IVP SCH (08:47)
[2020-07-24] MEDS: CITALOPRAM HYDROBROMIDE 20 MG TAB PO SCH (08:47)
[2020-07-24] MEDS: LOSARTAN 50 MG TAB PO SCH (08:47)
[2020-07-24] MEDS: ASPIRIN 81 MG PO SCH (08:47)
[2020-07-24] MEDS: carvediloL 3.125 MG TAB PO SCH ×2 (08:47→18:01)
[2020-07-24] MEDS ORDERED: FUROSEMIDE 20 MG TAB PO SCH (09:00)
[2020-07-24] MEDS ORDERED: FUROSEMIDE 40 MG TAB PO SCH (09:00)
[2020-07-24 11:12] LABS: African American GFR (CKD) 83.2 (60.0-200.0); Anion Gap 6.8 mmol/L (4.00-12.00); Carbon Dioxide 32.2 mmol/L (21.6-31.8); Non-African American GFR(CKD) 71.8 (60.0-200.0); Potassium 3.9 mmol/L (3.5-5.5)
[2020-07-24 12:32] LABS: Glucose,Whole Blood 124 mg/dL (75-99)
--- NOTE | 2020-07-24 12:56 | P.PN ---
Subjective Progress Note Date: 07/24/20 Principal diagnosis: Rectal bleeding This is a 80-year-old pleasant white male who was admitted to the hospital a week ago with altered mental status and had subsequent cardiac arrest and V. fib. He was resuscitated sent to the ICU. He was extubated 3 days ago was transferred to the medical floor. It was reported that he had a bowel movement with maroon colored stool. The patient has been on heparin on and off since admission from the hospital. Nursing reported the patient had an episode in the evening that was mucousy with some maroon/red blood in the stool. The patient is alert, however not orientated. He seems very confused when asked questions and is a poor historian. He had a Dobbhoff tube that was in place for feeding and was subsequently pulled out an accident he is awaiting swallow evaluation by speech today. His hemoglobin is stable at 11.3. He is denying any abdominal pain, nausea, or vomiting. Objective - Vital Signs Vital signs: Vital Signs Temp 97.8 F 07/24/20 07:00 Pulse 56 L 07/24/20 11:21 Resp 22 07/24/20 07:00 BP 113/58 07/24/20 07:00 Pulse Ox 96 07/24/20 07:00 Intake & Output 07/23/20 07/24/20 07/24/20 18:59 06:59 18:59 Intake Total 500 400 Output Total 433 900 Balance 67 -500 Weight 93 kg 78.5 kg Intake: Oral 500 400 Output: Urine 400 900 Post Void Residual 33 Stool 0 Other: Voiding Method Indwelling Catheter Indwelling Catheter Indwelling Catheter # Voids 2 ABP, PAP, CO, CI - Last Documented Arterial Blood Pressure 169/65 - Exam General appearance: The patient is alert, orientated x1, in no acute distress. HET: Head is normocephalic and atraumatic. Conjunctiva pink. Sclera anicteric. Neck: Supple without lymphadenopathy. Abdomen: Soft, nontender, nondistended with bowel sounds. No guarding or rigidity. Extremities: Normal skin color and turgor. No pedal edema Neurological: No focal deficits. Alert and oriented 1. - Labs CBC & Chem 7: 07/24/20 06:53 07/24/20 06:53 Labs: Abnormal Lab Results - Last 24 Hours (Table) 07/23/20 07/24/20 07/24/20 Range/Units 16:35 01:06 06:30 WBC (3.8-10.6) k/uL RBC (4.30-5.90) m/uL Hgb (13.0-17.5) gm/dL Hct (39.0-53.0) % Neutrophils # (1.3-7.7) k/uL Sodium (135-145) mmol/L Chloride (96-109) mmol/L Carbon Dioxide (21.6-31.8) mmol/L BUN (9.0-27.0) mg/dL BUN/Creatinine Ratio (12.00-20.00) Ratio Glucose (70-110) mg/dL POC Glucose (mg/dL) 188 H 149 H 179 H (75-99) mg/dL 07/24/20 07/24/20 07/24/20 Range/Units 06:53 06:53 12:31 WBC 12.5 H (3.8-10.6) k/uL RBC 3.59 L (4.30-5.90) m/uL Hgb 11.3 L (13.0-17.5) gm/dL Hct 33.7 L (39.0-53.0) % Neutrophils # 9.9 H (1.3-7.7) k/uL Sodium 151 H (135-145) mmol/L Chloride 112 H (96-109) mmol/L Carbon Dioxide 32.2 H (21.6-31.8) mmol/L BUN 39.0 H (9.0-27.0) mg/dL BUN/Creatinine Ratio 39.00 H (12.00-20.00) Ratio Glucose 166 H (70-110) mg/dL POC Glucose (mg/dL) 124 H (75-99) mg/dL Microbiology - Last 24 Hours (Table) 07/17/20 12:45 Blood Culture - Final Blood No Growth after 144 hours Assessment and Plan (1) Acute lower gastrointestinal bleeding Narrative/Plan: The patient has had one episode of maroon colored stool followed by a small amount of mucousy stool yesterday evening with maroon colored stool. His hemoglobin remains stable at 11.3 today. The patient was previously on IV heparin for history of atrial fibrillation. Current Visit: Yes Status: Acute Code(s): K92.2 - GASTROINTESTINAL HE MORRHAGE, UNSPECIFIED SNOMED Code(s): 10552961 (2) Cardiac arrest Narrative/Plan: Patient had recent myocardial infarction with cardiac arrest status post intubation. Cardiology is following the patient closely. Current Visit: Yes Status: Acute Code(s): I46.9 - CARDIAC ARREST, CAUSE UNSPECIFIED SNOMED Code(s): 071064093 (3) Non-STEMI (non-ST elevated myocardial infarction) Current Visit: Yes Status: Acute Code(s): I21.4 - NON-ST ELEVATION (NSTEMI) MYOCARDIAL INFARCTION SNOMED Code(s): 32250406 (4) Altered mental status Narrative/Plan: Likely secondary from urinary tract infection and sepsis. Currently on broad- spectrum antibiotics Current Visit: Yes Status: Acute Code(s): R41.82 - ALTERED MENTAL STATUS, UNSPECIFIED SNOMED Code(s): 074811741 Plan: 1. Continue to hold IV heparin 2. Diabetes tolerating 3. Monitor CBC daily 4. No plans for any endoscopy intervention at the present time given the overall medical condition of the patient. 5. Continue broad-spectrum antibiotics We will continue to follow The impression and plan of care has been dictated as directed. I performed a history and examination of this patient, discussed the same with the dictator. I agree with the dictator's note ,documented as a scribe. Any additional findings or plans will be noted.
--- NOTE | 2020-07-24 13:03 | P.PN ---
Subjective Progress Note Date: 07/24/20 Patient is awake and alert. He is still having difficulty communicating and speaking that is improving daily Objective - Vital Signs Vital signs: Vital Signs Temp 97.8 F 07/24/20 07:00 Pulse 56 L 07/24/20 11:21 Resp 22 07/24/20 07:00 BP 113/58 07/24/20 07:00 Pulse Ox 96 07/24/20 07:00 Intake & Output 07/23/20 07/24/20 07/24/20 18:59 06:59 18:59 Intake Total 500 400 Output Total 433 900 Balance 67 -500 Weight 93 kg 78.5 kg Intake: Oral 500 400 Output: Urine 400 900 Post Void Residual 33 Stool 0 Other: Voiding Method Indwelling Catheter Indwelling Catheter Indwelling Catheter # Voids 2 ABP, PAP, CO, CI - Last Documented Arterial Blood Pressure 169/65 - Exam General: The patient is awake and alert, in no distress Eye: As noted above Neck: The neck is supple, there is no JVD. Cardiovascular: Normal S1-S2, no S3-S4, no murmurs. Respiratory: Lungs with scattered rhonchi to anterior chest auscultation Gastrointestinal: Abdomen is soft, nontender Musculoskeletal: There is no pedal edema. Skin: Skin is warm and dry - Labs CBC & Chem 7: 07/24/20 06:53 07/24/20 06:53 Labs: Abnormal Lab Results - Last 24 Hours (Table) 07/23/20 07/24/20 07/24/20 Range/Units 16:35 01:06 06:30 WBC (3.8-10.6) k/uL RBC (4.30-5.90) m/uL Hgb (13.0-17.5) gm/dL Hct (39.0-53.0) % Neutrophils # (1.3-7.7) k/uL Sodium (135-145) mmol/L Chloride (96-109) mmol/L Carbon Dioxide (21.6-31.8) mmol/L BUN (9.0-27.0) mg/dL BUN/Creatinine Ratio (12.00-20.00) Ratio Glucose (70-110) mg/dL POC Glucose (mg/dL) 188 H 149 H 179 H (75-99) mg/dL 07/24/20 07/24/20 07/24/20 Range/Units 06:53 06:53 12:31 WBC 12.5 H (3.8-10.6) k/uL RBC 3.59 L (4.30-5.90) m/uL Hgb 11.3 L (13.0-17.5) gm/dL Hct 33.7 L (39.0-53.0) % Neutrophils # 9.9 H (1.3-7.7) k/uL Sodium 151 H (135-145) mmol/L Chloride 112 H (96-109) mmol/L Carbon Dioxide 32.2 H (21.6-31.8) mmol/L BUN 39.0 H (9.0-27.0) mg/dL BUN/Creatinine Ratio 39.00 H (12.00-20.00) Ratio Glucose 166 H (70-110) mg/dL POC Glucose (mg/dL) 124 H (75-99) mg/dL Microbiology - Last 24 Hours (Table) 07/17/20 12:45 Blood Culture - Final Blood No Growth after 144 hours Assessment and Plan Assessment: This is a 80-year-old male with complex past medical history noted below who presented to the emergency room with worsening confusion brought in by EMS. Patient was evaluated in the ER and was found to have evidence of sepsis secondary to underlying UTI with obstructive uropathy secondary to malfunctioning artificial urethral sphincter. Patient was started on IV fluids and antibiotic. On the first night of his admission patient went into PEA cardiac arrest requiring CPR with successful return of spontaneous rhythm but subsequently patient went into V. tach requiring shock. Patient was intubated and currently admitted to the hospital for further management of his medical problems noted below. 1. PEA arrest requiring CPR with successful return of spontaneous circulation. 2. Acute hypoxic respiratory failure secondary to cardiac arrest. Requiring sedation and intubation. Successfully extubated on 07/19. 3. Severe sepsis with septic shock, status post aggressive IV fluid hydration. Vasopressors discontinued 07/19 4. Complicated urinary tract infection with possible urinary retention secondary to nonfunctional artificial urethral sphincter. Castro catheter placed by urology on admission and discontinued on 07/23. Antibiotic with IV ceftriaxone 2 g day #10. Urine culture grew E. coli 5. E. coli bacteremia secondary to urosepsis. Repeat blood culture negative to date. May discontinue antibiotic tomorrow or continue to finish 14 days course 6. Acute kidney injury, kidney function improved significantly. probably secondary to obstructive uropathy. 7. Non-ST elevation NC. Patient denied any chest pain on presentation. Twelve-lead EKG in the ER with no acute ischemic changes. Probably type II secondary to sepsis. He was seen and evaluated by cardiology. Echocardiogram showed EF of 45-50%. There is left ventricular wall motion hypokinesia noted. Cardiology following closely. Medical management 8. History of prostate cancer status post prostatectomy with subsequent chronic urine incontinence status post artificial urethral sphincter. This was deactivated on presentation by urology. Castro catheter discontinued on 07/23. Patient is incontinent. Check bladder scan to rule out overflow incontinence or retention 9. Chronic atrial fibrillation on anticoagulation with Rivaroxaban. 10. Underlying cognitive impairment 11. Hypernatremia, Change IV fluid to D5 water. Repeat lab work in the morning. 11. GI prophylaxis with IV Protonix Today, I reviewed his medication list and lab work results. Continue to monitor clinical status. Gentle IV fluid hydration. Speech pathology consult. PT/OT evaluation Discussed with case management to start placement process
[2020-07-24] MEDS: DEXTROSE 5% IN WATER 1,000 ML IV SCH (13:41)
[2020-07-24] MEDS: DEXTROSE 5%-0.45% NACL 1,000 ML IV SCH (13:42)
[2020-07-24] MEDS: FUROSEMIDE 10 MG/ML 2 ML VIAL IV SCH (13:42)
--- NOTE | 2020-07-24 15:05 | P.PN ---
Subjective Progress Note Date: 07/24/20 Principal diagnosis: Acute sepsis and respiratory failure On 07/24/2020 patient seen in follow-up on medical surgical floor. He is sitting up in the chair, appears to be in no acute distress, reading comfortably, he is on 2 L of oxygen pulse ox of 97%, his been afebrile, hemod ynamically he is stable, his voice is still quite muffled, he is awaiting a swallow evaluation today. He also seems to be a little confused. Occasional cough, nonproductive. Denies any difficulty breathing, denies any chest pain. He remains on Rocephin for antibiotic coverage, his urine and blood cultures were positive for E. coli, follow-up blood culture is negative for any growth, sputum culture has shown no growth. Today's labs have been reviewed, showing a little, 12.5, hemoglobin is 11.3, serum sodium is 151, potassium is 3.9, chloride is 112, CO2 was 32, BUN was 39 and creatinine is 1. Patient see the dose of IV Lasix yesterday, today he continues on IV Lasix at the reduced dose of 20 mg daily, he also continues on D5 half-normal saline at a rate of 50 ML per hour. His chest x-ray today shows nasal congestion, interstitial pulmonary edema, small bilateral pleural effusions, left greater than right. Patient has maintained stable oxygenation on 2 L, no worsening dyspnea. Objective - Vital Signs Vital signs: Vital Signs Temp 98.3 F 07/24/20 14:04 Pulse 61 07/24/20 14:04 Resp 18 07/24/20 14:04 BP 124/72 07/24/20 14:04 Pulse Ox 97 07/24/20 14:04 Intake & Output 07/23/20 07/24/20 07/24/20 18:59 06:59 18:59 Intake Total 500 400 Output Total 433 900 Balance 67 -500 Weight 93 kg 78.5 kg Intake: Oral 500 400 Output: Urine 400 900 Post Void Residual 33 Stool 0 Other: Voiding Method Indwelling Catheter Indwelling Catheter Indwelling Catheter # Voids 2 ABP, PAP, CO, CI - Last Documented Arterial Blood Pressure 169/65 - Exam GENERAL EXAM: Alert, somewhat confused, 80-year-old white male, with a muffled voice, and possibly dysarthric comfortable in no apparent distress. HEAD: Normocephalic/atraumatic. EYES: Normal reaction of pupils, equal size. Conjunctiva pink, sclera white. NOSE: Clear with pink turbinates. THROAT: No erythema or exudates. NECK: No masses, no JVD, no thyroid enlargement, no adenopathy. CHEST: No chest wall deformity. Symmetrical expansion. LUNGS: Equal air entry with no crackles, wheeze, rhonchi or dullness. CVS: Regular rate and rhythm, normal S1 and S2, no gallops, no murmurs, no rubs ABDOMEN: Soft, nontender. No hepatosplenomegaly, normal bowel sounds, no gu arding or rigidity. EXTREMITIES: No clubbing, no edema, no cyanosis, 2+ pulses and upper and lower e xtremities. MUSCULOSKELETAL: Muscle strength and tone normal. SPINE: No scoliosis or deformity SKIN: No rashes CENTRAL NERVOUS SYSTEM: Alert and oriented -2. No focal deficits, tone is normal in all 4 extremities. PSYCHIATRIC: Alert and oriented -2. Appropriate affect. Intact judgment and insight. - Labs CBC & Chem 7: 07/24/20 06:53 07/24/20 06:53 Labs: Abnormal Lab Results - Last 24 Hours (Table) 07/23/20 07/24/20 07/24/20 Range/Units 16:35 01:06 06:30 WBC (3.8-10.6) k/uL RBC (4.30-5.90) m/uL Hgb (13.0-17.5) gm/dL Hct (39.0-53.0) % Neutrophils # (1.3-7.7) k/uL Sodium (135-145) mmol/L Chloride (96-109) mmol/L Carbon Dioxide (21.6-31.8) mmol/L BUN (9.0-27.0) mg/dL BUN/Creatinine Ratio (12.00-20.00) Ratio Glucose (70-110) mg/dL POC Glucose (mg/dL) 188 H 149 H 179 H (75-99) mg/dL 07/24/20 07/24/20 07/24/20 Range/Units 06:53 06:53 12:31 WBC 12.5 H (3.8-10.6) k/uL RBC 3.59 L (4.30-5.90) m/uL Hgb 11.3 L (13.0-17.5) gm/dL Hct 33.7 L (39.0-53.0) % Neutrophils # 9.9 H (1.3-7.7) k/uL Sodium 151 H (135-145) mmol/L Chloride 112 H (96-109) mmol/L Carbon Dioxide 32.2 H (21.6-31.8) mmol/L BUN 39.0 H (9.0-27.0) mg/dL BUN/Creatinine Ratio 39.00 H (12.00-20.00) Ratio Glucose 166 H (70-110) mg/dL POC Glucose (mg/dL) 124 H (75-99) mg/dL Microbiology - Last 24 Hours (Table) 07/17/20 12:45 Blood Culture - Final Blood No Growth after 144 hours Assessment and Plan Plan: Assessment: 1 acute cardiac arrest/V. fib arrest requiring defibrillation/CPR and patient subsequently regained spontaneous circulation. During the process, the patient was intubated and placed on mechanical ventilator, the patient had a downtime of 4 minutes. The patient remains sedated and the patient will be given a sedation holiday.. No signs of any anoxic encephalopathy at this point in time. Nevertheless, the patient is extubated and the patient is profoundly weak and h as global weakness in all 4 extremities along with a weak voice, cough and poor swallow. This may be a manifestation of either sepsis or post cardiac arrest and the patient continues to have global weakness and on today's evaluation he seems to be a bit more interactive and stronger compared to yesterday. He pulled out his Doppler of catheter and a repeat swallow evaluation is worthwhile to consider in this patient. 2 septic shock secondary to underlying UTI, and the patient has E. coli in the blood and gram-negative bacillus and this seems to be a gram-negative or E. coli septicemia. The patient remains on IV Rocephin 2 g every 24 hours 3 hypotensive secondary sepsis, recovered, hemodynamically stable 4 acute non-STEMI 5 chronic atrial fibrillation, currently in a sinus rhythm, the patient is currently on IV heparin and IV heparin will be discontinued as the patient developed some mucoid bloody stool. 6 acute leukocytosis secondary to sepsis, improving, 7 lactic acidosis, down to 3.0 8 thrombocytopenia, consumptive, and the platelet counts are still low, but improving 9 non-anion gap metabolic acidosis, on bicarb infusion, recovered 10 acute kidney injury secondary to above, improving and the creatinine is down and normalized 11 history of hypertension 12 history of hyperlipidemia 15 history of COPD 14 diabetes mellitus type 2 15 upper GI bleed induced by stress and IV heparin and currently the patient is off anticoagulants 16 prostate cancer with a previous prostatectomy 17 history of urethral sphincter insertion. 18 CHF with an ejection fraction of 45% 19 profound weakness with difficulty in swallowing and the patient had a Dobbhoff catheter with enteral feeding for nutritional support until he pulled out. 20 hypernatremia related to nothing by mouth status and diuretic therapy Plan: Will await swallow evaluation, and recommendations from speech therapy, maintain aspiration precautions, chest x-ray has been reviewed, showing mild interstitial edema, and small bilateral pleural effusions, however oxygenation stable on 2 L of oxygen, a 6 dose was adjusted, patient has developed hypernatremia related to poor oral intake and diuretic therapy, continue following electrolytes and renal profile, may have to stop the Lasix if hypernatremia worsens. Continue with current antibiotics, no fever or chills. Vital signs have been stable I performed a history & physical examination of the patient and discussed their management with my nurse practitioner, Denisse Raza. I reviewed the nurse practitioner's note and agree with the documented findings and plan of care. Lung sounds are positive for diminished breath sounds at the bases. The findings and the impression was discussed with the patient. I attest to the documentation by the nurse practitioner. Time with Patient: Less than 30
[2020-07-24 16:51] LABS: Glucose,Whole Blood 166 mg/dL (75-99)
[2020-07-24 21:01] LABS: Glucose,Whole Blood 149 mg/dL (75-99)
[2020-07-24] MEDS: ATORVASTATIN 80 MG TAB PO SCH (21:23)
[2020-07-24] MEDS: MONTELUKAST 10 MG TAB PO SCH (21:23)
[2020-07-25 06:44] LABS: Basophils # (A) 0.1 k/uL (0-0.2); Basophils % (A) 0 %; Eosinophils # (A) 0.1 k/uL (0-0.7); Eosinophils % (A) 1 %; HCT 34.6 % (39.0-53.0); HGB 11.2 gm/dL (13.0-17.5); Lymphocytes # (A) 1.8 k/uL (1.0-4.8); Lymphocytes % (A) 13 %; MCH 30.2 pg (25.0-35.0); MCHC 32.3 g/dL (31.0-37.0); MCV 93.4 fL (80.0-100.0); Mean Platelet Volume 7.5; Monocytes # (A) 0.6 k/uL (0-1.0); Monocytes % (A) 5 %; Neutrophils # (A) 10.9 k/uL (1.3-7.7); Neutrophils % (A) 80 %; Platelet Count 270 k/uL (150-450); RBC 3.71 m/uL (4.30-5.90); RDW 15.3 % (11.5-15.5); WBC 13.7 k/uL (3.8-10.6)
[2020-07-25] MEDS: IPRATROPIUM-ALBUTEROL 3 ML NEB INHALATION SCH ×4 (07:13→18:31)
[2020-07-25 07:40] LABS: Glucose,Whole Blood 159 mg/dL (75-99)
[2020-07-25] MEDS: CITALOPRAM HYDROBROMIDE 20 MG TAB PO SCH (08:27)
[2020-07-25] MEDS: carvediloL 3.125 MG TAB PO SCH ×2 (08:27→16:36)
[2020-07-25] MEDS: LOSARTAN 50 MG TAB PO SCH (08:27)
[2020-07-25] MEDS: ASPIRIN 81 MG PO SCH (08:27)
[2020-07-25] MEDS: PANTOPRAZOLE 40 MG/10 ML VIAL IVP SCH (08:27)
[2020-07-25] MEDS: FUROSEMIDE 10 MG/ML 2 ML VIAL IV SCH (08:28)
[2020-07-25] MEDS: INSULIN ASPART (NovoLOG) 100 UNIT/ML VIAL SQ SCH ×4 (08:28→21:05)
[2020-07-25] MEDS: DEXTROSE 5%-0.45% NACL 1,000 ML IV SCH (10:08)
[2020-07-25] MEDS: DEXTROSE 5% IN WATER 1,000 ML IV SCH (10:09)
[2020-07-25 10:21] LABS: African American GFR (CKD) 83.2 (60.0-200.0); Anion Gap 2.8 mmol/L (4.00-12.00); Calcium 8.8 mg/dL (8.7-10.3); Carbon Dioxide 37.2 mmol/L (21.6-31.8); Magnesium 1.6 mg/dL (1.5-2.4); Non-African American GFR(CKD) 71.8 (60.0-200.0)
[2020-07-25 11:51] LABS: Glucose,Whole Blood 138 mg/dL (75-99)
--- NOTE | 2020-07-25 13:58 | P.PN ---
Subjective Progress Note Date: 07/25/20 having foul smelling tools Objective - Vital Signs Vital signs: Vital Signs Temp 98.1 F 07/25/20 07:00 Pulse 64 07/25/20 11:02 Resp 16 07/25/20 07:00 BP 119/69 07/25/20 07:00 Pulse Ox 99 07/25/20 07:00 Intake & Output 07/24/20 07/25/20 07/25/20 18:59 06:59 18:59 Output Total 0 0 Balance 0 0 Weight 89 kg Output: Stool 0 0 Other: Voiding Method Incontinent Incontinent Incontinent # Voids 1 3 # Bowel Movements 1 1 3 ABP, PAP, CO, CI - Last Documented Arterial Blood Pressure 169/65 - Constitutional General appearance: Present: no acute distress - Respiratory Respiratory: bilateral: diminished - Cardiovascular Rhythm: regular - Gastrointestinal General gastrointestinal: Present: normal bowel sounds - Integumentary Integumentary: Present: normal turgor - Neurologic Neurologic: Present: CNII-XII intact - Labs CBC & Chem 7: 07/25/20 05:33 07/25/20 05:33 Labs: Abnormal Lab Results - Last 24 Hours (Table) 07/24/20 07/24/20 07/25/20 Range/Units 16:49 20:57 05:33 WBC 13.7 H (3.8-10.6) k/uL RBC 3.71 L (4.30-5.90) m/uL Hgb 11.2 L (13.0-17.5) gm/dL Hct 34.6 L (39.0-53.0) % Neutrophils # 10.9 H (1.3-7.7) k/uL Carbon Dioxide (21.6-31.8) mmol/L Anion Gap (4.00-12.00) mmol/L BUN (9.0-27.0) mg/dL BUN/Creatinine Ratio (12.00-20.00) Ratio Glucose (70-110) mg/dL POC Glucose (mg/dL) 166 H 149 H (75-99) mg/dL 07/25/20 07/25/20 07/25/20 Range/Units 05:33 07:16 11:47 WBC (3.8-10.6) k/uL RBC (4.30-5.90) m/uL Hgb (13.0-17.5) gm/dL Hct (39.0-53.0) % Neutrophils # (1.3-7.7) k/uL Carbon Dioxide 37.2 H (21.6-31.8) mmol/L Anion Gap 2.80 L (4.00-12.00) mmol/L BUN 33.0 H (9.0-27.0) mg/dL BUN/Creatinine Ratio 33.00 H (12.00-20.00) Ratio Glucose 164 H (70-110) mg/dL POC Glucose (mg/dL) 159 H 138 H (75-99) mg/dL Assessment and Plan (1) Diarrhea Narrative/Plan: foul smelling loose stools on antibiotics will check C diff Current Visit: Yes Status: Acute Code(s): R19.7 - DIARRHEA, UNSPECIFIED SNOMED Code(s): 29755134 (2) Cardiac arrest Narrative/Plan: Acute hypoxic respiratory failure secondary to cardiac arrest. The patient was intubated and was sucessfully extubated on 07/19 Current Visit: Yes Status: Acute Code(s): I46.9 - CARDIAC ARREST, CAUSE UNSPECIFIED SNOMED Code(s): 288499122 (3) Altered mental status Narrative/Plan: slow improvement Current Visit: Yes Status: Acute Code(s): R41.82 - ALTERED MENTAL STATUS, UNSPECIFIED SNOMED Code(s): 650431857 (4) Non-STEMI (non-ST elevated myocardial infarction) Narrative/Plan: Type 2 secondary to sepsis patient asymptomatic Current Visit: Yes Status: Acute Code(s): I21.4 - NON-ST ELEVATION (NSTEMI) MYOCARDIAL INFARCTION SNOMED Code(s): 67933918 (5) Sepsis Narrative/Plan: present on admission secondary to UTI, obstructive uropathy, Castro placed on admission, discontinued 07/23, Antibiotics # 07/15 Current Visit: Yes Status: Acute Code(s): A41.9 - SEPSIS, UNSPECIFIED ORGANISM SNOMED Code(s): 68266166 (6) Hypernatremia Narrative/Plan: Received D5 W improved will discontinue today Current Visit: Yes Status: Acute Code(s): E87.0 - HYPEROSMOLALITY AND HYPER NATREMIA SNOMED Code(s): 403292570
--- NOTE | 2020-07-25 14:38 | P.PN ---
Subjective Progress Note Date: 07/25/20 Principal diagnosis: Rectal bleeding This is a 80-year-old pleasant white male who was admitted to the hospital a week ago with altered mental status and had subsequent cardiac arrest and V. fib. He was resuscitated sent to the ICU. He was extubated 3 days ago was transferred to the medical floor. It was reported that he had a maroon colored bowel movement. The patient has been on heparin on and off since admission from the hospital. Nursing reported the patient had a bloody bowel movement thorugh the night but unsure of color or amount . The patient is more alert today, however not orientated. He seems very confused when asked questions and is a poor historian. He had a Dobbhoff tube that was in place for feeding and was subsequently pulled out an accident. He had an evaluation yesterday by speech therapy and is on a dysphagia chopped diet. His hemoglobin is stable at 11.3. He is denying any abdominal pain, nausea, or vomiting. Objective - Vital Signs Vital signs: Vital Signs Temp 98.1 F 07/25/20 07:00 Pulse 64 07/25/20 11:02 Resp 16 07/25/20 07:00 BP 119/69 07/25/20 07:00 Pulse Ox 99 07/25/20 07:00 Intake & Output 07/24/20 07/25/20 07/25/20 18:59 06:59 18:59 Output Total 0 0 Balance 0 0 Weight 89 kg Output: Stool 0 0 Other: Voiding Method Incontinent Incontinent Incontinent # Voids 1 3 # Bowel Movements 1 1 3 ABP, PAP, CO, CI - Last Documented Arterial Blood Pressure 169/65 - Exam General appearance: The patient is alert, orientated x1, in no acute distress. HET: Head is normocephalic and atraumatic. Conjunctiva pink. Sclera anicteric. Neck: Supple without lymphadenopathy. Abdomen: Soft, nontender, nondistended with bowel sounds. No guarding or rigidity. Extremities: Normal skin color and turgor. No pedal edema Neurological: No focal deficits. Alert and oriented 1. - Labs CBC & Chem 7: 07/25/20 05:33 07/25/20 05:33 Labs: Abnormal Lab Results - Last 24 Hours (Table) 07/24/20 07/24/20 07/25/20 Range/Units 16:49 20:57 05:33 WBC 13.7 H (3.8-10.6) k/uL RBC 3.71 L (4.30-5.90) m/uL Hgb 11.2 L (13.0-17.5) gm/dL Hct 34.6 L (39.0-53.0) % Neutrophils # 10.9 H (1.3-7.7) k/uL Carbon Dioxide (21.6-31.8) mmol/L Anion Gap (4.00-12.00) mmol/L BUN (9.0-27.0) mg/dL BUN/Creatinine Ratio (12.00-20.00) Ratio Glucose (70-110) mg/dL POC Glucose (mg/dL) 166 H 149 H (75-99) mg/dL 07/25/20 07/25/20 07/25/20 Range/Units 05:33 07:16 11:47 WBC (3.8-10.6) k/uL RBC (4.30-5.90) m/uL Hgb (13.0-17.5) gm/dL Hct (39.0-53.0) % Neutrophils # (1.3-7.7) k/uL Carbon Dioxide 37.2 H (21.6-31.8) mmol/L Anion Gap 2.80 L (4.00-12.00) mmol/L BUN 33.0 H (9.0-27.0) mg/dL BUN/Creatinine Ratio 33.00 H (12.00-20.00) Ratio Glucose 164 H (70-110) mg/dL POC Glucose (mg/dL) 159 H 138 H (75-99) mg/dL Assessment and Plan (1) Acute lower gastrointestinal bleeding Narrative/Plan: The patient has had one episode of maroon colored stool followed by a small amount of mucousy stool yesterday evening with maroon colored stool. His hemoglobin remains stable at 11.3 today. The patient was previously on IV heparin for history of atrial fibrillation. Current Visit: Yes Status: Acute Code(s): K92.2 - GASTROINTESTINAL HEMORRHAGE, UNSPECIFIED SNOMED Code(s): 86153187 (2) Cardiac arrest Narrative/Plan: Patient had recent myocardial infarction with cardiac arrest status post intubation. Cardiology is following the patient closely. Current Visit: Yes Status: Acute Code(s): I46.9 - CARDIAC ARREST, CAUSE UNSPECIFIED SNOMED Code(s): 562184174 (3) Non-STEMI (non-ST elevated myocardial infarction) Current Visit: Yes Status: Acute Code(s): I21.4 - NON-ST ELEVATION (NSTEMI) MYOCARDIAL INFARCTION SNOMED Code(s): 50582630 (4) Altered mental status Narrative/Plan: Likely secondary from urinary tract infection and sepsis. Currently on broad- spectrum antibiotics Current Visit: Yes Status: Acute Code(s): R41.82 - ALTERED MENTAL STATUS, UNSPECIFIED SNOMED Code(s): 347654193 Plan: 1. May resume anticoagulation if needed 2. Dysphasia chopped diet 3. Monitor CBC daily 4. No plans for any endoscopy intervention at the present time given the overall medical condition of the patient. 5. Continue broad-spectrum antibiotics We will continue to follow The impression and plan of care has been dictated as directed. I performed a history and examination of this patient, discussed the same with the dictator. I agree with the dictator's note ,documented as a scribe. Any additional findings or plans will be noted.
[2020-07-25 15:43] VITALS: BMI 32.6
[2020-07-25 16:32] LABS: Glucose,Whole Blood 166 mg/dL (75-99)
--- NOTE | 2020-07-25 19:16 | P.PN ---
Subjective Progress Note Date: 07/25/20 Principal diagnosis: Acute sepsis and respiratory failure On 07/24/2020 patient seen in follow-up on medical surgical floor. He is sitting up in the chair, appears to be in no acute distress, reading comfortably, he is on 2 L of oxygen pulse ox of 97%, his been afebrile, hemod ynamically he is stable, his voice is still quite muffled, he is awaiting a swallow evaluation today. He also seems to be a little confused. Occasional cough, nonproductive. Denies any difficulty breathing, denies any chest pain. He remains on Rocephin for antibiotic coverage, his urine and blood cultures were positive for E. coli, follow-up blood culture is negative for any growth, sputum culture has shown no growth. Today's labs have been reviewed, showing a little, 12.5, hemoglobin is 11.3, serum sodium is 151, potassium is 3.9, chloride is 112, CO2 was 32, BUN was 39 and creatinine is 1. Patient see the dose of IV Lasix yesterday, today he continues on IV Lasix at the reduced dose of 20 mg daily, he also continues on D5 half-normal saline at a rate of 50 ML per hour. His chest x-ray today shows nasal congestion, interstitial pulmonary edema, small bilateral pleural effusions, left greater than right. Patient has maintained stable oxygenation on 2 L, no worsening dyspnea. On 07/25/2020 patient seen in follow-up on general medical surgical floor. He is resting comfortably in bed, his speech still remains garbled, however the nursing staff reports patient passing his swallowing evaluation. Patient is tolerating oral diet without difficulty. He is breathing comfortably, no worsening dyspnea, continues on IV fluids with the D5 half-normal saline at a rate of 50 ML per hour, his serum sodium has improved. Vital signs have been stable, he reported no chest pain, no acute events overnight, he was cleared by GI service to resume his anticoagulation. HemoGlobin stable at 11.2. Objective - Vital Signs Vital signs: Vital Signs Temp 98.2 F 07/25/20 14:40 Pulse 50 L 07/25/20 18:43 Resp 18 07/25/20 18:43 BP 102/54 07/25/20 14:40 Pulse Ox 97 07/25/20 15:25 Intake & Output 07/25/20 07/25/20 07/26/20 06:59 18:59 06:59 Output Total 0 0 Balance 0 0 Weight 89 kg 89 kg Output: Stool 0 0 Other: Voiding Method Incontinent Incontinent # Voids 1 3 # Bowel Movements 1 3 ABP, PAP, CO, CI - Last Documented Arterial Blood Pressure 169/65 - Exam GENERAL EXAM: Alert, somewhat confused, 80-year-old white male, with a muffled voice, and possibly dysarthric on 3 L of oxygen pulse ox 97% comfortable in no apparent distress. HEAD: Normocephalic/atraumatic. EYES: Normal reaction of pupils, equal size. Conjunctiva pink, sclera white. NOSE: Clear with pink turbinates. THROAT: No erythema or exudates. NECK: No masses, no JVD, no thyroid enlargement, no adenopathy. CHEST: No chest wall deformity. Symmetrical expansion. LUNGS: Equal air entry with no crackles, wheeze, rhonchi or dullness. CVS: Regular rate and rhythm, normal S1 and S2, no gallops, no murmurs, no rubs ABDOMEN: Soft, nontender. No hepatosplenomegaly, normal bowel sounds, no guarding or rigidity. EXTREMITIES: No clubbing, no edema, no cyanosis, 2+ pulses and upper and lower extremities. MUSCULOSKELETAL: Muscle strength and tone normal. SPINE: No scoliosis or deformity SKIN: No rashes CENTRAL NERVOUS SYSTEM: Alert and oriented -2. No focal deficits, tone is normal in all 4 extremities. PSYCHIATRIC: Alert and oriented -2. Appropriate affect. Intact judgment and insight. - Labs CBC & Chem 7: 07/25/20 05:33 07/25/20 05:33 Labs: Abnormal Lab Results - Last 24 Hours (Table) 07/24/20 07/25/20 07/25/20 Range/Units 20:57 05:33 05:33 WBC 13.7 H (3.8-10.6) k/uL RBC 3.71 L (4.30-5.90) m/uL Hgb 11.2 L (13.0-17.5) gm/dL Hct 34.6 L (39.0-53.0) % Neutrophils # 10.9 H (1.3-7.7) k/uL Carbon Dioxide 37.2 H (21.6-31.8) mmol/L Anion Gap 2.80 L (4.00-12.00) mmol/L BUN 33.0 H (9.0-27.0) mg/dL BUN/Creatinine Ratio 33.00 H (12.00-20.00) Ratio Glucose 164 H (70-110) mg/dL POC Glucose (mg/dL) 149 H (75-99) mg/dL 07/25/20 07/25/20 07/25/20 Range/Units 07:16 11:47 16:30 WBC (3.8-10.6) k/uL RBC (4.30-5.90) m/uL Hgb (13.0-17.5) gm/dL Hct (39.0-53.0) % Neutrophils # (1.3-7.7) k/uL Carbon Dioxide (21.6-31.8) mmol/L Anion Gap (4.00-12.00) mmol/L BUN (9.0-27.0) mg/dL BUN/Creatinine Ratio (12.00-20.00) Ratio Glucose (70-110) mg/dL POC Glucose (mg/dL) 159 H 138 H 166 H (75-99) mg/dL Assessment and Plan Plan: Assessment: 1 acute cardiac arrest/V. fib arrest requiring defibrillation/CPR and patient subsequently regained spontaneous circulation. During the process, the patient was intubated and placed on mechanical ventilator, the patient had a downtime of 4 minutes. The patient remains sedated and the patient will be given a sedation holiday.. No signs of any anoxic encephalopathy at this point in time. Nevertheless, the patient is extubated and the patient is profoundly weak and has global weakness in all 4 extremities along with a weak voice, cough and poor swallow. This may be a manifestation of either sepsis or post cardiac arrest and the patient continues to have global weakness and on today's evaluation he seems to be a bit more interactive and stronger compared to yesterday. He pulled out his Doppler of catheter and a repeat swallow evaluation is worthwhile to consider in this patient. 2 septic shock secondary to underlying UTI, and the patient has E. coli in the blood and gram-negative bacillus and this seems to be a gram-negative or E. coli septicemia, recovered. The patient remains on IV Rocephin 2 g every 24 hours 3 hypotensive secondary sepsis, recovered, hemodynamically stable 4 acute non-STEMI 5 chronic atrial fibrillation, currently in a sinus rhythm, the patient is currently on IV heparin and IV heparin will be discontinued as the patient developed some mucoid bloody stool. 6 acute leukocytosis secondary to sepsis, improving, 7 lactic acidosis, down to 3.0 8 thrombocytopenia, consumptive, and the platelet counts are still low, but improving 9 non-anion gap metabolic acidosis, on bicarb infusion, recovered 10 acute kidney injury secondary to above, improving and the creatinine is down and normalized 11 history of hypertension 12 history of hyperlipidemia 15 history of COPD 14 diabetes mellitus type 2 15 upper GI bleed induced by stress and IV heparin and currently the patient is off anticoagulants 16 prostate cancer with a previous prostatectomy 17 history of urethral sphincter insertion. 18 CHF with an ejection fraction of 45% 19 profound weakness with difficulty in swallowing and the patient had a Dobbhoff catheter with enteral feeding for nutritional support until he pulled out. 20 hypernatremia related to nothing by mouth status and diuretic therapy Plan: Patient has remained stable from pulmonary perspective, no worsening dyspnea, FiO2, maintain aspiration precautions, he passed swallow evaluation, tolerating oral diet. Discharge planning is in progress for placement to ECF possibly in next 24 hours. I performed a history & physical examination of the patient and discussed their management with my nurse practitioner, Denisse Raza. I reviewed the nurse practitioner's note and agree with the documented findings and plan of care. Lung sounds are positive for diminished breath sounds at the bases. The findings and the impression was discussed with the patient. I attest to the documentation by the nurse practitioner. Time with Patient: Less than 30
[2020-07-25] MEDS: MONTELUKAST 10 MG TAB PO SCH (21:05)
[2020-07-25] MEDS: ATORVASTATIN 80 MG TAB PO SCH (21:05)
[2020-07-25 21:11] LABS: Glucose,Whole Blood 138 mg/dL (75-99)
[2020-07-26] MEDS: DEXTROSE 5%-0.45% NACL 1,000 ML IV SCH (05:08)
[2020-07-26] MEDS: DEXTROSE 5% IN WATER 1,000 ML IV SCH (05:08)
[2020-07-26 07:18] LABS: Glucose,Whole Blood 146 mg/dL (75-99)
[2020-07-26 07:21] LABS: Basophils # (A) 0.1 k/uL (0-0.2); Basophils % (A) 1 %; Eosinophils # (A) 0.1 k/uL (0-0.7); Eosinophils % (A) 1 %; HCT 33.4 % (39.0-53.0); HGB 10.9 gm/dL (13.0-17.5); Lymphocytes # (A) 1.4 k/uL (1.0-4.8); Lymphocytes % (A) 14 %; MCH 30.1 pg (25.0-35.0); MCHC 32.6 g/dL (31.0-37.0); MCV 92.3 fL (80.0-100.0); Mean Platelet Volume 7.8; Monocytes # (A) 0.7 k/uL (0-1.0); Monocytes % (A) 6 %; Neutrophils # (A) 7.9 k/uL (1.3-7.7); Neutrophils % (A) 76 %; Platelet Count 274 k/uL (150-450); RBC 3.62 m/uL (4.30-5.90); RDW 15.4 % (11.5-15.5); WBC 10.3 k/uL (3.8-10.6)
[2020-07-26] MEDS: INSULIN ASPART (NovoLOG) 100 UNIT/ML VIAL SQ SCH ×2 (08:28→12:30)
[2020-07-26] MEDS: CITALOPRAM HYDROBROMIDE 20 MG TAB PO SCH (08:28)
[2020-07-26] MEDS: ASPIRIN 81 MG PO SCH (08:28)
[2020-07-26] MEDS: FUROSEMIDE 10 MG/ML 2 ML VIAL IV SCH (08:28)
[2020-07-26] MEDS: carvediloL 3.125 MG TAB PO SCH (08:28)
[2020-07-26] MEDS: LOSARTAN 50 MG TAB PO SCH (08:28)
[2020-07-26] MEDS: PANTOPRAZOLE 40 MG/10 ML VIAL IVP SCH (08:28)
[2020-07-26] MEDS: IPRATROPIUM-ALBUTEROL 3 ML NEB INHALATION SCH ×2 (08:51→12:30)
[2020-07-26 09:54] VITALS: BP 109/62; RESP 16; TEMP 97.8
[2020-07-26 10:00] LABS: African American GFR (CKD) 94.5 (60.0-200.0); Anion Gap 6.6 mmol/L (4.00-12.00); BUN/Creat Ratio 36.67 Ratio (12.00-20.00); Calcium 8.3 mg/dL (8.7-10.3); Carbon Dioxide 32.4 mmol/L (21.6-31.8); Non-African American GFR(CKD) 81.5 (60.0-200.0); Potassium 3.4 mmol/L (3.5-5.5)
[2020-07-26] MEDS ORDERED: POTASSIUM CHLORIDE ER 20 MEQ TAB.ER PO STA (10:05)
--- NOTE | 2020-07-26 11:07 | P.DS ---
Providers Date of admission: 07/15/20 14:30 Expected date of discharge: 07/26/20 Attending physician: Linda Daniels Consults: 07/15/20 14:24 Consult Physician Urgent Consulting Provider: Aleksey Schwarz Consult Reason/Comments: Artificial urethral sphincter Do you want consulting provider notified?: Yes 07/15/20 14:28 Consult Physician Urgent Consulting Provider: [facility] Consult Reason/Comments: Non-STEMI Do you want consulting provider notified?: Yes 07/16/20 03:52 Consult Physician Routine Consulting Provider: Chandra Reyes Consult Reason/Comments: post cardiopulmonary arrest Do you want consulting provider notified?: Yes 07/22/20 11:39 Consult Physician Routine Consulting Provider: Nessa Long Consult Reason/Comments: GI bleed Do you want consulting provider notified?: Yes Primary care physician: [facility] Course: Discharge Diagnosis: Complicated urinary tract infection with severe sepsis and septic shock E. 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 fib on anticoagulation with Xarelto Underlying cognitive impairment Lactic acidosis Thrombocytopenia Anion gap Metabolic acidosis secondary to lactic acid Acute kidney injury History of hypertension History of dyslipidemia History of COPD Diabetes mellitus type 2 Upper GI bleed due to heparin, resolved, no scope completed. Generalized weakness with debility History of artificial urinary sphincter Hypernatremia Hospital Course: Patient is a 80-year-old male with a history of prostate cancer, difficulty hearing, and in artificial urethral sphincter who initially came to the hospital due to worsening confusion and altered mental status. In the ER he was awake but confused. He was found have a complicated urinary tract infection with possible urinary tract retention secondary to nonfunctioning artificial urethral sphincter. Urology was consulted, patient was started on IV ceftriaxone, and IV fluids. He was also noted to have a non-ST segment elevated myocardial infarction likely type II secondary to sepsis. He was continued on his statin, aspirin, and metoprolol. Cardiology was consulted. Arrangements are made for admission. Urology was seen and deactivated artificial urinary sphincter, a Castro catheter was placed due to incontinence. On 07/16 patient had a PEA cardiac arrest and subsequently achieved ROSC but had V tach requiring multiple shocks. After resuscitation his blood pressure was low. He was intubated and mechanically ventilated. He was started on levothyroxine secondary to hypotension. He also is noted to have some hematuria. He was seen by cardiology who held and antiplatelets until head bleed was ruled out. Echocardiogram was obtained which showed an ejection fraction of 45-50% along with a full left ventricular wall hypokinesis, severe tricuspid regurg, severe pulmonary hypertension. He underwent a CT head which showed age-related atrophy and small vessel ischemic changes without acute intracranial process. He did have some evidence of GI bleed however this resolved with holding his xarelto and hemoglobins remained stable, he was evaluated by GI during his hospital stay which did not recommend endoscopy at this time due to overall medical condition, and started Xarelot could be resumed if indicated. Vasopressors were weaned on 07/19 and he was successfully extubated. Castro catheter was discontinued on 09/24. He was having some difficulty swallowing but was evaluated by speech therapy and passed a swallow study. He did continue to have some cognitive alterations. He ideally will need a neurocognitive evaluation after some rehabilitation. He completed 12 days of Rocephin during his hospital stay. He will finish his last 2 days of treatment with cefoxitin. He was determined stable for discharge to halfway facility. Recommend outpatient follow- up with urology in 3-4 days as well as follow-up with neurology. I recommending holding Xarelto for 10 days and restarting on 07/28 with Hgb 07/29 or 07/30. Patient seen and examined at bedside. He denies any pain, nausea, or vomiting. Still having a sore throat and difficulty speaking. Vital signs reviewed and stable. General: Chronically ill-appearing, no distress, appears at stated age Derm: warm, dry Head: atraumatic, normocephalic, symmetric Eyes: EOMI, no lid lag, anicteric sclera Mouth: Lips lesion with mild bleeding, mucus membranes moist Cardiovascular: S1S2 reg, no murmur, positive posterior tibial pulse bilateral, Lungs: CTA bilateral, no rhonchi, no rales , no accessory muscle use Abdominal: soft, nontender to palpation, no guarding, no appreciable organomegaly Ext: no gross muscle atrophy, trace edema, no contractures Neuro: CN II-XI grossly intact, no focal neuro deficits Psych: Alert, oriented, flat affect A total of 47 minutes of time were spent preparing this complex discharge summary . Plan - Discharge Summary Discharge Rx Participant: No New Discharge Prescriptions: New Aspirin 81 mg PO DAILY chew carvediloL [Coreg] 3.125 mg PO BID-W/MEALS tab Losartan [Cozaar] 50 mg PO DAILY tab Cephalexin [Keflex] 500 mg PO Q12HR 2 Days #4 cap Atorvastatin [Lipitor] 80 mg PO HS tab Pantoprazole [Protonix] 40 mg PO DAILY #30 tablet. Montelukast [Singulair] 5 mg PO HS tab Continue Triamterene-Hctz 37.5-25Mg [Maxzide 37.5-25] 1 tab PO DAILY Montelukast Sodium [Singulair] 10 mg PO HS Citalopram Hydrobromide [CeleXA] 20 mg PO DAILY Fluticasone/Umeclidin/Vilanter [Trelegy Ellipta 100-62.5-25] 1 puff INHALATION RT-BID Discontinued glipiZIDE [Glucotrol] 10 mg PO AC-BRKFST Rivaroxaban [Xarelto] 20 mg PO DAILY Pravastatin Sodium [Pravachol] 40 mg PO DAILY Losartan [Cozaar] 25 mg PO DAILY Discharge Medication List Citalopram Hydrobromide [CeleXA] 20 mg PO DAILY 10/15/19 [History] Montelukast Sodium [Singulair] 10 mg PO HS 10/15/19 [History] Triamterene-Hctz 37.5-25Mg [Maxzide 37.5-25] 1 tab PO DAILY 10/15/19 [History] Fluticasone/Umeclidin/Vilanter [Trelegy Ellipta 100-62.5-25] 1 puff INHALATION RT-BID 05/12/20 [History] Aspirin 81 mg PO DAILY chew 07/26/20 [Rx] Atorvastatin [Lipitor] 80 mg PO HS tab 07/26/20 [Rx] Cephalexin [Keflex] 500 mg PO Q12HR 2 Days #4 cap 07/26/20 [Rx] Losartan [Cozaar] 50 mg PO DAILY tab 07/26/20 [Rx] Montelukast [Singulair] 5 mg PO HS tab 07/26/20 [Rx] Pantoprazole [Protonix] 40 mg PO DAILY #30 tablet. 07/26/20 [Rx] carvediloL [Coreg] 3.125 mg PO BID-W/MEALS tab 07/26/20 [Rx] Follow up Appointment(s)/Referral(s): Jaspreet Skaggs MD [Primary Care Provider] - 1-2 days [facility], [NON-STAFF] - As Needed Aleksey Schwarz MD [STAFF PHYSICIAN] - 1 Week Patient Instructions/Handouts: Sepsis (GEN) Activity/Diet/Wound Care/Special Instructions: Activity: as tolerated with assistance Diet: Dysphagia level 3, consistent carb, heart healthy Special Instructions: I recommending holding Xarelto for 10 days and restarting on 07/28 with Hgb 07/29 or 07/30 DX: anemia BMP on 07/31 DX: hyponatremia, DARCY. After discharge from rehab recommend neuropsych eval for cognition. Here is the [facility] number [phone] to schedule a neuropsycholgy evaluation. Discharge Disposition: TRANSFER TO SNF/ECF
[2020-07-26 11:29] LABS: Glucose,Whole Blood 180 mg/dL (75-99)
[2020-07-26 12:41] VITALS: PULSE 55
--- NOTE | 2020-07-26 15:11 | P.PN ---
Subjective Progress Note Date: 07/26/20 Principal diagnosis: Acute sepsis and respiratory failure On 07/24/2020 patient seen in follow-up on medical surgical floor. He is sitting up in the chair, appears to be in no acute distress, reading comfortably, he is on 2 L of oxygen pulse ox of 97%, his been afebrile, hemod ynamically he is stable, his voice is still quite muffled, he is awaiting a swallow evaluation today. He also seems to be a little confused. Occasional cough, nonproductive. Denies any difficulty breathing, denies any chest pain. He remains on Rocephin for antibiotic coverage, his urine and blood cultures were positive for E. coli, follow-up blood culture is negative for any growth, sputum culture has shown no growth. Today's labs have been reviewed, showing a little, 12.5, hemoglobin is 11.3, serum sodium is 151, potassium is 3.9, chloride is 112, CO2 was 32, BUN was 39 and creatinine is 1. Patient see the dose of IV Lasix yesterday, today he continues on IV Lasix at the reduced dose of 20 mg daily, he also continues on D5 half-normal saline at a rate of 50 ML per hour. His chest x-ray today shows nasal congestion, interstitial pulmonary edema, small bilateral pleural effusions, left greater than right. Patient has maintained stable oxygenation on 2 L, no worsening dyspnea. On 07/25/2020 patient seen in follow-up on general medical surgical floor. He is resting comfortably in bed, his speech still remains garbled, however the nursing staff reports patient passing his swallowing evaluation. Patient is tolerating oral diet without difficulty. He is breathing comfortably, no worsening dyspnea, continues on IV fluids with the D5 half-normal saline at a rate of 50 ML per hour, his serum sodium has improved. Vital signs have been stable, he reported no chest pain, no acute events overnight, he was cleared by GI service to resume his anticoagulation. HemoGlobin stable at 11.2. On 07/26/2020 patient seen in follow-up on a general medical surgical floor, he sitting up in the chair, he has a nurse's aide assisting him with eating, tolerating oral feedings well, is on modified diet, he is awake and alert, it seems as if the patient at times is aphasic, and has difficulty getting his thoughts out, his voice is still muffled, and his speech is garbled. But his s trength is equal bilaterally, no unilateral weakness noted, denies any worsening shortness of breath, lung sounds are clear, remain pulse ox was 95%, his had no acute events overnight. No complaints of chest pain. Today's hemoglobin is 10.9, he has had no further bleeding. Objective - Vital Signs Vital signs: Vital Signs Temp 97.8 F 07/26/20 07:00 Pulse 55 L 07/26/20 12:41 Resp 16 07/26/20 07:00 BP 109/62 07/26/20 07:00 Pulse Ox 95 07/26/20 07:00 Intake & Output 07/25/20 07/26/20 07/26/20 18:59 06:59 18:59 Intake Total 50 Output Total 0 Balance 0 50 Weight 89 kg 88 kg Intake: Intake, IV Titration 50 Amount cefTRIAXone 2 gm In 50 Sodium Chloride 0.9% 50 ml @ 100 mls/hr IVPB Q24HR [facility] Rx#:[id number] Output: Stool 0 Other: Voiding Method Incontinent Incontinent # Voids 3 1 # Bowel Movements 3 ABP, PAP, CO, CI - Last Documented Arterial Blood Pressure 169/65 - Exam GENERAL EXAM: Alert, somewhat confused, 80-year-old white male, with a muffled voice, and possibly dysarthric on 3 L of oxygen pulse ox 97% comfortable in no apparent distress. HEAD: Normocephalic/atraumatic. EYES: Normal reaction of pupils, equal size. Conjunctiva pink, sclera white. NOSE: Clear with pink turbinates. THROAT: No erythema or exudates. NECK: No masses, no JVD, no thyroid enlargement, no adenopathy. CHEST: No chest wall deformity. Symmetrical expansion. LUNGS: Equal air entry with no crackles, wheeze, rhonchi or dullness. CVS: Regular rate and rhythm, normal S1 and S2, no gallops, no murmurs, no rubs ABDOMEN: Soft, nontender. No hepatosplenomegaly, normal bowel sounds, no guarding or rigidity. EXTREMITIES: No clubbing, no edema, no cyanosis, 2+ pulses and upper and lower extremities. MUSCULOSKELETAL: Muscle strength and tone normal. SPINE: No scoliosis or deformity SKIN: No rashes CENTRAL NERVOUS SYSTEM: Alert and oriented -2. No focal deficits, tone is normal in all 4 extremities. PSYCHIATRIC: Alert and oriented -2. Appropriate affect. Intact judgment and insight. - Labs CBC & Chem 7: 07/26/20 06:46 07/26/20 06:46 Labs: Abnormal Lab Results - Last 24 Hours (Table) 07/25/20 07/25/20 07/26/20 Range/Units 16:30 20:57 06:46 RBC 3.62 L (4.30-5.90) m/uL Hgb 10.9 L (13.0-17.5) gm/dL Hct 33.4 L (39.0-53.0) % Neutrophils # 7.9 H (1.3-7.7) k/uL Potassium (3.5-5.5) mmol/L Carbon Dioxide (21.6-31.8) mmol/L BUN (9.0-27.0) mg/dL BUN/Creatinine Ratio (12.00-20.00) Ratio Glucose (70-110) mg/dL POC Glucose (mg/dL) 166 H 138 H (75-99) mg/dL Calcium (8.7-10.3) mg/dL 07/26/20 07/26/20 07/26/20 Range/Units 06:46 07:17 11:28 RBC (4.30-5.90) m/uL Hgb (13.0-17.5) gm/dL Hct (39.0-53.0) % Neutrophils # (1.3-7.7) k/uL Potassium 3.4 L (3.5-5.5) mmol/L Carbon Dioxide 32.4 H (21.6-31.8) mmol/L BUN 33.0 H (9.0-27.0) mg/dL BUN/Creatinine Ratio 36.67 H (12.00-20.00) Ratio Glucose 152 H (70-110) mg/dL POC Glucose (mg/dL) 146 H 180 H (75-99) mg/dL Calcium 8.3 L (8.7-10.3) mg/dL Assessment and Plan Plan: Assessment: 1 acute cardiac arrest/V. fib arrest requiring defibrillation/CPR and patient subsequently regained spontaneous circulation. During the process, the patient was intubated and placed on mechanical ventilator, the patient had a downtime of 4 minutes. The patient remains sedated and the patient will be given a sedation holiday.. No signs of any anoxic encephalopathy at this point in time. Nevertheless, the patient is extubated and the patient is profoundly weak and has global weakness in all 4 extremities along with a weak voice, cough and poor swallow. This may be a manifestation of either sepsis or post cardiac arrest and the patient continues to have global weakness and on today's evaluation he seems to be a bit more interactive and stronger compared to yesterday. He pulled out his Dobhoff catheter and a repeat swallow evaluation is worthwhile to consider in this patient. On 07/26/2020 patient had swallow evaluation which he passed, and patient is not on a modified diet although requires supervised feedings, so far tolerating enteral feedings well 2 septic shock secondary to underlying UTI, and the patient has E. coli in the blood and gram-negative bacillus and this seems to be a gram-negative or E. coli septicemia, recovered. The patient remains on IV Rocephin 2 g every 24 hours 3 hypotensive secondary sepsis, recovered, hemodynamically stable 4 acute non-STEMI 5 chronic atrial fibrillation, currently in a sinus rhythm, the patient is currently on IV heparin and IV heparin will be discontinued as the patient developed some mucoid bloody stool. 6 acute leukocytosis secondary to sepsis, improving, 7 lactic acidosis, down to 3.0 8 thrombocytopenia, consumptive, and the platelet counts are still low, but improving 9 non-anion gap metabolic acidosis, on bicarb infusion, recovered 10 acute kidney injury secondary to above, improving and the creatinine is down and normalized 11 history of hypertension 12 history of hyperlipidemia 15 history of COPD 14 diabetes mellitus type 2 15 upper GI bleed induced by stress and IV heparin and currently the patient is off anticoagulants 16 prostate cancer with a previous prostatectomy 17 history of urethral sphincter insertion. 18 CHF with an ejection fraction of 45% 19 profound weakness with difficulty in swallowing and the patient had a Dobbhoff catheter with enteral feeding for nutritional support until he pulled out. 20 hypernatremia related to nothing by mouth status and diuretic therapy Plan: No acute events overnight, no worsening dyspnea, remains on room air, tolerating oral feedings, discharge is pending for discharge to [facility] today, pulmonary service will sign off and follow on as-needed basis I performed a history & physical examination of the patient and discussed their management with my nurse practitioner, Denisse Raza. I reviewed the nurse practitioner's note and agree with the documented findings and plan of care. Lung sounds are positive for diminished breath sounds at the bases. The findings and the impression was discussed with the patient. I attest to the documentation by the nurse practitioner. Time with Patient: Less than 30
== END 2020-07-26 14:50 | DRG 871 ==
LOC: EC 11:16 → 3SCARD 14:30 → 2SICU 07-16 03:43 → 4SSUR 07-22 16:00
PROVIDERS: ADMIT Internal Medicine; ATTEND Internal Medicine
PROC: 5A1945Z Respiratory Ventilation, 24-96 Consecutive Hours (ICD-10-PCS; principal; 2020-07-16)
PROC: 02HV33Z Insertion of Infusion Device into Superior Vena Cava, Percutaneous Approach (ICD-10-PCS; principal; 2020-07-16)
PROC: 0BH17EZ Insertion of Endotracheal Airway into Trachea, Via Natural or Artificial Opening (ICD-10-PCS; principal; 2020-07-16)
PROC: 5A12012 Performance of Cardiac Output, Single, Manual (ICD-10-PCS; principal; 2020-07-16)
PROC: 3E043XZ Introduction of Vasopressor into Central Vein, Percutaneous Approach (ICD-10-PCS; 2020-07-16)
PROC: 03HY32Z Insertion of Monitoring Device into Upper Artery, Percutaneous Approach (ICD-10-PCS; 2020-07-16)
PROC: 0D9670Z Drainage of Stomach with Drainage Device, Via Natural or Artificial Opening (ICD-10-PCS; 2020-07-16)
PROC: 4A133B1 Monitoring of Arterial Pressure, Peripheral, Percutaneous Approach (ICD-10-PCS; 2020-07-16)
PROC: 4A133J1 Monitoring of Arterial Pulse, Peripheral, Percutaneous Approach (ICD-10-PCS; 2020-07-16)
PROC: 0DH67UZ Insertion of Feeding Device into Stomach, Via Natural or Artificial Opening (ICD-10-PCS; 2020-07-20)
PROC: 3E0G76Z Introduction of Nutritional Substance into Upper GI, Via Natural or Artificial Opening (ICD-10-PCS; 2020-07-20)
PROC: 05HF33Z Insertion of Infusion Device into Left Cephalic Vein, Percutaneous Approach (ICD-10-PCS; 2020-07-24)
DX: A41.51 Sepsis due to Escherichia coli [E. coli] (principal); G93.41 Metabolic encephalopathy; I21.A1 Myocardial infarction type 2; I50.23 Acute on chronic systolic (congestive) heart failure; R65.21 Severe sepsis with septic shock; I46.9 Cardiac arrest, cause unspecified; J96.01 Acute respiratory failure with hypoxia; I49.01 Ventricular fibrillation; I47.2 Ventricular tachycardia; N17.9 Acute kidney failure, unspecified; I42.9 Cardiomyopathy, unspecified; I48.21 Permanent atrial fibrillation; T83.191A Other mechanical complication of implanted urinary sphincter, initial encounter; N39.0 Urinary tract infection, site not specified; E87.0 Hyperosmolality and hypernatremia; E87.2 Acidosis; K92.0 Hematemesis; K92.1 Melena; D69.6 Thrombocytopenia, unspecified; I27.20 Pulmonary hypertension, unspecified; J44.9 Chronic obstructive pulmonary disease, unspecified; I11.0 Hypertensive heart disease with heart failure; E11.9 Type 2 diabetes mellitus without complications; J38.4 Edema of larynx; N50.89 Other specified disorders of the male genital organs; I07.1 Rheumatic tricuspid insufficiency; N13.9 Obstructive and reflux uropathy, unspecified; N39.3 Stress incontinence (female) (male); E78.5 Hyperlipidemia, unspecified; I25.10 Atherosclerotic heart disease of native coronary artery without angina pectoris; H91.90 Unspecified hearing loss, unspecified ear; R13.10 Dysphagia, unspecified; H53.141 Visual discomfort, right eye; R19.7 Diarrhea, unspecified; R31.9 Hematuria, unspecified; R41.89 Other symptoms and signs involving cognitive functions and awareness; R53.81 Other malaise; F17.228 Nicotine dependence, chewing tobacco, with other nicotine-induced disorders; Z79.84 Long term (current) use of oral hypoglycemic drugs; Z79.01 Long term (current) use of anticoagulants; Z79.899 Other long term (current) drug therapy; Z90.79 Acquired absence of other genital organ(s); Z85.46 Personal history of malignant neoplasm of prostate
CPT/HCPCS: 31500; 36410; 36415; 36556; 51798; 70450; 71045; 71046; 76937; 80048; 80053; 80061; 80306; 81001; 82330; 82805; 83605; 83735; 83880; 84132; 84484; 85025; 85027; 85610; 85730; 87040; 87070; 87077; 87086; 87186; 87205; 87635; 92950; 93005; 93306; 94002; 94003; 94640; 94760; 96361; 96365; 96366; 96367; 96375; 96376; 99291

== ENCOUNTER 2020-08-23 13:51 | Inpatient (IN) | payer MEDICARE ==
[2020-08-23 15:00] LABS: ALT 34 U/L (4-49); AST 48 U/L (17-59); African American GFR (CKD) >90 (>60 ml/min/1.73 sqM); Albumin 2.4 g/dL (3.5-5.0); Alkaline Phosphatase 337 U/L (38-126); Anion Gap 4 mmol/L; Blood Urea Nitrogen 18 mg/dL (9-20); Calcium 8.1 mg/dL (8.4-10.2); Carbon Dioxide 23 mmol/L (22-30); Chloride 107 mmol/L (98-107); Creatine Kinase 33 U/L (55-170); Glucose 63 mg/dL (74-99); Non-African American GFR(CKD) 79 (>60 ml/min/1.73 sqM); Potassium 4.1 mmol/L (3.5-5.1); Sodium 134 mmol/L (137-145); Total Bilirubin 0.8 mg/dL (0.2-1.3); Total Protein 5.7 g/dL (6.3-8.2)
[2020-08-23 15:06] LABS: INR 1.5 (<1.2); Prothrombin Time 14.7 sec (9.0-12.0)
--- NOTE | 2020-08-23 15:40 | XR ---
EXAMINATION TYPE: XR KUB DATE OF EXAM: 08/23/2020 COMPARISON: NONE HISTORY: Pain TECHNIQUE: Single supine KUB image of the abdomen is obtained FINDINGS: Small bowel demonstrates no evidence for dilatation or air fluid levels. Gas and fecal material is seen in non-distended colon. No convincing evidence for pneumoperitoneum. No unusual calcifications. The lung bases are clear. The osseous structures are intact. IMPRESSION: 1. Overall nonobstructive bowel gas pattern.
[2020-08-23 15:43] LABS: Anisocytosis Slight; Basophils # (A) 0.1 k/uL (0-0.2); Basophils % (A) 1 %; Eosinophils # (A) 0.1 k/uL (0-0.7); Eosinophils % (A) 2 %; HCT 32.5 % (39.0-53.0); HGB 10.5 gm/dL (13.0-17.5); Lymphocytes # (A) 3.6 k/uL (1.0-4.8); Lymphocytes % (A) 41 %; MCH 29.3 pg (25.0-35.0); MCHC 32.5 g/dL (31.0-37.0); Mean Platelet Volume 6.7; Monocytes # (A) 0.6 k/uL (0-1.0); Monocytes % (A) 7 %; Neutrophils % (A) 45 %; Platelet Count 270 k/uL (150-450); RBC 3.61 m/uL (4.30-5.90); RDW 18.4 % (11.5-15.5); WBC 8.8 k/uL (3.8-10.6)
[2020-08-23 15:47] LABS: Glucose,Whole Blood 68 mg/dL (75-99)
[2020-08-23 15:58] LABS: Polychromasia Present
--- NOTE | 2020-08-23 16:26 | ED ---
GI Bleed HPI - General Chief complaint: GI Bleed Stated complaint: GI Bleed Time Seen by Provider: 08/23/20 14:06 Source: patient, EMS, RN notes reviewed Mode of arrival: EMS Limitations: no limitations - History of Present Illness Initial comments: This is a 72-year-old male with a history of an STEMI UTI renal insufficiency who presents with complaints of black colored stools coming out for he states some period of time he feels somewhat weak no overt lightheadedness dizziness blurry vision no abdominal pain MD complaint: melena - Related Data Home Medications Medication Instructions Recorded Confirmed Citalopram Hydrobromide [CeleXA] 20 mg PO DAILY 10/15/19 07/15/20 Montelukast Sodium [Singulair] 10 mg PO HS 10/15/19 07/15/20 Triamterene-Hctz 37.5-25Mg 1 tab PO DAILY 10/15/19 07/15/20 [Maxzide 37.5-25] Fluticasone/Umeclidin/Vilanter 1 puff INHALATION RT-BID 05/12/20 07/15/20 [Trelegy Ellipta 100-62.5-25] Previous Rx's Medication Instructions Recorded Aspirin 81 mg PO DAILY chew 07/26/20 Atorvastatin [Lipitor] 80 mg PO HS tab 07/26/20 Cephalexin [Keflex] 500 mg PO Q12HR 2 Days #4 cap 07/26/20 Losartan [Cozaar] 50 mg PO DAILY tab 07/26/20 Montelukast [Singulair] 5 mg PO HS tab 07/26/20 Pantoprazole [Protonix] 40 mg PO DAILY #30 tablet. 07/26/20 carvediloL [Coreg] 3.125 mg PO BID-W/MEALS tab 07/26/20 Allergies Allergy/AdvReac Type Severity Reaction Status Date / Time No Known Allergies Allergy Verified 08/23/20 13:58 Review of Systems ROS Statement: Those systems with pertinent positive or pertinent negative responses have been documented in the HPI. ROS Other: All systems not noted in ROS Statement are negative. Past Medical History Past Medical History: Atrial Fibrillation, Heart Failure, COPD, Diabetes Mellitus, Prostate Disorder Additional Past Medical History / Comment(s): PROSTATE CANCER - ( NO CHEMO OR RADIATION), HARD OF HEARING History of Any Multi-Drug Resistant Organisms: None Reported Past Surgical History: Bladder Surgery, Orthopedic Surgery, Prostate Surgery Additional Past Surgical History / Comment(s): prostatectomy, bladder suspension, surgery for benign prostate, LEFT ear surgery Past Anesthesia/Blood Transfusion Reactions: No Reported Reaction Past Psychological History: Unable to Obtain Smoking Status: Never smoker, Unknown if ever smoked Past Alcohol Use History: None Reported Past Drug Use History: None Reported General Exam - General Exam Comments Initial Comments: This is a well-developed well-nourished awake alert oriented times 3 male Limitations: no limitations General appearance: alert, in no apparent distress Head exam: Present: atraumatic, normocephalic, normal inspection Eye exam: Present: normal appearance, PERRL, EOMI. Absent: scleral icterus, conjunctival injection, periorbital swelling ENT exam: Present: normal exam, mucous membranes moist Neck exam: Present: normal inspection. Absent: tenderness, meningismus, lymphadenopathy Respiratory exam: Present: normal lung sounds bilaterally. Absent: respiratory distress, wheezes, rales, rhonchi, stridor Cardiovascular Exam: Present: regular rate, normal rhythm, normal heart sounds. Absent: systolic murmur, diastolic murmur, rubs, gallop, clicks GI/Abdominal exam: Present: soft, normal bowel sounds. Absent: distended, tenderness, guarding, rebound, rigid Extremities exam: Present: normal inspection, full ROM, normal capillary refill. Absent: tenderness, pedal edema, joint swelling, calf tenderness Back exam: Present: normal inspection Neurological exam: Present: alert, oriented X3, CN II-XII intact Psychiatric exam: Present: normal affect, normal mood Skin exam: Present: warm, dry, intact, pallor. Absent: rash Course Vital Signs 08/23/20 08/23/20 08/23/20 13:54 14:20 14:30 Temperature 97.9 F Pulse Rate 63 Pulse Rate [ 63 Enrollment Specialist ] Respiratory 20 Rate Blood Pressure 120/106 127/73 O2 Sat by Pulse 98 Oximetry 08/23/20 08/23/20 08/23/20 14:32 15:00 15:44 Temperature Pulse Rate 62 64 68 Pulse Rate [ Enrollment Specialist ] Respiratory 18 18 20 Rate Blood Pressure 167/79 156/74 O2 Sat by Pulse 97 97 95 Oximetry Medical Decision Making - Medical Decision Making I did discuss findings with the patient and with Dr. Chun. She'll be admitted with GI consultation. - Lab Data Result diagrams: 08/23/20 14:45 08/23/20 14:45 Lab Results 08/23/20 08/23/20 08/23/20 Range/Units 14:40 14:45 14:45 WBC 8.8 (3.8-10.6) k/uL RBC 3.61 L (4.30-5.90) m/uL Hgb 10.5 L (13.0-17.5) gm/dL Hct 32.5 L (39.0-53.0) % MCV 90.0 (80.0-100.0) fL MCH 29.3 (25.0-35.0) pg MCHC 32.5 (31.0-37.0) g/dL RDW 18.4 H (11.5-15.5) % Plt Count 270 (150-450) k/uL MPV 6.7 Neutrophils % 45 % Lymphocytes % 41 % Monocytes % 7 % Eosinophils % 2 % Basophils % 1 % Neutrophils # 4.0 (1.3-7.7) k/uL Lymphocytes # 3.6 (1.0-4.8) k/uL Monocytes # 0.6 (0-1.0) k/uL Eosinophils # 0.1 (0-0.7) k/uL Basophils # 0.1 (0-0.2) k/uL Polychromasia Present Anisocytosis Slight PT (9.0-12.0) sec INR (<1.2) APTT (22.0-30.0) sec Sodium (137-145) mmol/L Potassium (3.5-5.1) mmol/L Chloride (98-107) mmol/L Carbon Dioxide (22-30) mmol/L Anion Gap mmol/L BUN (9-20) mg/dL Creatinine (0.66-1.25) mg/dL Est GFR (CKD-EPI)AfAm (>60 ml/min/1.73 sqM) Est GFR (CKD-EPI)NonAf (>60 ml/min/1.73 sqM) Glucose (74-99) mg/dL POC Glucose (mg/dL) (75-99) mg/dL POC Glu Cost Estimator ID Calcium (8.4-10.2) mg/dL Total Bilirubin (0.2-1.3) mg/dL AST (17-59) U/L ALT (4-49) U/L Alkaline Phosphatase (38-126) U/L Creatine Kinase (55-170) U/L Troponin I (0.000-0.034) ng/mL Total Protein (6.3-8.2) g/dL Albumin (3.5-5.0) g/dL Stool Occult Blood Positive (Negative) Blood Type AB Positive Blood Type Recheck AB Pos Bld Type Recheck Status No Antibody Screen NEGATIVE Spec Expiration Date 08/26/2020 - 233908/23/20 08/23/20 08/23/20 Range/Units 14:45 14:45 14:45 WBC (3.8-10.6) k/uL RBC (4.30-5.90) m/uL Hgb (13.0-17.5) gm/dL Hct (39.0-53.0) % MCV (80.0-100.0) fL MCH (25.0-35.0) pg MCHC (31.0-37.0) g/dL RDW (11.5-15.5) % Plt Count (150-450) k/uL MPV Neutrophils % % Lymphocytes % % Monocytes % % Eosinophils % % Basophils % % Neutrophils # (1.3-7.7) k/uL Lymphocytes # (1.0-4.8) k/uL Monocytes # (0-1.0) k/uL Eosinophils # (0-0.7) k/uL Basophils # (0-0.2) k/uL Polychromasia Anisocytosis PT 14.7 H (9.0-12.0) sec INR 1.5 H (<1.2) APTT 27.0 (22.0-30.0) sec Sodium 134 L (137-145) mmol/L Potassium 4.1 (3.5-5.1) mmol/L Chloride 107 (98-107) mmol/L Carbon Dioxide 23 (22-30) mmol/L Anion Gap 4 mmol/L BUN 18 (9-20) mg/dL Creatinine 0.93 (0.66-1.25) mg/dL Est GFR (CKD-EPI)AfAm >90 (>60 ml/min/1.73 sqM) Est GFR (CKD-EPI)NonAf 79 (>60 ml/min/1.73 sqM) Glucose 63 L (74-99) mg/dL POC Glucose (mg/dL) (75-99) mg/dL POC Glu Cost Estimator ID Calcium 8.1 L (8.4-10.2) mg/dL Total Bilirubin 0.8 (0.2-1.3) mg/dL AST 48 (17-59) U/L ALT 34 (4-49) U/L Alkaline Phosphatase 337 H (38-126) U/L Creatine Kinase 33 L (55-170) U/L Troponin I 0.034 (0.000-0.034) ng/mL Total Protein 5.7 L (6.3-8.2) g/dL Albumin 2.4 L (3.5-5.0) g/dL Stool Occult Blood (Negative) Blood Type Blood Type Recheck Bld Type Recheck Status Antibody Screen Spec Expiration Date 08/23/20 08/23/20 Range/Units 15:46 16:26 WBC (3.8-10.6) k/uL RBC (4.30-5.90) m/uL Hgb (13.0-17.5) gm/dL Hct (39.0-53.0) % MCV (80.0-100.0) fL MCH (25.0-35.0) pg MCHC (31.0-37.0) g/dL RDW (11.5-15.5) % Plt Count (150-450) k/uL MPV Neutrophils % % Lymphocytes % % Monocytes % % Eosinophils % % Basophils % % Neutrophils # (1.3-7.7) k/uL Lymphocytes # (1.0-4.8) k/uL Monocytes # (0-1.0) k/uL Eosinophils # (0-0.7) k/uL Basophils # (0-0.2) k/uL Polychromasia Anisocytosis PT (9.0-12.0) sec INR (<1.2) APTT (22.0-30.0) sec Sodium (137-145) mmol/L Potassium (3.5-5.1) mmol/L Chloride (98-107) mmol/L Carbon Dioxide (22-30) mmol/L Anion Gap mmol/L BUN (9-20) mg/dL Creatinine (0.66-1.25) mg/dL Est GFR (CKD-EPI)AfAm (>60 ml/min/1.73 sqM) Est GFR (CKD-EPI)NonAf (>60 ml/min/1.73 sqM) Glucose (74-99) mg/dL POC Glucose (mg/dL) 68 L 74 L (75-99) mg/dL POC Glu Cost Estimator Simone Nguyen [place] Calcium (8.4-10.2) mg/dL Total Bilirubin (0.2-1.3) mg/dL AST (17-59) U/L ALT (4-49) U/L Alkaline Phosphatase (38-126) U/L Creatine Kinase (55-170) U/L Troponin I (0.000-0.034) ng/mL Total Protein (6.3-8.2) g/dL Albumin (3.5-5.0) g/dL Stool Occult Blood (Negative) Blood Type Blood Type Recheck Bld Type Recheck Status Antibody Screen Spec Expiration Date - Radiology Data Radiology results: report reviewed (Imaging reviewed no acute findings.), image reviewed Disposition Clinical Impression: GI bleed, Melena, Anemia Disposition: ADMITTED IP TO THIS [facility] Condition: Fair Referrals: Nonstaff,Physician [Primary Care Provider] - 1-2 days
[2020-08-23 16:27] LABS: Glucose,Whole Blood 74 mg/dL (75-99)
[2020-08-23] MEDS ORDERED: ONDANSETRON 4 MG/2 ML VIAL IVP PRN (16:31)
[2020-08-23] MEDS ORDERED: NALOXONE 0.4 MG/ML 1 ML VIAL IV PRN ×2 (16:31→16:32)
[2020-08-23] MEDS ORDERED: ACETAMINOPHEN TAB 325 MG TAB PO PRN ×2 (16:31→16:32)
--- NOTE | 2020-08-23 17:40 | P.HPIM ---
History of Present Illness H&P Date: 08/23/20 Chief Complaint: diarrhea, melena This is a 80 year old man with history of artifical urinary sphincter/prostate cancer, CAD/HTN/HLD/DMII, COPD, Perm Atrial Fibrillation on xarelto, Ischemic cardiomyopathy with EF 45-50%, who was recently admitted for an 11 day hospitalization for septic shock from E coli bacteremia secondary to UTI, complicated by cardiac arrest and GI Bleed, who was discharged 29 days ago. He presented today complaining of diarrhea for ~1 week. He tells me that he was discharged from SN[facility] about 10 days ago and sent home after his prolonged hospitalization. 3 days after returning home, he started to develop unrelenting diarrhea 3-4 stools per day which were watery. Furthermore, he characterized them as dark black, but did not characterize them as sticky and foul smelling. He also reports ongoing swelling in his legs, and thinks this swelling is worse. He denies fevers, chills, nausea, vomiting, abd pain, chest pain, dyspnea, palps, syncope, presyncope, dysuria, dyschezia, tenesmus, numbness/weakness of extremities. In the ER, he was noted to have slighly lower than baseline Hgb at 10.4 and a positive FOBT. Notably, he had been on antibiotics during recently hospitalization. Also notably, he had held his xarelto for 10 days from prior discharge, but has since resumed it at home dose. Otherwise, HDS. Review of Systems All Systems reviewed and pertinent positives and negatives noted in HPI, all oth er symptoms are negative Past Medical History Past Medical History: Atrial Fibrillation, Heart Failure, COPD, Diabetes Mellitus, Prostate Disorder Additional Past Medical History / Comment(s): PROSTATE CANCER - ( NO CHEMO OR RADIATION), HARD OF HEARING History of Any Multi-Drug Resistant Organisms: None Reported Past Surgical History: Bladder Surgery, Orthopedic Surgery, Prostate Surgery Additional Past Surgical History / Comment(s): prostatectomy, bladder suspension, surgery for benign prostate, LEFT ear surgery Past Anesthesia/Blood Transfusion Reactions: No Reported Reaction Past Psychological History: Unable to Obtain Smoking Status: Never smoker, Unknown if ever smoked Past Alcohol Use History: None Reported Past Drug Use History: None Reported Medications and Allergies Home Medications Medication Instructions Recorded Confirmed Type Citalopram Hydrobromide [CeleXA] 20 mg PO DAILY 10/15/19 08/23/20 History Triamterene-Hctz 37.5-25Mg 1 tab PO DAILY 10/15/19 08/23/20 History [Maxzide 37.5-25] Fluticasone/Umeclidin/Vilanter 1 puff INHALATION RT-BID 05/12/20 08/23/20 History [Trelegy Ellipta 100-62.5-25] Aspirin 81 mg PO DAILY chew 07/26/20 08/23/20 Rx Atorvastatin [Lipitor] 80 mg PO HS tab 07/26/20 08/23/20 Rx Pantoprazole [Protonix] 40 mg PO DAILY #30 tablet.dr 07/26/20 08/23/20 Rx Cephalexin [Keflex] 500 mg PO QID 08/23/20 08/23/20 History Cetirizine HCl [Zyrtec] 10 mg PO DAILY 08/23/20 08/23/20 History Furosemide [Lasix] 40 mg PO DAILY 08/23/20 08/23/20 History Ipratropium-Albuterol Nebulize 3 ml INHALATION RT-TID PRN 08/23/20 08/23/20 History [Duoneb 0.5 mg-3 mg/3 ml Soln] Magnesium Oxide 400 mg PO DAILY 08/23/20 08/23/20 History Montelukast [Singulair] 10 mg PO HS 08/23/20 08/23/20 History Rivaroxaban [Xarelto] 20 mg PO DAILY@1700 08/23/20 08/23/20 History glipiZIDE [Glucotrol] 5 mg PO DAILY 08/23/20 08/23/20 History Allergies Allergy/AdvReac Type Severity Reaction Status Date / Time No Known Allergies Allergy Verified 08/23/20 16:37 Physical Exam Osteopathic Statement: *. No significant issues noted on an osteopathic structural exam other than those noted in the History and Physical/Consult. Vitals: Vital Signs Temp Pulse Pulse Resp BP Pulse Ox 08/23/20 15:44 68 20 156/74 95 08/23/20 15:00 64 18 167/79 97 08/23/20 14:32 62 18 97 08/23/20 14:30 127/73 08/23/20 14:20 63 08/23/20 13:54 97.9 F 63 20 120/106 98 Intake and Output 08/23/20 08/23/20 08/23/20 06:59 14:59 22:59 Other: Weight 83.915 kg Gen: awake, alert HEENT: normocephalic, atraumatic, moderate hearing acuity, moist mucous membranes Resp: good air exchange, breathing comfortably with no accessory muscle use, clear to auscultation bilaterally CVS: good distal perfusion x 4, regular rate and rhythm, no murmurs GI: soft, NTTP, ND : no SPT, no CVAT, rausch catheter not present MSK: Doughy 4+ pitting edema, no clubbing Neuro: non-focal, moving all extremities Psych: cooperative, euthymic mood Results CBC & Chem 7: 08/23/20 14:45 08/23/20 14:45 Labs: Abnormal Lab Results - Last 24 Hours (Table) 08/23/20 08/23/20 08/23/20 Range/Units 14:45 14:45 14:45 RBC 3.61 L (4.30-5.90) m/uL Hgb 10.5 L (13.0-17.5) gm/dL Hct 32.5 L (39.0-53.0) % RDW 18.4 H (11.5-15.5) % PT 14.7 H (9.0-12.0) sec INR 1.5 H (<1.2) Sodium 134 L (137-145) mmol/L Glucose 63 L (74-99) mg/dL POC Glucose (mg/dL) (75-99) mg/dL Calcium 8.1 L (8.4-10.2) mg/dL Alkaline Phosphatase 337 H (38-126) U/L Creatine Kinase 33 L (55-170) U/L Total Protein 5.7 L (6.3-8.2) g/dL Albumin 2.4 L (3.5-5.0) g/dL 08/23/20 08/23/20 Range/Units 15:46 16:26 RBC (4.30-5.90) m/uL Hgb (13.0-17.5) gm/dL Hct (39.0-53.0) % RDW (11.5-15.5) % PT (9.0-12.0) sec INR (<1.2) Sodium (137-145) mmol/L Glucose (74-99) mg/dL POC Glucose (mg/dL) 68 L 74 L (75-99) mg/dL Calcium (8.4-10.2) mg/dL Alkaline Phosphatase (38-126) U/L Creatine Kinase (55-170) U/L Total Protein (6.3-8.2) g/dL Albumin (3.5-5.0) g/dL Assessment and Plan Assessment: 1. Diarrhea and Melena 2. Acute on Chronic Systolic Heart Failure, EF 45-50% 3. Ischemic Cardiomyopathy 4. Permanent Atrial Fibrillation, on xarelto, rate controlled 5. CAD 6. HTN 7. HLD 8. DM, type II 9. COPD without 10. Hx Prostate Cancer This is a 80 year old man with history of artifical urinary sphincter/prostate cancer, CAD/HTN/HLD/DMII, COPD, Perm Atrial Fibrillation on xarelto, Ischemic cardiomyopathy with EF 45-50%, who was recently admitted for an 11 day hospitalization for septic shock from E coli bacteremia secondary to UTI, complicated by cardiac arrest and GI Bleed, who was discharged 29 days ago. He presented today complaining of diarrhea for ~1 week, as well as melena with pos itive FOBT. Admitted for further work up. Plan: - admit to telemetry, inpatient - I/Os, daily weights - maintain active type/screen, large bore IV access - hold home ASA/Xarelto - hold home triamterine-HCTZ - increase home lasix 40mg daily to 40mg IV BID - C Diff EIA, PCR pending - stool culture pending - hold off on abx for now - CBC q6h, BMP/Mg daily - transfuse PRN for Hgb > 8 - GI consult, appreciate recs - PPI IV BID, then can return to PO daily - aspart low dose SSI + accuchecks AC/HS - CLD for now until cleared by GI - continue home symbicort, cetirizine, duoneb PRN, singulair Full Code
[2020-08-23] MEDS: SODIUM CHLORIDE 0.9% 1,000 ML IV SCH (18:36)
[2020-08-23] MEDS: SYMBICORT 80-4.5 MCG INHALER INHALATION SCH (19:22)
[2020-08-23] MEDS: IPRATROPIUM 0.5 MG/2.5 ML NEBU INHALATION SCH (19:23)
[2020-08-23] MEDS ORDERED: MONTELUKAST 10 MG TAB PO SCH (21:00)
[2020-08-23 23:05] LABS: Anisocytosis Slight; Basophils % (A) 1 %; Eosinophils # (A) 0.1 k/uL (0-0.7); Eosinophils % (A) 1 %; HCT 28.7 % (39.0-53.0); HGB 9.5 gm/dL (13.0-17.5); Hypochromasia Slight; Lymphocytes # (A) 2.3 k/uL (1.0-4.8); Lymphocytes % (A) 26 %; MCH 29.8 pg (25.0-35.0); MCV 90.3 fL (80.0-100.0); Mean Platelet Volume 6.5; Monocytes # (A) 0.5 k/uL (0-1.0); Monocytes % (A) 6 %; Neutrophils # (A) 5.5 k/uL (1.3-7.7); Neutrophils % (A) 64 %; Platelet Count 327 k/uL (150-450); RBC 3.18 m/uL (4.30-5.90); RDW 18.5 % (11.5-15.5); WBC 8.6 k/uL (3.8-10.6)
[2020-08-23] MEDS: FUROSEMIDE 10 MG/ML 4 ML VIAL IV SCH (23:26)
[2020-08-23] MEDS: MONTELUKAST 10 MG TAB PO SCH (23:26)
[2020-08-23] MEDS: ATORVASTATIN 80 MG TAB PO SCH (23:26)
[2020-08-23] MEDS: PANTOPRAZOLE 40 MG/10 ML VIAL IV SCH (23:26)
[2020-08-24] MEDS: SYMBICORT 80-4.5 MCG INHALER INHALATION SCH ×2 (07:11→19:29)
[2020-08-24] MEDS: IPRATROPIUM 0.5 MG/2.5 ML NEBU INHALATION SCH ×4 (07:11→19:29)
[2020-08-24] MEDS: INSULIN ASPART (NovoLOG) 100 UNIT/ML VIAL SQ SCH ×3 (07:43→18:15)
[2020-08-24] MEDS: PANTOPRAZOLE 40 MG/10 ML VIAL IV SCH ×2 (07:56→22:51)
[2020-08-24] MEDS: LORATADINE 10 MG TAB PO SCH (07:57)
[2020-08-24] MEDS: MAGNESIUM OXIDE 400 MG TAB PO SCH (07:57)
[2020-08-24] MEDS: FUROSEMIDE 10 MG/ML 4 ML VIAL IV SCH (07:57)
[2020-08-24] MEDS: CITALOPRAM HYDROBROMIDE 20 MG TAB PO SCH (07:57)
[2020-08-24] MEDS ORDERED: LOSARTAN 50 MG TAB PO SCH (09:00)
[2020-08-24] MEDS ORDERED: TRIAMTERENE-HCTZ 37.5-25MG 1 EACH TAB PO SCH (09:00)
[2020-08-24] MEDS ORDERED: PANTOPRAZOLE 40 MG TABLET PO SCH (09:00)
--- NOTE | 2020-08-24 09:42 | P.PN ---
Subjective Progress Note Date: 08/24/20 Patient is still reporting multiple bowel movement diarrhea overnight. He is not sure if his stool is black. He is a poor historian overall. No acute events overnight reported by nursing staff. Awaiting hemoglobin this morning. Objective - Vital Signs Vital signs: Vital Signs Temp 98.4 F 08/24/20 07:53 Pulse 62 08/24/20 07:53 Resp 18 08/24/20 03:15 BP 109/70 08/24/20 07:53 Pulse Ox 97 08/24/20 07:53 Intake & Output 08/23/20 08/24/20 08/24/20 18:59 06:59 18:59 Weight 83.915 kg 83.915 kg Other: Voiding Method Diaper External Catheter Incontinent # Voids 1 # Bowel Movements 1 - Exam General: The patient is awake and alert, in no distress Eye: there is normal conjunctiva bilaterally. Neck: The neck is supple, there is no JVD. Cardiovascular: Normal S1-S2, no S3-S4, no murmurs. Respiratory: Lungs clear to auscultation bilaterally Gastrointestinal: Abdomen is soft, nontender Musculoskeletal: There is no pedal edema. Neurological:. Speech is normal. Skin: Skin is warm and dry - Labs CBC & Chem 7: 08/23/20 22:43 08/23/20 14:45 Labs: Abnormal Lab Results - Last 24 Hours (Table) 08/23/20 08/23/20 08/23/20 Range/Units 14:45 14:45 14:45 RBC 3.61 L (4.30-5.90) m/uL Hgb 10.5 L (13.0-17.5) gm/dL Hct 32.5 L (39.0-53.0) % RDW 18.4 H (11.5-15.5) % PT 14.7 H (9.0-12.0) sec INR 1.5 H (<1.2) Sodium 134 L (137-145) mmol/L Glucose 63 L (74-99) mg/dL POC Glucose (mg/dL) (75-99) mg/dL Calcium 8.1 L (8.4-10.2) mg/dL Alkaline Phosphatase 337 H (38-126) U/L Creatine Kinase 33 L (55-170) U/L Total Protein 5.7 L (6.3-8.2) g/dL Albumin 2.4 L (3.5-5.0) g/dL 08/23/20 08/23/20 08/23/20 Range/Units 15:46 16:26 22:43 RBC 3.18 L (4.30-5.90) m/uL Hgb 9.5 L (13.0-17.5) gm/dL Hct 28.7 L (39.0-53.0) % RDW 18.5 H (11.5-15.5) % PT (9.0-12.0) sec INR (<1.2) Sodium (137-145) mmol/L Glucose (74-99) mg/dL POC Glucose (mg/dL) 68 L 74 L (75-99) mg/dL Calcium (8.4-10.2) mg/dL Alkaline Phosphatase (38-126) U/L Creatine Kinase (55-170) U/L Total Protein (6.3-8.2) g/dL Albumin (3.5-5.0) g/dL Assessment and Plan Assessment: This is a 80 year old male with complex past medical history noted below who presented to the ER complaining of diarrhea for ~1 week. Patient was evaluated in the ER and admitted to the hospital for further management of his medical problems noted below 1. Diarrhea and Melena 2. Acute on Chronic Systolic Heart Failure, EF 45-50% 3. Ischemic Cardiomyopathy 4. Permanent Atrial Fibrillation, on xarelto, rate controlled 5. CAD 6. HTN 7. HLD 8. DM, type II 9. COPD without 10. Hx Prostate Cancer with history of artificial urethral sphincter placement Plan: -Awaiting stool studies including C. diff screen - GI consult, appreciate recs - CLD for now until cleared by GI - maintain active type/screen, large bore IV access - PPI IV BID, then can return to PO daily - hold home ASA/Xarelto - transfuse PRN for Hgb > 8 - hold home triamterine-HCTZ - increase home lasix 40mg daily to 40mg IV BID - CBC q6h, BMP/Mg daily - aspart low dose SSI + accuchecks AC/HS - continue home symbicort, cetirizine, duoneb PRN, singulair
[2020-08-24 11:32] LABS: African American GFR (CKD) 83.2 (60.0-200.0); Anion Gap 9.4 mmol/L (4.00-12.00); Calcium 7.7 mg/dL (8.7-10.3); Carbon Dioxide 27.6 mmol/L (21.6-31.8); Magnesium 1.3 mg/dL (1.5-2.4); Non-African American GFR(CKD) 71.8 (60.0-200.0)
[2020-08-24 14:22] LABS: Anisocytosis Slight; Basophils % (A) 1 %; Eosinophils # (A) 0.1 k/uL (0-0.7); Eosinophils % (A) 1 %; HCT 25.1 % (39.0-53.0); HGB 8.1 gm/dL (13.0-17.5); Hypochromasia Slight; Lymphocytes # (A) 2.2 k/uL (1.0-4.8); Lymphocytes % (A) 30 %; MCH 29.6 pg (25.0-35.0); MCHC 32.1 g/dL (31.0-37.0); MCV 92.1 fL (80.0-100.0); Mean Platelet Volume 6.8; Monocytes # (A) 0.5 k/uL (0-1.0); Monocytes % (A) 7 %; Neutrophils # (A) 4.3 k/uL (1.3-7.7); Neutrophils % (A) 59 %; Platelet Count 291 k/uL (150-450); RBC 2.72 m/uL (4.30-5.90); RDW 18.7 % (11.5-15.5); WBC 7.2 k/uL (3.8-10.6)
[2020-08-24] MEDS: LACTATED RINGERS 1,000 ML IV SCH ×4 (14:33→18:54)
[2020-08-24 14:42] LABS: Poikilocytosis (M) Present
--- NOTE | 2020-08-24 14:56 | CONS ---
CONSULTATION DATE OF DICTATION: August 24, 2020. REASON FOR CONSULTATION: Diarrhea and rectal bleeding. HISTORY OF PRESENT ILLNESS: The patient is a 80-year-old pleasant white male who was brought to the emergency room by his family yesterday as he was having some dark-colored stool and severe diarrhea that started yesterday morning. Apparently he did have about 5 or 6 bowel movements daily. The patient is a very poor historian. As per the nursing staff, they were told by his [id number] that he had some dark colored stools yesterday morning. But since being in the hospital, the bleeding has completely subsided. In fact, he had brown stool last night and 2 loose watery bowel movements this morning. The patient is denying any abdominal pain. He reports no nausea, vomiting. No fever, chills, night sweats. No recent antibiotic use. Patient has history of atrial fibrillation and he is on Xarelto and the last dose was yesterday. Stool studies have been ordered which are still pending at the time of this dictation. PAST MEDICAL HISTORY: Significant for atrial fibrillation on Xarelto, congestive heart failure, COPD, diabetes mellitus, hypertension, hyperlipidemia, history of prostate cancer diagnosed in October of 2019. PAST SURGICAL HISTORY: Prostatectomy, left ear surgery, unsure when he had last colonoscopy. SOCIAL HISTORY: No smoking. No alcohol use. FAMILY HISTORY: Unremarkable. MEDICATIONS AT HOME: Aspirin, Lipitor, Keflex, Cozaar, Singulair, Protonix, Coreg, Xarelto. ALLERGIES: None. REVIEW OF SYSTEMS: CARDIOPULMONARY: No chest pain. No shortness of breath. GENITOURINARY: No dysuria or hematuria. MUSCULOSKELETAL: Unremarkable. SKIN: Unremarkable. ENDOCRINE: Unremarkable. PSYCHIATRIC: Unremarkable. NEUROLOGY: Mild dementia. ENT/VISION: Unremarkable. CONSTITUTIONAL: No recent weight loss. No fever, chills, night sweats. HEMATOLOGY: Unremarkable. PHYSICAL EXAMINATION: He appears comfortable. VITAL SIGNS: Stable. Blood pressure is 132/70, pulse rate is 62, temperature 98.4. HEENT: Examination unremarkable. Conjunctivae pink. Sclerae anicteric. Oral cavity, no lesions. NECK: No JVD or lymph node enlargement. CHEST: Was clear auscultation. HEART: Regular rate and rhythm. ABDOMEN: Soft. Bowel sounds are positive. No organomegaly. There was mild tenderness in the left lower quadrant area and in the suprapubic area. Rest of the abdomen was benign. EXTREMITIES: No pedal edema. NEURO: He is alert and oriented x3. No focal deficits. Alert and oriented to name, but not to place and time. LABS: WBC 8.8, hemoglobin 10.5, and platelets are 270. Today hemoglobin is down to 9.5. INR is 1.5. AST, ALT are 48 and 34 respectively. Alkaline phosphatase 337. Bilirubin is normal. Stool occult blood is positive. IMPRESSION: 1. Severe diarrhea with questionable rectal bleeding/melena since yesterday. As per the nursing staff, the patient did not have any active bleeding since being in the hospital, but according to the family apparently his [id number] mentioned that he had some dark colored stool prior to him coming to the emergency room. He has been on Xarelto which is currently on hold and no further bleeding. Hemoglobin dropped from 10.4 to 9.1. Stool Hemoccult is positive. No prior history of colonoscopy that is seen in the records. 2. Diarrhea of 2 days duration. Rule out Clostridium difficile colitis. 3. Atrial fibrillation on Xarelto, currently on hold. 4. History of mild dementia. 5. History of hypertension. RECOMMENDATIONS: 1. Await stool for C difficile toxin. 2. Continue with clear liquid diet. 3. Monitor CBC on a daily basis. 4. Continue to hold Xarelto. 5. Obtain stool cultures. 6. Will consider endoscopic workup based on his clinical condition. Thank you for this consultation. MMODL / IJN: [id number] /
[2020-08-24] MEDS: IPRATROPIUM-ALBUTEROL 3 ML NEB INHALATION PRN (15:05)
[2020-08-24] MEDS: SODIUM CHLORIDE 0.9% 1,000 ML IV SCH (18:54)
[2020-08-24] MEDS: ATORVASTATIN 80 MG TAB PO SCH (20:40)
[2020-08-24] MEDS: MONTELUKAST 10 MG TAB PO SCH (20:40)
[2020-08-24] MEDS ORDERED: SODIUM CHLORIDE 0.9% 500 ML 500 ML IV ONE (22:46)
[2020-08-24 23:16] LABS: African American GFR (CKD) 78 (>60 ml/min/1.73 sqM); Anion Gap 0 mmol/L; Blood Urea Nitrogen 16 mg/dL (9-20); Calcium 7.8 mg/dL (8.4-10.2); Carbon Dioxide 30 mmol/L (22-30); Chloride 101 mmol/L (98-107); Glucose 97 mg/dL (74-99); Magnesium 1.4 mg/dL (1.6-2.3); Non-African American GFR(CKD) 67 (>60 ml/min/1.73 sqM); Sodium 131 mmol/L (137-145)
[2020-08-24] MEDS ORDERED: POTASSIUM CHLORIDE ER 20 MEQ TAB.ER PO STA (23:43)
[2020-08-24 23:49] LABS: Anisocytosis Slight; HCT 29.9 % (39.0-53.0); HGB 10.2 gm/dL (13.0-17.5); MCH 30.8 pg (25.0-35.0); MCV 90.6 fL (80.0-100.0); Mean Platelet Volume 6.9; Platelet Count 263 k/uL (150-450); RDW 17.4 % (11.5-15.5); WBC 7.2 k/uL (3.8-10.6)
[2020-08-25 01:03] LABS: Band Neutrophils % 8 %; Eosinophils # (M) 0.14 k/uL (0-0.7); Lymphocytes # (M) 1.44 k/uL (1.0-4.8); Monocytes # (M) 0.36 k/uL (0-1.0); Neutrophils % (M) 65 %; Nucleated Red Blood Cells 0 /100 WBC (0-0); Polychromasia Present; Total Cells Counted 100
[2020-08-25 01:04] LABS: Poikilocytosis (M) Present
[2020-08-25 01:05] LABS: Ovalocytes Present; RBC Fragments Present
[2020-08-25] MEDS: MAGNESIUM SULFATE-D5W PMX 1 GM in DEXTROSE/WATER 1 100ML.BAG IVPB SCH ×2 (01:40→02:53)
[2020-08-25] MEDS: INSULIN ASPART (NovoLOG) 100 UNIT/ML VIAL SQ SCH ×3 (06:10→17:05)
[2020-08-25 07:48] LABS: Anisocytosis Slight; Basophils # (A) 0.1 k/uL (0-0.2); Basophils % (A) 1 %; Eosinophils # (A) 0.1 k/uL (0-0.7); Eosinophils % (A) 2 %; HCT 34.1 % (39.0-53.0); HGB 11.9 gm/dL (13.0-17.5); Lymphocytes # (A) 1.9 k/uL (1.0-4.8); Lymphocytes % (A) 25 %; MCH 31.3 pg (25.0-35.0); MCHC 34.9 g/dL (31.0-37.0); MCV 89.7 fL (80.0-100.0); Mean Platelet Volume 6.6; Monocytes # (A) 0.6 k/uL (0-1.0); Monocytes % (A) 8 %; Neutrophils # (A) 4.6 k/uL (1.3-7.7); Neutrophils % (A) 63 %; Platelet Count 268 k/uL (150-450); Poikilocytosis Slight; RDW 17.3 % (11.5-15.5); WBC 7.4 k/uL (3.8-10.6)
[2020-08-25] MEDS: SYMBICORT 80-4.5 MCG INHALER INHALATION SCH ×2 (07:57→20:04)
[2020-08-25] MEDS: IPRATROPIUM 0.5 MG/2.5 ML NEBU INHALATION SCH ×4 (07:57→20:04)
[2020-08-25] MEDS: CITALOPRAM HYDROBROMIDE 20 MG TAB PO SCH (08:11)
[2020-08-25] MEDS: LORATADINE 10 MG TAB PO SCH (08:11)
[2020-08-25] MEDS: MAGNESIUM OXIDE 400 MG TAB PO SCH (08:11)
[2020-08-25] MEDS: PANTOPRAZOLE 40 MG/10 ML VIAL IV SCH ×2 (08:11→19:50)
[2020-08-25] MEDS: FUROSEMIDE 10 MG/ML 4 ML VIAL IV SCH (08:11)
[2020-08-25] MEDS ORDERED: Magnesium Replacement Protocol 1 EACH MISC MISCELLANE PRN (10:26)
[2020-08-25] MEDS ORDERED: Potassium Replacement Protocol 1 EACH MISC MISCELLANE PRN ×2 (10:26→12:50)
--- NOTE | 2020-08-25 10:30 | P.PN ---
Subjective Progress Note Date: 08/25/20 Patient was sleepy but easily arousable today. He does not have any complaints. His hemoglobin is stable. Nursing staff informed me that patient had an episode of nonsustained 19 beats V. tach last night was noted to have hypokalemia and hypomagnesemia which both were replaced. Repeat Low from this morning is still pending. Patient had another episode of 16 beats of V. tach this morning a symptomatic. Objective - Vital Signs Vital signs: Vital Signs Temp 97.9 F 08/25/20 08:08 Pulse 56 L 08/25/20 08:11 Resp 18 08/25/20 08:08 BP 127/59 08/25/20 08:08 Pulse Ox 96 08/25/20 08:08 Intake & Output 08/24/20 08/25/20 08/25/20 18:59 06:59 18:59 Intake Total 1220 1630 Output Total 810 400 Balance 410 1230 Weight 80.5 kg Intake: IV 1220 Lactated Ringers 1,000 ml 1000 @ 999 mls/hr IV .Q1H1M MYLES Rx#:[id number] Sodium Chloride 0.9% 1, 220 000 ml @ 20 mls/hr IV . Q24H MYLES Rx#:[id number] Intake, IV Titration 700 Amount Magnesium Sulfate-D5w Pmx 200 1 gm In Dextrose/Water 1 100ml.bag @ 100 mls/hr IVPB Q1H MYLES Rx#: [id number] Sodium Chloride 0.9% 500 500 ml 500 ml @ 999 mls/hr IV .Q31M ONE Rx#:[id number] Blood Product 0 930 Rc As-1 Unit 0 310 [id number] Rc As-1 Unit 310 [id number] Output: Urine 810 400 Other: Voiding Method External Catheter External Catheter External Catheter # Bowel Movements 1 - Exam General: The patient is awake and alert, in no distress Eye: there is normal conjunctiva bilaterally. Neck: The neck is supple, there is no JVD. Cardiovascular: Normal S1-S2, no S3-S4, no murmurs. Respiratory: Lungs clear to auscultation bilaterally Gastrointestinal: Abdomen is soft, nontender Musculoskeletal: There is no pedal edema. Neurological:. Speech is normal. Skin: Skin is warm and dry - Labs CBC & Chem 7: 08/25/20 07:27 08/24/20 22:22 Labs: Abnormal Lab Results - Last 24 Hours (Table) 08/23/20 08/24/20 08/24/20 Range/Units 14:40 05:56 13:56 RBC 2.72 L (4.30-5.90) m/uL Hgb 8.1 L (13.0-17.5) gm/dL Hct 25.1 L (39.0-53.0) % RDW 18.7 H (11.5-15.5) % Sodium (137-145) mmol/L Potassium 3.0 L (3.5-5.5) mmol/L Calcium 7.7 L (8.7-10.3) mg/dL Magnesium 1.3 L (1.5-2.4) mg/dL Crossmatch See Detail 08/24/20 08/24/20 08/25/20 Range/Units 22:22 22:45 07:27 RBC 3.30 L 3.80 L (4.30-5.90) m/uL Hgb 10.2 L 11.9 L (13.0-17.5) gm/dL Hct 29.9 L 34.1 L (39.0-53.0) % RDW 17.4 H 17.3 H (11.5-15.5) % Sodium 131 L (137-145) mmol/L Potassium 3.0 L (3.5-5.5) mmol/L Calcium 7.8 L (8.7-10.3) mg/dL Magnesium 1.4 L (1.5-2.4) mg/dL Crossmatch Microbiology - Last 24 Hours (Table) 08/23/20 19:53 Stool Culture - Preliminary Stool Assessment and Plan Assessment: This is a 80 year old male with complex past medical history noted below who presented to the ER complaining of diarrhea for ~1 week. Patient was evaluated in the ER and admitted to the hospital for further management of his medical problems noted below 1. Diarrhea and Melena: C. diff screen is negative. Hemoglobin stable. Seen and evaluated by GI. Appreciate recommendations. Continue IV Protonix twice daily. Continue to hold Xarelto and aspirin for now. 2. Acute on Chronic Systolic Heart Failure, EF 45-50%. On IV Lasix 40 mg daily. Strict I's and O's. 3. Ischemic Cardiomyopathy 4. Permanent Atrial Fibrillation, on xarelto as an outpatient, rate controlled 5. Nonsustained V. tach, may be attributed to hypokalemia and hypomagnesemia. Electrolytes replaced. Cardiology consulted for further evaluation. Continue telemetry monitoring. 6. Hypokalemia and hypomagnesemia, replaced per protocol. Repeat lab work in the morning. 7. Chronic medical problems:CAD, HTN, HLD, DM, type II, COPD, Hx Prostate Cancer with history of artificial urethral sphincter placement 8. DVT prophylaxis with SCDs Plan: - hold home ASA/Xarelto - hold home triamterine-HCTZ -Repeat lab work pending - aspart low dose SSI + accuchecks AC/HS - continue home symbicort, cetirizine, duoneb PRN, singulair
[2020-08-25 12:48] LABS: African American GFR (CKD) 83.2 (60.0-200.0); Anion Gap 4.3 mmol/L (4.00-12.00); Calcium 7.8 mg/dL (8.7-10.3); Carbon Dioxide 27.7 mmol/L (21.6-31.8); Magnesium 1.9 mg/dL (1.5-2.4); Non-African American GFR(CKD) 71.8 (60.0-200.0); Potassium 3.5 mmol/L (3.5-5.5)
[2020-08-25] MEDS: POTASSIUM CHLORIDE ER 20 MEQ TAB.ER PO SCH ×2 (13:02→14:10)
--- NOTE | 2020-08-25 13:08 | PN ---
PROGRESS NOTE HISTORY: Patient is a 80-year-old white male admitted to the hospital with GI bleed. Apparently patient had multiple episodes of bright red blood per rectum yesterday. He became hypotensive on the floor. He was given 2 units of PRBC transfusion and hemoglobin now is 11 g/dL. As per the nursing staff, he had 3 episodes of bloody bowel movements yesterday and none so far this morning. The patient has dementia and he denies any complaints. Most of the history was obtained from the patient's nursing staff. PHYSICAL EXAMINATION: He appears comfortable. VITAL SIGNS: Stable. Blood pressure is 127/59, pulse rate 56, temperature 97.8. HEENT: Examination unremarkable. Conjunctivae pink. Sclerae anicteric. Oral cavity no lesions. NECK: No JVD or lymph node enlargement. CHEST: Clear to auscultation. HEART: Regular rate and rhythm. ABDOMEN: Soft, bowel sounds are positive. No organomegaly. EXTREMITIES: No pedal edema. NEURO: He is alert and oriented x3. No focal deficits. LABS: From today, WBC 7.4, hemoglobin 11.9, platelets normal. Basic metabolic panel is within normal limits. IMPRESSION: 1. Acute lower GI bleed. The patient had multiple episodes of bright red blood per rectum yesterday and apparently became hypotensive requiring 2 units of PRBC transfusion. Hemoglobin today 11 g/dL. Since late last night he has had no further episodes of bleeding. 2. History of atrial fibrillation on Xarelto, currently on hold. 3. History of hypertension and hyperlipidemia. 4. History of mild dementia. RECOMMENDATIONS: 1. Continue with a clear liquid diet. 2. Proceed with colonoscopy tomorrow. The patient is not comprehending this and hence will obtain the consent from the patient's family. In the meantime monitor CBC on a daily basis and we will follow with you closely. Thank you for this consultation. MMODL / IJN: [id number] /
[2020-08-25] MEDS ORDERED: PEG 3350-NA SULF,BICARB,CL/KCL 4,000 ML BOTTLE PO ONE (17:00)
[2020-08-25] MEDS: SODIUM CHLORIDE 0.9% 1,000 ML IV SCH (19:28)
[2020-08-25] MEDS: ATORVASTATIN 80 MG TAB PO SCH (19:50)
[2020-08-25] MEDS: MONTELUKAST 10 MG TAB PO SCH (19:50)
[2020-08-26] MEDS: INSULIN ASPART (NovoLOG) 100 UNIT/ML VIAL SQ SCH ×3 (06:12→18:05)
[2020-08-26] MEDS: IPRATROPIUM 0.5 MG/2.5 ML NEBU INHALATION SCH ×4 (07:57→19:56)
[2020-08-26] MEDS: IPRATROPIUM-ALBUTEROL 3 ML NEB INHALATION PRN ×2 (07:57→13:02)
[2020-08-26] MEDS: SYMBICORT 80-4.5 MCG INHALER INHALATION SCH ×2 (07:57→19:56)
[2020-08-26 08:25] LABS: African American GFR (CKD) >90 (>60 ml/min/1.73 sqM); Anion Gap 2 mmol/L; Blood Urea Nitrogen 14 mg/dL (9-20); Carbon Dioxide 29 mmol/L (22-30); Chloride 104 mmol/L (98-107); Glucose 102 mg/dL (74-99); Magnesium 1.7 mg/dL (1.6-2.3); Non-African American GFR(CKD) 79 (>60 ml/min/1.73 sqM); Potassium 3.8 mmol/L (3.5-5.1); Sodium 135 mmol/L (137-145)
[2020-08-26 08:48] LABS: Anisocytosis Slight; Basophils # (A) 0.1 k/uL (0-0.2); Basophils % (A) 1 %; Eosinophils # (A) 0.1 k/uL (0-0.7); Eosinophils % (A) 2 %; HCT 36.5 % (39.0-53.0); Hypochromasia Slight; Lymphocytes % (A) 26 %; MCH 30.4 pg (25.0-35.0); MCV 91.9 fL (80.0-100.0); Mean Platelet Volume 6.7; Monocytes # (A) 0.8 k/uL (0-1.0); Monocytes % (A) 11 %; Neutrophils # (A) 4.4 k/uL (1.3-7.7); Neutrophils % (A) 58 %; Platelet Count 256 k/uL (150-450); RBC 3.97 m/uL (4.30-5.90); RDW 17.2 % (11.5-15.5); WBC 7.6 k/uL (3.8-10.6)
[2020-08-26] MEDS: FUROSEMIDE 10 MG/ML 4 ML VIAL IV SCH (08:49)
[2020-08-26] MEDS: PANTOPRAZOLE 40 MG/10 ML VIAL IV SCH ×2 (08:49→21:26)
[2020-08-26] MEDS: LORATADINE 10 MG TAB PO SCH (08:49)
[2020-08-26] MEDS: CITALOPRAM HYDROBROMIDE 20 MG TAB PO SCH (08:49)
[2020-08-26] MEDS: MAGNESIUM OXIDE 400 MG TAB PO SCH (08:49)
[2020-08-26 09:22] LABS: Poikilocytosis (M) Present
--- NOTE | 2020-08-26 10:41 | PN ---
PROGRESS NOTE DATE OF SERVICE: 08/26/2020 INTERVAL HISTORY: Patient is a 80-year-old white male admitted to the hospital with GI bleed and multiple episodes of dark colored/maroon-colored stools and subsequently they turned red. His hemoglobin was initially 8.1 g/dL. He received 2 units of PRBC transfusion currently at 12 g/dL. The patient was scheduled for a colonoscopy today but he did not complete his prep and hence the procedure was canceled. He denies any symptoms. As per the nursing staff, he had about 6 liquid stools yesterday but no bleeding. PHYSICAL EXAMINATION: Blood pressure is 125/67, pulse 65, temperature 98.4. HEENT: Examination unremarkable. Conjunctivae are pink. Sclerae anicteric. Oral cavity no lesions. NECK: No JVD. No lymph node enlargement. CHEST: Clear to auscultation. HEART: Regular rate and rhythm. ABDOMEN: Soft, bowel sounds are positive, no organomegaly. EXTREMITIES: No pedal edema. SKIN: No rashes. NEUROLOGIC: Alert and oriented x3. No focal deficits. LABS: WBC 7.6, hemoglobin 12, platelets normal. Basic metabolic panel is within normal limits. IMPRESSION: Acute gastrointestinal bleed possibly lower in etiology cannot rule out upper GI source. Hemoglobin stable at 12 g/dL. The patient was scheduled for an EGD and colonoscopy today but canceled because of poor prep. RECOMMENDATION: 1. Continue with colon prep for today. 2. Monitor CBC on a daily basis. 3. Keep him on a clear liquid diet today. 4. Scheduled for an EGD and colonoscopy tomorrow. Thank you for this consultation. MMODL / MIKEN: [id number] /
[2020-08-26] MEDS ORDERED: POTASSIUM CHLORIDE ER 20 MEQ TAB.ER PO STA (11:50)
--- NOTE | 2020-08-26 11:58 | P.CRDCN ---
History of Present Illness Consult date: 08/26/20 History of present illness: CHIEF COMPLAINT: V. tach HISTORY OF PRESENT ILLNESS: This is a 80-year-old male with a past medical history significant for atrial fibrillation, GI bleed, V. fib cardiac arrest, diabetes, and COPD. Patient follows in the office with Dr. Long. We have been asked to see the patient in consultation for nonsustained V. tach. Patient was hospitalized in July 2020 secondary to V. fib cardiac arrest, septic shock secondary to E. coli bacteremia due to urinary tract infection, and GI bleed. She was discharged to [facility]. He states he has been home for approximately 10 days. He states he resumed his Xarelto at that time. He initially came to the hospital with a complaint of dark stools. Yesterday he was found to be hypotensive and was having bright red blood from his rectum. He received 2 units packed RBCs. He is scheduled for EGD and colonoscopy tomorrow. Patient denies any chest pain or pressure. He was noted to have 2 runs of nonsustained ventricular tachycardia. At that time his magnesium was low at 1.4 and his potassium was low at 3.0. These were supplemented. He has had no further runs of V. tach since that time. DIAGNOSTICS: EKG reveals atrial fibrillation with controlled ventricular rate Laboratory data: W BC 7.6. Hemoglobin 12.0. Platelet count 256. Sodium 135. Potassium 3.8. BUN 14. Crit and 0.93. Magnesium 1.7. Current home cardiac medications include Xarelto 20 mg daily, Triamterene-hctz 37.5-25mg daily, Lasix 40 g daily, Lipitor 80 mg daily, and aspirin 81 mg daily Echocardiogram completed July 2020 reveals ejection fraction 45-50%% REVIEW OF SYSTEMS: At the time of my exam: CONSTITUTIONAL: Denies fever or chills. HEENT: Denies blurred vision, vision changes, or eye pain. Denies hemoptysis CARDIOVASCULAR: Denies chest pain, orthopnea, PND or palpitations RESPIRATORY: No shortness of breath. GASTROINTESTINAL: Denies abdominal pain. Denies nausea or vomiting. HEMATOLOGIC: Denies bleeding disorders. GENITOURINARY: Denies any blood in urine. SKIN: Denies pruitis. Denies rash. PHYSICAL EXAM: VITAL SIGNS: Reviewed. GENERAL: Well-developed in no acute distress. HEENT: Head is normocephalic. Pupils are equal, round. Sclerae anicteric. Mucous membranes of the mouth are moist. Neck supple. No JVD or thyromegaly LUNGS: Respirations even and unlabored. Lungs diminished. HEART: Irregular rate and rhythm. S1 and S2 heard. ABDOMEN: Soft. Nondistended. Nontender. EXTREMITIES: Normal range of motion. No clubbing or cyanosis. Peripheral pulses intact. No lower extremity edema NEUROLOGIC: Awake and alert. Oriented x 3. ASSESSMENT: Acute GI bleed Nonsustained ventricular tachycardia Hypokalemia Hypomagnesemia Chronic persistent atrial fibrillation, on long-term anticoagulation with Xarelto Recent hospitalization for septic shock, E. coli bacteremia, urinary tract infection, and V. fib cardiac arrest, and GI bleed, July 2020 Chronic systolic congestive heart failure, EF 45% Hypertension Hyperlipidemia PLAN: No need to repeat echocardiogram and this was performed in July 2020 Begin Toprol XL 25 mg daily Discontinue IV Lasix. Resume oral Lasix 40 mg daily Continue to hold Xarelto and aspirin. Monitor hemoglobin. Patient skilled for EGD and colonoscopy tomorrow Continue to monitor electrolytes. Recommend keeping potassium greater than 4 and magnesium greater than 2. Patient will need to have outpatient workup for CAD including cardiac cath in the future when he is medically stable Nurse practitioner note has been reviewed by physician. Signing provider agrees with the documented findings, assessment, and plan of care. Past Medical History Past Medical History: Atrial Fibrillation, Heart Failure, COPD, Diabetes Mellitus, Prostate Disorder Additional Past Medical History / Comment(s): PROSTATE CANCER - ( NO CHEMO OR RADIATION), HARD OF HEARING History of Any Multi-Drug Resistant Organisms: None Reported Past Surgical History: Bladder Surgery, Orthopedic Surgery, Prostate Surgery Additional Past Surgical History / Comment(s): prostatectomy, bladder suspension, surgery for benign prostate, LEFT ear surgery Past Anesthesia/Blood Transfusion Reactions: No Reported Reaction Past Psychological History: Unable to Obtain Smoking Status: Never smoker, Unknown if ever smoked Past Alcohol Use History: None Reported Additional Past Alcohol Use History / Comment(s): CHEW TOBACCO Past Drug Use History: None Reported Medications and Allergies Home Medications Medication Instructions Recorded Confirmed Type Citalopram Hydrobromide [CeleXA] 20 mg PO DAILY 10/15/19 08/23/20 History Triamterene-Hctz 37.5-25Mg 1 tab PO DAILY 10/15/19 08/23/20 History [Maxzide 37.5-25] Fluticasone/Umeclidin/Vilanter 1 puff INHALATION RT-BID 05/12/20 08/23/20 History [Trelegy Ellipta 100-62.5-25] Aspirin 81 mg PO DAILY chew 07/26/20 08/23/20 Rx Atorvastatin [Lipitor] 80 mg PO HS tab 07/26/20 08/23/20 Rx Pantoprazole [Protonix] 40 mg PO DAILY #30 tablet.dr 07/26/20 08/23/20 Rx Cephalexin [Keflex] 500 mg PO QID 08/23/20 08/23/20 History Cetirizine HCl [Zyrtec] 10 mg PO DAILY 08/23/20 08/23/20 History Furosemide [Lasix] 40 mg PO DAILY 08/23/20 08/23/20 History Ipratropium-Albuterol Nebulize 3 ml INHALATION RT-TID PRN 08/23/20 08/23/20 History [Duoneb 0.5 mg-3 mg/3 ml Soln] Magnesium Oxide 400 mg PO DAILY 08/23/20 08/23/20 History Montelukast [Singulair] 10 mg PO HS 08/23/20 08/23/20 History Rivaroxaban [Xarelto] 20 mg PO DAILY@1700 08/23/20 08/23/20 History glipiZIDE [Glucotrol] 5 mg PO DAILY 08/23/20 08/23/20 History Allergies Allergy/AdvReac Type Severity Reaction Status Date / Time carvedilol [From Coreg] Allergy Chest Pain Verified 08/23/20 18:07 Physical Exam Vitals: Vital Signs Temp Pulse Pulse Resp BP Pulse Ox 08/26/20 08:08 64 08/26/20 08:00 98.4 F 65 18 125/67 96 08/26/20 07:58 64 08/26/20 03:52 97.9 F 75 18 114/71 97 08/25/20 23:25 97.8 F 74 18 130/60 98 08/25/20 20:14 62 08/25/20 20:04 60 08/25/20 20:00 97.8 F 65 20 150/55 99 08/25/20 16:00 98.9 F 71 18 118/79 98 08/25/20 13:41 66 18 08/25/20 12:00 97.9 F 66 18 155/68 98 Intake and Output 08/25/20 08/26/20 08/26/20 22:59 06:59 14:59 Intake Total 2000 500 250 Output Total 1600 175 Balance 400 325 250 Intake: Oral 2000 500 250 Output: Urine 1600 175 Other: Voiding Method External Catheter External Catheter # Bowel Movements 2 3 Results 08/26/20 07:58 08/26/20 07:58 CBC 08/26/20 Range/Units 07:58 WBC 7.6 (3.8-10.6) k/uL RBC 3.97 L (4.30-5.90) m/uL Hgb 12.0 L (13.0-17.5) gm/dL Hct 36.5 L (39.0-53.0) % Plt Count 256 (150-450) k/uL Comprehensive Metabolic Panel 08/25/20 08/26/20 Range/Units 07:27 07:58 Sodium 136 135 L (135-145) mmol/L Potassium 3.5 3.8 (3.5-5.5) mmol/L Chloride 104 104 (96-109) mmol/L Carbon Dioxide 27.7 29 (21.6-31.8) mmol/L BUN 14.0 14 (9.0-27.0) mg/dL Creatinine 1.0 0.93 (0.6-1.5) mg/dL Glucose 108 102 H (70-110) mg/dL Calcium 7.8 L 8.0 L (8.7-10.3) mg/dL Current Medications Generic Name Dose Route Start Last Admin Trade Name Freq PRN Reason Stop Dose Admin Acetaminophen 650 mg 08/23/20 16:31 Acetaminophen Tab 325 Mg Tab PO Q6HR PRN Mild Pain or Fever > 100.5 Albuterol/Ipratropium 3 ml 08/23/20 20:00 08/26/20 07:57 Ipratropium-Albuterol 3 Ml Neb INHALATION 3 ml RT-TID PRN Administration Shortness Of Breath Atorvastatin Calcium 80 mg 08/23/20 21:00 08/25/20 19:50 Atorvastatin 80 Mg Tab PO 80 mg HS MYLES Administration Budesonide/Formoterol Fumarate 2 puff 08/23/20 20:00 08/26/20 07:57 Symbicort 80-4.5 Mcg Inhaler INHALATION 2 puff RT-BID MYLES Administration Citalopram Hydrobromide 20 mg 08/24/20 09:00 08/26/20 08:49 Citalopram Hydrobromide 20 Mg Tab PO 20 mg DAILY MYLES Administration Furosemide 40 mg 08/25/20 09:00 08/26/20 08:49 Furosemide 10 Mg/Ml 4 Ml Vial IV 40 mg DAILY MYLES Administration Sodium Chloride 1,000 mls @ 20 mls/hr 08/23/20 16:45 08/25/20 19:28 Saline 0.9% IV Not Given .Q24H MYLES Insulin Aspart 0 unit 08/24/20 07:30 08/26/20 06:12 Insulin Aspart (Novolog) 100 Unit/Ml Vial SQ Not Given AC-TID [facility] Protocol Ipratropium [place] 0.5 mg 08/23/20 20:00 08/26/20 07:57 Ipratropium 0.5 Mg/2.5 Ml Nebu INHALATION Not Given RT-QID MYLES Loratadine 10 mg 08/24/20 09:00 08/26/20 08:49 Loratadine 10 Mg Tab PO 10 mg DAILY MYLES Administration Magnesium Oxide 400 mg 08/24/20 09:00 08/26/20 08:49 Magnesium Oxide 400 Mg Tab PO 400 mg DAILY MYLES Administration Metoprolol Succinate 25 mg 08/26/20 09:45 Metoprolol Succinate (Er) 25 Mg Tab.Er.24h PO DAILY [facility] Miscellaneous Information 1 each 08/25/20 10:26 Magnesium Replacement Protocol 1 Each Misc MISCELLANE DAILY PRN Per Protocol Protocol Miscellaneous Information 1 each 08/25/20 10:26 Potassium Replacement Protocol 1 Each Misc MISCELLANE DAILY PRN Per Protocol Protocol Miscellaneous Information 1 each 08/25/20 12:50 Potassium Replacement Protocol 1 Each Mis MISCELLANE DAILY PRN Per Protocol Protocol Montelukast Sodium 10 mg 08/23/20 21:00 08/25/20 19:50 Montelukast 10 Mg Tab PO 10 mg HS MYLES Administration Naloxone HCl 0.2 mg 08/23/20 16:32 Naloxone 0.4 Mg/Ml 1 Ml Vial IV Q2M PRN Opioid Reversal Ondansetron HCl 4 mg 08/23/20 16:31 08/26/20 00:46 Ondansetron 4 Mg/2 Ml Vial IVP 4 mg Q8HR PRN Administration Nausea And Vomiting Pantoprazole Sodium 40 mg 08/23/20 21:00 08/26/20 08:49 Pantoprazole 40 Mg/10 Ml Vial IV 40 mg BID MYLES Administration Intake and Output 08/25/20 08/26/20 08/26/20 22:59 06:59 14:59 Intake Total 1999 500 250 Output Total 1600 175 Balance 400 325 250 Intake: Oral 1999 500 250 Output: Urine 1600 175 Other: Voiding Method External Catheter External Catheter # Bowel Movements 2 3 08/26/20 07:58 08/26/20 07:58
[2020-08-26] MEDS: MAGNESIUM SULFATE-D5W PMX 1 GM in DEXTROSE/WATER 1 100ML.BAG IVPB SCH ×2 (12:26→16:26)
[2020-08-26] MEDS: METOPROLOL SUCCINATE (ER) 25 MG TAB.ER.24H PO SCH (12:26)
[2020-08-26] MEDS: SODIUM CHLORIDE 0.9% 1,000 ML IV SCH (18:02)
--- NOTE | 2020-08-26 18:32 | P.PN ---
Subjective Progress Note Date: 08/26/20 (delayed charting seen at 0945) Principal diagnosis: Bright red blood per rectum Patient is a 80-year-old male for history of prostate cancer status post artificial urinary sphincter, coronary artery disease, hypertension, dyslipidemia, diabetes mellitus type 2, COPD, permanent A. fib on Xarelto, and ischemic cardiomyopathy with ejection fraction 45-50% who was recently admitted secondary to E. coli Dr. anemia, septic shock all secondary to urinary tract infection complicated by cardiac arrest and GI bleed was discharged approximately one month ago. He has been having diarrhea for one week prior to admission. On arrival to the ER his vital signs were stable condition. Laboratory analysis revealed a hemoglobin of 10.5. Glucose was low at 63, fecal occult blood was positive. His Xarelto withheld, he was started on IV push PPI. There is also some concern for acute exacerbation of systolic congestive heart failure and his Lasix was transitioned from oral to IV. C. diff and stool cultures were ordered. GI was consulted. His hemoglobin decreased on 08/24-8.5 and he was written for 2 units of packed red blood cells. He was seen by GI who recommended colonoscopy. Initially this was planned for 08/26 however patient was unable to complete prep and this needed to be delayed. He did develop some nonsustained V. tach during his hospitalization. Cardiology was consulted. Patient seen and examined at bedside. He denies any chest pain, shortness breath, nausea, vomiting, or diarrhea. General: non toxic, no distress, appears at stated age Derm: warm, dry Head: atraumatic, normocephalic, symmetric Eyes: EOMI, no lid lag, anicteric sclera Mouth: no lip lesion, mucus membranes moist Cardiovascular: S1S2 reg, no murmur, positive posterior tibial pulse bilateral, Lungs: CTA bilateral, no rhonchi, no rales , no accessory muscle use Abdominal: soft, nontender to palpation, no guarding, no appreciable organomegaly Ext: no gross muscle atrophy, no edema, no contractures Neuro: CN II-XI grossly intact, no focal neuro deficits Psych: Alert, oriented to self and situation, appropriate affect Bright red blood per rectumr - GI recs appreciated, Colonoscopy in AM - Hold Xarelto - Protonix IVP acute blood loss anemia - s/p 2 units pRBC - Follow CBC Nonsustained V. tach -Cardiology recommendations -Start Toprol 25 mg daily -We'll need cardiac cath when he is medically stable likely as an outpatient Acute exacerbation of systolic congestive heart failure with ejection fraction 45% -Transition from IV back to oral Lasix -Start Toprol 25 mg XL -Triamterene on hold -Not chronically on SISI inhibitor Hypokalemia and hypomagnesemia -Replace and recheck DM 2 - off orals - SSI - Follow BS - A1C -Check A1c Permanent A. fib -Rate controlled -Xarelto on hold secondary to GI bleed Chronic: Hypertension Dyslipidemia Recent hospitalization for E. coli urinary tract infection, bacteremia, and septic shock complicated by V. fib cardiac arrest GI bleed DVT prophylaxis: SCDs Discussed with: Patient, nursing, cardio Anticipated discharge: 1-[address]: Home with home health A total of 25 minutes was spent on the care of this complex patient more than 50% of the time was spent in counseling and care coordination. Objective - Vital Signs Vital signs: Vital Signs Temp 98.4 F 08/26/20 16:00 Pulse 51 L 08/26/20 16:00 Resp 18 08/26/20 16:00 BP 116/61 08/26/20 16:00 Pulse Ox 92 L 08/26/20 16:00 Intake & Output 08/25/20 08/26/20 08/26/20 18:59 06:59 18:59 Intake Total 2500 250 Output Total 1200 575 700 Balance -1200 1925 -450 Intake: Oral 2500 250 Output: Urine 1200 575 700 Other: Voiding Method External Catheter External Catheter # Bowel Movements 3 - Labs CBC & Chem 7: 08/26/20 07:58 08/26/20 07:58 Labs: Abnormal Lab Results - Last 24 Hours (Table) 08/26/20 08/26/20 Range/Units 07:58 07:58 RBC 3.97 L (4.30-5.90) m/uL Hgb 12.0 L (13.0-17.5) gm/dL Hct 36.5 L (39.0-53.0) % RDW 17.2 H (11.5-15.5) % Sodium 135 L (137-145) mmol/L Glucose 102 H (74-99) mg/dL Calcium 8.0 L (8.4-10.2) mg/dL Microbiology - Last 24 Hours (Table) 08/23/20 19:53 Stool Culture - Preliminary Stool
[2020-08-26] MEDS: MONTELUKAST 10 MG TAB PO SCH (21:26)
[2020-08-26] MEDS: ATORVASTATIN 80 MG TAB PO SCH (21:26)
[2020-08-27] MEDS: INSULIN ASPART (NovoLOG) 100 UNIT/ML VIAL SQ SCH ×3 (06:17→17:23)
[2020-08-27] MEDS ORDERED: PROPOFOL 10 MG/ML 20 ML VIAL IV ONE (06:53)
[2020-08-27] MEDS ORDERED: LIDOCAINE 1% INJ 10MG/ML (20 ML MDV) ONE (06:53)
[2020-08-27] MEDS ORDERED: IV FLUID CONTINUATION 1,000 ML IV ONE (06:54)
--- NOTE | 2020-08-27 07:27 | P.PCN ---
Date of Procedure: 08/27/20 Procedure(s) Performed: Brief history: Patient is a pleasant 80-year-old white male admitted to the hospital with acute GI bleed. She multiple episodes of dark colored stool followed by rectal rectum and presented with a hemoglobin of 8 g/dL. Rest of the severe difficulty and hemoglobin is stable around 11. Xarelto has been on hold for 3 days. He is scheduled for an upper endoscopy and colonoscopy to evaluate further. Procedure performed: Esophagogastroduodenoscopy with biopsy Colonoscopy with biopsy Preoperative diagnosis: Acute GI bleed Anesthesia: MAC Procedure: After informed consent was obtained from the patient was brought into the endoscopy unit and IV sedation was administered by anesthesia under continuous monitoring. Initially upper endoscopy was done. The Olympus GF 160 video endoscope was inserted inserted into the mouth and esophagus intubated without any difficulty and was gradually advanced into the stomach and duodenum and carefully examined. The bulb of the duodenum appeared normal. and the second part of the duodenum there was a 1 cm linear polyp that was biopsied. The scope was then withdrawn into the stomach adequately insufflated with air and upon careful examination the antrum and body, cardia and fundus appeared normal. The scope was then withdrawn into the esophagus. The GE junction was located at 40 cm to the incisors. It appeared regular with no erythema erosions or ulcerations. Small hiatal hernia noted. Rest of the esophagus appeared normal. Patient tolerated the procedure well. At this time the patient continued to remain sedation. Initial digital rectal examination was normal. Olympus CF 160 video colonoscope was then inserted into the rectum and gradually advanced to the cecum without any difficulty. Careful examination was performed as the scope was gradually being withdrawn. The prep was excellent. The cecum, ascending colon, transverse colon, descending colon, appeared normal. There was severe segmental colitis involving the distal sigmoid colon and proximal rectum extending from 10-30 cm from the anal verge with severe mucosal erythema friability granularity deep ulcerations with cobblestoning of the mucosa, status post multiple biopsies to rule out inflammatory bowel disease. The distal rectum appeared normal. Retroflexion was performed in the rectum and no lesions were noted. Patient tolerated the procedure well. Impression: 1. Upper endoscopy revealed 1 cm linear duodenal polyp in the second part of the duodenum status post biopsy and small hiatal 2. Colonoscopy revealed severe segmental colitis involving the proximal rectum and distal sigmoid colon extending from 10-30 cm from the anal verge with severe mucosal erythema friability cobblestoning and deep ulcerations, status post biopsies to rule out inflammatory bowel disease Recommendations: Findings of this examination were discussed with the patient.at this time will await the biopsy results. Continue to hold the Xarelto for now. Advance diet as tolerated. Will start him on mesalamine enemas once at bedtime for possible IBD.
[2020-08-27 08:50] LABS: Calcium 7.9 mg/dL (8.4-10.2)
[2020-08-27 08:58] LABS: Potassium 3.8 mmol/L (3.5-5.1)
[2020-08-27] MEDS: IPRATROPIUM 0.5 MG/2.5 ML NEBU INHALATION SCH ×4 (08:58→20:06)
[2020-08-27] MEDS: SYMBICORT 80-4.5 MCG INHALER INHALATION SCH ×2 (08:58→20:06)
[2020-08-27 09:00] LABS: Anisocytosis Slight; Basophils # (A) 0.1 k/uL (0-0.2); Basophils % (A) 1 %; Eosinophils # (A) 0.2 k/uL (0-0.7); Eosinophils % (A) 3 %; HCT 34.4 % (39.0-53.0); HGB 11.2 gm/dL (13.0-17.5); Lymphocytes # (A) 2.1 k/uL (1.0-4.8); Lymphocytes % (A) 31 %; MCH 29.7 pg (25.0-35.0); MCHC 32.7 g/dL (31.0-37.0); Monocytes # (A) 0.5 k/uL (0-1.0); Monocytes % (A) 8 %; Neutrophils # (A) 3.7 k/uL (1.3-7.7); Neutrophils % (A) 56 %; Platelet Count 253 k/uL (150-450); RBC 3.77 m/uL (4.30-5.90); RDW 17.4 % (11.5-15.5); WBC 6.6 k/uL (3.8-10.6)
[2020-08-27] MEDS: METOPROLOL SUCCINATE (ER) 25 MG TAB.ER.24H PO SCH (09:11)
[2020-08-27] MEDS: FUROSEMIDE 40 MG TAB PO SCH (09:11)
[2020-08-27] MEDS: MAGNESIUM OXIDE 400 MG TAB PO SCH (09:11)
[2020-08-27] MEDS: PANTOPRAZOLE 40 MG/10 ML VIAL IV SCH ×2 (09:11→22:16)
[2020-08-27] MEDS: LORATADINE 10 MG TAB PO SCH (09:11)
[2020-08-27] MEDS: CITALOPRAM HYDROBROMIDE 20 MG TAB PO SCH (09:11)
[2020-08-27 09:28] LABS: Glucose,Whole Blood 127 mg/dL (75-99)
[2020-08-27 09:29] LABS: Glucose,Whole Blood 135 mg/dL (75-99)
[2020-08-27 09:29] LABS: Glucose,Whole Blood 153 mg/dL (75-99)
[2020-08-27 09:32] LABS: Glucose,Whole Blood 143 mg/dL (75-99)
[2020-08-27 09:32] LABS: Glucose,Whole Blood 118 mg/dL (75-99)
[2020-08-27 09:34] LABS: Glucose,Whole Blood 111 mg/dL (75-99)
[2020-08-27 09:35] LABS: Glucose,Whole Blood 140 mg/dL (75-99)
[2020-08-27 09:35] LABS: Glucose,Whole Blood 154 mg/dL (75-99)
[2020-08-27 09:35] LABS: Glucose,Whole Blood 95 mg/dL (75-99)
[2020-08-27 09:35] LABS: Glucose,Whole Blood 116 mg/dL (75-99)
[2020-08-27 09:37] LABS: Glucose,Whole Blood 95 mg/dL (75-99)
[2020-08-27 09:39] LABS: Glucose,Whole Blood 117 mg/dL (75-99)
[2020-08-27 09:39] LABS: Glucose,Whole Blood 159 mg/dL (75-99)
[2020-08-27 09:40] LABS: Glucose,Whole Blood 121 mg/dL (75-99)
[2020-08-27 10:09] LABS: Poikilocytosis (M) Present
[2020-08-27 10:10] LABS: RBC Fragments Present
[2020-08-27 11:45] LABS: Glucose,Whole Blood 114 mg/dL (75-99)
[2020-08-27] MEDS ORDERED: POTASSIUM CHLORIDE ER 20 MEQ TAB.ER PO STA (12:47)
--- NOTE | 2020-08-27 12:50 | P.PN ---
Subjective Progress Note Date: 08/27/20 CHIEF COMPLAINT: V. tach HISTORY OF PRESENT ILLNESS: 08/26/2020 This is a 80-year-old male with a past medical history significant for atrial fibrillation, GI bleed, V. fib cardiac arrest, diabetes, and COPD. Patient follows in the office with Dr. Long. We have been asked to see the patient in consultation for nonsustained V. tach. Patient was hospitalized in July 2020 secondary to V. fib cardiac arrest, septic shock secondary to E. coli bacteremia due to urinary tract infection, and GI bleed. She was discharged to [facility]. He states he has been home for approximately 10 days. He states he resumed his Xarelto at that time. He initially came to the hospital with a complaint of dark stools. Yesterday he was found to be hypotensive and was having bright red blood from his rectum. He received 2 units packed RBCs. He is scheduled for EGD and colonoscopy tomorrow. Patient denies any chest pain or pressure. He was noted to have 2 runs of nonsustained ventricular tachycardia. At that time his magnesium was low at 1.4 and his potassium was low at 3.0. These were supplemented. He has had no further runs of V. tach since that time. Echocardiogram completed July 2020 reveals ejection fraction 45-50%% 08/27/2020 Patient examined this morning at the bedside. Patient has had no further episodes of nonsustained ventricular tachycardia. He is bradycardic this morning with a heart rate in the 50s. He underwent EGD and colonoscopy y esterday. EGD revealed duodenal polyp and small hiatal hernia. Colonoscopy revealed severe segmental colitis involving the proximal rectum and distal sigmoid colon. PHYSICAL EXAM: VITAL SIGNS: Reviewed. GENERAL: Well-developed in no acute distress. HEENT: Head is normocephalic. Pupils are equal, round. Sclerae anicteric. Mucous membranes of the mouth are moist. Neck supple. No JVD or thyromegaly LUNGS: Respirations even and unlabored. Lungs diminished. HEART: Irregular rate and rhythm. S1 and S2 heard. ABDOMEN: Soft. Nondistended. Nontender. EXTREMITIES: Normal range of motion. No clubbing or cyanosis. Peripheral pulses intact. No lower extremity edema NEUROLOGIC: Awake and alert. Oriented x 3. ASSESSMENT: Acute GI bleed, status post EGD and colonoscopy revealing severe colitis Nonsustained ventricular tachycardia Hypokalemia Hypomagnesemia Chronic persistent atrial fibrillation, on long-term anticoagulation with Xarelto Recent hospitalization for septic shock, E. coli bacteremia, urinary tract infection, and V. fib cardiac arrest, and GI bleed, July 2020 Chronic systolic congestive heart failure, EF 45% Hypertension Hyperlipidemia PLAN: Continue to hold Xarelto and aspirin. Monitor hemoglobin. Continue to monitor electrolytes. Recommend keeping potassium greater than 4 and magnesium greater than 2. Kdur 20meq x 1 dose now Begin Kdur 10meq daily secondary to diuretic therapy Decrease metoprolol to 12.5 mg secondary to bradycardia Patient will need to have outpatient workup for CAD including cardiac cath in the future when he is medically stable Nurse practitioner note has been reviewed by physician. Signing provider agrees with the documented findings, assessment, and plan of care. Objective - Vital Signs Vital signs: Vital Signs Temp 98.4 F 08/27/20 12:00 Pulse 56 L 08/27/20 12:02 Resp 22 08/27/20 12:00 BP 119/62 08/27/20 12:00 Pulse Ox 96 08/27/20 12:00 Intake & Output 08/26/20 08/27/20 08/27/20 18:59 06:59 18:59 Intake Total 1330 600 Output Total 700 Balance 630 600 Intake: IV 600 Oral 1330 0 Output: Urine 700 Other: Voiding Method Bedpan Diaper # Voids 1 # Bowel Movements 1 1 - Labs CBC & Chem 7: 08/27/20 07:42 08/27/20 07:49 Labs: Abnormal Lab Results - Last 24 Hours (Table) 08/24/20 08/24/20 08/24/20 Range/Units 12:48 16:49 22:56 RBC (4.30-5.90) m/uL Hgb (13.0-17.5) gm/dL Hct (39.0-53.0) % RDW (11.5-15.5) % Sodium (137-145) mmol/L POC Glucose (mg/dL) 127 H 153 H 135 H (75-99) mg/dL Calcium (8.4-10.2) mg/dL 08/25/20 08/25/20 08/25/20 Range/Units 00:41 06:02 12:02 RBC (4.30-5.90) m/uL Hgb (13.0-17.5) gm/dL Hct (39.0-53.0) % RDW (11.5-15.5) % Sodium (137-145) mmol/L POC Glucose (mg/dL) 143 H 118 H 117 H (75-99) mg/dL Calcium (8.4-10.2) mg/dL 08/25/20 08/25/20 08/26/20 Range/Units 16:53 20:13 06:05 RBC (4.30-5.90) m/uL Hgb (13.0-17.5) gm/dL Hct (39.0-53.0) % RDW (11.5-15.5) % Sodium (137-145) mmol/L POC Glucose (mg/dL) 159 H 121 H 111 H (75-99) mg/dL Calcium (8.4-10.2) mg/dL 08/26/20 08/26/20 08/26/20 Range/Units 11:55 16:41 20:46 RBC (4.30-5.90) m/uL Hgb (13.0-17.5) gm/dL Hct (39.0-53.0) % RDW (11.5-15.5) % Sodium (137-145) mmol/L POC Glucose (mg/dL) 154 H 116 H 140 H (75-99) mg/dL Calcium (8.4-10.2) mg/dL 08/27/20 08/27/20 08/27/20 Range/Units 07:42 07:49 11:39 RBC 3.77 L (4.30-5.90) m/uL Hgb 11.2 L (13.0-17.5) gm/dL Hct 34.4 L (39.0-53.0) % RDW 17.4 H (11.5-15.5) % Sodium 132 L (137-145) mmol/L POC Glucose (mg/dL) 114 H (75-99) mg/dL Calcium 7.9 L (8.4-10.2) mg/dL Microbiology - Last 24 Hours (Table) 08/23/20 19:53 Stool Culture - Final Stool
[2020-08-27 14:05] LABS: Hemoglobin A1C 5.7 % (4.0-6.0)
[2020-08-27 16:52] LABS: Glucose,Whole Blood 177 mg/dL (75-99)
--- NOTE | 2020-08-27 18:35 | P.PN ---
Subjective Progress Note Date: 08/27/20 (delayed charting seen at 0950) Principal diagnosis: Bright red blood per rectum Patient is a 80-year-old male for history of prostate cancer status post artificial urinary sphincter, coronary artery disease, hypertension, dyslipidemia, diabetes mellitus type 2, COPD, permanent A. fib on Xarelto, and ischemic cardiomyopathy with ejection fraction 45-50% who was recently admitted secondary to E. coli Dr. anemia, septic shock all secondary to urinary tract infection complicated by cardiac arrest and GI bleed was discharged approximately one month ago. He has been having diarrhea for one week prior to admission. On arrival to the ER his vital signs were stable condition. Laboratory analysis revealed a hemoglobin of 10.5. Glucose was low at 63, fecal occult blood was positive. His Xarelto withheld, he was started on IV push PPI. There is also some concern for acute exacerbation of systolic congestive heart failure and his Lasix was transitioned from oral to IV. C. diff and stool cultures were ordered. GI was consulted. His hemoglobin decreased on 08/24-8.5 and he was written for 2 units of packed red blood cells. He was seen by GI who recommended colonoscopy. Initially this was planned for 08/26 however patient was unable to complete prep and this needed to be delayed. He did develop some nonsustained V. tach during his hospitalization. Cardiology was consulted. felt to be due to hypokalemia and hypomagnesemia. He underwent colonoscopy on 08.27 which showed severe colitis and ulceration. He underwent biopsy. He was started on rectal steroids and he will need to stay off anticoagulation for the next 10- 14 days. He will need to follow-up with GI. Patient seen and examined at bedside. He denies any chest pain, shortness breath, nausea, vomiting, or diarrhea. General: non toxic, no distress, appears at stated age Derm: warm, dry Head: atraumatic, normocephalic, symmetric Eyes: EOMI, no lid lag, anicteric sclera Mouth: no lip lesion, mucus membranes moist Cardiovascular: S1S2 reg, no murmur, positive posterior tibial pulse bilateral, Lungs: CTA bilateral, no rhonchi, no rales , no accessory muscle use Abdominal: soft, nontender to palpation, no guarding, no appreciable organomegaly Ext: no gross muscle atrophy, no edema, no contractures Neuro: CN II-XI grossly intact, no focal neuro deficits Psych: Alert, oriented to self and situation, appropriate affect Severe colitis - GI recs appreciated, rectal steroids - Hold Xarelto for 7-14 days - Protonix to PO - Follow-up outpatient acute blood loss anemia - s/p 2 units pRBC - Follow CBC Nonsustained V. tach - Cardiology recommendations - Toprol decreased due to bradycardia - optimize electrolytes - He'll need cardiac cath when he is medically stable likely as an outpatient Acute exacerbation of systolic congestive heart failure with ejection fraction 45% - Oral Lasix - Toprol due to decreased bradycardia - Triamterene on hold - Not chronically on SISI inhibitor Hypokalemia and hypomagnesemia - Replace and recheck DM 2 - off orals - SSI - Follow BS - A1C 5.7 Permanent A. fib -Rate controlled -Xarelto on hold secondary to GI bleed Chronic: Hypertension Dyslipidemia Recent hospitalization for E. coli urinary tract infection, bacteremia, and septic shock complicated by V. fib cardiac arrest GI bleed Son updated over phone on plan of care. DVT prophylaxis: SCDs Discussed with: Patient, nursing, cardio Anticipated discharge: in AM Anticipated discharge place: Home with home health A total of 25 minutes was spent on the care of this complex patient more than 50% of the time was spent in counseling and care coordination. Objective - Vital Signs Vital signs: Vital Signs Temp 97.6 F 08/27/20 16:00 Pulse 56 L 08/27/20 16:32 Resp 22 08/27/20 16:00 BP 109/59 08/27/20 16:00 Pulse Ox 96 08/27/20 16:00 Intake & Output 08/26/20 08/27/20 08/27/20 18:59 06:59 18:59 Intake Total 1330 600 Output Total 700 Balance 630 600 Intake: IV 600 Oral 1330 0 Output: Urine 700 Other: Voiding Method Bedpan Bedpan Diaper Diaper # Voids 1 # Bowel Movements 1 1 - Labs CBC & Chem 7: 08/27/20 07:42 08/27/20 07:49 Labs: Abnormal Lab Results - Last 24 Hours (Table) 08/24/20 08/24/20 08/24/20 Range/Units 12:48 16:49 22:56 RBC (4.30-5.90) m/uL Hgb (13.0-17.5) gm/dL Hct (39.0-53.0) % RDW (11.5-15.5) % Sodium (137-145) mmol/L POC Glucose (mg/dL) 127 H 153 H 135 H (75-99) mg/dL Calcium (8.4-10.2) mg/dL 08/25/20 08/25/20 08/25/20 Range/Units 00:41 06:02 12:02 RBC (4.30-5.90) m/uL Hgb (13.0-17.5) gm/dL Hct (39.0-53.0) % RDW (11.5-15.5) % Sodium (137-145) mmol/L POC Glucose (mg/dL) 143 H 118 H 117 H (75-99) mg/dL Calcium (8.4-10.2) mg/dL 08/25/20 08/25/20 08/26/20 Range/Units 16:53 20:13 06:05 RBC (4.30-5.90) m/uL Hgb (13.0-17.5) gm/dL Hct (39.0-53.0) % RDW (11.5-15.5) % Sodium (137-145) mmol/L POC Glucose (mg/dL) 159 H 121 H 111 H (75-99) mg/dL Calcium (8.4-10.2) mg/dL 08/26/20 08/26/20 08/26/20 Range/Units 11:55 16:41 20:46 RBC (4.30-5.90) m/uL Hgb (13.0-17.5) gm/dL Hct (39.0-53.0) % RDW (11.5-15.5) % Sodium (137-145) mmol/L POC Glucose (mg/dL) 154 H 116 H 140 H (75-99) mg/dL Calcium (8.4-10.2) mg/dL 08/27/20 08/27/20 08/27/20 Range/Units 07:42 07:49 11:39 RBC 3.77 L (4.30-5.90) m/uL Hgb 11.2 L (13.0-17.5) gm/dL Hct 34.4 L (39.0-53.0) % RDW 17.4 H (11.5-15.5) % Sodium 132 L (137-145) mmol/L POC Glucose (mg/dL) 114 H (75-99) mg/dL Calcium 7.9 L (8.4-10.2) mg/dL 08/27/20 Range/Units 16:46 RBC (4.30-5.90) m/uL Hgb (13.0-17.5) gm/dL Hct (39.0-53.0) % RDW (11.5-15.5) % Sodium (137-145) mmol/L POC Glucose (mg/dL) 177 H (75-99) mg/dL Calcium (8.4-10.2) mg/dL Microbiology - Last 24 Hours (Table) 08/23/20 19:53 Stool Culture - Final Stool
[2020-08-27 20:46] LABS: Glucose,Whole Blood 123 mg/dL (75-99)
[2020-08-27] MEDS ORDERED: MESALAMINE 4 GM/60 ML ENEMA RECTAL SCH (21:00)
[2020-08-27] MEDS: ATORVASTATIN 80 MG TAB PO SCH (22:16)
[2020-08-27] MEDS: MONTELUKAST 10 MG TAB PO SCH (22:21)
[2020-08-27] MEDS: SODIUM CHLORIDE 0.9% 1,000 ML IV SCH (23:23)
[2020-08-28 04:21] VITALS: RESP 18
[2020-08-28 06:17] LABS: Glucose,Whole Blood 111 mg/dL (75-99)
[2020-08-28] MEDS: INSULIN ASPART (NovoLOG) 100 UNIT/ML VIAL SQ SCH ×2 (06:36→12:06)
[2020-08-28] MEDS: IPRATROPIUM 0.5 MG/2.5 ML NEBU INHALATION SCH ×2 (07:24→11:30)
[2020-08-28] MEDS: SYMBICORT 80-4.5 MCG INHALER INHALATION SCH (07:24)
[2020-08-28 07:35] LABS: Anisocytosis Slight; HCT 34.3 % (39.0-53.0); HGB 11.3 gm/dL (13.0-17.5); Hypochromasia Slight; MCH 30.7 pg (25.0-35.0); Mean Platelet Volume 6.9; Platelet Count 257 k/uL (150-450); RBC 3.68 m/uL (4.30-5.90)
[2020-08-28 07:54] LABS: Calcium 8.2 mg/dL (8.4-10.2)
[2020-08-28 08:08] VITALS: BP 108/61; TEMP 97.4
[2020-08-28] MEDS: CITALOPRAM HYDROBROMIDE 20 MG TAB PO SCH (08:21)
[2020-08-28] MEDS: MAGNESIUM OXIDE 400 MG TAB PO SCH (08:21)
[2020-08-28] MEDS: FUROSEMIDE 40 MG TAB PO SCH (08:21)
[2020-08-28] MEDS: LORATADINE 10 MG TAB PO SCH (08:21)
[2020-08-28] MEDS: PANTOPRAZOLE 40 MG/10 ML VIAL IV SCH (08:30)
[2020-08-28] MEDS ORDERED: POTASSIUM CHLORIDE ER 10 MEQ TAB.ER.PRT PO SCH (09:00)
[2020-08-28] MEDS ORDERED: METOPROLOL SUCCINATE (ER) 25 MG TAB.ER.24H PO SCH (09:00)
--- NOTE | 2020-08-28 10:20 | P.DS ---
Providers Date of admission: 08/24/20 12:41 Expected date of discharge: 08/28/20 Attending physician: Laxmi Chun MD Consults: 08/23/20 16:32 Consult Physician Routine Consulting Provider: Nessa Long Consult Reason/Comments: GI bleed Do you want consulting provider notified?: Yes 08/23/20 16:34 Consult Physician Routine Consulting Provider: Nessa Long Consult Reason/Comments: GI Bleed, melena Do you want consulting provider notified?: Yes 08/25/20 10:21 Consult Physician Routine Consulting Provider: Lowell Mcclendon Consult Reason/Comments: [place] Do you want consulting provider notified?: Yes Primary care physician: Physician Nonstaff Hospital Course: Discharge Diagnosis: Severe colitis- biopsy pending. acute blood loss anemia Nonsustained V. tach- Episode due to hypokalemia and hypomagnesemia. Off metoprolol due to bradycardia. Acute exacerbation of systolic congestive heart failure with ejection fraction 45% Hypokalemia and hypomagnesemia DM 2- Off orals hypoglycemic at admission A1C 5.7 Permanent A. fib Hypertension Dyslipidemia Recent hospitalization for E. coli urinary tract infection, bacteremia, and septic shock complicated by V. fib cardiac arrest GI bleed Hospital Course: Patient is a 80-year-old male for history of prostate cancer status post artificial urinary sphincter, coronary artery disease, hypertension, dyslipidemia, diabetes mellitus type 2, COPD, permanent A. fib on Xarelto, and ischemic cardiomyopathy with ejection fraction 45-50% who was recently admitted secondary to E. coli UTI, septic shock all secondary to urinary tract infection complicated by cardiac arrest and GI bleed was discharged approximately one month ago. He has been having diarrhea for one week prior to admission. On arrival to the ER his vital signs were stable condition. Laboratory analysis revealed a hemoglobin of 10.5. Glucose was low at 63, fecal occult blood was positive. His Xarelto withheld, he was started on IV push PPI. There is also some concern for acute exacerbation of systolic congestive heart failure and his Lasix was transitioned from oral to IV. C. diff and stool cultures were ordered. GI was consulted. His hemoglobin decreased on 08/24 to 8.5 and he was written for 2 units of packed red blood cells. He was seen by GI who recommended colonoscopy. Initially this was planned for 08/26 however patient was unable to complete prep and this needed to be delayed. He did develop some nonsustained V. tach during his hospitalization. Cardiology was consulted. It was felt to be due to hypokalemia and hypomagnesemia. He underwent colonoscopy on 08.27 which showed severe colitis and ulceration. He underwent biopsy. He was started on rectal steroids and he will need to stay off anticoagulation for the next 10-14 days. He will need to follow-up with GI. He did not have any recurrent bleeding after colonoscopy and was determined stable for discharge. He will continue on rectal Mesalamine. Patient seen and examined at bedside. No abdominal pain, no chest pain, no nausea, no vomiting, no additional blood that patient has noted. Vital signs reviewed and stable. General: non toxic, no distress, appears at stated age Derm: warm, dry Head: atraumatic, normocephalic, symmetric, [place] Eyes: EOMI, no lid lag, anicteric sclera Mouth: no lip lesion, mucus membranes moist Cardiovascular: S1S2 reg, no murmur, positive posterior tibial pulse bilateral, Lungs: Decreased bs bilateral bases, no rhonchi, no rales , no accessory muscle use Abdominal: soft, nontender to palpation, no guarding, no appreciable organomegaly Ext: no gross muscle atrophy, 2+ edema, no contractures Neuro: CN II-XI grossly intact, no focal neuro deficits Psych: Alert, oriented, appropriate affect A total of 35 minutes of time were spent preparing this complex discharge summary . Patient Condition at Discharge: Fair Plan - Discharge Summary New Discharge Prescriptions: New Potassium Chloride ER [K-Dur 10] 10 meq PO DAILY #30 tab.er.prt Mesalamine [Rowasa] 4 gm RECTAL HS 30 Days #1 bottle Continue Triamterene-Hctz 37.5-25Mg [Maxzide 37.5-25] 1 tab PO DAILY Citalopram Hydrobromide [CeleXA] 20 mg PO DAILY Fluticasone/Umeclidin/Vilanter [Trelegy Ellipta 100-62.5-25] 1 puff INHALATION RT-BID Atorvastatin [Lipitor] 80 mg PO HS tab Montelukast [Singulair] 10 mg PO HS Furosemide [Lasix] 40 mg PO DAILY Cetirizine HCl [Zyrtec] 10 mg PO DAILY Magnesium Oxide 400 mg PO DAILY Ipratropium-Albuterol Nebulize [Duoneb 0.5 mg-3 mg/3 ml Soln] 3 ml INHALATION RT-TID PRN PRN Reason: Shortness Of Breath Changed Pantoprazole [Protonix] 40 mg PO BID #60 tablet. Discontinued Aspirin 81 mg PO DAILY chew Cephalexin [Keflex] 500 mg PO QID Rivaroxaban [Xarelto] 20 mg PO DAILY@1700 glipiZIDE [Glucotrol] 5 mg PO DAILY Discharge Medication List Citalopram Hydrobromide [CeleXA] 20 mg PO DAILY 10/15/19 [History] Triamterene-Hctz 37.5-25Mg [Maxzide 37.5-25] 1 tab PO DAILY 10/15/19 [History] Fluticasone/Umeclidin/Vilanter [Trelegy Ellipta 100-62.5-25] 1 puff INHALATION RT-BID 05/12/20 [History] Atorvastatin [Lipitor] 80 mg PO HS tab 07/26/20 [Rx] Cetirizine HCl [Zyrtec] 10 mg PO DAILY 08/23/20 [History] Furosemide [Lasix] 40 mg PO DAILY 08/23/20 [History] Ipratropium-Albuterol Nebulize [Duoneb 0.5 mg-3 mg/3 ml Soln] 3 ml INHALATION RT-TID PRN 08/23/20 [History] Magnesium Oxide 400 mg PO DAILY 08/23/20 [History] Montelukast [Singulair] 10 mg PO HS 08/23/20 [History] Mesalamine [Rowasa] 4 gm RECTAL HS 30 Days #1 bottle 08/28/20 [Rx] Pantoprazole [Protonix] 40 mg PO BID #60 tablet. 08/28/20 [Rx] Potassium Chloride ER [K-Dur 10] 10 meq PO DAILY #30 tab.er.prt 08/28/20 [Rx] Follow up Appointment(s)/Referral(s): Nonstaff,Physician [Primary Care Provider] - 1-2 days Jaspreet Skaggs MD [REFERRING] - 1 Week Nessa Long MD [STAFF PHYSICIAN] - 1 Week Richard Long MD [STAFF PHYSICIAN] - 1 Week Activity/Diet/Wound Care/Special Instructions: Activity: as tolerated Diet: heart healthy carb consistent Special Instructions: Off Xarelto and Aspirin until cleared by Dr. Long (GI) Off Glipizide due to A1C 5.7, Conitnue to monitor blood sugars every morning and make a list to bring to your follow-up appointment with Dr. Skaggs Discharge Disposition: HOME WITH HOME HEALTH SERVICES
[2020-08-28 11:32] VITALS: PULSE 60
[2020-08-28 12:01] LABS: Glucose,Whole Blood 132 mg/dL (75-99)
--- NOTE | 2020-09-05 07:17 | CDI ---
Documentation Clarification Form Date: 09/05/2020 07:03:00 AM From: Dee Dee Monk Phone: If you have a question about this query, please contact Asha Sams, Export Specialist at [phone] between 8am and 5pm. Admit Date: 08/24/2020 12:41:00 PM Patient Name: Dami Escobar Visit Number: [id number] Discharge Date: 08/28/2020 01:47:00 PM ATTENTION: The Clinical Documentation Specialists (CDI) and [facility] Coding Staff appreciate your assistance in clarifying documentation. Please respond to the clarification below the line at the bottom and electronically sign. The CDI & [facility] Coding staff will review the response and follow-up if needed. Please note: Queries are made part of the Legal Health Record. If you have any questions, please contact the author of this message via ITS. Dr. Mohr, The final diagnosis of the pathology report states: sigmoid and rectal biopsies suspicious for Inflammatory Bowel Disease. DCS is pending path and documents magnetic observer colitis. Please clarify if you agree with the path report. Documentation states: severe colitis Patient history/risk factors: GI bleeding on anticoagulants Treatment: EGD and Colonoscopy with biopsies, rectal steroids off anticoagulationj for 10-14 days In your professional opinion, do you agree with the pathology report specifying Inflammatory Bowel disease as cause of patients bleeding? Yes No Other (please specify) Unable to determine Unable to determine- would ask GI MTDD
--- NOTE | 2020-09-08 11:02 | CDI ---
Documentation Clarification Form Date: 09/05/2020 07:03:00 AM From: Dee Dee Monk Phone: Admit Date: 08/24/2020 12:41:00 PM Patient Name: Dami Escobar Visit Number: [id number] Discharge Date: 08/28/2020 01:47:00 PM ATTENTION: The Clinical Documentation Specialists (CDI) and [facility] Coding Staff appreciate your assistance in clarifying documentation. Please respond to the clarification below the line at the bottom and electronically sign. The CDI & [facility] Coding staff will review the response and follow-up if needed. Please note: Queries are made part of the Legal Health Record. If you have any questions, please contact the author of this message via ITS. Dr. Nessa Long The final diagnosis of the pathology report states: sigmoid and rectal biopsies suspicious for Inflammatory Bowel Disease. DCS is pending path and documents servere colitis. Please clarify if you agree with the path report. Documentation states: severe colitis Patient history/risk factors: GI bleeding on anticoagulants Treatment: EGD and Colonoscopy with biopsies, rectal steroids off anticoagulationj for 10-14 days In your professional opinion, do you agree with the pathology report specifying Inflammatory Bowel disease as cause of patients bleeding? Yes No Other (please specify) Unable to determine ____ Yes dr.k Long MTDD
== END 2020-08-28 13:47 | disposition home health service (06) | DRG 385 ==
LOC: EC 13:51 → 1SOBS 16:53 → 4SSUR 20:24 → OBSVTOIN 08-24 12:41 → 3SCARD 08-24 23:09
PROVIDERS: ADMIT Internal Medicine; ATTEND Internal Medicine
PROC: 30233N1 Transfusion of Nonautologous Red Blood Cells into Peripheral Vein, Percutaneous Approach (ICD-10-PCS; 2020-08-24)
PROC: 0DBN8ZX Excision of Sigmoid Colon, Via Natural or Artificial Opening Endoscopic, Diagnostic (ICD-10-PCS; principal; 2020-08-27 07:00)
PROC: 0DB98ZX Excision of Duodenum, Via Natural or Artificial Opening Endoscopic, Diagnostic (ICD-10-PCS; principal; 2020-08-27 07:00)
PROC: 0DBP8ZX Excision of Rectum, Via Natural or Artificial Opening Endoscopic, Diagnostic (ICD-10-PCS; principal; 2020-08-27 07:00)
DX: K51.90 Ulcerative colitis, unspecified, without complications (principal); I50.23 Acute on chronic systolic (congestive) heart failure; D62 Acute posthemorrhagic anemia; I47.2 Ventricular tachycardia; I48.21 Permanent atrial fibrillation; E11.649 Type 2 diabetes mellitus with hypoglycemia without coma; E78.5 Hyperlipidemia, unspecified; E83.42 Hypomagnesemia; E87.6 Hypokalemia; F03.90 Unspecified dementia, unspecified severity, without behavioral disturbance, psychotic disturbance, mood disturbance, and anxiety; I11.0 Hypertensive heart disease with heart failure; I25.10 Atherosclerotic heart disease of native coronary artery without angina pectoris; I25.2 Old myocardial infarction; I25.5 Ischemic cardiomyopathy; J44.9 Chronic obstructive pulmonary disease, unspecified; K31.7 Polyp of stomach and duodenum; K44.9 Diaphragmatic hernia without obstruction or gangrene; Z79.01 Long term (current) use of anticoagulants; Z79.82 Long term (current) use of aspirin; Z79.84 Long term (current) use of oral hypoglycemic drugs; Z79.899 Other long term (current) drug therapy; Z85.46 Personal history of malignant neoplasm of prostate; Z86.74 Personal history of sudden cardiac arrest; H91.90 Unspecified hearing loss, unspecified ear; Z87.440 Personal history of urinary (tract) infections; Z88.8 Allergy status to other drugs, medicaments and biological substances
CPT/HCPCS: 36415; 43239; 45380; 74018; 80048; 80053; 82272; 82550; 83036; 83735; 84484; 85025; 85027; 85610; 85730; 86850; 86900; 86901; 86920; 87045; 87046; 87324; 88305; 93005; 94640; 94760; 99285